=== PATIENT | female | born 1960 | race Caucasian/White ===

== ENCOUNTER 2016-05-28 09:32 | Emergency (ER) | payer MEDICAID, OTHER ==
[2016-05-28] MEDS ORDERED: KETOROLAC TROMETHAMINE 60 MG/2 ML SDV IM ONE (11:03)
--- NOTE | 2016-05-28 11:04 | ER Document Report ---
ED Hip Pain/Injury - General Chief Complaint: Hip Pain Stated Complaint: HIP PAIN Information source: Patient Notes: Patient is a 55-year-old female who presents today with some right and midline lumbar pain and right lateral hip pain. Patient states she has had this pain for many years. She denies any weakness or numbness, incontinence, fevers or vomiting. Patient denies any abdominal pain, falls, recent trauma. TRAVEL OUTSIDE OF THE [place] IN LAST 30 DAYS: No - HPI Patient complains to provider of: Pain Occurred: Other - See above Where: Home Onset/Duration: Constant Quality of pain: Achy Severity: Moderate Pain Level: 2 Skin Color: Normal Skin Temperature: Warm Rotation of extremity: None Associated Symptoms: None - Related Data Allergies/Adverse Reactions: No Known Allergies Allergy (Verified 05/28/16 09:36) Past Medical History - General Information source: Patient - Social History Smoking Status: Current Every Day Smoker Cigarette use (# per day): No Chew tobacco use (# tins/day): No Smoking Education Provided: No Frequency of alcohol use: None Family History: Reviewed & Not Pertinent Patient has suicidal ideation: No Patient has homicidal ideation: No Pulmonary Medical History: Reports: Hx Asthma - last ED visit > 3 years ago, Hx Bronchitis, Hx COPD, Hx Pneumonia - required hospitalization Neurological Medical History: Reports: Hx Migraine. Denies: Hx Seizures Renal/ Medical History: Denies: Hx Peritoneal Dialysis Malignancy Medical History: GI Medical History: Reports: Hx Gastroesophageal Reflux Disease - Rx x 10 years , Hx Ulcer Musculoskeltal Medical History: Reports Hx Arthritis, Reports Hx Musculoskeletal Deformity, Reports Hx Musculoskeletal Trauma Psychiatric Medical History: Reports: Hx Bipolar Disorder, Hx Borderline Personality Disorder, Hx Depression - per [facility]'s note 11/16/14, Hx Schizophrenia - per ED note 10/07/14 Traumatic Medical History: Reports: Hx Fractures - tib RT, denies sugery Past Surgical History: Reports: Hx Dilation and Curettage, Hx Orthopedic Surgery - Bilateral knee replacements. Denies: Hx Appendectomy, Hx Bowel Surgery, Hx Section, Hx Cholecystectomy, Hx Hysterectomy, Hx Mastectomy , Hx Tonsillectomy, Hx Tubal Ligation - Immunizations Immunizations up to date: Yes Hx Diphtheria, Pertussis, Tetanus Vaccination: Yes Review of Systems - Review of Systems Constitutional: denies: Fever Physical Exam - Vital signs Notes: Reviewed vital signs and nursing note as charted by RN. CONSTITUTIONAL: Alert and oriented and responds appropriately to questions. Well -appearing; well-nourished ABD/GI: Normal bowel sounds; non-distended; soft, non-tender, no rebound, no guarding; no palpable organomegaly or masses BACK: The back appears normal and is non-tender to palpation, without erythema or swelling noted, there is no CVA tenderness EXT: Normal ROM in all joints; non-tender to palpation of bilateral hips. Patient appears to have full range of motion. No obvious swelling or erythema to the hips; no cyanosis, no effusions, no edema SKIN: Normal color for age and race; warm; dry; good turgor; capillary refill < 2 seconds; no acute lesions noted NEURO: Moves all extremities equally; Motor and sensory function intact; 2+ patellar reflexes bilaterally. PSYCH: The patient's mood and manner are appropriate. Grooming and personal hygiene are appropriate. Course - Re-evaluation Re-evalutation: 05/28/16 11:02 Given the history and physical examination, previous recent imaging of the lumbar spine and hip, no focal neurological deficits or signs of infection, I will discharge the patient home with strict return precautions and follow-up with orthopedics. Discharge - Discharge Clinical Impression: Right hip pain Condition: Good Disposition: HOME, SELF-CARE Additional Instructions: Come back immediately with any increased pain, weakness or numbness, being or defecating on herself, fevers, or any other acute problems. Please follow-up with orthopedics as we have discussed. Referrals: AFSHAN WRIGHT MD [ACTIVE STAFF] - Follow up as needed
[2016-05-28 11:46] VITALS: BP 93/59
== END 2016-05-28 11:46 | disposition home or self-care (01) ==
LOC: ER 09:32
DX: M25.551 Pain in right hip (principal); M54.5 Low back pain; F17.200 Nicotine dependence, unspecified, uncomplicated; J45.909 Unspecified asthma, uncomplicated; J44.9 Chronic obstructive pulmonary disease, unspecified
CPT/HCPCS: 99283; 96372; J1885

== ENCOUNTER → 2016-06-19 | Outpatient (CLI) | payer MEDICAID ==
[2016-06-19 15:51] LABS: ABSOLUTE BASOPHILS # (AUTO) 0.1 10^3/uL (0.0-0.2); ABSOLUTE EOSINOPHILS # (AUTO) 0.1 10^3/uL (0.0-0.6); ABSOLUTE LYMPHOCYTES (AUTO) 2.6 10^3/uL (0.5-4.7); ABSOLUTE MONOCYTES (AUTO) 0.6 10^3/uL (0.1-1.4); ABSOLUTE NEUT (AUTO) 3.6 10^3/uL (1.7-8.2); BASOPHILS % (AUTO) 1.4 % (0-2); HEMOGLOBIN 12.6 g/dL (12.0-15.5); HGB HCT DIFFERENCE -0.2; LYMPHOCYTES % (AUTO) 37.2 % (13-45); MEAN CORPUSCULAR HEMOGLOBIN 31.1 pg (27.0-33.4); MEAN CORPUSCULAR HGB CONC 33.2 g/dL (32.0-36.0); MEAN CORPUSCULAR VOLUME 94 fl (80-97); MONOCYTES % (AUTO) 8.2 % (3-13); RED BLOOD COUNT 4.05 10^6/uL (3.72-5.28); RED CELL DISTRIBUTION WIDTH 14.9 % (11.5-14.0); SEGMENTED NEUTROPHILS % (AUTO) 51.2 % (42-78); WHITE BLOOD COUNT 6.9 10^3/uL (4.0-10.5)
[2016-06-19 16:10] LABS: ALANINE AMINOTRANSFERASE 20 U/L (9-52); ALBUMIN 4.1 g/dL (3.5-5.0); ALKALINE PHOSPHATASE 71 U/L (38-126); ANION GAP 5 (5-19); ASPARTATE AMINO TRANSFERASE 18 U/L (14-36); BILIRUBIN,TOTAL 0.4 mg/dL (0.2-1.3); BLOOD UREA NITROGEN 17 mg/dL (7-20); CALCIUM 9.4 mg/dL (8.4-10.2); CARBON DIOXIDE 34 mmol/L (22-30); CHLORIDE 103 mmol/L (98-107); CREATININE RESULT 0.51 mg/dL (0.52-1.25); GLUCOSE 78 mg/dL (75-110); POTASSIUM 3.9 mmol/L (3.6-5.0); SODIUM 142.2 mmol/L (137-145); TOTAL PROTEIN 6.9 g/dL (6.3-8.2)
[2016-06-19 17:25] LABS: APPEARANCE,URINE CLEAR; BILIRUBIN,URINE NEGATIVE (NEGATIVE); GLUCOSE, URINE NEGATIVE (NEGATIVE); KETONES,URINE NEGATIVE (NEGATIVE); LEUKOCYTE ESTERASE,URINE SMALL (NEGATIVE); NITRITE,URINE NEGATIVE (NEGATIVE); PROTEIN,URINE NEGATIVE (NEGATIVE); URINE SPECIFIC GRAVITY 1.013; UROBILINOGEN,URINE NEGATIVE mg/dL (<2.0)
== END ==
LOC: OD 14:33
DX: H60.311 Diffuse otitis externa, right ear (principal); R60.0 Localized edema; M17.0 Bilateral primary osteoarthritis of knee; Z79.899 Other long term (current) drug therapy
CPT/HCPCS: 36415; 80053; 81001; 83036; 84443; 85025

== ENCOUNTER 2016-07-14 07:24 | Emergency (ER) | payer MEDICAID ==
[2016-07-14] MEDS ORDERED: NAPROXEN 250 MG TABLET PO ONE ×2 (08:27→09:00)
--- NOTE | 2016-07-14 08:28 | ER Document Report ---
HPI - HPI Patient complains to provider of: morataya pain Pain Level: 2 Context: Patient is a 55-year-old female presents emergency Department complaining of right morataya pain. Patient has a known history of chronic right knee pain after a total knee replacement. Patient states that over the past 7 days she's had worsening of her pain it is now involving her right morataya radiates down into her ankle. She denies any change in activity level. Denies any new injury. Sees Dr. Chris Frey primary care as primary physician - REPRODUCTIVE Reproductive: DENIES: : - DERM Skin Color: Normal Past Medical History - Social History Smoking Status: Current Every Day Smoker Chew tobacco use (# tins/day): No Frequency of alcohol use: None Drug Abuse: None Family History: Reviewed & Not Pertinent Patient has suicidal ideation: No Patient has homicidal ideation: No Pulmonary Medical History: Reports: Hx Asthma - last ED visit > 3 years ago, Hx Bronchitis, Hx COPD, Hx Pneumonia - required hospitalization Neurological Medical History: Reports: Hx Migraine. Denies: Hx Seizures Renal/ Medical History: Denies: Hx Peritoneal Dialysis Malignancy Medical History: GI Medical History: Reports: Hx Gastroesophageal Reflux Disease - Rx x 10 years , Hx Ulcer Musculoskeltal Medical History: Reports Hx Arthritis, Reports Hx Musculoskeletal Deformity, Reports Hx Musculoskeletal Trauma Psychiatric Medical History: Reports: Hx Bipolar Disorder, Hx Borderline Personality Disorder, Hx Depression - per [facility]'s note 11/16/14, Hx Schizophrenia - per ED note 10/07/14 Traumatic Medical History: Reports: Hx Fractures - tib RT, denies sugery Past Surgical History: Reports: Hx Dilation and Curettage, Hx Orthopedic Surgery - Bilateral knee replacements. Denies: Hx Appendectomy, Hx Bowel Surgery, Hx Section, Hx Cholecystectomy, Hx Hysterectomy, Hx Mastectomy , Hx Tonsillectomy, Hx Tubal Ligation - Immunizations Immunizations up to date: Yes Hx Diphtheria, Pertussis, Tetanus Vaccination: Yes Vertical Provider Document - CONSTITUTIONAL Agree With Documented VS: Yes Exam Limitations: No Limitations General Appearance: WD/WN, No Apparent Distress - INFECTION CONTROL TRAVEL OUTSIDE OF THE [place] IN LAST 30 DAYS: No - RESPIRATORY Respiratory: Breath Sounds Normal, No Respiratory Distress, Chest Non-Tender. negative: Rales, Rhonchi, Wheezing O2 Sat by Pulse Oximetry: 97 - CARDIOVASCULAR Cardiovascular: Regular Rate, Regular Rhythm, No Murmur Pulses: Normal: Dorsalis pedis - BACK Back: Normal Inspection Notes: no spine Motion tenderness. - MUSCULOSKELETAL/EXTREMETIES Musculoskeletal/Extremeties: MAEW, FROM, Non-Tender - Knee anterior leg ankle and foot are nontender, Tender - along posterior tibia consistent with morataya splints, No Edema Notes: negative homans - NEURO Level of Consciousness: Awake, Alert, Appropriate - DERM Integumentary: Warm, Dry, No Rash Course - Re-evaluation Re-evalutation: 07/14/16 08:25 Patient is a 55-year-old female presents with chronic pain. Her complaint today is consistent with morataya splints the right leg. Discharge home and can follow-up with PCP. - Vital Signs Vital signs: Temp Pulse Resp BP Pulse Ox 97.9 F 79 16 118/78 97 07/14/16 07:41 07/14/16 07:41 07/14/16 08:03 07/14/16 07:41 07/14/16 07:41 Discharge - Discharge Clinical Impression: Posterior morataya splints Qualifiers: Encounter type: initial encounter Laterality: right Qualified Code(s): S86.891A - Other injury of other muscle(s) and tendon(s) at lower leg level, right leg, initial encounter Condition: Good Disposition: HOME, SELF-CARE Instructions: Ice Packs ([facility]) Additional Instructions: Your injury is consistent with morataya splints. Please see attached instructions Please follow-up with your primary care physician Please take your Mobic 7.5mg twice daily instead of once daily for the next 5 days
[2016-07-14 08:37] VITALS: BP 114/62
== END 2016-07-14 08:53 | disposition home or self-care (01) ==
LOC: ER 07:24
DX: S86.891A Other injury of other muscle(s) and tendon(s) at lower leg level, right leg, initial encounter (principal); X58.XXXA Exposure to other specified factors, initial encounter; G89.29 Other chronic pain; M25.561 Pain in right knee; Z96.653 Presence of artificial knee joint, bilateral
CPT/HCPCS: 99283

== ENCOUNTER 2016-09-01 08:44 | Day surgery (SDC) | payer MEDICAID ==
[2016-08-28 10:05] LABS: HEMATOCRIT 39.7 % (36.0-47.0); HEMOGLOBIN 13.5 g/dL (12.0-15.5); HGB HCT DIFFERENCE 0.8; MEAN CORPUSCULAR HEMOGLOBIN 31.1 pg (27.0-33.4); MEAN CORPUSCULAR HGB CONC 34.1 g/dL (32.0-36.0); MEAN CORPUSCULAR VOLUME 91 fl (80-97); RED BLOOD COUNT 4.36 10^6/uL (3.72-5.28); RED CELL DISTRIBUTION WIDTH 14.1 % (11.5-14.0); WHITE BLOOD COUNT 5.4 10^3/uL (4.0-10.5)
[2016-08-28 10:26] LABS: ANION GAP 9 (5-19); BLOOD UREA NITROGEN 16 mg/dL (7-20); CALCIUM 9.2 mg/dL (8.4-10.2); CARBON DIOXIDE 31 mmol/L (22-30); CHLORIDE 102 mmol/L (98-107); CREATININE RESULT 0.55 mg/dL (0.52-1.25); GLUCOSE 98 mg/dL (75-110); POTASSIUM 5.1 mmol/L (3.6-5.0)
[~2016-09-01 08:44] MED LIST: BACITRACIN INJ 50,000 UNIT VIAL ONE; BUPIVACAINE HCL 0.25 % INJ/PF (2.5 MG/1 ML) 30 ML VIAL ONE; CEFAZOLIN 1 GM/D5W RTU 1 GM/50 ML RTUPB IV PRN; LACTATED RINGERS 1000 ML IV PRN; LIDOCAINE 0.5% INJ-PF (5 MG/ML) 50 ML SDV ONE; LIDOCAINE 0.5% INJ-PF (5 MG/ML) 50 ML SDV SUBCUT PRN; METRONIDAZOLE 500 MG/NS RTU 100 ML IV PRN
[2016-09-01] MEDS ORDERED: FENTANYL CITRATE INJ/PF 100 MCG/2 ML AMPUL ONE ×2 (12:24→14:05)
[2016-09-01] MEDS ORDERED: LIDOCAINE 2% INJ-PF (20 MG/ML) 10 ML AMPUL ONE (12:24)
[2016-09-01] MEDS ORDERED: PROPOFOL INJ 200 MG/20 ML VIAL IV ONE (12:25)
[2016-09-01] MEDS ORDERED: MIDAZOLAM 2 MG/2 ML INJ ONE (12:25)
[2016-09-01] MEDS ORDERED: DEXMEDETOMIDINE INJ 80 MCG/20 ML VIAL IV ONE (12:25)
[2016-09-01] MEDS ORDERED: FENTANYL CITRATE INJ/PF 100 MCG/2 ML AMPUL IV PRN ×3 (13:10)
[2016-09-01] MEDS ORDERED: PROMETHAZINE HCL INJ 25 MG/1 ML VIAL IV PRN ×2 (13:10)
[2016-09-01] MEDS ORDERED: OXYCODONE-ACETAMINOPHEN 5-325 MG TABLET PO PRN ×2 (13:10)
[2016-09-01] MEDS ORDERED: DIPHENHYDRAMINE HCL 50 MG/ML VIAL IV PRN (13:10)
[2016-09-01] MEDS ORDERED: MEPERIDINE HCL/PF INJ 25 MG/1 ML DISP.SYRIN IV PRN (13:10)
[2016-09-01] MEDS ORDERED: ONDANSETRON HCL INJ/PF 4 MG/2 ML SDV IV PRN (13:10)
[2016-09-01] MEDS ORDERED: MORPHINE SULFATE 10 MG/ML INJ IV PRN (13:10)
--- NOTE | 2016-09-01 13:53 | PDOC DISCHARGE SUMMARY ---
Discharge Summary (SDC) - Discharge Final Diagnosis: 1 large subcutaneous mass of left buttock. #2 asthma. #3 obesity. #4 bipolar disorder. #5 hypothyroidism Date of Surgery: 09/01/16 Discharge Date: 09/01/16 Condition: Good Treatment or Instructions: #1 activities within moderation encouraged. #2 follow up in my office by appointment in about 1 week. Call for appointment. #3 the wounds covered clean and dry until office visit. #4 hold off on school/work until evaluation in office. #5 may shower in 48 hours, keep operated area as dry as possible. #6 discharge from ambulatory when ASU criteria met. #7 medications per medication reconciliation sheet. #8 Percocet by prescription.. Also may have one Percocet up to every 2 hours when necessary for pain greater than 4 out of 10 while in the ASU Prescriptions: Oxycodone HCl/Acetaminophen [Percocet 5-325 mg Tablet] 1 tab PO ASDIR PRN #15 tab PRN Reason: Discharge Diet: As Tolerated Respiratory Treatments at Home: Deep Breathing/Coughing Discharge Activity: Activity As Tolerated Report the Following to Your Physician Immediately: Shortness of Breath, Unusual Bleeding
--- NOTE | 2016-09-01 13:57 | Operative Report ---
Operative Report DATE OF SURGERY: 09/01/16 PREOPERATIVE DIAGNOSIS: 1 large subcutaneous mass of left buttock. #2 asthma. #3 obesity. #4 bipolar disorder. #5 hypothyroidism POSTOPERATIVE DIAGNOSIS: 1 large subcutaneous mass of left buttock. Post excision. #2 asthma. #3 obesity. #4 bipolar disorder. #5 hypothyroidism OPERATION: Excision of large subcutaneous mass of left buttock. SURGEON: MAHESH HENDRICKS CHOKE SETTER: none ANESTHESIA: LMAC TISSUE REMOVED OR ALTERED: Subcutaneous mass of left buttock, clinically lipoma COMPLICATIONS: None ESTIMATED BLOOD LOSS: 10 mL. INTRAOPERATIVE FINDINGS: Of a large subcutaneous mass easily 8 x 9 cm in the apex of the left buttock. The subcutaneous tissues. Lobulated with numerous septi. Clinically excised totally. PROCEDURE: PROCEDURE: The left buttock area]was prepared with [chlorhexidine] and draped out with sterile linen. After the"universal time-out", in which it was confirmed that the patient [did receive antibiotic], the procedure commenced. The patient was appropriately anesthetized. The lesion was sketched in marking ink, as well as the proposed incision. A dilute solution of local anesthesia was generously infiltrated in the skin and subcutaneous tissues above and around the mass. An incision was made transversely, in Hanna's lines. This went through to the subcutaneous tissues. Dissection now proceeded in the subcutaneous tissue circumferentially around the mass and then finally posterior to it. In this way the entire mass was [removed and discarded]. The mass was lobulated and the septi septated areas broken down in order to gain access to the lobules. The wound was irrigated with [saline] . Meticulous hemostasis was secured in the wound. This was done using [cautery ]. [The wound was irrigated once more with sterile saline solution]. The subcutaneous tissue was now closed using [a single layer of interrupted sutures. These were of 3-0 PDS]. Skin was closed using a subcuticular suture of 4-0 Monocryl reinforced with Steri-Strips over A sterile dressing was applied and the procedure concluded.
[2016-09-01 16:15] VITALS: BP 112/74
[2016-09-01] MEDS ORDERED: OXYCODONE-ACETAMINOPHEN 5-325 MG TABLET PO ONE (16:15)
== END 2016-09-01 16:10 | disposition home or self-care (01) ==
LOC: OROUT 08:44
PROVIDERS: ATTEND Surgery
PROC: 0JB90ZZ Excision of Buttock Subcutaneous Tissue and Fascia, Open Approach (ICD-10-PCS; principal; 2016-09-01 12:00)
DX: D17.1 Benign lipomatous neoplasm of skin and subcutaneous tissue of trunk (principal); J45.909 Unspecified asthma, uncomplicated; E03.9 Hypothyroidism, unspecified; E66.9 Obesity, unspecified; Z68.41 Body mass index [BMI] 40.0-44.9, adult; F31.9 Bipolar disorder, unspecified; M06.9 Rheumatoid arthritis, unspecified; R06.02 Shortness of breath; G43.909 Migraine, unspecified, not intractable, without status migrainosus; M19.90 Unspecified osteoarthritis, unspecified site; E78.5 Hyperlipidemia, unspecified; F60.3 Borderline personality disorder; F17.210 Nicotine dependence, cigarettes, uncomplicated; Z96.653 Presence of artificial knee joint, bilateral; J44.9 Chronic obstructive pulmonary disease, unspecified; Z87.11 Personal history of peptic ulcer disease; Z79.899 Other long term (current) drug therapy; Z79.51 Long term (current) use of inhaled steroids; Z79.1 Long term (current) use of non-steroidal anti-inflammatories (NSAID)
CPT/HCPCS: 36415 ×2; 84132; 85027; 80048; 71020; 11406; J2250; J3490 ×3; J0690; J3010; S0020; J2704; 300; 88304

== ENCOUNTER 2016-10-28 13:15 | Emergency (ER) | payer MEDICAID ==
[2016-10-28] MEDS ORDERED: IBUPROFEN 800 MG TABLET PO ONE (13:58)
--- NOTE | 2016-10-28 14:03 | ER Document Report ---
ED Extremity Problem, Lower - General Chief Complaint: Leg Pain Stated Complaint: RIGHT LEG PAIN, ANKLE PAIN Time Seen by Provider: 10/28/16 13:46 TRAVEL OUTSIDE OF THE [place] IN LAST 30 DAYS: No - HPI Patient complains to provider of: Pain, Swelling Location: Ankle, Knee, Leg Occurred: Other - chronic Onset/Duration: Persistent Quality of pain: Achy, Sharp Severity: Severe Pain Level: 5 Context: Other - chronic Recent injury: No Associated symptoms: Painful ambulation Exacerbated by: Hanging down, Movement, Walking Relieved by: Nothing - Related Data Allergies/Adverse Reactions: No Known Allergies Allergy (Verified 10/28/16 13:19) Past Medical History - General Information source: Patient - Social History Smoking Status: Current Every Day Smoker Cigarette use (# per day): Yes - 1/2 ppd Smoking Education Provided: Yes - less than 2 min Frequency of alcohol use: None Drug Abuse: None Occupation: taking classes to get ged Lives with: Alone Family History: Reviewed & Not Pertinent Patient has suicidal ideation: No Patient has homicidal ideation: No - Past Medical History Cardiac Medical History: Reports: None Pulmonary Medical History: Reports: Hx Asthma - last ED visit > 3 years ago, Hx Bronchitis, Hx COPD, Hx Pneumonia - required hospitalization EENT Medical History: Reports: None Neurological Medical History: Reports: Hx Migraine Endocrine Medical History: Reports: None Renal/ Medical History: Reports: None Malignancy Medical History: Reports: None GI Medical History: Reports: Hx Gastroesophageal Reflux Disease - Rx x 10 years , Hx Ulcer Musculoskeltal Medical History: Reports Hx Arthritis, Reports Hx Musculoskeletal Deformity, Reports Hx Musculoskeletal Trauma Skin Medical History: Reports None Psychiatric Medical History: Reports: Hx Anxiety, Hx Bipolar Disorder, Hx Borderline Personality Disorder, Hx Depression - per [facility]'s note 11/16/14, Hx Schizophrenia - per ED note 10/07/14 Traumatic Medical History: Reports: Hx Fractures - tib RT, denies sugery Infectious Medical History: Reports: None Past Surgical History: Reports: Hx Dilation and Curettage, Hx Orthopedic Surgery - Bilateral knee replacements - Immunizations Immunizations up to date: Yes Hx Diphtheria, Pertussis, Tetanus Vaccination: Yes Review of Systems - Review of Systems Constitutional: No symptoms reported EENT: No symptoms reported Cardiovascular: No symptoms reported Respiratory: No symptoms reported Gastrointestinal: No symptoms reported Genitourinary: No symptoms reported Female Genitourinary: No symptoms reported Musculoskeletal: Muscle pain, Ankle swelling, Other - right knee ankle and lower leg pain Skin: No symptoms reported Hematologic/Lymphatic: No symptoms reported Neurological/Psychological: No symptoms reported -: Yes All other systems reviewed and negative Physical Exam - Vital signs Vitals: Temp Pulse Resp BP Pulse Ox 99.3 F 76 20 108/66 92 10/28/16 13:19 10/28/16 13:19 10/28/16 13:19 10/28/16 13:19 10/28/16 13:19 Interpretation: Normal - General General appearance: Appears well, Alert - HEENT Head: Normocephalic, Atraumatic Eyes: Normal Pupils: PERRL - Respiratory Respiratory status: No respiratory distress Chest status: Nontender Breath sounds: Normal Chest palpation: Normal - Cardiovascular Rhythm: Regular Heart sounds: Normal auscultation Murmur: No - Abdominal Inspection: Normal Distension: No distension Bowel sounds: Normal Tenderness: Nontender Organomegaly: No organomegaly - Back Back: Normal, Nontender - Extremities General upper extremity: Normal inspection, Nontender, Normal color, Normal ROM , Normal temperature General lower extremity: Normal color, Normal ROM, Normal temperature, Normal weight bearing. No: Roe's sign Knee: Tender, Pain with ROM, Patellar tendon intact Calf: Tender Ankle: Tender, Edema - Neurological Neuro grossly intact: Yes Cognition: Normal Orientation: AAOx4 Pop Coma Scale Eye Opening: Spontaneous Pop Coma Scale Verbal: Oriented Pop Coma Scale Motor: Obeys Commands [place] Coma Scale Total: 15 Speech: Normal Motor strength normal: LUE, RUE, LLE, RLE Sensory: Normal - Psychological Associated symptoms: Normal affect, Normal mood - Skin Skin Temperature: Warm Skin Moisture: Dry Skin Color: Normal Course - Re-evaluation Re-evalutation: 10/28/16 14:44 Patient is up walking around to the nurses station to her ibuprofen. Discussed x-ray results with patient which are negative. Patient will be discharged home to follow-up with her doctor on the November 07 as scheduled. - Vital Signs Vital signs: Temp Pulse Resp BP Pulse Ox 99.3 F 76 20 108/66 92 10/28/16 13:19 10/28/16 13:19 10/28/16 13:19 10/28/16 13:19 10/28/16 13:19 - Diagnostic Test Radiology reviewed: Image reviewed, Reports reviewed Discharge - Discharge Clinical Impression: Chronic pain of right knee, Chronic pain of left lower extremity Condition: Stable Disposition: HOME, SELF-CARE Additional Instructions: Chronic Pain Control Stress, inactivity, and depression make pain more severe regardless of the cause of the pain. Stress and poor physical condition can cause pain such as headaches and backache. Relaxation: Rest in a quiet place with your eyes closed for 20 minutes twice daily. Concentrate on a pleasant image, or simply "feel" your breathing. Clear your mind. Stress management: Deal with your "stressors." Either take action, or eliminate the stressor from your life. Don't let things hang over you. Accept those things you can't change. Nutrition: Eat small, balanced meals -- don't skip, don't overeat. Meals should be high-carbohydrate, low-sugar, low-fat. Exercise: Exercise helps painful conditions and eases stress. Get 30 minutes of moderate exercise, five days a week. Do an activity that does not flare your pain. Precautions: Pain which continues to disrupt daily activities, or which changes in nature, requires a medical evaluation. Pain Clinic referral is available. We do not manage chronic pain in the Emergency Department. We will try to appropriately help you through an acute flare of your chronic painful condition , but for on-going chronic pain that does not improve, you will need to see your private doctor or boat painter. We do not provide repeated medication management of chronic painful conditions. If you wish, we can provide the name of local pain management physicians. ICE & ELEVATION: Apply ice packs frequently against the painful area. Many different schedules are recommended, such as "20 minutes on, 20 minutes off" or "one hour ice, two hours rest." If you need to work, you may need to go longer between ice treatments. You should plan to have the area ice packed AT LEAST one- fourth of the time. The ice should be applied over the wrap, tape, or splint, or over a layer of cloth -- not directly against the skin. Some ice bags have a built-in cloth and can be put directly on the skin. Your injured part should be elevated as much as possible over the next 48 hours. Try to keep the injury above the level of the heart. Avoid use of the injured area. Elevation and rest will decrease the swelling. USE OF [id number] IBUPROFEN: Ibuprofen (Advil, Nuprin, Medipren, Motrin IB) is a medication for fever and pain control. In addition, it has anti- inflammatory effects which may be beneficial, especially in the treatment of injuries. It's best to take ibuprofen with food. Persons with ulcer disease or allergy to aspirin should notify their physician of this before taking ibuprofen. Ibuprofen can be given every four to six hours, for a total of four doses daily. Age Pain or fever dose Antiinflammatory dose 6-8 yr 200 mg (1 tab) 200 mg (1 tab) 9-11 yr 200 mg (1 tab) 200-400 mg (1-2 tab) 11-14 yr 200-400 mg (1-2 tab) 400 mg (2 tab) 15-adult 400 mg (2 tab) 600 mg (3 tab) FOLLOW-UP CARE: If you have been referred to a physician for follow-up care, call the physician s office for an appointment as you were instructed or within the next two days. If you experience worsening or a significant change in your symptoms, notify the physician immediately or return to the Emergency Department at any time for re-evaluation.
--- NOTE | 2016-10-28 14:27 | RADIOLOGY REPORT (SQ) ---
EXAM DESCRIPTION: TIBIA FIBULA RIGHT COMPLETED DATE/TIME: 10/28/2016 2:20 pm REASON FOR STUDY: pain COMPARISON: None. NUMBER OF VIEWS: Two views. TECHNIQUE: Two radiographic images acquired of the right tibia and fibula to include the knee and an kle in at least one projection. LIMITATIONS: None. FINDINGS: MINERALIZATION: Normal. BONES: No acute fracture or dislocation. No worrisome bone lesions. SOFT TISSUES: No obvious swelling or foreign body. OTHER: A total knee arthroplasty is present. IMPRESSION: NEGATIVE STUDY OF THE RIGHT TIBIA AND FIBULA. NO RADIOGRAPHIC EVIDENCE OF ACUTE INJURY. TECHNICAL DOCUMENTATION: JOB ID: [id number] [employer]- All Rights Reserved
[2016-10-28 14:47] VITALS: BP 112/70
== END 2016-10-28 14:46 | disposition home or self-care (01) ==
LOC: ER 13:15
DX: G89.29 Other chronic pain (principal); M79.604 Pain in right leg; M25.561 Pain in right knee; F17.210 Nicotine dependence, cigarettes, uncomplicated; K21.9 Gastro-esophageal reflux disease without esophagitis
CPT/HCPCS: 99283; 73590; J3490

== ENCOUNTER → 2017-01-30 | Outpatient (CLI) | payer MEDICAID ==
--- NOTE | 2017-01-30 16:15 | RADIOLOGY REPORT (SQ) ---
EXAM DESCRIPTION: CHEST PA/LATERAL COMPLETED DATE/TIME: 01/30/2017 3:41 pm REASON FOR STUDY: CHRONIC OBSTRUCTIVE PULMONARY DISEASE,UNSPEC COMPARISON: 08/28/2016 EXAM PARAMETERS: NUMBER OF VIEWS: two views TECHNIQUE: Digital Frontal and Lateral radiographic views of the chest acquired. RADIATION DOSE: NA LIMITATIONS: none FINDINGS: LUNGS AND PLEURA: No opacities, masses or pneumothorax. No pleural effusion. MEDIASTINUM AND HILAR STRUCTURES: No masses or contour abnormalities. HEART AND VASCULAR STRUCTURES: The heart size is borderline. There is no failure. BONES: No acute findings. HARDWARE: None in the chest. OTHER: No other significant finding. IMPRESSION: Borderline cardiomegaly representing a change from the prior study. There is no CHF. TECHNICAL DOCUMENTATION: JOB ID: [id number] [employer]- All Rights Reserved
[2017-01-30 16:19] LABS: ABSOLUTE BASOPHILS # (AUTO) 0.1 10^3/uL (0.0-0.2); ABSOLUTE EOSINOPHILS # (AUTO) 0.3 10^3/uL (0.0-0.6); ABSOLUTE LYMPHOCYTES (AUTO) 3.1 10^3/uL (0.5-4.7); ABSOLUTE MONOCYTES (AUTO) 0.6 10^3/uL (0.1-1.4); ABSOLUTE NEUT (AUTO) 5.6 10^3/uL (1.7-8.2); BASOPHILS % (AUTO) 0.6 % (0-2); EOSINOPHILS % (AUTO) 3.4 % (0-6); HEMATOCRIT 35.7 % (36.0-47.0); HEMOGLOBIN 12.4 g/dL (12.0-15.5); HGB HCT DIFFERENCE 1.5; LYMPHOCYTES % (AUTO) 32.5 % (13-45); MEAN CORPUSCULAR HEMOGLOBIN 32.1 pg (27.0-33.4); MEAN CORPUSCULAR HGB CONC 34.7 g/dL (32.0-36.0); MEAN CORPUSCULAR VOLUME 93 fl (80-97); MONOCYTES % (AUTO) 5.8 % (3-13); RED BLOOD COUNT 3.85 10^6/uL (3.72-5.28); SEGMENTED NEUTROPHILS % (AUTO) 57.7 % (42-78); WHITE BLOOD COUNT 9.7 10^3/uL (4.0-10.5)
--- NOTE | 2017-01-30 16:20 | RADIOLOGY REPORT (SQ) ---
EXAM DESCRIPTION: LUMBAR SPINE COMPLETE COMPLETED DATE/TIME: 01/30/2017 3:41 pm REASON FOR STUDY: LOW BACK PAIN M25.551 PAIN IN RIGHT HIP M54.5 LOW BACK PAIN J44.9 CHRONIC OBSTR UCTIVE PULMONARY DISEASE, UNSPECIFIED COMPARISON: Lumbar spine films 03/22/2016 NUMBER OF VIEWS: Five views including obliques. TECHNIQUE: AP, lateral, oblique, and sacral radiographic images acquired of the lumbar spine. LIMITATIONS: None. FINDINGS: MINERALIZATION: Normal. SEGMENTATION: Normal. No transitional anatomy. ALIGNMENT: Minimal grade 1 anterolisthesis of L4 over L5, and L5 over S1 VERTEBRAE: Maintained height. No fracture or worrisome bone lesion. DISCS: Disc space loss of height at L4-5 and L5-S1 POSTERIOR ELEMENTS: Pedicles and facets are intact. No pars defect or posterior arch defects. Advan juvenal bilateral facet arthropathy at L4-5 and L5-S1 HARDWARE: None in the spine. PARASPINAL SOFT TISSUES: Normal. PELVIS: Intact as visualized. No fractures or worrisome bone lesions. SI joints intact. OTHER: No other significant finding. IMPRESSION: Degenerative changes most pronounced at L4-5 and L5-S1 TECHNICAL DOCUMENTATION: JOB ID: [id number] [employer]- All Rights Reserved
--- NOTE | 2017-01-30 16:22 | RADIOLOGY REPORT (SQ) ---
EXAM DESCRIPTION: SACRUM AND COCCYX COMPLETED DATE/TIME: 01/30/2017 3:41 pm REASON FOR STUDY: LOW BACK PAIN M25.551 PAIN IN RIGHT HIP M54.5 LOW BACK PAIN J44.9 CHRONIC OBSTR UCTIVE PULMONARY DISEASE, UNSPECIFIED COMPARISON: 03/22/2016 NUMBER OF VIEWS: Three views. TECHNIQUE: AP, lateral, and tilt views of the sacrum and coccyx. LIMITATIONS: None. FINDINGS: MINERALIZATION: Normal. BONES: No acute fracture or dislocation. Mild bilateral SI joint arthropathy. SOFT TISSUES: No soft tissue swelling. No foreign body. OTHER: No other significant finding. IMPRESSION: No acute fracture. Mild bilateral SI joint arthropathy. TECHNICAL DOCUMENTATION: JOB ID: [id number] [employer]- All Rights Reserved
--- NOTE | 2017-01-30 16:22 | RADIOLOGY REPORT (SQ) ---
EXAM DESCRIPTION: HIPS BILATERAL COMPLETED DATE/TIME: 01/30/2017 3:41 pm REASON FOR STUDY: PAIN IN RIGHT HIP,PAIN IN LEFT HIP M25.551 PAIN IN RIGHT HIP M54.5 LOW BACK PAIN J44.9 CHRONIC OBSTRUCTIVE PULMONARY DISEASE, UNSPECIFIED COMPARISON: None. NUMBER OF VIEWS: Two views TECHNIQUE: AP pelvis and additional frog-leg view of both hips. LIMITATIONS: None. FINDINGS: MINERALIZATION: Normal. HIPS: No acute fracture or dislocation. No significant joint space narrowing or bony spurring. PELVIS AND SACRUM: No acute fracture or dislocation. Mild bilateral SI joint arthropathy. PUBIS AND ISCHIUM: No acute fracture. LOWER LUMBAR SPINE: No significant findings as visualized. SOFT TISSUES: No findings. OTHER: No other significant finding. IMPRESSION: Mild bilateral SI joint arthropathy TECHNICAL DOCUMENTATION: JOB ID: [id number] [employer] All Rights Reserved
[2017-01-30 16:40] LABS: ALANINE AMINOTRANSFERASE 30 U/L (9-52); ALBUMIN 3.7 g/dL (3.5-5.0); ALKALINE PHOSPHATASE 61 U/L (38-126); ANION GAP 8 (5-19); ASPARTATE AMINO TRANSFERASE 22 U/L (14-36); BILIRUBIN,DIRECT 0.3 mg/dL (0.0-0.4); BILIRUBIN,TOTAL 0.3 mg/dL (0.2-1.3); BLOOD UREA NITROGEN 15 mg/dL (7-20); CALCIUM 9.3 mg/dL (8.4-10.2); CARBON DIOXIDE 32 mmol/L (22-30); CHLORIDE 106 mmol/L (98-107); CHOLESTEROL 147.74 mg/dL (0-200); CREATININE RESULT 0.69 mg/dL (0.52-1.25); Direct HDL 78 mg/dL (>40); GLUCOSE 84 mg/dL (75-110); POTASSIUM 4.1 mmol/L (3.6-5.0); SODIUM 146.4 mmol/L (137-145); TOTAL PROTEIN 6.2 g/dL (6.3-8.2); TRIGLYCERIDES 72 mg/dL (<150)
[2017-01-30 16:51] LABS: DIRECT LDL 50 mg/dL (<100)
== END ==
LOC: OD 14:46
PROVIDERS: ATTEND Family Medicine Geriatric Medicine
DX: M25.551 Pain in right hip (principal); M54.5 Low back pain; J44.9 Chronic obstructive pulmonary disease, unspecified; M25.552 Pain in left hip; E78.5 Hyperlipidemia, unspecified; E03.9 Hypothyroidism, unspecified; E66.9 Obesity, unspecified; Z79.899 Other long term (current) drug therapy
CPT/HCPCS: 36415; 71020; 72110; 72220; 73522; 80053; 80061; 84443; 85025

== ENCOUNTER 2017-02-10 09:59 | Emergency (ER) | payer MEDICAID ==
[2017-02-10 10:08] VITALS: BP 114/64
--- NOTE | 2017-02-10 10:27 | ER Document Report ---
ED Medical Screen (RME) - General Chief Complaint: Hip Pain Stated Complaint: RIGHT HIP PAIN Time Seen by Provider: 02/10/17 10:25 Notes: Patient complains of right hip pain and states that she could not sleep last night due to the pain. She denies any trauma. During my rapid assessment I noticed that patient is confused and somnolent. She also starts mumbling inappropriately. Patient states she does take Klonopin and Abilify and Depakote. she did not sleep last night she says. She denies drug or alcohol use. She denies any type of narcotic pain medication usage. TRAVEL OUTSIDE OF THE [place] IN LAST 30 DAYS: No - Related Data Allergies/Adverse Reactions: No Known Allergies Allergy (Verified 10/28/16 13:19) Past Medical History Pulmonary Medical History: Reports: Hx Asthma - last ED visit > 3 years ago, Hx Bronchitis, Hx COPD, Hx Pneumonia - required hospitalization Neurological Medical History: Reports: Hx Migraine Renal/ Medical History: Denies: Hx Peritoneal Dialysis Malignancy Medical History: GI Medical History: Reports: Hx Gastroesophageal Reflux Disease - Rx x 10 years , Hx Ulcer Musculoskeltal Medical History: Reports Hx Arthritis, Reports Hx Musculoskeletal Deformity, Reports Hx Musculoskeletal Trauma Psychiatric Medical History: Reports: Hx Anxiety, Hx Bipolar Disorder, Hx Borderline Personality Disorder, Hx Depression - per [facility]'s note 11/16/14, Hx Schizophrenia - per ED note 10/07/14 Traumatic Medical History: Reports: Hx Fractures - tib RT, denies sugery Past Surgical History: Reports: Hx Dilation and Curettage, Hx Orthopedic Surgery - Bilateral knee replacements. Denies: Hx Appendectomy, Hx Bowel Surgery, Hx Section, Hx Cholecystectomy, Hx Hysterectomy, Hx Mastectomy , Hx Tonsillectomy, Hx Tubal Ligation - Immunizations Immunizations up to date: Yes Hx Diphtheria, Pertussis, Tetanus Vaccination: Yes Physical Exam - Vital signs Vitals: Temp Pulse Resp BP Pulse Ox 98.8 F 75 16 114/64 92 02/10/17 10:07 02/10/17 10:07 02/10/17 10:07 02/10/17 10:07 02/10/17 10:07 Course - Vital Signs Vital signs: Temp Pulse Resp BP Pulse Ox 98.8 F 75 16 114/64 92 02/10/17 10:07 02/10/17 10:07 02/10/17 10:07 02/10/17 10:07 02/10/17 10:07
[2017-02-10 11:06] LABS: ABSOLUTE BASOPHILS # (AUTO) 0.1 10^3/uL (0.0-0.2); ABSOLUTE EOSINOPHILS # (AUTO) 0.3 10^3/uL (0.0-0.6); ABSOLUTE LYMPHOCYTES (AUTO) 2.8 10^3/uL (0.5-4.7); ABSOLUTE MONOCYTES (AUTO) 0.5 10^3/uL (0.1-1.4); BASOPHILS % (AUTO) 0.8 % (0-2); EOSINOPHILS % (AUTO) 3.7 % (0-6); HEMATOCRIT 37.7 % (36.0-47.0); HEMOGLOBIN 12.7 g/dL (12.0-15.5); HGB HCT DIFFERENCE 0.4; LYMPHOCYTES % (AUTO) 37.3 % (13-45); MEAN CORPUSCULAR HEMOGLOBIN 31.4 pg (27.0-33.4); MEAN CORPUSCULAR HGB CONC 33.7 g/dL (32.0-36.0); MEAN CORPUSCULAR VOLUME 93 fl (80-97); MONOCYTES % (AUTO) 6.3 % (3-13); RED BLOOD COUNT 4.04 10^6/uL (3.72-5.28); RED CELL DISTRIBUTION WIDTH 13.8 % (11.5-14.0); SEGMENTED NEUTROPHILS % (AUTO) 51.9 % (42-78); WHITE BLOOD COUNT 7.6 10^3/uL (4.0-10.5)
[2017-02-10 11:28] LABS: ALANINE AMINOTRANSFERASE 26 U/L (9-52); ALBUMIN 3.9 g/dL (3.5-5.0); ALKALINE PHOSPHATASE 69 U/L (38-126); ANION GAP 11 (5-19); ASPARTATE AMINO TRANSFERASE 17 U/L (14-36); BILIRUBIN,DIRECT 0.3 mg/dL (0.0-0.4); BILIRUBIN,TOTAL 0.3 mg/dL (0.2-1.3); BLOOD UREA NITROGEN 16 mg/dL (7-20); CALCIUM 9.5 mg/dL (8.4-10.2); CARBON DIOXIDE 31 mmol/L (22-30); CHLORIDE 103 mmol/L (98-107); GLUCOSE 111 mg/dL (75-110); POTASSIUM 4.7 mmol/L (3.6-5.0); SODIUM 144.6 mmol/L (137-145); TOTAL PROTEIN 6.4 g/dL (6.3-8.2)
[2017-02-10 11:33] LABS: VALPROIC ACID 57.6 ug/mL (50.0-120.0)
[2017-02-10 11:35] LABS: ALCOHOL < 10 mg/dL (NONE DETECTED)
== END 2017-02-10 13:12 | disposition left against medical advice (07) ==
LOC: ER 09:59
DX: Z53.9 Procedure and treatment not carried out, unspecified reason (principal); M25.551 Pain in right hip
CPT/HCPCS: 36415; 80053; 80164; 80307; 85025; 99281

== ENCOUNTER 2017-02-12 14:43 | Emergency (ER) | payer MEDICAID ==
[2017-02-12] MEDS ORDERED: KETOROLAC TROMETHAMINE 60 MG/2 ML SDV IM ONE (15:29)
[2017-02-12] MEDS ORDERED: DEXAMETHASONE SOD PHOS INJ 10 MG/1 ML VIAL IM ONE (15:29)
--- NOTE | 2017-02-12 15:33 | ER Document Report ---
ED Neck/Back Problem - General Chief Complaint: Back Pain Stated Complaint: BACK, HIPS AND RIGHT LEG PAIN Time Seen by Provider: 02/12/17 15:18 Mode of Arrival: Ambulatory Information source: Patient Notes: 56-year-old female presents to ED for complaint of pain in her low back down her right hip down her right leg to her foot. She has a long history of chronic pain in her back with the same symptoms. She was seen here couple days ago. She states she has an ENT appointment next week that she is supposed to be getting referred to pain management. TRAVEL OUTSIDE OF THE [place] IN LAST 30 DAYS: No - HPI Patient complains to provider of: Pain, Lower back - Down right hip down right leg to the foot Onset: Other - Chronic Onset: Chronic Timing: Waxing and waning, Still present Quality of pain: Sharp Severity: Severe Pain Level: 5 Recent injury: No Associated symptoms: Like prior neck/back pain, Radiation to leg, Lower back pain. denies: Constipation, Motor loss, Numbness/tingling, Sensory loss, Sweaty , Unable to urinate Exacerbated by: Movement of trunk, Sitting position Relieved by: Nothing Similar symptoms previously: Yes Recently seen / treated by doctor: Yes - Related Data Allergies/Adverse Reactions: No Known Allergies Allergy (Verified 02/12/17 14:53) Past Medical History - General Information source: Patient - Social History Smoking Status: Current Every Day Smoker Cigarette use (# per day): Yes - States she smokes about 10 rolled her own cigarettes a day Chew tobacco use (# tins/day): No Smoking Education Provided: Yes - Less than 2 minutes Frequency of alcohol use: None Drug Abuse: None Occupation: none Lives with: Alone Family History: Reviewed & Not Pertinent Patient has suicidal ideation: No - Past Medical History Cardiac Medical History: Reports: None Pulmonary Medical History: Reports: Hx Asthma - last ED visit > 3 years ago, Hx Bronchitis, Hx COPD, Hx Pneumonia - required hospitalization EENT Medical History: Reports: None Neurological Medical History: Reports: Hx Migraine Endocrine Medical History: Reports: None Renal/ Medical History: Reports: Other - incontinence uses vesicare Malignancy Medical History: GI Medical History: Reports: Hx Gastroesophageal Reflux Disease - Rx x 10 years , Hx Ulcer Musculoskeltal Medical History: Reports Hx Arthritis, Reports Hx Musculoskeletal Deformity, Reports Hx Musculoskeletal Trauma Skin Medical History: Reports None Psychiatric Medical History: Reports: Hx Anxiety, Hx Bipolar Disorder, Hx Borderline Personality Disorder, Hx Depression - per [facility]'s note 11/16/14, Hx Schizophrenia - per ED note 10/07/14 Traumatic Medical History: Reports: Hx Fractures - tib RT, denies sugery Infectious Medical History: Reports: None Past Surgical History: Reports: Hx Dilation and Curettage, Hx Orthopedic Surgery - Bilateral knee replacements - Immunizations Immunizations up to date: Yes Hx Diphtheria, Pertussis, Tetanus Vaccination: Yes Review of Systems - Review of Systems Constitutional: No symptoms reported EENT: No symptoms reported Cardiovascular: No symptoms reported Respiratory: No symptoms reported Gastrointestinal: No symptoms reported Genitourinary: No symptoms reported Female Genitourinary: No symptoms reported Musculoskeletal: Back pain, Muscle pain, Muscle stiffness Skin: No symptoms reported Hematologic/Lymphatic: No symptoms reported Neurological/Psychological: No symptoms reported -: Yes All other systems reviewed and negative Physical Exam - Vital signs Vitals: Temp Pulse Resp BP Pulse Ox 98.5 F 76 18 119/73 93 02/12/17 14:54 02/12/17 14:54 02/12/17 14:54 02/12/17 14:54 02/12/17 14:54 Interpretation: Normal - General General appearance: Appears well, Alert - HEENT Head: Normocephalic, Atraumatic Eyes: Normal Pupils: PERRL - Respiratory Respiratory status: No respiratory distress Chest status: Nontender Breath sounds: Normal Chest palpation: Normal - Cardiovascular Rhythm: Regular Heart sounds: Normal auscultation Murmur: No - Abdominal Inspection: Normal Distension: No distension Bowel sounds: Normal Tenderness: Nontender Organomegaly: No organomegaly - Back Back: Normal, Tender. No: Deformity/step-off, CVA tenderness, Vertebra tenderness, Scars, Scoliosis, Wounds - Extremities General upper extremity: Normal inspection, Nontender, Normal color, Normal ROM , Normal temperature General lower extremity: Normal inspection, Nontender, Normal color, Normal ROM , Normal temperature, Normal weight bearing. No: Roe's sign - Neurological Neuro grossly intact: Yes Cognition: Normal Orientation: AAOx4 Waldo Coma Scale Eye Opening: Spontaneous Waldo Coma Scale Verbal: Oriented Waldo Coma Scale Motor: Obeys Commands Pop Coma Scale Total: 15 Speech: Normal Motor strength normal: LUE, RUE, LLE, RLE Sensory: Normal - Psychological Associated symptoms: Normal affect, Normal mood - Skin Skin Temperature: Warm Skin Moisture: Dry Skin Color: Normal Course - Re-evaluation Re-evalutation: 02/12/17 15:35 No signs or symptoms of cauda equina, no signs and symptoms of saddle anesthesia , no loss of sensation, no loss of ambulation, patient has a long history of chronic back pain. She states she supposed to be started pain management soon. Will treat with Toradol and Decadron as she states sometimes these help her pain. - Vital Signs Vital signs: Temp Pulse Resp BP Pulse Ox 98.2 F 87 18 125/70 96 02/12/17 16:05 02/12/17 16:05 02/12/17 16:05 02/12/17 16:05 02/12/17 16:05 Discharge - Discharge Clinical Impression: Chronic back pain greater than 3 months duration Condition: Stable Disposition: HOME, SELF-CARE Additional Instructions: Chronic Pain Control Stress, inactivity, and depression make pain more severe regardless of the cause of the pain. Stress and poor physical condition can cause pain such as headaches and backache. Relaxation: Rest in a quiet place with your eyes closed for 20 minutes twice daily. Concentrate on a pleasant image, or simply "feel" your breathing. Clear your mind. Stress management: Deal with your "stressors." Either take action, or eliminate the stressor from your life. Don't let things hang over you. Accept those things you can't change. Nutrition: Eat small, balanced meals -- don't skip, don't overeat. Meals should be high-carbohydrate, low-sugar, low-fat. Exercise: Exercise helps painful conditions and eases stress. Get 30 minutes of moderate exercise, five days a week. Do an activity that does not flare your pain. Precautions: Pain which continues to disrupt daily activities, or which changes in nature, requires a medical evaluation. Pain Clinic referral is available. We do not manage chronic pain in the Emergency Department. We will try to appropriately help you through an acute flare of your chronic painful condition , but for on-going chronic pain that does not improve, you will need to see your private doctor or roof cement and paint maker helper. We do not provide repeated medication management of chronic painful conditions. If you wish, we can provide the name of local pain management physicians. LOW BACK PAIN: Three out of every four people will have an episode of disabling back pain during their lifetime. Most commonly the pain is due to straining of the muscles and ligaments in the low back. Usual treatment includes: (1) Rest on a firm surface. Avoid lying on your stomach. (2) Ice pack the painful area. After a few days, gentle heat may be used intermittently to relax the area, or ice packs can be continued. (3) Medication may be needed -- muscle relaxers and antiinflammatory medicines are commonly used. (4) As the back improves, exercises are prescribed to strengthen the back and abdominal muscles. Your doctor will advise you on the proper care for your back at each stage in your recovery. You may be better in a few days -- or healing may take several weeks. If new symptoms of a "herniated disc" (radiation of pain, numbness, or tingling down the back of the leg or weakness in the leg) occur, you should be re-examined. Further testing may be necessary. Toradol Injection You have been given an injection of ketorolac tromethamine (Toradol). This is an excellent, safe drug for pain control. It also has potent antiinflammatory action. You should have significant pain relief within about one hour. Toradol is not addicting and is non-sedating. It does not interfere with driving or work. Call or return if you develop itching, hives, shortness of breath, or rash. STEROID MEDICATION: You have been given an injection of medicine of the cortisone/steroid class. This medication is used to control inflammation or allergy. It is often continued as a pill for a short period of time, until the acute process subsides. There are usually no side effects from short-term use of cortisone-like medications. Some persons feel an increased sense of well-being and are not sleepy at bedtime. Long-term use of cortisone medications is best avoided, unless required for a severe condition. If your condition does not remit, or relapses after the course of corticosteroid medication, you should consult your physician. ICE PACKS: Apply ice packs frequently against the painful area. Many different schedules are recommended, such as "20 minutes on, 20 minutes off" or "one hour ice, two hours rest." If you need to work, you may need to go longer between ice treatments. You should plan to have the area ice packed AT LEAST one fourth of the time. The ice should be applied over the wrap, tape, or splint, or over a layer of cloth -- not directly against the skin. Some ice bags have a built-in cloth and can be put directly on the skin. WARM PACKS: After approximately two days, apply gentle heat (such as a heating pad or hot water bottle) for about 20 to 30 minutes about every two hours -- at least four times daily. Warmth and elevation will help you make a more rapid recovery , and will ease the pain considerably. Do not use HOT heat, and never apply heat for longer than 30 minutes. The continuous heat can invisibly damage skin and muscles -- even when no burn is seen on the surface. Damaged muscles can make you MORE sore. FOLLOW-UP CARE: If you have been referred to a physician for follow-up care, call the physician s office for an appointment as you were instructed or within the next two days. If you experience worsening or a significant change in your symptoms, notify the physician immediately or return to the Emergency Department at any time for re-evaluation. Forms: Smoking Cessation Education Referrals: MAAME GOMEZ MD [COMMUNITY BASED STAFF] - Follow up as needed
[2017-02-12 16:15] VITALS: BP 125/70
== END 2017-02-12 16:06 | disposition home or self-care (01) ==
LOC: ER 14:43
DX: G89.29 Other chronic pain (principal); M54.5 Low back pain; J44.9 Chronic obstructive pulmonary disease, unspecified; F17.210 Nicotine dependence, cigarettes, uncomplicated; Z71.6 Tobacco abuse counseling
CPT/HCPCS: 99283; 96372; J1885; J1100

== ENCOUNTER 2017-02-16 19:40 | Inpatient (IN) | payer MEDICAID ==
[2017-02-16] MEDS: HEPARIN SOD (PORCINE) 5,000 UNIT/ML 1 ML SYRINGE SUBCUT SCH (00:15)
[2017-02-16] MEDS ORDERED: BUDESONIDE NEB 0.5 MG/2 ML AMPUL NEB ONE (19:47)
[2017-02-16] MEDS ORDERED: ALBUTEROL SULFATE 0.083% NEB 2.5 MG/3 ML AMPUL NEB ONE (19:48)
[2017-02-16] MEDS ORDERED: IPRATROPIUM/ALBUTEROL 0.5-2.5 MG/3 ML AMPUL NEB ONE ×2 (19:58→20:21)
--- NOTE | 2017-02-16 20:19 | RADIOLOGY REPORT (SQ) ---
EXAM DESCRIPTION: CHEST SINGLE VIEW COMPLETED DATE/TIME: 02/16/2017 8:10 pm REASON FOR STUDY: dyspnea COMPARISON: None. EXAM PARAMETERS: NUMBER OF VIEWS: One view. TECHNIQUE: Single frontal radiographic view of the chest acquired. RADIATION DOSE: NA LIMITATIONS: None. FINDINGS: LUNGS AND PLEURA: No opacities, masses or pneumothorax. No pleural effusion. MEDIASTINUM AND HILAR STRUCTURES: No masses. Contour normal. HEART AND VASCULAR STRUCTURES: Heart normal in size. Normal vasculature. BONES: No acute findings. HARDWARE: None in the chest. OTHER: No other significant finding. IMPRESSION: NO ACUTE RADIOGRAPHIC FINDING IN THE CHEST. TECHNICAL DOCUMENTATION: JOB ID: [id number]
[2017-02-16] MEDS ORDERED: NALOXONE HCL INJ 2 MG/2 ML DISP.SYRIN IV ONE ×2 (20:20→21:35)
--- NOTE | 2017-02-16 20:25 | EKG REPORT ---
SEVERITY:- OTHERWISE NORMAL ECG - SINUS RHYTHM BORDERLINE LEFT AXIS DEVIATION : Confirmed by: Tanisha Pabon 16-Feb-2017 20:24:57
[2017-02-16 20:26] LABS: ABSOLUTE BASOPHILS # (AUTO) 0.1 10^3/uL (0.0-0.2); ABSOLUTE EOSINOPHILS # (AUTO) 0.2 10^3/uL (0.0-0.6); ABSOLUTE LYMPHOCYTES (AUTO) 1.7 10^3/uL (0.5-4.7); ABSOLUTE MONOCYTES (AUTO) 0.7 10^3/uL (0.1-1.4); ABSOLUTE NEUT (AUTO) 10.3 10^3/uL (1.7-8.2); BASOPHILS % (AUTO) 0.4 % (0-2); EOSINOPHILS % (AUTO) 1.6 % (0-6); HEMOGLOBIN 12.5 g/dL (12.0-15.5); HGB HCT DIFFERENCE 0.5; LYMPHOCYTES % (AUTO) 13.4 % (13-45); MEAN CORPUSCULAR HEMOGLOBIN 31.7 pg (27.0-33.4); MEAN CORPUSCULAR HGB CONC 33.9 g/dL (32.0-36.0); MEAN CORPUSCULAR VOLUME 94 fl (80-97); MONOCYTES % (AUTO) 5.1 % (3-13); RED BLOOD COUNT 3.96 10^6/uL (3.72-5.28); RED CELL DISTRIBUTION WIDTH 13.7 % (11.5-14.0); SEGMENTED NEUTROPHILS % (AUTO) 79.5 % (42-78)
[2017-02-16] MEDS ORDERED: MAGNESIUM SULFATE/D5W 1 GM/100 ML RTUPB IV SCH (20:30)
[2017-02-16 20:41] LABS: ALANINE AMINOTRANSFERASE 33 U/L (9-52); ALBUMIN 4.2 g/dL (3.5-5.0); ALKALINE PHOSPHATASE 76 U/L (38-126); ANION GAP 9 (5-19); ASPARTATE AMINO TRANSFERASE 20 U/L (14-36); BILIRUBIN,DIRECT 0.3 mg/dL (0.0-0.4); BILIRUBIN,TOTAL 0.4 mg/dL (0.2-1.3); BLOOD UREA NITROGEN 11 mg/dL (7-20); CALCIUM 9.3 mg/dL (8.4-10.2); CARBON DIOXIDE 33 mmol/L (22-30); CHLORIDE 99 mmol/L (98-107); CREATININE RESULT 0.52 mg/dL (0.52-1.25); GLUCOSE 140 mg/dL (75-110); POTASSIUM 4.7 mmol/L (3.6-5.0); TOTAL PROTEIN 6.8 g/dL (6.3-8.2)
[2017-02-16 20:53] LABS: TROPONIN I < 0.012 ng/mL
[2017-02-16 21:18] LABS: VALPROIC ACID 40.2 ug/mL (50.0-120.0)
[2017-02-16 21:19] LABS: ALCOHOL < 10 mg/dL (NONE DETECTED)
[2017-02-16 21:24] LABS: ARTERIAL BLOOD BASE EXCESS 2.6 mmol/L; ARTERIAL BLOOD O2 SATURATION 73.2 % (94-98)
[2017-02-16] MEDS ORDERED: NALOXONE HCL INJ 2 MG/2 ML DISP.SYRIN IV PRN (21:44)
[2017-02-16] MEDS ORDERED: GLUCAGON,HUMAN RECOMB 1 MG INJ IM PRN (21:45)
[2017-02-16] MEDS ORDERED: DEXTROSE 50%-WATER 25 GM/50 ML DISP.SYRIN IV PRN ×2 (21:45)
[2017-02-16] MEDS ORDERED: ONDANSETRON HCL INJ/PF 4 MG/2 ML SDV IV PRN (21:45)
[2017-02-16] MEDS ORDERED: MAG HYDROX/AL HYDROX/SIMETH SUSP 30 ML UDCUP PO PRN (21:45)
[2017-02-16] MEDS ORDERED: IPRATROPIUM/ALBUTEROL 0.5-2.5 MG/3 ML AMPUL NEB PRN (21:45)
[2017-02-16] MEDS ORDERED: ACETAMINOPHEN 325 MG TABLET PO PRN (21:45)
[2017-02-16] MEDS ORDERED: INSULIN LISPRO 100 UNIT/ML 3 ML VIAL SUBCUT PRN (21:45)
[2017-02-16] MEDS ORDERED: MAGNESIUM HYDROXIDE SUSP 30 ML UDCUP PO PRN (21:45)
[2017-02-16] MEDS ORDERED: DEXTROSE 40% GEL 15 GM TUBE PO PRN ×2 (21:45)
[2017-02-16] MEDS: DIVALPROEX SODIUM 250 MG TABLET.DR PO SCH (22:00)
[2017-02-16] MEDS: CLONAZEPAM 1 MG TABLET PO SCH (22:00)
[2017-02-16] MEDS ORDERED: NORMAL SALINE 500 ML with NALOXONE HCL 2 MG IV PRN ×4 (22:34→22:38)
--- NOTE | 2017-02-16 23:12 | ER Document Report ---
ED General - General Stated Complaint: DIFFICULTY BREATHING Mode of Arrival: Medic Information source: Patient TRAVEL OUTSIDE OF THE [place] IN LAST 30 DAYS: No - HPI Notes: Patient is a 56-year-old female smoker with long-standing history of COPD and tobacco abuse and chronic pain and hypercarbia presents to the emergency department with report of difficulty breathing. Patient was alert and interactive when she was picked up by EMS and found to have a O2 sat of 83% on room air. The patient was given a DuoNeb and IV Solu-Medrol and was placed upon CPAP and 100% oxygen. The patient's O2 sat went up to 100%, but she became somnolent in route by EMS. After arrival, the patient was taken off of oxygen and her O2 sat went to the mid to low 90s and she became more alert and interactive. The patient at that time denied taking any sedatives or narcotics. However the patient was still somnolent and was given Narcan. After the Narcan she became somewhat agitated and was complaining of her chronic back and leg pain and was hyper alert.\ Patient denied intentional overdose, chest pain, fever, productive cough, vomiting. The patient also admitted to taking Klonopin on regular interval. - Related Data Allergies/Adverse Reactions: No Known Allergies Allergy (Verified 02/12/17 14:53) Past Medical History - General Information source: Patient, Emergency Med Personnel - Social History Smoking Status: Current Every Day Smoker Frequency of alcohol use: None Drug Abuse: Prescription drugs Lives with: Alone Family History: Reviewed & Not Pertinent Pulmonary Medical History: Reports: Hx Asthma - last ED visit > 3 years ago, Hx Bronchitis, Hx COPD, Hx Pneumonia - required hospitalization Neurological Medical History: Reports: Hx Migraine Renal/ Medical History: Denies: Hx Peritoneal Dialysis Malignancy Medical History: GI Medical History: Reports: Hx Gastroesophageal Reflux Disease - Rx x 10 years , Hx Ulcer. Denies: Hx Pancreatitis Musculoskeltal Medical History: Reports Hx Arthritis, Reports Hx Musculoskeletal Deformity, Reports Hx Musculoskeletal Trauma Psychiatric Medical History: Reports: Hx Anxiety, Hx Bipolar Disorder, Hx Borderline Personality Disorder, Hx Depression - per [facility]'s note 11/16/14, Hx Schizophrenia - per ED note 10/07/14 Traumatic Medical History: Reports: Hx Fractures - tib RT, denies sugery Past Surgical History: Reports: Hx Dilation and Curettage, Hx Orthopedic Surgery - Bilateral knee replacements. Denies: Hx Appendectomy, Hx Bowel Surgery, Hx Section, Hx Cholecystectomy, Hx Hysterectomy, Hx Mastectomy , Hx Tonsillectomy, Hx Tubal Ligation - Immunizations Immunizations up to date: Yes Hx Diphtheria, Pertussis, Tetanus Vaccination: Yes Review of Systems - Review of Systems Notes: REVIEW OF SYSTEMS: CONSTITUTIONAL : Denies fever, chills, or sweats. EENT: Denies eye, ear, throat, or mouth pain or symptoms. Denies nasal or sinus congestion or discharge. Denies throat, tongue, or mouth swelling or difficulty swallowing. CARDIOVASCULAR: Denies chest pain. Denies palpitations or racing or irregular heart beat. Denies ankle edema. RESPIRATORY: Reports nonproductive cough. GASTROINTESTINAL: Denies abdominal pain or distention. Denies nausea, vomiting , or diarrhea. Denies blood in vomitus, stools, or per rectum. Denies black, tarry stools. Denies constipation. GENITOURINARY: Denies difficulty urinating, painful urination, burning, frequency, blood in urine, or discharge. FEMALE GENITOURINARY: Denies vaginal bleeding, heavy or abnormal periods, irregular periods. Denies vaginal discharge or odor. MUSCULOSKELETAL: Reports chronic back and leg pain. No leg swelling. SKIN: Denies rash, lesions or sores. HEMATOLOGIC : Denies easy bruising or bleeding. LYMPHATIC: Denies swollen, enlarged glands. NEUROLOGICAL: Denies passing out or loss of consciousness. Denies dizziness or lightheadedness. Denies headache. Denies weakness or paralysis or loss of use of either side. Denies problems with gait or speech. Denies sensory loss, numbness, or tingling. Denies seizures. PSYCHIATRIC: Denies anxiety or stress. Denies depression, suicidal ideation, or homicidal ideation. ALL OTHER SYSTEMS REVIEWED AND NEGATIVE. Dictation was performed using [employer] voice recognition software Physical Exam - Vital signs Vitals: Temp Pulse Resp BP Pulse Ox 98 F 92 35 H 126/62 H 96 02/16/17 21:17 02/16/17 21:17 02/16/17 21:17 02/16/17 21:17 02/16/17 21:17 - Notes Notes: PHYSICAL EXAMINATION: GENERAL: Initially seen somnolent. After Narcan, the patient was hyper alert, almost agitated. HEAD: Atraumatic, normocephalic. EYES: Pupils equal round and reactive to light, extraocular movements intact, conjunctiva are normal. Pupils were not pinpoint. ENT: Nares patent, oropharynx clear without exudates. Moist mucous membranes. NECK: Normal range of motion, supple without lymphadenopathy LUNGS: Breath sounds Coarse with wheezing bilaterally and equal. No rales or rhonchi. HEART: Regular rate and rhythm without murmurs ABDOMEN: Soft, nontender, nondistended abdomen. No guarding, no rebound. No masses appreciated. Female : deferred Musculoskeletal: Normal range of motion. No cyanosis. Trace edema bilaterally. Negative Homans. NEUROLOGICAL: Cranial nerves grossly intact. Normal sensory, motor exams after Narcan. Patient was alert and oriented 3. PSYCH: Somnolent before Narcan. Agitated and hyper alert after Narcan. Patient denies suicidal or homicidal ideation and reports no hallucinations. SKIN: Warm, Dry, normal turgor, no rashes or lesions noted. Course - Re-evaluation Re-evalutation: 02/16/17 23:40 Patient was given additional DuoNeb with improvement in her wheezing. The patient was given Narcan with significant improvement in her somnolence, but afterwards required an additional dose of Narcan. She repetitively denied intentional overdose. Blood gas showed more of a venous specimen, but still there was no severe hypercarbia, And findings were similar to previous blood gas in the medical record. Patient had already received IV Solu-Medrol. She was given IV magnesium and additional nebulizer treatments. She repetitively was asking for medications for pain. Repeat exam showed no pain patches and the patient had no access to any of her home medications. Discussion was undertaken with the hospitalist, Dr. Jon, and he agreed to admit the patient for further evaluation and monitoring. No evidence for acute MO, electrolyte imbalance, anemia, CHF, pneumonia or obvious aspiration. Patient's overdose appears more accidental. I suspect underlying sleep apnea with mild obesity and chronic tobacco abuse. 02/16/17 23:42 - Vital Signs Vital signs: Temp Pulse Resp BP Pulse Ox 98 F 92 25 H 126/62 H 95 02/16/17 21:17 02/16/17 21:17 02/16/17 22:48 02/16/17 21:17 02/16/17 22:48 - Laboratory Result Diagrams: 02/16/17 20:10 02/16/17 20:10 Laboratory results interpreted by me: 02/16/17 02/16/17 02/16/17 20:10 20:10 20:10 WBC 13.0 H Seg Neutrophils % 79.5 H Absolute Neutrophils 10.3 H Carbonic Acid ABG pH ABG pCO2 ABG pO2 ABG HCO3 ABG Total CO2 ABG O2 Saturation Carbon Dioxide 33 H Glucose 140 H Acetaminophen Valproic Acid 40.2 L 02/16/17 02/16/17 20:10 21:10 WBC Seg Neutrophils % Absolute Neutrophils Carbonic Acid 1.76 H ABG pH 7.33 L ABG pCO2 58.5 H ABG pO2 42.2 L ABG HCO3 30.0 H ABG Total CO2 31.8 H ABG O2 Saturation 73.2 L Carbon Dioxide Glucose Acetaminophen < 10 L Valproic Acid Critical Care Note - Critical Care Note Total time excluding time spent on procedures (mins): 52 Discharge - Discharge Clinical Impression: COPD with acute exacerbation, Tobacco abuse, Hypercapnemia Narcotic overdose Qualifiers: Encounter type: initial encounter Injury intent: accidental or unintentional Qualified Code(s): T40.601A - Poisoning by unspecified narcotics, accidental ( unintentional), initial encounter
[2017-02-17 01:30] LABS: URINE BARBITURATES SCREEN NEGATIVE; URINE METHADONE SCREEN NEGATIVE; URINE OPIATES LOW NEGATIVE; URINE PHENCYCLIDINE SCREEN NEGATIVE
[2017-02-17 02:44] LABS: CREATINE KINASE MB 2.85 ng/mL (<4.55)
[2017-02-17 02:48] LABS: TROPONIN I < 0.012 ng/mL
--- NOTE | 2017-02-17 04:27 | PDOC H&P ---
History of Present Illness Admission Date/PCP: 02/16/17 21:45 Patient complains of: Altered mental status History of Present Illness: MANDEEP VIVAR is a 56 year old female with a history of anxiety, COPD, chronic bronchitis, tobacco and polysubstance abuse, opiate, benzodiazepine and cocaine dependence. Patient is unable to provide history is obtained by the record patient notified EMS of shortness of breath where she is found to have oxygen saturations of 83% and improved to 100% with supplemental oxygen and brought to the emergency room for evaluation where she is found to be somnolent and unarousable. She receives IV Narcan 3 with brief improvement, ABG reveals hypoxic and hypercapnic respiratory failure and is referred to the hospitalist for admission. Patient remains obtunded she is placed on IV Narcan and BiPAP. Past Medical History Cardiac Medical History: Reports: Hypertension Pulmonary Medical History: Reports: Asthma - last ED visit > 3 years ago, Bronchitis, Chronic Obstructive Pulmonary Disease (COPD), Pneumonia - required hospitalization Neurological Medical History: Reports: Migraine Malignancy Medical History: GI Medical History: Reports: Gastroesophageal Reflux Disease - Rx x 10 years Musculoskeltal Medical History: Reports: Arthritis Psychiatric Medical History: Reports: Bipolar Disorder, Depression - per Suzanne's note 11/16/14, General Anxiety Disorder, Substance Abuse, Tobacco Dependency Hematology: Denies: Anemia Past Surgical History Past Surgical History: Reports: Orthopedic Surgery - Bilateral knee replacements Denies: Amputation, Appendectomy, Section, Cholecystectomy, Hysterectomy, Mastectomy, Tonsillectomy, Tubal Ligation Social History Information Source: [facility] Records Lives with: Alone Smoking Status: Current Every Day Smoker Hx Recreational Drug Use: Yes Drugs: Cocaine Hx Prescription Drug Abuse: Yes - Advance Directive Resuscitation Status: Full Code Family History Family History: Other - Unknown Parental Family History Reviewed: Yes - Unobtainable Children Family History Reviewed: Yes - Unobtainable Sibling(s) Family History Reviewed.: Yes - Unobtainable Medication/Allergy Home Medications: Aripiprazole [Abilify 10 mg Tablet] 10 mg PO DAILY 09/01/16 Clonazepam [Klonopin 1 mg Tablet] 1 mg PO QHS 09/01/16 Cyclobenzaprine HCl [Flexeril 10 mg Tablet] 10 mg PO TIDP PRN 09/01/16 Divalproex Sodium [Depakote] 500 mg PO BID 09/01/16 Esomeprazole Magnesium 20 mg PO DAILY 09/01/16 Hydroxyzine Pamoate [Vistaril] 75 mg PO QHS 09/01/16 Ipratropium/Albuterol Sulfate [Combivent Inhaler] 14.7 gm IH Q4 09/01/16 Oxycodone HCl/Acetaminophen [Percocet 5-325 mg Tablet] 1 tab PO ASDIR PRN #15 tab 09/01/16 Paroxetine HCl [Paxil 20 mg Tablet] 20 mg PO DAILY 09/01/16 Simvastatin 40 mg PO 09/01/16 Solifenacin Succinate [Vesicare] 5 mg PO 09/01/16 Albuterol Sulfate [Ventolin Hfa] 2 puff IH Q4HP PRN #17 gm 01/04/17 Prednisone [Deltasone 20 mg Tablet] 2 tab PO DAILY 5 Days tablet 01/04/17 Allergies/Adverse Reactions: No Known Allergies Allergy (Verified 02/12/17 14:53) Review of Systems ROS unobtainable: Due to mental status Physical Exam Vital Signs: Temp Pulse Resp BP Pulse Ox 98 F 92 19 125/71 100 02/16/17 21:17 02/16/17 21:17 02/17/17 02:31 02/17/17 02:31 02/17/17 03:42 General appearance: PRESENT: disheveled, obese, severe distress Head exam: PRESENT: atraumatic, normocephalic Eye exam: PRESENT: conjunctiva pink, EOMI, PERRLA. ABSENT: scleral icterus Ear exam: PRESENT: normal external ear exam Mouth exam: PRESENT: dry mucosa Neck exam: ABSENT: carotid bruit, JVD, lymphadenopathy, thyromegaly Respiratory exam: PRESENT: crackles, prolonged expiratory phas, symmetrical. ABSENT: retraction, rhonchi Cardiovascular exam: PRESENT: RRR. ABSENT: diastolic murmur, rubs, systolic murmur Pulses: PRESENT: normal dorsalis pedis pul Vascular exam: PRESENT: normal capillary refill GI/Abdominal exam: PRESENT: normal bowel sounds, soft. ABSENT: distended, guarding, mass, organolmegaly, rebound, tenderness Extremities exam: PRESENT: full ROM. ABSENT: calf tenderness, clubbing, pedal edema Neurological exam: PRESENT: altered. ABSENT: motor sensory deficit Psychiatric exam: PRESENT: unusual affect, other - Obtunded. ABSENT: homicidal ideation, suicidal ideation Focused psych exam: PRESENT: other - Obtunded Skin exam: PRESENT: dry, intact, warm. ABSENT: cyanosis, rash Results Laboratory Results: 02/17/17 02/17/17 02:00 02:00 Creatine Kinase 66 CK-MB (CK-2) 2.85 Troponin I < 0.012 Impressions: Chest X-Ray 02/16/17 19:57 IMPRESSION: NO ACUTE RADIOGRAPHIC FINDING IN THE CHEST. Assessment & Plan - Diagnosis (1) Narcotic overdose Qualifiers: Encounter type: initial encounter Injury intent: accidental or unintentional Qualified Code(s): T40.601A - Poisoning by unspecified narcotics , accidental (unintentional), initial encounter Is this a current diagnosis for this admission?: Yes Plan: ICU admission IV Narcan and supportive care (2) Acute on chronic respiratory failure with hypoxia and hypercapnia Is this a current diagnosis for this admission?: Yes Plan: Albuterol and Atrovent empiric antibiotics Flonase and BiPAP follow-up ABG (3) Substance abuse Is this a current diagnosis for this admission?: Yes Plan: Supportive care and mental health consult - Time Time Spent: 30 to 50 Minutes - Inpatient Certification Medical Necessity: Need Close Monitoring Due to Risk of Patient Decompensation
[2017-02-17] MEDS ORDERED: INFLUENZA ADLT QUAD (36MOS+) 2017-18 VAC 0.5 ML SYR IM PRN (04:48)
[2017-02-17 05:08] LABS: ARTERIAL BLOOD BASE EXCESS 6.3 mmol/L; ARTERIAL BLOOD O2 SATURATION 88.6 % (94-98)
[2017-02-17] MEDS: HEPARIN SOD (PORCINE) 5,000 UNIT/ML 1 ML SYRINGE SUBCUT SCH ×3 (06:00→22:08)
[2017-02-17] MEDS ORDERED: IPRATROPIUM/ALBUTEROL 0.5-2.5 MG/3 ML AMPUL NEB SCH (08:00)
[2017-02-17 08:31] LABS: ABSOLUTE BASOPHILS # (AUTO) 0.1 10^3/uL (0.0-0.2); ABSOLUTE LYMPHOCYTES (AUTO) 1.3 10^3/uL (0.5-4.7); ABSOLUTE MONOCYTES (AUTO) 0.4 10^3/uL (0.1-1.4); ABSOLUTE NEUT (AUTO) 12.4 10^3/uL (1.7-8.2); BASOPHILS % (AUTO) 0.5 % (0-2); HEMATOCRIT 37.4 % (36.0-47.0); HEMOGLOBIN 12.7 g/dL (12.0-15.5); HGB HCT DIFFERENCE 0.7; LYMPHOCYTES % (AUTO) 9.2 % (13-45); MEAN CORPUSCULAR HEMOGLOBIN 31.5 pg (27.0-33.4); MEAN CORPUSCULAR HGB CONC 33.9 g/dL (32.0-36.0); MEAN CORPUSCULAR VOLUME 93 fl (80-97); MONOCYTES % (AUTO) 2.7 % (3-13); RED BLOOD COUNT 4.02 10^6/uL (3.72-5.28); RED CELL DISTRIBUTION WIDTH 13.8 % (11.5-14.0); SEGMENTED NEUTROPHILS % (AUTO) 87.6 % (42-78); WHITE BLOOD COUNT 14.1 10^3/uL (4.0-10.5)
[2017-02-17 08:49] LABS: TROPONIN I < 0.012 ng/mL
--- NOTE | 2017-02-17 09:21 | RADIOLOGY REPORT (SQ) ---
EXAM DESCRIPTION: CHEST SINGLE VIEW COMPLETED DATE/TIME: 02/17/2017 9:11 am REASON FOR STUDY: sob COMPARISON: Chest films 08/28/2016, 01/30/2017, 02/16/2017 EXAM PARAMETERS: NUMBER OF VIEWS: One view. TECHNIQUE: Single frontal radiographic view of the chest acquired. RADIATION DOSE: NA LIMITATIONS: None. FINDINGS: LUNGS AND PLEURA: No opacities, masses or pneumothorax. No pleural effusion. MEDIASTINUM AND HILAR STRUCTURES: No masses. Contour normal. HEART AND VASCULAR STRUCTURES: Heart normal in size. Normal vasculature. BONES: No acute findings. HARDWARE: None in the chest. OTHER: No other significant finding. IMPRESSION: NO ACUTE RADIOGRAPHIC FINDING IN THE CHEST. TECHNICAL DOCUMENTATION: JOB ID: [id number]
--- NOTE | 2017-02-17 09:32 | PDOC PROGRESS REPORT ---
Subjective Progress Note for:: 02/17/17 Subjective:: Patient states that she is feeling better this morning. Nursing states that patient's CO2 was 80. Patient was placed on BiPAP we will continue to monitor. Physical Exam Vital Signs: Temp Pulse Resp BP Pulse Ox 97.2 F 72 24 H 103/52 L 100 02/17/17 08:00 02/17/17 08:00 02/17/17 08:00 02/17/17 08:00 02/17/17 08:00 Intake & Output 02/16/17 02/17/17 02/18/17 06:59 06:59 06:59 Intake Total 200 Output Total 1175 125 Balance -975 -125 Weight 103.4 kg General appearance: PRESENT: no acute distress, well-developed, well-nourished Head exam: PRESENT: atraumatic, normocephalic Eye exam: PRESENT: conjunctiva pink, EOMI. ABSENT: scleral icterus Ear exam: PRESENT: normal external ear exam Mouth exam: PRESENT: moist, tongue midline Neck exam: ABSENT: carotid bruit, JVD, lymphadenopathy, thyromegaly Respiratory exam: PRESENT: prolonged expiratory phas - Scant wheezing heard, diminished at bases, no accessory muscle use. Cardiovascular exam: PRESENT: RRR. ABSENT: diastolic murmur, rubs, systolic murmur Pulses: PRESENT: normal dorsalis pedis pul Vascular exam: PRESENT: normal capillary refill GI/Abdominal exam: PRESENT: normal bowel sounds, soft. ABSENT: distended, guarding, mass, organolmegaly, rebound, tenderness Rectal exam: PRESENT: deferred Extremities exam: PRESENT: full ROM. ABSENT: calf tenderness, clubbing, pedal edema Neurological exam: PRESENT: alert, awake, oriented to person, oriented to place , oriented to time, oriented to situation, CN II-XII grossly intact. ABSENT: motor sensory deficit Psychiatric exam: PRESENT: appropriate affect, normal mood. ABSENT: homicidal ideation, suicidal ideation Skin exam: PRESENT: dry, intact, warm. ABSENT: cyanosis, rash Results Laboratory Results: 02/17/17 08:09 02/17/17 08:09 02/17/17 02/17/17 02/17/17 04:43 08:09 08:09 WBC 14.1 H RBC 4.02 Hgb 12.7 Hct 37.4 MCV 93 MCH 31.5 MCHC 33.9 RDW 13.8 Plt Count 194 Seg Neutrophils % 87.6 H Lymphocytes % 9.2 L Monocytes % 2.7 L Eosinophils % 0.0 Basophils % 0.5 Absolute Neutrophils 12.4 H Absolute Lymphocytes 1.3 Absolute Monocytes 0.4 Absolute Eosinophils 0.0 Absolute Basophils 0.1 Carbonic Acid 2.41 H HCO3/H2CO3 Ratio 14:1 ABG pH 7.27 L ABG pCO2 80.1 H* ABG pO2 64.5 L ABG HCO3 36.0 H ABG O2 Saturation 88.6 L ABG Base Excess 6.3 FiO2 5 LITERS Sodium Cancelled Potassium Cancelled Chloride Cancelled Carbon Dioxide Cancelled Anion Gap Cancelled BUN Cancelled Creatinine Cancelled Est GFR ( Amer) Cancelled Est GFR (Non-Af Amer) Cancelled Glucose Cancelled Calcium Cancelled 02/17/17 02/17/17 02/17/17 02:00 02:00 08:09 Creatine Kinase 66 Cancelled CK-MB (CK-2) 2.85 Troponin I < 0.012 02/17/17 08:09 Creatine Kinase CK-MB (CK-2) 2.90 Troponin I < 0.012 Impressions: Chest X-Ray 02/16/17 19:57 IMPRESSION: NO ACUTE RADIOGRAPHIC FINDING IN THE CHEST. Assessment & Plan - Diagnosis (1) Acute on chronic respiratory failure with hypoxia and hypercapnia Is this a current diagnosis for this admission?: Yes Plan: We will repeat ABG. We will continue BiPAP. Will place patient on scheduled breathing treatments. Will check 2D echo. Will place patient on steroids. Will check 2-D Echo to evaluate heart. (2) COPD with acute exacerbation Is this a current diagnosis for this admission?: Yes Plan: Pt will continue on BIPAP, Steroids, and breathing treatment. (3) Acute metabolic encephalopathy Is this a current diagnosis for this admission?: Yes Plan: Secondary to Substance abuse and CO2 Narcosis: Improved with BIPAP. (4) Metabolic alkalosis Is this a current diagnosis for this admission?: Yes Plan: Secondary to Respiratory Failure: Will check ABG. Pt using BIPAP. Will check CXR. (5) Leukocytosis Qualifiers: Leukocytosis type: unspecified Qualified Code(s): D72.829 - Elevated white blood cell count, unspecified Is this a current diagnosis for this admission?: Yes Plan: Will continue to monitor. Could be due to stress. (6) Narcotic overdose Qualifiers: Encounter type: initial encounter Injury intent: accidental or unintentional Qualified Code(s): T40.601A - Poisoning by unspecified narcotics , accidental (unintentional), initial encounter Is this a current diagnosis for this admission?: Yes (7) Tobacco abuse Is this a current diagnosis for this admission?: Yes Plan: Encourage not smoking. (8) Obesity Qualifiers: Body mass index: BMI 45.0-49.9 Is this a current diagnosis for this admission?: Yes Plan: Discussed dietary changes. - Time Time Spent with patient: 25-34 minutes
[2017-02-17 11:14] LABS: ALANINE AMINOTRANSFERASE 24 U/L (9-52); ALBUMIN 3.6 g/dL (3.5-5.0); ALKALINE PHOSPHATASE 60 U/L (38-126); ASPARTATE AMINO TRANSFERASE 26 U/L (14-36); BILIRUBIN,DIRECT 0.3 mg/dL (0.0-0.4); BILIRUBIN,TOTAL 0.3 mg/dL (0.2-1.3); BLOOD UREA NITROGEN 11 mg/dL (7-20); CALCIUM 8.9 mg/dL (8.4-10.2); CREATINE KINASE 62 U/L (30-135); CREATININE RESULT 0.44 mg/dL (0.52-1.25); GLUCOSE 107 mg/dL (75-110); TOTAL PROTEIN 6.3 g/dL (6.3-8.2)
[2017-02-17 11:28] LABS: ANION GAP 6 (5-19); CARBON DIOXIDE 33 mmol/L (22-30); CHLORIDE 104 mmol/L (98-107); POTASSIUM 4.7 mmol/L (3.6-5.0); SODIUM 142.5 mmol/L (137-145)
[2017-02-17] MEDS: PREDNISONE 20 MG TABLET PO SCH (11:32)
[2017-02-17] MEDS: ARIPIPRAZOLE 5 MG TABLET PO SCH (11:32)
[2017-02-17] MEDS: DOCUSATE SODIUM 100 MG CAPSULE PO SCH ×2 (11:33→17:45)
[2017-02-17] MEDS: DIVALPROEX SODIUM 250 MG TABLET.DR PO SCH ×2 (11:40→22:07)
[2017-02-17 11:43] LABS: ARTERIAL BLOOD O2 SATURATION 87.9 % (94-98)
--- NOTE | 2017-02-17 13:25 | XCELERA REPORT ---
[address] [address] Transthoracic Echocardiogram Report Name: MANDEEP VIVAR Age: 56 yrs Gender: Female : 1960 Patient Status: Inpatient Patient Location: ICU^610^A Study Date: 02/17/2017 09:42 AM Height: 58 in Weight: 227 lb BSA: 1.9 m2 Procedure: A complete two-dimensional transthoracic echocardiogram was performed (2D, M-mode, spectral and color flow Doppler). The study was technically difficult with many images being suboptimal in quality. Reason For Study: concern for CHF Ordering Physician: DARIELA SEYMOUR Performed By: Agueda Al Interpretation Summary The study was technically difficult with many images being suboptimal in quality. The left ventricular ejection fraction is normal. Doppler measurements suggest impaired left ventricular relaxation, which is associated with grade I/IV or mild diastolic dysfunction There is borderline concentric left ventricular hypertrophy. The left ventricle is grossly normal size. Wall motion cannot be accurately commented on, but no definite regional wall motion abnormalities noted. The right ventricular systolic function is normal. The right atrium is mildly dilated. There is no mitral valve stenosis. There is a trace amount of mitral regurgitation No aortic regurgitation is present. There is no aortic valve stenosis There is a trace to mild amount of tricuspid regurgitation There is mild to moderate pulmonary hypertension by echo Best estimated right ventricular systolic pressure is elevated at 40- 50mmHg. The aortic root is not well visualized. The inferior vena cava appeared normal and decreased < 50% with respiration (RAP 10-15 mmHg) There is no pericardial effusion. MMode/2D Measurements & Calculations RVDd: 3.7 cm LVIDd: 4.3 cm FS: 27.3 % Ao root diam: 2.7 cm IVSd: 0.91 cm LVIDs: 3.1 cm EDV(Teich): 81.3 ml LVPWd: 0.86 cm ESV(Teich): 37.9 ml Ao root area: 5.9 cm2 EF(Teich): 53.4 % Doppler Measurements & Calculations MV E max lucia: MV dec slope: Ao V2 max: LV V1 max P.7 cm/sec 164.5 cm/sec 7.3 mmHg MV A max lucia: 313.9 cm/sec2 Ao max PG: LV V1 max: 78.7 cm/sec MV dec time: 10.8 mmHg 135.4 cm/sec MV E/A: 1.2 0.30 sec PA V2 max: TR max lucia: 62.8 cm/sec 252.5 cm/sec PA max PG: TR max P.9 mmHg 1.6 mmHg Left Ventricle The left ventricle is grossly normal size. There is borderline concentric left ventricular hypertrophy. The left ventricular ejection fraction is normal. Doppler measurements suggest impaired left ventricular relaxation, which is associated with grade I/IV or mild diastolic dysfunction. Wall motion cannot be accurately commented on, but no definite regional wall motion abnormalities noted. Right Ventricle The right ventricle is mildly dilated. There is normal right ventricular wall thickness. The right ventricular systolic function is normal. Atria The right atrium is mildly dilated. The left atrial size is normal. Interarterial septum not well visualized and not well dopplered. Cannot comment on ASD/PFO presence. Mitral Valve The mitral valve is grossly normal. There is no mitral valve stenosis. There is a trace amount of mitral regurgitation. Aortic Valve The aortic valve is not well visualized secondary to technical limitations. There is no aortic valve stenosis. No aortic regurgitation is present. Tricuspid Valve The tricuspid valve is not well visualized, but is grossly normal. There is no tricuspid stenosis. There is a trace to mild amount of tricuspid regurgitation. There is mild to moderate pulmonary hypertension by echo. Best estimated right ventricular systolic pressure is elevated at 40- 50mmHg. Pulmonic Valve The pulmonic valve is not well visualized. Great Vessels The aortic root is not well visualized. The inferior vena cava appeared normal and decreased < 50% with respiration (RAP 10-15 mmHg). Effusions There is no pericardial effusion. : DARIELA SEYMOUR Shyamal
[2017-02-17] MEDS: IPRATROPIUM/ALBUTEROL 0.5-2.5 MG/3 ML AMPUL NEB SCH ×2 (13:53→20:31)
[2017-02-17 14:35] LABS: CREATINE KINASE MB 2.46 ng/mL (<4.55)
[2017-02-17 14:38] LABS: TROPONIN I < 0.012 ng/mL
--- NOTE | 2017-02-17 16:19 | PSYCHOLOGICAL NOTE ---
Psych Note - Psych Note Psych Note: Patient is a 56-year-old female who has been admitted to [facility] hospitalist services in ICU. Patient initially presented as potential Polypharm overdose last night and altered mental status. Since RN states the patient has been alert and requesting assistance numerous times throughout the day. However at this time patient is on BiPAP and sleeping does not arouse and remain awake long enough to efficaciously communicate. It is known to this clinician and this department for numerous prior episodes of similar etiology. Patient has a long history of bipolar disorder as well as polysubstance abuse. Historically, patient abuses cocaine, marijuana, as well as various prescription pills. Will attempt to reevaluate the patient tomorrow morning. Did attempt to call her /ex- Erick but there was no answer. Unable to leave a voicemail. 296.9 (F21) Unspecified Bipolar Disorder Polysubstance abuse, per history
[2017-02-17] MEDS: CLONAZEPAM 1 MG TABLET PO SCH (22:07)
[2017-02-18] MEDS: IPRATROPIUM/ALBUTEROL 0.5-2.5 MG/3 ML AMPUL NEB SCH ×4 (01:33→19:45)
[2017-02-18] MEDS ORDERED: PROPOFOL INJ 200 MG/20 ML VIAL IV ONE (01:36)
[2017-02-18 04:10] LABS: ABSOLUTE LYMPHOCYTES (AUTO) 2.6 10^3/uL (0.5-4.7); ABSOLUTE MONOCYTES (AUTO) 0.9 10^3/uL (0.1-1.4); ABSOLUTE NEUT (AUTO) 10.5 10^3/uL (1.7-8.2); BASOPHILS % (AUTO) 0.1 % (0-2); EOSINOPHILS % (AUTO) 0.1 % (0-6); HEMOGLOBIN 12.3 g/dL (12.0-15.5); HGB HCT DIFFERENCE 0.9; LYMPHOCYTES % (AUTO) 18.4 % (13-45); MEAN CORPUSCULAR HGB CONC 34.3 g/dL (32.0-36.0); MEAN CORPUSCULAR VOLUME 93 fl (80-97); MONOCYTES % (AUTO) 6.4 % (3-13); RED BLOOD COUNT 3.86 10^6/uL (3.72-5.28)
[2017-02-18 04:22] LABS: ANION GAP 5 (5-19); BLOOD UREA NITROGEN 17 mg/dL (7-20); CALCIUM 9.1 mg/dL (8.4-10.2); CARBON DIOXIDE 38 mmol/L (22-30); CHLORIDE 102 mmol/L (98-107); CREATININE RESULT 0.56 mg/dL (0.52-1.25); GLUCOSE 118 mg/dL (75-110); MAGNESIUM 2.3 mg/dL (1.6-2.3); POTASSIUM 4.1 mmol/L (3.6-5.0); SODIUM 145.4 mmol/L (137-145)
[2017-02-18 05:17] LABS: ARTERIAL BLOOD BASE EXCESS 9.1 mmol/L; ARTERIAL BLOOD O2 SATURATION 90.7 % (94-98)
[2017-02-18] MEDS: HEPARIN SOD (PORCINE) 5,000 UNIT/ML 1 ML SYRINGE SUBCUT SCH ×3 (06:21→22:18)
[2017-02-18] MEDS ORDERED: SUCCINYLCHOLINE CHLORIDE INJ 200 MG/10 ML VIAL ONE (07:37)
[2017-02-18] MEDS: ARIPIPRAZOLE 5 MG TABLET PO SCH (09:17)
[2017-02-18] MEDS: DIVALPROEX SODIUM 250 MG TABLET.DR PO SCH ×2 (09:18→22:19)
[2017-02-18] MEDS: PREDNISONE 20 MG TABLET PO SCH (09:18)
[2017-02-18] MEDS: DOCUSATE SODIUM 100 MG CAPSULE PO SCH ×2 (09:19→17:32)
--- NOTE | 2017-02-18 14:21 | PSYCHOLOGICAL NOTE ---
Psych Note - Psych Note Psych Note: Patient is a 56-year-old female who has been admitted to [facility] hospitalist services. Patient initially presented as potential Polypharm overdose and altered mental status. Patient has a long history of bipolar disorder as well as polysubstance abuse. Historically, patient abuses cocaine, marijuana, as well as various prescription pills. Patient states she did not overdose. Patient reports she has pneumonia. Patient states she was hesitant to go to the doctor because she was worried about her dog. Patient denies suicidal/homicidal ideations. Patient reports she has a psychiatric provider and denies any needs at this time. Patient reports she is ready to go home. Erick Valencia : stats the patient does not live with him and he has not talked to her. Patient is alert and oriented. Mood is anxious with congruent affect. Patient denies suicidal/homicidal ideations, intent, plan, means. Patient denies A/VH; delusions not noted. Thought processes were guarded. Conversational speech was within normal limits for rate, tone, and prosody. Intellectual abilities were estimated within lower average range. Attention and focus were fair. Insight, judgment, impulse control are poor. 296.9 (F21) Unspecified Bipolar Disorder Polysubstance abuse, per history Patient is psychiatrically cleared for discharge. Patient denies suicidal ideations and denies she overdose on her prescription pills. A careful review of patient's EMR suggests a long history of prescription pill misuse, and other prior presentations of similar etiology. Patient reports she is concerned for her dogs and wants to return home. Patient states she manages her own medications and prefers to continue to do so. 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 Will make a referral to Mr. Troy and request follow-up. Patient does not meet criteria for IVC per the [place] [facility] statute 122c as she denies SI, HI, and does not appear to be responding to internal stimuli commanding her to harm herself or others. I consulted with Dr. Smith in regards to the care management of this patient. Did speak directly with the patient's RN who states the patient is wishing to sign out AMA.
--- NOTE | 2017-02-18 18:53 | PDOC PROGRESS REPORT ---
Subjective Progress Note for:: 02/18/17 Subjective:: Patient states that she is doing much better and she wants to go home now. Patient states that she has 2 dogs to care for at home. Mental health had seen patient but had not completed the full evaluation. Physical Exam Vital Signs: Temp Pulse Resp BP Pulse Ox 98.8 F 82 24 H 118/59 L 95 02/18/17 15:33 02/18/17 15:33 02/18/17 15:33 02/18/17 15:33 02/18/17 15:33 Intake & Output 02/17/17 02/18/17 02/19/17 06:59 06:59 06:59 Intake Total 818 869 5083 Output Total 1175 2510 500 Balance -975 -1741 554 Weight 103.4 kg 104.5 kg 87.09 kg General appearance: PRESENT: mild distress, well-developed, well-nourished Head exam: PRESENT: atraumatic, normocephalic Eye exam: PRESENT: conjunctiva pink, EOMI. ABSENT: scleral icterus Ear exam: PRESENT: normal external ear exam Mouth exam: PRESENT: moist, tongue midline Neck exam: ABSENT: carotid bruit, JVD, lymphadenopathy, thyromegaly Respiratory exam: PRESENT: prolonged expiratory phas, wheezes. ABSENT: rales, rhonchi Cardiovascular exam: PRESENT: RRR. ABSENT: diastolic murmur, rubs, systolic murmur Pulses: PRESENT: normal dorsalis pedis pul Vascular exam: PRESENT: normal capillary refill GI/Abdominal exam: PRESENT: normal bowel sounds, soft. ABSENT: distended, guarding, mass, organolmegaly, rebound, tenderness Rectal exam: PRESENT: deferred Extremities exam: PRESENT: full ROM. ABSENT: calf tenderness, clubbing, pedal edema Neurological exam: PRESENT: alert, awake, oriented to person, oriented to place , oriented to time, oriented to situation, CN II-XII grossly intact. ABSENT: motor sensory deficit Psychiatric exam: PRESENT: appropriate affect, normal mood. ABSENT: homicidal ideation, suicidal ideation Skin exam: PRESENT: dry, intact, warm. ABSENT: cyanosis, rash Results Laboratory Results: 02/18/17 03:38 02/18/17 03:38 02/18/17 02/18/17 02/18/17 03:38 03:38 05:10 WBC 14.0 H RBC 3.86 Hgb 12.3 Hct 36.0 MCV 93 MCH 32.0 MCHC 34.3 RDW 14.0 Plt Count 202 Seg Neutrophils % 75.0 Lymphocytes % 18.4 Monocytes % 6.4 Eosinophils % 0.1 Basophils % 0.1 Absolute Neutrophils 10.5 H Absolute Lymphocytes 2.6 Absolute Monocytes 0.9 Absolute Eosinophils 0.0 Absolute Basophils 0.0 Carbonic Acid 1.89 H HCO3/H2CO3 Ratio 19:1 ABG pH 7.38 ABG pCO2 62.8 H ABG pO2 62.2 L ABG HCO3 36.3 H ABG O2 Saturation 90.7 L ABG Base Excess 9.1 FiO2 30% Sodium 145.4 H Potassium 4.1 Chloride 102 Carbon Dioxide 38 H Anion Gap 5 BUN 17 Creatinine 0.56 Est GFR ( Amer) > 60 Est GFR (Non-Af Amer) > 60 Glucose 118 H Calcium 9.1 Magnesium 2.3 02/17/17 02/17/17 02/17/17 02:00 02:00 08:09 Creatine Kinase 66 Cancelled CK-MB (CK-2) 2.85 Troponin I < 0.012 02/17/17 02/17/17 02/17/17 08:09 10:40 13:48 Creatine Kinase 62 53 CK-MB (CK-2) 2.90 Troponin I < 0.012 02/17/17 13:48 Creatine Kinase CK-MB (CK-2) 2.46 Troponin I < 0.012 Impressions: Chest X-Ray 02/17/17 00:00 IMPRESSION: NO ACUTE RADIOGRAPHIC FINDING IN THE CHEST. Assessment & Plan - Diagnosis (1) Acute on chronic respiratory failure with hypoxia and hypercapnia Is this a current diagnosis for this admission?: Yes Plan: VBG demonstrates CO2 this most likely caused the patient's baseline. We will continue to monitor. 2D echo demonstrated no acute findings. If patient does well overnight will let patient go home. Will write for home oxygen as long as patient is not going to smoke (2) COPD with acute exacerbation Is this a current diagnosis for this admission?: Yes Plan: Pt will continue on BIPAP, Steroids, and breathing treatment. (3) Acute metabolic encephalopathy Is this a current diagnosis for this admission?: Yes Plan: Secondary to Substance abuse and CO2 Narcosis: Resolved. (4) Metabolic alkalosis Is this a current diagnosis for this admission?: Yes Plan: Secondary to Respiratory Failure: Secondary to respiratory. Will monitor. (5) Leukocytosis Qualifiers: Leukocytosis type: unspecified Qualified Code(s): D72.829 - Elevated white blood cell count, unspecified Is this a current diagnosis for this admission?: Yes Plan: Will continue to monitor. Currently on steroids. (6) Narcotic overdose Qualifiers: Encounter type: initial encounter Injury intent: accidental or unintentional Qualified Code(s): T40.601A - Poisoning by unspecified narcotics , accidental (unintentional), initial encounter Is this a current diagnosis for this admission?: Yes Plan: Psych later this evening has cleared patient for discharge home. Patient's overdose was unintentional (7) Tobacco abuse Is this a current diagnosis for this admission?: Yes Plan: Encourage not smoking. (8) Obesity Qualifiers: Body mass index: BMI 45.0-49.9 Is this a current diagnosis for this admission?: Yes Plan: Discussed dietary changes. - Time Time Spent with patient: 15-24 minutes Anticipated discharge: Home with Homehealth - Most likely home tomorrow if patient remains stable from a respiratory standpoint.
[2017-02-18] MEDS: CLONAZEPAM 1 MG TABLET PO SCH (22:18)
[2017-02-19] MEDS: IPRATROPIUM/ALBUTEROL 0.5-2.5 MG/3 ML AMPUL NEB SCH ×3 (02:01→13:44)
[2017-02-19 05:54] LABS: ABSOLUTE BASOPHILS # (AUTO) 0.1 10^3/uL (0.0-0.2); ABSOLUTE LYMPHOCYTES (AUTO) 3.7 10^3/uL (0.5-4.7); ABSOLUTE MONOCYTES (AUTO) 1.1 10^3/uL (0.1-1.4); BASOPHILS % (AUTO) 0.5 % (0-2); EOSINOPHILS % (AUTO) 0.3 % (0-6); HEMATOCRIT 35.9 % (36.0-47.0); HEMOGLOBIN 12.2 g/dL (12.0-15.5); HGB HCT DIFFERENCE 0.7; LYMPHOCYTES % (AUTO) 26.9 % (13-45); MEAN CORPUSCULAR HEMOGLOBIN 31.9 pg (27.0-33.4); MEAN CORPUSCULAR HGB CONC 34.1 g/dL (32.0-36.0); MEAN CORPUSCULAR VOLUME 94 fl (80-97); MONOCYTES % (AUTO) 7.6 % (3-13); RED BLOOD COUNT 3.84 10^6/uL (3.72-5.28); RED CELL DISTRIBUTION WIDTH 14.1 % (11.5-14.0); SEGMENTED NEUTROPHILS % (AUTO) 64.7 % (42-78); WHITE BLOOD COUNT 13.9 10^3/uL (4.0-10.5)
[2017-02-19 06:13] LABS: ANION GAP 10 (5-19); BLOOD UREA NITROGEN 19 mg/dL (7-20); CALCIUM 9.1 mg/dL (8.4-10.2); CARBON DIOXIDE 31 mmol/L (22-30); CHLORIDE 104 mmol/L (98-107); CREATININE RESULT 0.56 mg/dL (0.52-1.25); GLUCOSE 96 mg/dL (75-110); POTASSIUM 4.5 mmol/L (3.6-5.0); SODIUM 145.3 mmol/L (137-145)
[2017-02-19] MEDS: HEPARIN SOD (PORCINE) 5,000 UNIT/ML 1 ML SYRINGE SUBCUT SCH ×2 (06:43→14:58)
[2017-02-19] MEDS: PREDNISONE 20 MG TABLET PO SCH (09:33)
[2017-02-19] MEDS: ARIPIPRAZOLE 5 MG TABLET PO SCH (09:34)
[2017-02-19] MEDS: DIVALPROEX SODIUM 250 MG TABLET.DR PO SCH (09:34)
[2017-02-19] MEDS: DOCUSATE SODIUM 100 MG CAPSULE PO SCH ×2 (09:34→17:07)
--- NOTE | 2017-02-19 14:27 | PDOC DISCHARGE SUMMARY ---
General - Admit/Disc Date/PCP Admission Date/Primary Care Provider: 02/16/17 21:45 Discharge Date: 02/19/17 - Discharge Diagnosis (1) Acute on chronic respiratory failure with hypoxia and hypercapnia Is this a current diagnosis for this admission?: Yes Summary: Secondary to COPD exacerbation complicated by opioid overdose unintentional: Patient is improved drastically. Patient will continue with breathing treatments. Will arrange for home O2. Patient is agreed with not smoking. (2) COPD with acute exacerbation Is this a current diagnosis for this admission?: Yes Summary: Will continue steroids, breathing treatments and arrange home oxygen. (3) Acute metabolic encephalopathy Is this a current diagnosis for this admission?: Yes Summary: Secondary to Substance Abuse and CO2 Narcosis: Resolved. (4) Metabolic alkalosis Is this a current diagnosis for this admission?: Yes Summary: Secondary to COPD: Will continue to monitor. (5) Leukocytosis Is this a current diagnosis for this admission?: Yes Summary: Will continue to monitor. (6) Narcotic overdose Is this a current diagnosis for this admission?: Yes Summary: Psychiatry evaluated patient and found the patient was not suicidal. Patient had misused her pain medication. This will need to be addressed by her primary doctor. (7) Tobacco abuse Is this a current diagnosis for this admission?: Yes Summary: She reports now that she is not planning to smoke anymore. (8) Obesity Is this a current diagnosis for this admission?: Yes Summary: Encourage dietary changes. (9) CO2 narcosis Is this a current diagnosis for this admission?: Yes Summary: Resolved. Patient was placed on BiPAP and is done well. Patient no longer requiring BiPAP. Patient doing well on nasal cannula at 2 L - Additional Information Resuscitation Status: Full Code Discharge Diet: Cardiac, Diabetic Discharge Activity: Activity As Tolerated Home Medications: Aripiprazole [Abilify 10 mg Tablet] 10 mg PO DAILY 02/17/17 Clonazepam [Klonopin] 0.5 mg PO Q12 02/17/17 Divalproex Sodium [Divalproex Sodium ER] 500 mg PO Q12 02/17/17 Doxepin HCl 100 mg PO QHS 02/17/17 Esomeprazole Magnesium [Nexium] 40 mg PO DAILY 02/17/17 Fluticasone/Salmeterol [Advair 250-50 Diskus 28 dose] 1 inh IH Q12 02/17/17 Gabapentin [Neurontin 400 mg Capsule] 400 mg PO BID 02/17/17 Gabapentin [Neurontin 400 mg Capsule] 800 mg PO QHS 02/17/17 Pantoprazole Sodium [Protonix] 40 mg PO DAILY 02/17/17 Paroxetine HCl [Paxil] 30 mg PO BID 02/17/17 Solifenacin Succinate [Vesicare] 5 mg PO DAILY 02/17/17 Albuterol Sulfate [Proair HFA] 2 puff IH Q4 PRN #1 02/19/17 Ipratropium/Albuterol Sulfate [Duoneb 3 ml Ampul] 3 ml NEB [id number] PRN #120 vial.neb 02/19/17 Methylprednisolone [Medrol Dosepack (4 mg/Tab) 21 Tab/Dosepak] 4 mg PO ASDIR PRN #21 tab.ds.pk 02/19/17 Tiotropium Deshler [Spiriva Handihaler 18 mcg/dose (30 Dose)] 1 cap IH DAILY # 30 capsule 02/19/17 History of Present Illness Patient complains of: Altered Mental Status History of Present Illness: MANDEEP IVVAR is a 56 year old female complaint of altered mental status. Hospital Course Hospital Course: Patient is a 56-year-old female is admitted to our facility due to altered mental status. It appears the patient had acute metabolic encephalopathy secondary to CO2 narcosis and unintentional overdose of pain medication. Patient was placed on BiPAP and given breathing treatments. Patient did improve during hospitalization. Patient was seen by mental health who stated that patient's overdose was unintentional patient denied suicidal ideation and homicidal patient. Patient reported that she had not been using inhalers as instructed. Patient also stated that she had been smoking and is planning to stop smoking. Patient did well off of BiPAP and did well on nasal cannula 2 L. Patient was arranged for inhalers for home. Patient will need to follow-up with primary doctor in regards to her pain medication prescribing. Physical Exam Vital Signs: Temp Pulse Resp BP Pulse Ox 98.0 F 81 16 119/69 96 02/19/17 11:31 02/19/17 11:31 02/19/17 11:31 02/19/17 11:31 02/19/17 11:31 Intake & Output 02/18/17 02/19/17 02/20/17 06:59 06:59 06:59 Intake Total 769 2386 Output Total 2510 500 Balance -1741 1886 Weight 104.5 kg 106.2 kg General appearance: PRESENT: no acute distress, well-developed, well-nourished Head exam: PRESENT: atraumatic, normocephalic Eye exam: PRESENT: conjunctiva pink, EOMI. ABSENT: scleral icterus Ear exam: PRESENT: normal external ear exam Mouth exam: PRESENT: moist, tongue midline Neck exam: ABSENT: carotid bruit, JVD, lymphadenopathy, thyromegaly Respiratory exam: PRESENT: prolonged expiratory phas, wheezes - Scant wheezing heard with slight prolonged expiratory phase.. ABSENT: rales, rhonchi Cardiovascular exam: PRESENT: RRR. ABSENT: diastolic murmur, rubs, systolic murmur Pulses: PRESENT: normal dorsalis pedis pul Vascular exam: PRESENT: normal capillary refill GI/Abdominal exam: PRESENT: normal bowel sounds, soft. ABSENT: distended, guarding, mass, organolmegaly, rebound, tenderness Rectal exam: PRESENT: deferred Extremities exam: PRESENT: full ROM. ABSENT: calf tenderness, clubbing, pedal edema Neurological exam: PRESENT: alert, awake, oriented to person, oriented to place , oriented to time, oriented to situation, CN II-XII grossly intact. ABSENT: motor sensory deficit Psychiatric exam: PRESENT: appropriate affect, normal mood. ABSENT: homicidal ideation, suicidal ideation Skin exam: PRESENT: dry, intact, warm. ABSENT: cyanosis, rash Results Laboratory Results: 02/19/17 04:40 02/19/17 04:40 02/19/17 02/19/17 04:40 04:40 WBC 13.9 H RBC 3.84 Hgb 12.2 Hct 35.9 L MCV 94 MCH 31.9 MCHC 34.1 RDW 14.1 H Plt Count 173 Seg Neutrophils % 64.7 Lymphocytes % 26.9 Monocytes % 7.6 Eosinophils % 0.3 Basophils % 0.5 Absolute Neutrophils 9.0 H Absolute Lymphocytes 3.7 Absolute Monocytes 1.1 Absolute Eosinophils 0.0 Absolute Basophils 0.1 Sodium 145.3 H Potassium 4.5 Chloride 104 Carbon Dioxide 31 H Anion Gap 10 BUN 19 Creatinine 0.56 Est GFR ( Amer) > 60 Est GFR (Non-Af Amer) > 60 Glucose 96 Calcium 9.1 02/17/17 02/17/17 02/17/17 02:00 02:00 08:09 Creatine Kinase 66 Cancelled CK-MB (CK-2) 2.85 Troponin I < 0.012 02/17/17 02/17/17 02/17/17 08:09 10:40 13:48 Creatine Kinase 62 53 CK-MB (CK-2) 2.90 Troponin I < 0.012 02/17/17 13:48 Creatine Kinase CK-MB (CK-2) 2.46 Troponin I < 0.012 Impressions: Chest X-Ray 02/17/17 00:00 IMPRESSION: NO ACUTE RADIOGRAPHIC FINDING IN THE CHEST. Plan Time Spent: Greater than 30 Minutes - Patient discharged home with home health and portable oxygen
[2017-02-19] MEDS ORDERED: ONDANSETRON HCL INJ/PF 4 MG/2 ML SDV IV PRN (15:00)
[2017-02-19] MEDS ORDERED: MAGNESIUM HYDROXIDE SUSP 30 ML UDCUP PO PRN (15:00)
[2017-02-19] MEDS ORDERED: INFLUENZA ADLT QUAD (36MOS+) 2017-18 VAC 0.5 ML SYR IM PRN (15:00)
[2017-02-19] MEDS ORDERED: MAG HYDROX/AL HYDROX/SIMETH SUSP 30 ML UDCUP PO PRN (15:00)
[2017-02-19] MEDS ORDERED: ACETAMINOPHEN 325 MG TABLET PO PRN (15:00)
[2017-02-19] MEDS ORDERED: IPRATROPIUM/ALBUTEROL 0.5-2.5 MG/3 ML AMPUL NEB PRN (15:00)
[2017-02-19 18:44] VITALS: BP 118/83
== END 2017-02-19 17:30 | disposition home or self-care (01) | DRG 917 ==
LOC: ER 19:40 → EH 21:45 → ICU 02-17 03:11 → 3N 02-18 05:42
PROVIDERS: ADMIT Internal Medicine; ATTEND Internal Medicine
PROC: 5A09457 Assistance with Respiratory Ventilation, 24-96 Consecutive Hours, Continuous Positive Airway Pressure (ICD-10-PCS; principal; 2017-02-16)
PROC: 3E0F73Z Introduction of Anti-inflammatory into Respiratory Tract, Via Natural or Artificial Opening (ICD-10-PCS; 2017-02-16)
PROC: 3E0234Z Introduction of Serum, Toxoid and Vaccine into Muscle, Percutaneous Approach (ICD-10-PCS; 2017-02-19)
DX: T40.601A Poisoning by unspecified narcotics, accidental (unintentional), initial encounter (principal); J96.21 Acute and chronic respiratory failure with hypoxia; J96.22 Acute and chronic respiratory failure with hypercapnia; G92 Toxic encephalopathy; J44.1 Chronic obstructive pulmonary disease with (acute) exacerbation; E87.3 Alkalosis; Z68.42 Body mass index [BMI] 45.0-49.9, adult; F11.20 Opioid dependence, uncomplicated; F13.20 Sedative, hypnotic or anxiolytic dependence, uncomplicated; F14.20 Cocaine dependence, uncomplicated; F17.210 Nicotine dependence, cigarettes, uncomplicated; E66.9 Obesity, unspecified; I10 Essential (primary) hypertension; F41.1 Generalized anxiety disorder; F31.9 Bipolar disorder, unspecified; M19.90 Unspecified osteoarthritis, unspecified site; G43.909 Migraine, unspecified, not intractable, without status migrainosus; Y92.9 Unspecified place or not applicable; Z99.81 Dependence on supplemental oxygen; Z23 Encounter for immunization; Z79.899 Other long term (current) drug therapy; Z96.653 Presence of artificial knee joint, bilateral; Z60.2 Problems related to living alone
CPT/HCPCS: 31500; 36415; 71010; 80048; 80053; 80164; 80307; 82550; 82553; 82803; 82962; 83735; 83880; 84484; 85025; 90686; 93005; 93010; 93306; 94640; 94660; 96374; 96376; 99291; J0330; J1644; J2310; J2704; J3475; J7040; J7512; J7620

== ENCOUNTER 2017-04-19 17:05 | Emergency (ER) | payer MEDICAID ==
[2017-04-19] MEDS ORDERED: IPRATROPIUM/ALBUTEROL 0.5-2.5 MG/3 ML AMPUL NEB ONE ×3 (17:16→18:45)
[2017-04-19] MEDS ORDERED: METHYLPREDNISOLONE INJ 125 MG/2 ML SDV IV ONE (17:16)
[2017-04-19] MEDS: ALBUTEROL SULFATE 0.083% NEB 2.5 MG/3 ML AMPUL NEB SCH ×2 (17:35→18:18)
--- NOTE | 2017-04-19 18:18 | RADIOLOGY REPORT (SQ) ---
EXAM DESCRIPTION: CHEST SINGLE VIEW COMPLETED DATE/TIME: 04/19/2017 5:40 pm REASON FOR STUDY: bed 13 db COMPARISON: February. NUMBER OF VIEWS: One view. TECHNIQUE: Single frontal radiographic view of the chest acquired. LIMITATIONS: None. FINDINGS: LUNGS AND PLEURA: No opacities, masses or pneumothorax. No pleural effusion. MEDIASTINUM AND HILAR STRUCTURES: No masses. Contour normal. HEART AND VASCULAR STRUCTURES: Heart normal in size. Normal vasculature. BONES: No acute findings. HARDWARE: None in the chest. OTHER: No other significant finding. IMPRESSION: NO SIGNIFICANT RADIOGRAPHIC FINDING IN THE CHEST. TECHNICAL DOCUMENTATION: JOB ID: [id number] [employer]- All Rights Reserved
[2017-04-19 18:37] VITALS: BP 131/97
[2017-04-19] MEDS ORDERED: DIPHENHYDRAMINE HCL 50 MG CAPSULE PO ONE (18:45)
[2017-04-19 18:46] LABS: ABSOLUTE EOSINOPHILS # (AUTO) 0.4 10^3/uL (0.0-0.6); ABSOLUTE LYMPHOCYTES (AUTO) 2.5 10^3/uL (0.5-4.7); ABSOLUTE MONOCYTES (AUTO) 0.6 10^3/uL (0.1-1.4); ABSOLUTE NEUT (AUTO) 3.4 10^3/uL (1.7-8.2); BASOPHILS % (AUTO) 0.7 % (0-2); EOSINOPHILS % (AUTO) 5.5 % (0-6); HEMATOCRIT 40.2 % (36.0-47.0); HEMOGLOBIN 13.5 g/dL (12.0-15.5); HGB HCT DIFFERENCE 0.3; LYMPHOCYTES % (AUTO) 35.9 % (13-45); MEAN CORPUSCULAR HEMOGLOBIN 30.5 pg (27.0-33.4); MEAN CORPUSCULAR HGB CONC 33.5 g/dL (32.0-36.0); MEAN CORPUSCULAR VOLUME 91 fl (80-97); MONOCYTES % (AUTO) 8.9 % (3-13); RED BLOOD COUNT 4.42 10^6/uL (3.72-5.28); RED CELL DISTRIBUTION WIDTH 13.5 % (11.5-14.0); WHITE BLOOD COUNT 6.9 10^3/uL (4.0-10.5)
[2017-04-19 19:01] LABS: ALANINE AMINOTRANSFERASE 34 U/L (9-52); ALBUMIN 4.2 g/dL (3.5-5.0); ALKALINE PHOSPHATASE 77 U/L (38-126); ANION GAP 7 (5-19); ASPARTATE AMINO TRANSFERASE 20 U/L (14-36); BILIRUBIN,DIRECT 0.2 mg/dL (0.0-0.4); BILIRUBIN,TOTAL 0.2 mg/dL (0.2-1.3); BLOOD UREA NITROGEN 17 mg/dL (7-20); CALCIUM 9.3 mg/dL (8.4-10.2); CARBON DIOXIDE 33 mmol/L (22-30); CHLORIDE 103 mmol/L (98-107); CREATINE KINASE 80 U/L (30-135); GLUCOSE 103 mg/dL (75-110); POTASSIUM 4.6 mmol/L (3.6-5.0); SODIUM 143.3 mmol/L (137-145); TOTAL PROTEIN 6.9 g/dL (6.3-8.2)
[2017-04-19 19:15] LABS: CREATINE KINASE MB 1.96 ng/mL (<4.55)
[2017-04-19 19:16] LABS: TROPONIN I < 0.012 ng/mL
--- NOTE | 2017-04-19 19:19 | ER Document Report ---
ED General - General Chief Complaint: Shortness Of Breath Stated Complaint: DIFFICULTY BREATHING Time Seen by Provider: 04/19/17 17:26 Mode of Arrival: Ambulatory Information source: Patient Notes: 56-year-old female smoker history of COPD asthma presents with complaints of shortness of breath. Patient denies any fevers or chills denies any productivity to cough. She notes symptoms have worsened over the past few days. Patient denies any chest pain. Patient has been doing breathing treatments at home with minimal improvement of symptoms. TRAVEL OUTSIDE OF THE [place] IN LAST 30 DAYS: No - HPI Onset: Other - 2 week duration Onset/Duration: Intermittent Quality of pain: No pain Severity: Mild Pain Level: Denies Associated symptoms: Nonproductive cough, Shortness of breath Exacerbated by: Denies Relieved by: Denies Similar symptoms previously: Yes Recently seen / treated by doctor: Yes - Related Data Allergies/Adverse Reactions: No Known Allergies Allergy (Verified 04/19/17 17:06) Past Medical History - Social History Smoking Status: Current Every Day Smoker Cigarette use (# per day): Yes Chew tobacco use (# tins/day): No Smoking Education Provided: Yes - Patient counselled regarding cessation for 4 minutes Frequency of alcohol use: None Drug Abuse: None Family History: Other - Unknown Patient has suicidal ideation: No Patient has homicidal ideation: No - Past Medical History Cardiac Medical History: Reports: Hx Hypertension Pulmonary Medical History: Reports: Hx Asthma - last ED visit > 3 years ago, Hx Bronchitis, Hx COPD, Hx Pneumonia - required hospitalization Neurological Medical History: Reports: Hx Migraine Renal/ Medical History: Denies: Hx Peritoneal Dialysis Malignancy Medical History: GI Medical History: Reports: Hx Gastroesophageal Reflux Disease - Rx x 10 years , Hx Ulcer. Denies: Hx Pancreatitis Musculoskeltal Medical History: Reports Hx Arthritis, Reports Hx Musculoskeletal Deformity, Reports Hx Musculoskeletal Trauma Psychiatric Medical History: Reports: Hx Anxiety, Hx Bipolar Disorder, Hx Borderline Personality Disorder, Hx Depression - per [facility]'s note 11/16/14, Hx Schizophrenia - per ED note 10/07/14 Traumatic Medical History: Reports: Hx Fractures - tib RT, denies sugery Past Surgical History: Reports: Hx Dilation and Curettage, Hx Orthopedic Surgery - Bilateral knee replacements. Denies: Hx Appendectomy, Hx Bowel Surgery, Hx Section, Hx Cholecystectomy, Hx Hysterectomy, Hx Mastectomy , Hx Tonsillectomy, Hx Tubal Ligation - Immunizations Immunizations up to date: Yes Hx Diphtheria, Pertussis, Tetanus Vaccination: Yes Review of Systems - Review of Systems Notes: REVIEW OF SYSTEMS: CONSTITUTIONAL : Denies fever, chills, or sweats. Denies recent illness. EENT: Denies eye, ear, throat, or mouth pain or symptoms. Denies nasal or sinus congestion or discharge. Denies throat, tongue, or mouth swelling or difficulty swallowing. CARDIOVASCULAR: Denies chest pain. Denies palpitations or racing or irregular heart beat. Denies ankle edema. RESPIRATORY: This is shortness of breath wheezing cough GASTROINTESTINAL: Denies abdominal pain or distention. Denies nausea, vomiting , or diarrhea. Denies blood in vomitus, stools, or per rectum. Denies black, tarry stools. Denies constipation. GENITOURINARY: Denies difficulty urinating, painful urination, burning, frequency, blood in urine, or discharge. FEMALE GENITOURINARY: Denies vaginal bleeding, heavy or abnormal periods, irregular periods. Denies vaginal discharge or odor. MUSCULOSKELETAL: Denies back or neck pain or stiffness. Denies joint pain or swelling. SKIN: Denies rash, lesions or sores. HEMATOLOGIC : Denies easy bruising or bleeding. LYMPHATIC: Denies swollen, enlarged glands. NEUROLOGICAL: Denies confusion or altered mental status. Denies passing out or loss of consciousness. Denies dizziness or lightheadedness. Denies headache. Denies weakness or paralysis or loss of use of either side. Denies problems with gait or speech. Denies sensory loss, numbness, or tingling. Denies seizures. PSYCHIATRIC: Denies anxiety or stress. Denies depression, suicidal ideation, or homicidal ideation. ALL OTHER SYSTEMS REVIEWED AND NEGATIVE. PHYSICAL EXAMINATION: GENERAL: Well-appearing, well-nourished and in no acute distress. HEAD: Atraumatic, normocephalic. EYES: Pupils equal round and reactive to light, extraocular movements intact, conjunctiva are normal. ENT: Nares patent, oropharynx clear without exudates. Moist mucous membranes. NECK: Normal range of motion, supple without lymphadenopathy LUNGS: Tory expiratory wheezing initially noted to be tachypneic with retractions abdominal however this resolved after breathing treatments HEART: Regular rate and rhythm without murmurs ABDOMEN: Soft, nontender, nondistended abdomen. No guarding, no rebound. No masses appreciated. Female : deferred Musculoskeletal: Normal range of motion, no pitting or edema. No cyanosis. NEUROLOGICAL: Cranial nerves grossly intact. Normal speech, normal gait. Normal sensory, motor exams PSYCH: Normal mood, normal affect. SKIN: Warm, Dry, normal turgor, no rashes or lesions noted. Dictation was performed using [employer] voice recognition software Physical Exam - Vital signs Vitals: Temp Pulse Resp BP Pulse Ox 98.8 F 77 24 H 120/57 L 90 L 04/19/17 17:12 04/19/17 17:12 04/19/17 17:12 04/19/17 17:12 04/19/17 17:12 Course - Re-evaluation Re-evalutation: 04/19/17 22:44 Patient was given multiple breathing treatments steroids, lab work noted no significant abnormality chest x-ray noted no pneumonia. Patient's breathing was reevaluated multiple times in she appeared much better. Patient was therefore discharged with very strict return precautions. Patient was also instructed that she must stop smoking Patient was discharged satting 95% on room air After performing a Medical Screening Examination, I estimate there is LOW risk for ACUTE CORONARY SYNDROME, PULMONARY EMBOLI, RESPIRATORY FAILURE, SEPSIS OR MENINGITIS, thus I consider the discharge disposition reasonable. I have reevaluated this patient multiple times and no significant life threatening changes are noted. The patient and I have discussed the diagnosis and risks, and we agree with discharging home with close follow-up. We also discussed returning to the Emergency Department immediately if new or worsening symptoms occur. We have discussed the symptoms which are most concerning (e.g., changing or worsening pain, trouble swallowing or breathing, neck stiffness, fever) that necessitate immediate return. 04/19/17 22:45 - Vital Signs Vital signs: Temp Pulse Resp BP Pulse Ox 98.9 F 73 23 H 131/97 H 95 04/19/17 17:21 04/19/17 17:21 04/19/17 18:01 04/19/17 18:01 04/19/17 18:01 - Laboratory Result Diagrams: 04/19/17 18:27 04/19/17 18:27 Laboratory results interpreted by me: 04/19/17 18:27 Carbon Dioxide 33 H - Diagnostic Test Radiology reviewed: Image reviewed, Reports reviewed - No acute abnormality Discharge - Discharge Clinical Impression: COPD with acute exacerbation, Tobacco abuse, Encounter for smoking cessation counseling Condition: Stable Disposition: HOME, SELF-CARE Instructions: Chronic Obstructive Lung Disease ([facility]) Additional Instructions: Follow up with your physician tomorrow for further care or return to the ED IMMEDIATELY if symptoms worsen or new concerns occur. If you cannot afford to follow up with your primary care physician a list of low cost clinics have been provided at the end of your discharge papers as well. Prescriptions: Prednisone [Deltasone 20 mg Tablet] 3 tab PO DAILY 5 Days tablet
--- NOTE | 2017-04-19 22:50 | EKG REPORT ---
SEVERITY:- OTHERWISE NORMAL ECG - SINUS RHYTHM BORDERLINE LEFT AXIS DEVIATION : Confirmed by: Tanisha Pabon 19-Apr-2017 22:48:50
== END 2017-04-19 20:25 | disposition home or self-care (01) ==
LOC: ER 17:05
DX: J44.1 Chronic obstructive pulmonary disease with (acute) exacerbation (principal); R06.02 Shortness of breath; R05 Cough; I10 Essential (primary) hypertension; F17.210 Nicotine dependence, cigarettes, uncomplicated; Z71.6 Tobacco abuse counseling; Z87.01 Personal history of pneumonia (recurrent)
CPT/HCPCS: 93005; 94640 ×2; 99285; 96374; 36415; 82553; 82550; 85025; 80053; 84484; 83880; 71010; 93010; L3908; J3490; J2930; J7620

== ENCOUNTER → 2017-04-20 | Outpatient (CLI) | payer MEDICAID ==
--- NOTE | 2017-04-20 17:29 | WOMENS IMAGING REPORT ---
EXAM DESCRIPTION: 3D SCREENING MAMMO BILAT COMPLETED DATE/TIME: 04/20/2017 1:40 pm REASON FOR STUDY: ROUTINE SCREENING; Z12.31 Z12.31 ENCNTR SCREEN MAMMOGRAM FOR MALIGNANT NEOPLASM O F MATILDA COMPARISON: 2014 TECHNIQUE: Standard craniocaudal and mediolateral oblique views of each breast recorded using digita l acquisition and breast tomosynthesis. LIMITATIONS: None. FINDINGS: No masses, calcifications or architectural distortion. No areas of suspicion. Read with the assistance of CAD. .[facility] - R2 Cenova Version 1.3 .[facility] - R2 Cenova Version 1.3 .[facility] - R2 Cenova Version 2.4 .[facility] - R2 Cenova Version 2.4 .[facility] - R2 Collar Shaper Operator Version 9.2 IMPRESSION: NORMAL MAMMOGRAM. BIRADS 1. BREAST DENSITY: b. There are scattered areas of fibroglandular density. BIRAD: 1 NEGATIVE RECOMMENDATION: ROUTINE SCREENING COMMENT: The patient has been notified of the results by letter per MQSA requirements. Additional no tification policies are in place for contacting patient with suspicious or incomplete findings. Quality ID #[id number]: The [employer] recommends an annual screening mammogram for women aged 40 years or over. This facility utilizes a reminder system to ensure that all patients receive reminder letters, and/or direct phone calls for appointments. This includes reminders for routine scr eening mammograms, diagnostic mammograms, or other Breast Imaging Interventions when appropriate. Th is patient will be placed in the appropriate reminder system. The [employer] (ACR) has developed recommendations for screening MRI of the breast s in certain patient populations, to be used in conjunction with mammography. Breast MRI surveillanc e may be appropriate for women with more than 20% lifetime risk of developing breast cancer as deter mined by genetic testing, significant family history of the disease, or history of mantle radiation f or Hodgkins Disease. ACR Practice Guidelines 2008. DBT Technology DBT is a type of tomographic mammography. With conventional mammography, overlapping breast tissue ma y make lesions difficult to detect, even with good compression. DBT uses an x-ray tube that rotates a round the breast, taking images at different angles. These images are then combined to create thin sl ices of the breast that the radiologist can view as a 3D reconstruction. The [employer] unit can perform full-field digital mammograms (2D imaging); or DBT (3D imaging); or both, in a combination mode that quickly performs both the mammogram and the tomosynthesis scan while the breast is still compressed. PQRS 6045F: Fluoroscopic imaging is not utilized for breast tomosynthesis. TECHNICAL DOCUMENTATION: FINDING NUMBER: (1) ASSESSMENT: (1) JOB ID: [id number] [employer]- All Rights Reserved
== END ==
LOC: WI 13:33
PROVIDERS: ATTEND Family Medicine Geriatric Medicine
DX: Z12.31 Encounter for screening mammogram for malignant neoplasm of breast (principal)
CPT/HCPCS: 77063; G0202; 77067

== ENCOUNTER 2017-04-24 23:41 | Inpatient (IN) | payer MEDICAID ==
[2017-04-24] MEDS ORDERED: NALOXONE HCL INJ/PF 0.4 MG/1 ML SDV IV ONE (23:49)
[2017-04-24] MEDS ORDERED: NALOXONE HCL INJ/PF 0.4 MG/1 ML SDV ONE (23:51)
[2017-04-25 00:17] LABS: VENOUS BLOOD HCO3 39.2 mmol/L (20-32); VENOUS BLOOD PH 7.29 (7.30-7.42)
[2017-04-25 00:19] LABS: ABSOLUTE BASOPHILS # (AUTO) 0.1 10^3/uL (0.0-0.2); ABSOLUTE LYMPHOCYTES (AUTO) 2.4 10^3/uL (0.5-4.7); ABSOLUTE MONOCYTES (AUTO) 0.9 10^3/uL (0.1-1.4); ABSOLUTE NEUT (AUTO) 6.7 10^3/uL (1.7-8.2); BASOPHILS % (AUTO) 0.6 % (0-2); EOSINOPHILS % (AUTO) 0.2 % (0-6); HEMATOCRIT 39.8 % (36.0-47.0); HEMOGLOBIN 13.2 g/dL (12.0-15.5); LYMPHOCYTES % (AUTO) 24.1 % (13-45); MEAN CORPUSCULAR HEMOGLOBIN 30.4 pg (27.0-33.4); MEAN CORPUSCULAR HGB CONC 33.1 g/dL (32.0-36.0); MEAN CORPUSCULAR VOLUME 92 fl (80-97); PLATELET COUNT 283 10^3/uL (150-450); RED BLOOD COUNT 4.33 10^6/uL (3.72-5.28); SEGMENTED NEUTROPHILS % (AUTO) 66.1 % (42-78); TOTAL CELLS COUNTED % (AUTO) 100 %; VENOUS BLOOD PCO2 83.5 mmHg (35-63); WHITE BLOOD COUNT 10.1 10^3/uL (4.0-10.5)
--- NOTE | 2017-04-25 00:28 | ER Document Report ---
ED General - General Chief Complaint: Shortness Of Breath Stated Complaint: LEG BLEEDING WITH WHEEZING Time Seen by Provider: 04/24/17 23:44 Notes: Patient is a 56-year-old female presents with complaint of difficulty breathing. She was actually initially called the paramedics because she had a small cut on her leg. Paramedics arrived and noticed that she was having difficulty breathing and wheezing. She said that started tonight. She does have history of smoking. She denies any recent fevers or infections. She denies any chest pain. She has a little bit somnolent on exam and the paramedics said that she took her sleeping medicines right before they got there. They are unsure what her sleeping medicines are. TRAVEL OUTSIDE OF THE [place] IN LAST 30 DAYS: No - Related Data Allergies/Adverse Reactions: No Known Allergies Allergy (Verified 04/19/17 17:06) Past Medical History - Social History Smoking Status: Current Every Day Smoker Frequency of alcohol use: None Drug Abuse: None Family History: Other - Unknown - Past Medical History Cardiac Medical History: Reports: Hx Hypertension Pulmonary Medical History: Reports: Hx Asthma - last ED visit > 3 years ago, Hx Bronchitis, Hx COPD, Hx Pneumonia - required hospitalization Neurological Medical History: Reports: Hx Migraine Renal/ Medical History: Denies: Hx Peritoneal Dialysis Malignancy Medical History: GI Medical History: Reports: Hx Gastroesophageal Reflux Disease - Rx x 10 years , Hx Ulcer. Denies: Hx Pancreatitis Musculoskeltal Medical History: Reports Hx Arthritis, Reports Hx Musculoskeletal Deformity, Reports Hx Musculoskeletal Trauma Psychiatric Medical History: Reports: Hx Anxiety, Hx Bipolar Disorder, Hx Borderline Personality Disorder, Hx Depression - per [facility]'s note 11/16/14, Hx Schizophrenia - per ED note 10/07/14 Traumatic Medical History: Reports: Hx Fractures - tib RT, denies sugery Past Surgical History: Reports: Hx Dilation and Curettage, Hx Orthopedic Surgery - Bilateral knee replacements. Denies: Hx Appendectomy, Hx Bowel Surgery, Hx Section, Hx Cholecystectomy, Hx Hysterectomy, Hx Mastectomy , Hx Tonsillectomy, Hx Tubal Ligation - Immunizations Immunizations up to date: Yes Hx Diphtheria, Pertussis, Tetanus Vaccination: Yes Review of Systems - Review of Systems Notes: My Normal Review Basic REVIEW OF SYSTEMS: CONSTITUTIONAL : Denies fever, chills, or sweats. Denies recent illness. EENT: Denies eye, ear, throat, or mouth pain or symptoms. Denies nasal or sinus congestion. CARDIOVASCULAR: Denies chest pain. RESPIRATORY: Wheezing and difficulty breathing. GASTROINTESTINAL: Denies abdominal pain. Denies nausea, vomiting, or diarrhea. Denies constipation. Last BM: MUSCULOSKELETAL: Denies neck or back pain or joint pain or swelling. SKIN: Small cut to left lower leg. HEMATOLOGIC : Denies easy bruising or bleeding. Denies being on blood thinning medications. NEUROLOGICAL: Denies altered mental status or loss of consciousness. Denies headache. Denies weakness or paralysis or loss of use of either side. Denies problems with gait or speech. Denies sensory or motor loss. ALL OTHER SYSTEMS REVIEWED AND NEGATIVE. Physical Exam - Vital signs Vitals: Resp Pulse Ox 19 100 04/24/17 23:47 04/24/17 23:47 - Notes Notes: General Appearance: Well nourished, mildly somnolent, cooperative, moderate acute distress, no obvious discomfort. Vitals: reviewed, See vital signs table. Head: no swelling or tenderness to the head Eyes: Pupils are small but reactive., EOMI, Conjuctiva clear Mouth: No decreasd moisture Throat: No tonsillar inflammation, No airway obstruction, No lymphadenopathy Neck: Supple, no neck tenderness, No thyromegaly Lungs: Diffuse wheezing, No rales, No rhonci, mild to moderate accessory muscle use, fair air exchange bilaterally. Heart: Normal rate, Regular rythm, No murmur, no rub Abdomen: Normal BS, soft, No rigidity, No abdominal tenderness, No guarding Extremities: strength 5/5 in all extremities, good pulses in all extremities, no swelling or tenderness in the extremities, no edema. Skin: warm, dry, appropriate color, no rash Neuro: speech clear, oriented x 3, normal affect, responds appropriately to questions. Course - Re-evaluation Re-evalutation: 04/25/17 03:42 Remains to have some somnolence but does arouse to voice and does talk some answer some questions. As looking through previous admissions. She had a recent admission with same presentation with somnolence and COPD exacerbation. At that time was found out that she most likely abuse narcotics and benzos. I suspect this may be the same presentation today. I did repeat her venous blood gas. This stayed about the same. Did not worsen. Spoke with the hospitalist, Dr. Jon, agrees to accept the patient for continued monitoring and treatment. Dictation of this chart was performed using voice recognition software; therefore, there may be some unintended grammatical errors. - Vital Signs Vital signs: Temp Pulse Resp BP Pulse Ox 17 135/75 H 97 04/25/17 03:02 04/25/17 03:02 04/25/17 03:02 - Laboratory Result Diagrams: 04/25/17 00:00 04/25/17 00:40 Laboratory results interpreted by me: 04/25/17 04/25/17 04/25/17 00:00 00:40 02:33 VBG pH 7.29 L 7.29 L VBG pCO2 83.5 H* 81.4 H* VBG HCO3 39.2 H 38.3 H Sodium 147.0 H Carbon Dioxide 37 H BUN 23 H Glucose 131 H - EKG Interpretation by Me Additional EKG results interpreted by me: 04/25/17 00:25 EKG is reviewed and interpreted by me. EKG shows normal sinus rhythm with a rate of [address] segment elevation or depression. No ischemic T-wave inversions. Pure interval, QRS duration, QTc intervals are within normal range. No old EKG available for comparison. Discharge - Discharge Clinical Impression: Hypercapnemia, COPD with acute exacerbation, Tobacco abuse Condition: Stable Disposition: ADMITTED OBSERVATION Admitting Provider: Hospitalist Unit Admitted: [facility]
[2017-04-25 01:08] LABS: ALANINE AMINOTRANSFERASE 43 U/L (9-52); ALBUMIN 3.8 g/dL (3.5-5.0); ALKALINE PHOSPHATASE 84 U/L (38-126); ANION GAP 9 (5-19); ASPARTATE AMINO TRANSFERASE 21 U/L (14-36); BILIRUBIN,DIRECT 0.3 mg/dL (0.0-0.4); BILIRUBIN,TOTAL 0.3 mg/dL (0.2-1.3); BLOOD UREA NITROGEN 23 mg/dL (7-20); CALCIUM 9.5 mg/dL (8.4-10.2); CARBON DIOXIDE 37 mmol/L (22-30); CHLORIDE 101 mmol/L (98-107); GLUCOSE 131 mg/dL (75-110); POTASSIUM 4.4 mmol/L (3.6-5.0); TOTAL PROTEIN 6.4 g/dL (6.3-8.2)
--- NOTE | 2017-04-25 01:54 | RADIOLOGY REPORT (SQ) ---
EXAM DESCRIPTION: CHEST SINGLE VIEW CLINICAL HISTORY: 56 years, Female, wheezing COMPARISON: 04.19.17 LIMITATIONS: None. FINDINGS: Moderate lung volume, normal cardiac silhouette, atherosclerosis, and intact bony thorax. IMPRESSION: No acute cardiopulmonary findings. 2011 [employer]- All Rights Reserved
[2017-04-25] MEDS ORDERED: LIDOCAINE 1%/EPINEPHRINE INJ 20 ML VIAL INJ ONE (01:58)
[2017-04-25 02:41] LABS: VENOUS BLOOD BASE EXCESS 8.4 mmol/L; VENOUS BLOOD HCO3 38.3 mmol/L (20-32); VENOUS BLOOD PH 7.29 (7.30-7.42)
[2017-04-25 02:44] LABS: VENOUS BLOOD PCO2 81.4 mmHg (35-63)
[2017-04-25] MEDS ORDERED: IPRATROPIUM/ALBUTEROL 0.5-2.5 MG/3 ML AMPUL NEB PRN (03:42)
[2017-04-25] MEDS ORDERED: ACETAMINOPHEN 325 MG TABLET PO PRN (03:42)
[2017-04-25] MEDS ORDERED: MAG HYDROX/AL HYDROX/SIMETH SUSP 30 ML UDCUP PO PRN (03:42)
[2017-04-25 04:18] LABS: MAGNESIUM 2.4 mg/dL (1.6-2.3)
[2017-04-25 04:27] LABS: ABSOLUTE LYMPHOCYTES (AUTO) 0.9 10^3/uL (0.5-4.7); ABSOLUTE MONOCYTES (AUTO) 0.2 10^3/uL (0.1-1.4); ABSOLUTE NEUT (AUTO) 7.1 10^3/uL (1.7-8.2); BASOPHILS % (AUTO) 0.3 % (0-2); HEMATOCRIT 37.6 % (36.0-47.0); HEMOGLOBIN 12.5 g/dL (12.0-15.5); LYMPHOCYTES % (AUTO) 10.8 % (13-45); MEAN CORPUSCULAR HEMOGLOBIN 30.3 pg (27.0-33.4); MEAN CORPUSCULAR HGB CONC 33.3 g/dL (32.0-36.0); MEAN CORPUSCULAR VOLUME 91 fl (80-97); MONOCYTES % (AUTO) 2.7 % (3-13); PLATELET COUNT 246 10^3/uL (150-450); RED BLOOD COUNT 4.13 10^6/uL (3.72-5.28); RED CELL DISTRIBUTION WIDTH 13.8 % (11.5-14.0); SEGMENTED NEUTROPHILS % (AUTO) 86.2 % (42-78); TOTAL CELLS COUNTED % (AUTO) 100 %; WHITE BLOOD COUNT 8.3 10^3/uL (4.0-10.5)
[2017-04-25 04:40] LABS: ANION GAP 9 (5-19); BLOOD UREA NITROGEN 25 mg/dL (7-20); CALCIUM 9.5 mg/dL (8.4-10.2); CARBON DIOXIDE 34 mmol/L (22-30); CHLORIDE 101 mmol/L (98-107); GLUCOSE 214 mg/dL (75-110); POTASSIUM 4.4 mmol/L (3.6-5.0); SODIUM 143.7 mmol/L (137-145)
[2017-04-25 04:44] LABS: CREATINE KINASE < 20 U/L (30-135)
[2017-04-25] MEDS ORDERED: NALOXONE HCL INJ/PF 0.4 MG/1 ML SDV IV ONE (04:45)
[2017-04-25 04:52] LABS: CREATINE KINASE MB 0.86 ng/mL (<4.55)
[2017-04-25 04:53] LABS: TROPONIN I < 0.012 ng/mL
--- NOTE | 2017-04-25 06:33 | PDOC H&P ---
History of Present Illness Admission Date/PCP: 04/25/17 03:57 Patient complains of: Altered mental status History of Present Illness: MANDEEP VIVAR is a 56 year old female with a past medical history of morbid obesity, obstructive sleep apnea, COPD, chronic bronchitis, tobacco, anxiety, polysubstance abuse of cocaine, benzodiazepine and opiates. Patient is unable to provide history but is well-known to the emergency medical service, emergency room and hospitalist service. She presents after calling EMS for a 1 cm leg laceration occurring while shaving. However EMS finds her lethargic and brings her to the emergency room for evaluation. She is found obtunded with pulse oximetry of 83 and a 1 cm leg laceration requiring 2 sutures. Blood gas reveals a PCO2 of 83 she started on BiPAP and receives IV Narcan 1 and referred the hospitalist for admission. Workup is otherwise unremarkable Past Medical History Cardiac Medical History: Reports: Hypertension Pulmonary Medical History: Reports: Asthma - last ED visit > 3 years ago, Bronchitis, Chronic Obstructive Pulmonary Disease (COPD), Pneumonia - required hospitalization Neurological Medical History: Reports: Migraine Endocrine Medical History: Reports: Obesity Malignancy Medical History: GI Medical History: Reports: Gastroesophageal Reflux Disease - Rx x 10 years Musculoskeltal Medical History: Reports: Arthritis Psychiatric Medical History: Reports: Bipolar Disorder, Depression - per Suzanne's note 11/16/14, Schizoaffective Disorder, Substance Abuse, Tobacco Dependency Hematology: Denies: Anemia Past Surgical History Past Surgical History: Reports: Orthopedic Surgery - Bilateral knee replacements Denies: Amputation, Appendectomy, Section, Cholecystectomy, Hysterectomy, Mastectomy, Tonsillectomy, Tubal Ligation Social History Information Source: Emergency Med Personnel, [facility] Records Smoking Status: Current Every Day Smoker Frequency of Alcohol Use: None Hx Recreational Drug Use: Yes Drugs: Cocaine Hx Prescription Drug Abuse: Yes - Advance Directive Resuscitation Status: Full Code Family History Family History: Other - Unknown Parental Family History Reviewed: Yes - Unobtainable Children Family History Reviewed: Yes - Unobtainable Sibling(s) Family History Reviewed.: Yes - Unobtainable Medication/Allergy Home Medications: Aripiprazole [Abilify 10 mg Tablet] 10 mg PO DAILY 02/17/17 Clonazepam [Klonopin] 0.5 mg PO Q12 02/17/17 Divalproex Sodium [Divalproex Sodium ER] 500 mg PO Q12 02/17/17 Doxepin HCl 100 mg PO QHS 02/17/17 Esomeprazole Magnesium [Nexium] 40 mg PO DAILY 02/17/17 Fluticasone/Salmeterol [Advair 250-50 Diskus 28 dose] 1 inh IH Q12 02/17/17 Gabapentin [Neurontin 400 mg Capsule] 400 mg PO BID 02/17/17 Gabapentin [Neurontin 400 mg Capsule] 800 mg PO QHS 02/17/17 Pantoprazole Sodium [Protonix] 40 mg PO DAILY 02/17/17 Paroxetine HCl [Paxil] 30 mg PO BID 02/17/17 Solifenacin Succinate [Vesicare] 5 mg PO DAILY 02/17/17 Albuterol Sulfate [Proair HFA] 2 puff IH Q4 PRN #1 02/19/17 Ipratropium/Albuterol Sulfate [Duoneb 3 ml Ampul] 3 ml NEB [id number] PRN #120 vial.neb 02/19/17 Methylprednisolone [Medrol Dosepack (4 mg/Tab) 21 Tab/Dosepak] 4 mg PO ASDIR PRN #21 tab.ds.pk 02/19/17 Tiotropium [place] [Spiriva Handihaler 18 mcg/dose (30 Dose)] 1 cap IH DAILY # 30 capsule 02/19/17 Prednisone [Deltasone 20 mg Tablet] 3 tab PO DAILY 5 Days tablet 04/19/17 Allergies/Adverse Reactions: No Known Allergies Allergy (Verified 04/19/17 17:06) Review of Systems ROS unobtainable: Due to mental status Physical Exam Vital Signs: Temp Pulse Resp BP Pulse Ox 11 L 124/75 97 04/25/17 04:42 04/25/17 04:02 04/25/17 04:42 Intake & Output 04/23/17 04/24/17 04/25/17 11:59 11:59 11:59 Weight 103 kg General appearance: PRESENT: disheveled, obese, severe distress, other - 8 respirations per minute, C-spine in flexion and poorly responsive on BiPAP Head exam: PRESENT: atraumatic, normocephalic Eye exam: PRESENT: conjunctiva pink, EOMI, PERRLA. ABSENT: scleral icterus Ear exam: PRESENT: normal external ear exam Mouth exam: PRESENT: moist, tongue midline Neck exam: ABSENT: carotid bruit, JVD, lymphadenopathy, thyromegaly Respiratory exam: PRESENT: accessory muscle use, crackles, prolonged expiratory phas, retraction, symmetrical. ABSENT: rhonchi, stridor Cardiovascular exam: PRESENT: RRR. ABSENT: diastolic murmur, rubs, systolic murmur Pulses: PRESENT: normal dorsalis pedis pul Vascular exam: PRESENT: normal capillary refill GI/Abdominal exam: PRESENT: normal bowel sounds, soft. ABSENT: distended, guarding, mass, organolmegaly, rebound, tenderness Rectal exam: PRESENT: deferred Extremities exam: PRESENT: full ROM. ABSENT: calf tenderness, clubbing, pedal edema Neurological exam: PRESENT: altered. ABSENT: alert, awake, oriented to person, oriented to place, oriented to time, oriented to situation, motor sensory deficit Focused psych exam: PRESENT: other - Obtunded Skin exam: PRESENT: dry, intact, warm. ABSENT: cyanosis, rash Results Laboratory Results: 04/25/17 04:17 04/25/17 04:17 04/25/17 04/25/17 04:17 04:17 WBC 8.3 RBC 4.13 Hgb 12.5 Hct 37.6 MCV 91 MCH 30.3 MCHC 33.3 RDW 13.8 Plt Count 246 Seg Neutrophils % 86.2 H Lymphocytes % 10.8 L Monocytes % 2.7 L Eosinophils % 0.0 Basophils % 0.3 Absolute Neutrophils 7.1 Absolute Lymphocytes 0.9 Absolute Monocytes 0.2 Absolute Eosinophils 0.0 Absolute Basophils 0.0 Sodium 143.7 Potassium 4.4 Chloride 101 Carbon Dioxide 34 H Anion Gap 9 BUN 25 H Creatinine 0.52 Est GFR ( Amer) > 60 Est GFR (Non-Af Amer) > 60 Glucose 214 H Calcium 9.5 04/25/17 04/25/17 04:17 04:17 Creatine Kinase < 20 L CK-MB (CK-2) 0.86 Troponin I < 0.012 Impressions: Chest X-Ray 04/24/17 23:50 IMPRESSION: No acute cardiopulmonary findings. 2010 [employer]- All Rights Reserved Assessment & Plan - Diagnosis (1) Acute on chronic respiratory failure with hypoxia and hypercapnia Is this a current diagnosis for this admission?: Yes Plan: Complicated by chronic pain, polysubstance abuse, obstructive sleep apnea, morbid obesity and upper airway stridor that resolves with removal of her pillow and cervical spine extension. Continue BiPAP support reevaluate ABG (2) Obstructive sleep apnea Is this a current diagnosis for this admission?: Yes Plan: Please see #1 BiPAP in C-spine extension, avoidance of sedation. (3) Substance abuse Is this a current diagnosis for this admission?: Yes Plan: Narcan as needed, consider rehab referral - Time Time Spent: 50 to 70 Minutes - Inpatient Certification Medical Necessity: Need Close Monitoring Due to Risk of Patient Decompensation
[2017-04-25] MEDS ORDERED: INFLUENZA ADLT QUAD (36MOS+) 2017-18 VAC 0.5 ML SYR IM PRN (06:36)
[2017-04-25 06:44] LABS: ARTERIAL BLOOD BASE EXCESS 4.9 mmol/L; ARTERIAL BLOOD H2CO3 1.84 mmol/L (1.05-1.35); ARTERIAL BLOOD HCO3 32.3 mmol/L (20-26); ARTERIAL BLOOD O2 SATURATION 93.7 % (94-98); ARTERIAL BLOOD PH 7.34 (7.35-7.45); ARTERIAL BLOOD TOTAL CO2 34.2 mmol/L (21-25)
[2017-04-25 06:45] LABS: ARTERIAL BLOOD FIO2 30%
--- NOTE | 2017-04-25 07:52 | EKG REPORT ---
SEVERITY:- OTHERWISE NORMAL ECG - SINUS RHYTHM BORDERLINE LEFT AXIS DEVIATION : Confirmed by: Juan Pablo Sevilla MD 25-Apr-2017 07:51:44
[2017-04-25] MEDS: IPRATROPIUM/ALBUTEROL 0.5-2.5 MG/3 ML AMPUL NEB SCH ×3 (08:16→20:12)
[2017-04-25] MEDS: HEPARIN SOD (PORCINE) 5,000 UNIT/ML 1 ML SYRINGE SUBCUT SCH ×3 (10:10→22:10)
[2017-04-25] MEDS: ARIPIPRAZOLE 5 MG TABLET PO SCH (10:14)
[2017-04-25] MEDS: DOCUSATE SODIUM 100 MG CAPSULE PO SCH ×2 (10:15→17:50)
[2017-04-25] MEDS: GABAPENTIN 400 MG CAPSULE PO SCH ×2 (10:15→17:51)
[2017-04-25] MEDS: LANSOPRAZOLE 30 MG TAB.RAP.DR PO SCH (10:15)
[2017-04-25 11:36] LABS: CREATINE KINASE MB 0.66 ng/mL (<4.55)
[2017-04-25 11:44] LABS: TROPONIN I < 0.012 ng/mL
[2017-04-25] MEDS: METHYLPREDNISOLONE INJ 125 MG/2 ML SDV IV SCH ×2 (14:58→22:13)
--- NOTE | 2017-04-25 16:23 | PDOC PROGRESS REPORT ---
Subjective Progress Note for:: 04/25/17 Subjective:: Pt is seen on morning rounds. She is found resting in bed comfortably on BiPAP. She requests assistance taking BiPAP off so that she may eat breakfast. Her primary concern today is the laceration that was sutured in the Emergency Department last night. She does complain of shortness of breath, no worse than her usual, and a slightly productive cough for approximately a week. She denies fever. She has no new questions or concerns today. Reason For Visit: HYPERCAPNIA RESP FAILURE,POLYPHARMACY Physical Exam Vital Signs: Temp Pulse Resp BP Pulse Ox 97.6 F 72 18 129/66 H 96 04/25/17 11:55 04/25/17 11:55 04/25/17 11:55 04/25/17 11:55 04/25/17 11:55 Intake & Output 04/24/17 04/25/17 04/26/17 06:59 06:59 06:59 Intake Total 1 1200 Output Total 0 Balance 1 1200 Weight 103 kg General appearance: PRESENT: mild distress, morbidly obese, well-developed, well -nourished Head exam: PRESENT: atraumatic, normocephalic Eye exam: PRESENT: conjunctiva pink, EOMI, PERRLA. ABSENT: scleral icterus Ear exam: PRESENT: normal external ear exam Mouth exam: PRESENT: moist, tongue midline Neck exam: ABSENT: carotid bruit, JVD, lymphadenopathy, thyromegaly Respiratory exam: PRESENT: accessory muscle use, prolonged expiratory phas, rhonchi, tachypnea, wheezes. ABSENT: rales Cardiovascular exam: PRESENT: RRR, +S1, +S2. ABSENT: diastolic murmur, rubs, systolic murmur Pulses: PRESENT: normal dorsalis pedis pul Vascular exam: PRESENT: normal capillary refill GI/Abdominal exam: PRESENT: normal bowel sounds, soft. ABSENT: distended, guarding, mass, organolmegaly, rebound, tenderness Rectal exam: PRESENT: deferred Extremities exam: PRESENT: full ROM. ABSENT: calf tenderness, clubbing, pedal edema Neurological exam: PRESENT: alert, awake, oriented to person, oriented to place , oriented to time, oriented to situation, CN II-XII grossly intact. ABSENT: motor sensory deficit Psychiatric exam: PRESENT: appropriate affect, normal mood. ABSENT: homicidal ideation, suicidal ideation Skin exam: PRESENT: dry, warm. ABSENT: cyanosis, intact - 1 cm laceration to LLL; approximated w/ sutures, rash Results Laboratory Results: 04/25/17 04:17 04/25/17 04:17 04/25/17 04/25/17 04/25/17 04:17 04:17 06:35 WBC 8.3 RBC 4.13 Hgb 12.5 Hct 37.6 MCV 91 MCH 30.3 MCHC 33.3 RDW 13.8 Plt Count 246 Seg Neutrophils % 86.2 H Lymphocytes % 10.8 L Monocytes % 2.7 L Eosinophils % 0.0 Basophils % 0.3 Absolute Neutrophils 7.1 Absolute Lymphocytes 0.9 Absolute Monocytes 0.2 Absolute Eosinophils 0.0 Absolute Basophils 0.0 Carbonic Acid 1.84 H HCO3/H2CO3 Ratio 17:1 ABG pH 7.34 L ABG pCO2 61.0 H ABG pO2 74.0 L ABG HCO3 32.3 H ABG O2 Saturation 93.7 L ABG Base Excess 4.9 FiO2 30% Sodium 143.7 Potassium 4.4 Chloride 101 Carbon Dioxide 34 H Anion Gap 9 BUN 25 H Creatinine 0.52 Est GFR ( Amer) > 60 Est GFR (Non-Af Amer) > 60 Glucose 214 H Calcium 9.5 04/25/17 04/25/17 04/25/17 04:17 04:17 10:47 Creatine Kinase < 20 L < 20 L CK-MB (CK-2) 0.86 Troponin I < 0.012 04/25/17 10:47 Creatine Kinase CK-MB (CK-2) 0.66 Troponin I < 0.012 Impressions: Chest X-Ray 04/24/17 23:50 IMPRESSION: No acute cardiopulmonary findings. 2010 [employer]- All Rights Reserved Assessment & Plan - Diagnosis (1) COPD with acute exacerbation Is this a current diagnosis for this admission?: Yes Plan: Pt is admitted to [facility] on continuous cardiac monitoring. She will receive Solu-medrol, scheduled and as needed nebulizer treatments, and mucinex. Supplemental oxygen to keep saturations greater [place] 88%. BiPAP qS and prn. As the patient is afebrile and has a normal WBC count, will hold antibiotics at this time. (2) Acute on chronic respiratory failure with hypoxia and hypercapnia Is this a current diagnosis for this admission?: Yes Plan: Secondary to #1; plan as above. (3) Obstructive sleep apnea Is this a current diagnosis for this admission?: Yes Plan: BiPAP qHS. (4) Tobacco abuse Is this a current diagnosis for this admission?: Yes Plan: Smoking cessation encouraged. Nicotine replacement therapies offered and declined at this time. - Time Time Spent with patient: 15-24 minutes Anticipated discharge: Home
[2017-04-25 17:36] LABS: CREATINE KINASE MB 0.45 ng/mL (<4.55)
[2017-04-25 17:41] LABS: TROPONIN I < 0.012 ng/mL
[2017-04-25] MEDS: GUAIFENESIN 600 MG TABLET.SA PO SCH (22:13)
[2017-04-25] MEDS: DOXEPIN HCL 25 MG CAPSULE PO SCH (22:14)
[2017-04-26 01:18] LABS: URINE AMPHETAMINES SCREEN NEGATIVE; URINE BARBITURATES SCREEN NEGATIVE; URINE BENZODIAZEPINES SCREEN NEGATIVE; URINE MARIJUANA (THC) SCREEN NEGATIVE; URINE METHADONE SCREEN NEGATIVE; URINE PHENCYCLIDINE SCREEN NEGATIVE
[2017-04-26 01:25] LABS: URINE COCAINE SCREEN UNCONFIRMED POSITIVE
[2017-04-26] MEDS ORDERED: LACTULOSE SYRUP 20 GM/30 ML UDCUP PO ONE (02:04)
[2017-04-26] MEDS: IPRATROPIUM/ALBUTEROL 0.5-2.5 MG/3 ML AMPUL NEB SCH ×4 (02:04→19:54)
[2017-04-26 03:12] LABS: CREATINE KINASE MB < 0.22 ng/mL (<4.55); TROPONIN I < 0.012 ng/mL
[2017-04-26] MEDS: METHYLPREDNISOLONE INJ 125 MG/2 ML SDV IV SCH ×3 (06:30→21:37)
[2017-04-26] MEDS: HEPARIN SOD (PORCINE) 5,000 UNIT/ML 1 ML SYRINGE SUBCUT SCH ×3 (06:31→21:37)
--- NOTE | 2017-04-26 08:40 | EKG REPORT ---
SEVERITY:- NORMAL ECG - SINUS RHYTHM : Confirmed by: Juan Pablo Sevilla MD 26-Apr-2017 08:39:30
[2017-04-26] MEDS: DIVALPROEX SODIUM 500 MG TAB.SR.24H PO SCH ×2 (09:27→21:36)
[2017-04-26] MEDS: GABAPENTIN 400 MG CAPSULE PO SCH ×2 (09:27→17:39)
[2017-04-26] MEDS: ARIPIPRAZOLE 5 MG TABLET PO SCH (09:27)
[2017-04-26] MEDS: GUAIFENESIN 600 MG TABLET.SA PO SCH ×2 (09:27→21:36)
[2017-04-26] MEDS: LANSOPRAZOLE 30 MG TAB.RAP.DR PO SCH (09:27)
[2017-04-26] MEDS: DOCUSATE SODIUM 100 MG CAPSULE PO SCH ×2 (09:28→17:40)
[2017-04-26 09:52] LABS: ABSOLUTE BASOPHILS # (AUTO) 0.1 10^3/uL (0.0-0.2); ABSOLUTE LYMPHOCYTES (AUTO) 1.4 10^3/uL (0.5-4.7); ABSOLUTE MONOCYTES (AUTO) 1.4 10^3/uL (0.1-1.4); ABSOLUTE NEUT (AUTO) 14.7 10^3/uL (1.7-8.2); BASOPHILS % (AUTO) 0.4 % (0-2); EOSINOPHILS % (AUTO) 0.1 % (0-6); HEMATOCRIT 36.6 % (36.0-47.0); MEAN CORPUSCULAR HEMOGLOBIN 29.7 pg (27.0-33.4); MEAN CORPUSCULAR HGB CONC 32.7 g/dL (32.0-36.0); MEAN CORPUSCULAR VOLUME 91 fl (80-97); MONOCYTES % (AUTO) 7.7 % (3-13); PLATELET COUNT 252 10^3/uL (150-450); RED BLOOD COUNT 4.02 10^6/uL (3.72-5.28); RED CELL DISTRIBUTION WIDTH 13.7 % (11.5-14.0); SEGMENTED NEUTROPHILS % (AUTO) 83.8 % (42-78); TOTAL CELLS COUNTED % (AUTO) 100 %
[2017-04-26 10:01] LABS: ANION GAP 7 (5-19); BLOOD UREA NITROGEN 18 mg/dL (7-20); CALCIUM 10.3 mg/dL (8.4-10.2); CARBON DIOXIDE 33 mmol/L (22-30); CHLORIDE 102 mmol/L (98-107); GLUCOSE 120 mg/dL (75-110); POTASSIUM 5.1 mmol/L (3.6-5.0); SODIUM 141.9 mmol/L (137-145)
[2017-04-26 10:09] LABS: WHITE BLOOD COUNT 17.6 10^3/uL (4.0-10.5)
[2017-04-26 10:13] LABS: CREATINE KINASE MB < 0.22 ng/mL (<4.55); TROPONIN I < 0.012 ng/mL
--- NOTE | 2017-04-26 10:13 | PDOC PROGRESS REPORT ---
Subjective Progress Note for:: 04/26/17 Subjective:: States she wants to go home. Reason For Visit: HYPERCAPNIA RESP FAILURE,POLYPHARMACY Physical Exam Vital Signs: Temp Pulse Resp BP Pulse Ox 98.5 F 87 20 131/66 H 94 04/26/17 07:57 04/26/17 09:12 04/26/17 09:12 04/26/17 07:57 04/26/17 09:12 Intake & Output 04/25/17 04/26/17 04/27/17 06:59 06:59 06:59 Intake Total 1 1710 Output Total 0 300 Balance 1 1410 Weight 103 kg 103.5 kg General appearance: PRESENT: no acute distress Eye exam: PRESENT: conjunctiva pink. ABSENT: scleral icterus Mouth exam: PRESENT: moist, tongue midline Neck exam: ABSENT: JVD Respiratory exam: PRESENT: wheezes - Bilateral expiratory wheezes. ABSENT: rales, rhonchi Cardiovascular exam: PRESENT: RRR. ABSENT: diastolic murmur, rubs, systolic murmur GI/Abdominal exam: PRESENT: normal bowel sounds, soft. ABSENT: distended, guarding, mass, organolmegaly, rebound, tenderness Extremities exam: ABSENT: calf tenderness, clubbing, pedal edema Neurological exam: PRESENT: alert, awake, oriented to person, oriented to place , oriented to time, oriented to situation, CN II-XII grossly intact. ABSENT: motor sensory deficit Psychiatric exam: PRESENT: appropriate affect Skin exam: PRESENT: dry, intact, warm. ABSENT: cyanosis, rash Results Laboratory Results: 04/26/17 09:25 04/26/17 09:25 04/26/17 04/26/17 09:25 09:25 WBC 17.6 H D RBC 4.02 Hgb 12.0 Hct 36.6 MCV 91 MCH 29.7 MCHC 32.7 RDW 13.7 Plt Count 252 Seg Neutrophils % 83.8 H Lymphocytes % 8.0 L Monocytes % 7.7 Eosinophils % 0.1 Basophils % 0.4 Absolute Neutrophils 14.7 H Absolute Lymphocytes 1.4 Absolute Monocytes 1.4 Absolute Eosinophils 0.0 Absolute Basophils 0.1 Sodium 141.9 Potassium 5.1 H Chloride 102 Carbon Dioxide 33 H Anion Gap 7 BUN 18 Creatinine 0.48 L Est GFR ( Amer) > 60 Est GFR (Non-Af Amer) > 60 Glucose 120 H Calcium 10.3 H 04/25/17 04/25/17 04/25/17 04:17 04:17 10:47 Creatine Kinase < 20 L < 20 L CK-MB (CK-2) 0.86 Troponin I < 0.012 04/25/17 04/25/17 04/25/17 10:47 16:40 16:40 Creatine Kinase < 20 L CK-MB (CK-2) 0.66 0.45 Troponin I < 0.012 < 0.012 04/26/17 04/26/17 04/26/17 02:33 02:33 09:25 Creatine Kinase < 20 L < 20 L CK-MB (CK-2) < 0.22 Troponin I < 0.012 Impressions: Chest X-Ray 04/24/17 23:50 IMPRESSION: No acute cardiopulmonary findings. 2010 [employer]- All Rights Reserved Assessment & Plan - Diagnosis (1) COPD with acute exacerbation Is this a current diagnosis for this admission?: Yes Plan: Patient still has wheezing on exam. We will continue with the steroids, nebulizers. Patient also is encouraged to quit smoking. (2) Obstructive sleep apnea Is this a current diagnosis for this admission?: Yes Plan: Patient is to use BiPAP nightly (3) Tobacco abuse Is this a current diagnosis for this admission?: Yes Plan: She is encouraged to abstain from tobacco (4) Acute on chronic respiratory failure with hypoxia and hypercapnia Is this a current diagnosis for this admission?: Yes Plan: Secondary to COPD. Continue with steroids and nebulizers. - Time Time Spent with patient: 25-34 minutes - Inpatient Certification Medical Necessity: Need Close Monitoring Due to Risk of Patient Decompensation
[2017-04-26 15:28] LABS: CREATINE KINASE MB 0.45 ng/mL (<4.55)
[2017-04-26 15:31] LABS: TROPONIN I < 0.012 ng/mL
[2017-04-26] MEDS: DOXEPIN HCL 25 MG CAPSULE PO SCH (21:36)
[2017-04-27] MEDS: IPRATROPIUM/ALBUTEROL 0.5-2.5 MG/3 ML AMPUL NEB SCH ×2 (01:40→08:45)
[2017-04-27] MEDS: METHYLPREDNISOLONE INJ 125 MG/2 ML SDV IV SCH (05:06)
[2017-04-27] MEDS: HEPARIN SOD (PORCINE) 5,000 UNIT/ML 1 ML SYRINGE SUBCUT SCH (05:06)
[2017-04-27 05:38] LABS: ANION GAP 5 (5-19); BLOOD UREA NITROGEN 17 mg/dL (7-20); CALCIUM 9.7 mg/dL (8.4-10.2); CARBON DIOXIDE 39 mmol/L (22-30); CHLORIDE 97 mmol/L (98-107); GLUCOSE 261 mg/dL (75-110); POTASSIUM 4.7 mmol/L (3.6-5.0); SODIUM 141.4 mmol/L (137-145)
[2017-04-27 05:49] LABS: HEMATOCRIT 34.5 % (36.0-47.0); HEMOGLOBIN 11.5 g/dL (12.0-15.5); MEAN CORPUSCULAR HEMOGLOBIN 30.4 pg (27.0-33.4); MEAN CORPUSCULAR HGB CONC 33.3 g/dL (32.0-36.0); MEAN CORPUSCULAR VOLUME 91 fl (80-97); PLATELET COUNT 247 10^3/uL (150-450); RED BLOOD COUNT 3.77 10^6/uL (3.72-5.28); RED CELL DISTRIBUTION WIDTH 13.5 % (11.5-14.0); WHITE BLOOD COUNT 15.2 10^3/uL (4.0-10.5)
[2017-04-27 06:29] LABS: ABSOLUTE LYMPHOCYTES# (MANUAL) 1.5 10^3/uL (0.5-4.7); ABSOLUTE MONOCYTES # (MANUAL) 1.2 10^3/uL (0.1-1.4); ABSOLUTE NEUTROPHILS# (MANUAL) 12.5 10^3/uL (1.7-8.2); BAND NEUTROPHILS % (MANUAL) 3 % (3-5); BASOPHILS % (MANUAL) 0 % (0-2); EOSINOPHILS % (MANUAL) 0 % (0-6); LYMPHOCYTES % (MANUAL) 10 % (13-45); MONOCYTES % (MANUAL) 8 % (3-13); SEGMENTED NEUTROPHILS % (MAN) 79 % (42-78); TOTAL CELLS COUNTED 100
[2017-04-27 06:31] LABS: PLATELET COMMENT ADEQUATE; RBC MORPHOLOGY COMMENT NORMO-CYTIC/CHROMIC
[2017-04-27 10:04] VITALS: BP 126/72
[2017-04-27] MEDS: GUAIFENESIN 600 MG TABLET.SA PO SCH (10:23)
[2017-04-27] MEDS: ARIPIPRAZOLE 5 MG TABLET PO SCH (10:23)
[2017-04-27] MEDS: GABAPENTIN 400 MG CAPSULE PO SCH (10:23)
[2017-04-27] MEDS: DIVALPROEX SODIUM 500 MG TAB.SR.24H PO SCH (10:23)
[2017-04-27] MEDS: LANSOPRAZOLE 30 MG TAB.RAP.DR PO SCH (10:24)
[2017-04-27] MEDS: DOCUSATE SODIUM 100 MG CAPSULE PO SCH (10:24)
--- NOTE | 2017-04-27 14:37 | PDOC DISCHARGE SUMMARY ---
General - Admit/Disc Date/PCP Admission Date/Primary Care Provider: 04/25/17 03:57 Discharge Date: 04/27/17 - Discharge Diagnosis (1) Acute on chronic respiratory failure with hypoxia and hypercapnia Is this a current diagnosis for this admission?: Yes Summary: Secondary to COPD and substance abuse (2) COPD with acute exacerbation Is this a current diagnosis for this admission?: Yes Summary: Improved with IV steroids (3) Obstructive sleep apnea Is this a current diagnosis for this admission?: Yes (4) Tobacco abuse Is this a current diagnosis for this admission?: Yes - Additional Information Resuscitation Status: Full Code Discharge Diet: Cardiac Discharge Activity: Activity As Tolerated Prescriptions: Prednisone 10 mg PO DAILY #39 tablet Home Medications: Albuterol Sulfate [Proair HFA Inhalation Aerosol 8.5 gm MDI] 2 puff IH Q4HP PRN 04/25/17 Aripiprazole [Abilify 10 mg Tablet] 10 mg PO DAILY 04/25/17 Clonazepam [Klonopin] 0.5 mg PO Q12 04/25/17 Divalproex Sodium [Depakote ER 500 mg Tab.sr] 500 mg PO Q12 04/25/17 Doxepin HCl 100 mg PO QHS 04/25/17 Esomeprazole Magnesium [Nexium] 40 mg PO DAILY 04/25/17 Fluticasone/Salmeterol [Advair 250-50 Diskus 28 dose] 1 inh IH Q12 04/25/17 Furosemide [Lasix 20 mg Tablet] 20 mg PO DAILY 04/25/17 Gabapentin [Neurontin 400 mg Capsule] 400 mg PO BID 04/25/17 Gabapentin [Neurontin 400 mg Capsule] 800 mg PO QHS 04/25/17 Guaifenesin [Mucinex Sr 600 mg Tablet.sa] 600 mg PO Q12 04/25/17 Ipratropium/Albuterol Sulfate [Duoneb 3 ml Ampul] 3 ml NEB Q6HP PRN 04/25/17 Paroxetine HCl [Paxil] 30 mg PO BID 04/25/17 Tiotropium [place] [Spiriva Handihaler 18 mcg/dose (30 Dose)] 1 cap IH DAILY Flu Vacc [id number] 36Mos Up/Pf [Fluzone Adlt Quad [id number] Vac 0.5 ml Syr] 0.5 ml IM .DISCHARGE PRN disp.syrin 04/27/17 Prednisone 10 mg PO DAILY #39 tablet 04/27/17 History of Present Illness History of Present Illness: MANDEEP VIVAR is a 56 year old female who has a history of obstructive sleep apnea as well as COPD and polysubstance abuse who presented via EMS and was found to be lethargic. Patient called EMS after getting a laceration on her leg after shaving required 2 sutures in the emergency room. She was obtunded in the emergency room and found to have a pulse ox of 83 and was started on BiPAP and given Narcan with some improvement. She is admitted for further workup. Hospital Course Hospital Course: 56-year-old female with history of COPD and obstructive sleep apnea who presented with obtundation secondary to COPD and substance abuse. Patient was started on BiPAP and steroids. She had improvement in her respiratory status and on the day of discharge was having minimal expiratory wheezes. The patient also had cut her leg while shaving her legs and had a 1 cm laceration was treated with suturing 2 in the emergency room. The patient's respiratory status improved to its baseline and she is felt to be stable for discharge. She already has home oxygen that she uses at night. She will be sent home with a prednisone taper. Physical Exam Vital Signs: Temp Pulse Resp BP Pulse Ox 98.7 F 95 20 126/72 H 96 04/27/17 09:58 04/27/17 09:58 04/27/17 09:58 04/27/17 09:58 04/27/17 09:58 Intake & Output 04/26/17 04/27/17 04/28/17 06:59 06:59 06:59 Intake Total 1710 2189 Output Total 300 Balance 1410 2189 Weight 103.5 kg 106.3 kg General appearance: PRESENT: no acute distress Eye exam: PRESENT: conjunctiva pink. ABSENT: scleral icterus Mouth exam: PRESENT: moist, tongue midline Neck exam: ABSENT: JVD Respiratory exam: PRESENT: wheezes - Few scattered expiratory wheezes. ABSENT: rales, rhonchi Cardiovascular exam: PRESENT: RRR. ABSENT: diastolic murmur, rubs, systolic murmur GI/Abdominal exam: PRESENT: normal bowel sounds, soft. ABSENT: distended, guarding, mass, organolmegaly, rebound, tenderness Extremities exam: ABSENT: calf tenderness, clubbing, pedal edema Neurological exam: PRESENT: alert, awake, oriented to person, oriented to place , oriented to time, oriented to situation, CN II-XII grossly intact. ABSENT: motor sensory deficit Psychiatric exam: PRESENT: appropriate affect Skin exam: PRESENT: dry, intact, warm. ABSENT: cyanosis, rash Results Laboratory Results: 04/27/17 05:04 04/27/17 05:04 04/27/17 04/27/17 05:04 05:04 WBC 15.2 H RBC 3.77 Hgb 11.5 L Hct 34.5 L MCV 91 MCH 30.4 MCHC 33.3 RDW 13.5 Plt Count 247 Seg Neutrophils % Not Reportable Lymphocytes % Not Reportable Monocytes % Not Reportable Eosinophils % Not Reportable Basophils % Not Reportable Absolute Neutrophils Not Reportable Absolute Lymphocytes Not Reportable Absolute Monocytes Not Reportable Absolute Eosinophils Not Reportable Absolute Basophils Not Reportable Sodium 141.4 Potassium 4.7 Chloride 97 L Carbon Dioxide 39 H Anion Gap 5 BUN 17 Creatinine 0.59 Est GFR ( Amer) > 60 Est GFR (Non-Af Amer) > 60 Glucose 261 H Calcium 9.7 04/25/17 04/25/17 04/25/17 04:17 04:17 10:47 Creatine Kinase < 20 L < 20 L CK-MB (CK-2) 0.86 Troponin I < 0.012 04/25/17 04/25/17 04/25/17 10:47 16:40 16:40 Creatine Kinase < 20 L CK-MB (CK-2) 0.66 0.45 Troponin I < 0.012 < 0.012 04/26/17 04/26/17 04/26/17 02:33 02:33 09:25 Creatine Kinase < 20 L < 20 L CK-MB (CK-2) < 0.22 Troponin I < 0.012 04/26/17 04/26/17 04/26/17 09:25 14:23 14:23 Creatine Kinase 20 L CK-MB (CK-2) < 0.22 0.45 Troponin I < 0.012 < 0.012 Impressions: Chest X-Ray 04/24/17 23:50 IMPRESSION: No acute cardiopulmonary findings. 2010 [employer]- All Rights Reserved Qualifiers [place]INT BEING DISCHARGED WITH ANY OF THE FOLLOWING DIAGNOSIS?: No Plan Discharge Plan: Patient is discharged home in stable condition. Follow with primary care in 2 weeks. Time Spent: Greater than 30 Minutes
== END 2017-04-27 11:15 | disposition home or self-care (01) | DRG 190 ==
LOC: ER 23:41 → EH 04-25 03:57 → OBSVTOIN 04-25 03:57 → 3W 04-25 05:36
PROVIDERS: ADMIT Internal Medicine; ATTEND Internal Medicine
PROC: 0HQLXZZ Repair Left Lower Leg Skin, External Approach (ICD-10-PCS; principal; 2017-04-25)
DX: J44.1 Chronic obstructive pulmonary disease with (acute) exacerbation (principal); J96.21 Acute and chronic respiratory failure with hypoxia; J96.22 Acute and chronic respiratory failure with hypercapnia; Z68.42 Body mass index [BMI] 45.0-49.9, adult; S81.812A Laceration without foreign body, left lower leg, initial encounter; G47.33 Obstructive sleep apnea (adult) (pediatric); J45.998 Other asthma; I10 Essential (primary) hypertension; K21.9 Gastro-esophageal reflux disease without esophagitis; F19.10 Other psychoactive substance abuse, uncomplicated; F14.10 Cocaine abuse, uncomplicated; F11.10 Opioid abuse, uncomplicated; F31.9 Bipolar disorder, unspecified; E66.01 Morbid (severe) obesity due to excess calories; F17.210 Nicotine dependence, cigarettes, uncomplicated; W26.8XXA Contact with other sharp object(s), not elsewhere classified, initial encounter; Y93.E8 Activity, other personal hygiene; Y92.002 Bathroom of unspecified non-institutional (private) residence as the place of occurrence of the external cause; Z79.51 Long term (current) use of inhaled steroids; Z79.52 Long term (current) use of systemic steroids; Z79.899 Other long term (current) drug therapy
CPT/HCPCS: 36415; 36600; 71010; 80048; 80053; 80307; 82550; 82553; 82803; 83735; 84100; 84484; 85025; 93005; 93010; 94640; 94660; 94668; 96374; 99285; J1644; J2310; J2930; J3490; J7620

== ENCOUNTER 2017-05-07 17:03 | Inpatient (IN) | payer MEDICAID ==
[~2017-05-07 17:03] MED LIST changes: -BACITRACIN INJ 50,000 UNIT VIAL ONE; -BUPIVACAINE HCL 0.25 % INJ/PF (2.5 MG/1 ML) 30 ML VIAL ONE; -CEFAZOLIN 1 GM/D5W RTU 1 GM/50 ML RTUPB IV PRN; -LACTATED RINGERS 1000 ML IV PRN; -LIDOCAINE 0.5% INJ-PF (5 MG/ML) 50 ML SDV ONE; -LIDOCAINE 0.5% INJ-PF (5 MG/ML) 50 ML SDV SUBCUT PRN; -METRONIDAZOLE 500 MG/NS RTU 100 ML IV PRN; +ROCURONIUM BROMIDE INJ 50 MG/5 ML VIAL IV ONE
[2017-05-07] MEDS ORDERED: NALOXONE HCL INJ/PF 0.4 MG/1 ML SDV IV ONE (17:16)
--- NOTE | 2017-05-07 17:18 | ER Document Report ---
ED General - General Chief Complaint: Altered Mental Status Stated Complaint: ALTERED MENTAL STATUS Time Seen by Provider: 05/07/17 17:07 Notes: The patient is a 56 yo female who has a history of obstructive sleep apnea as well as COPD and polysubstance abuse who presents via EMS and was found to be altered. She was found to be 50% on room air and she was placed on a nonrebreather and given a DuoNeb with some improvement of her oxygenation. Patient also with nausea and vomiting. Looking through prior records, patient frequently has this presentation and was found to have polysubstance overdose and COPD exacerbation, last admission about 10 days ago. She is vomiting in the ER. Pt only responds to painful stimulation. Patient is unable to provide any additional history. TRAVEL OUTSIDE OF THE [place] IN LAST 30 DAYS: No - Related Data Allergies/Adverse Reactions: No Known Allergies Allergy (Verified 04/19/17 17:06) Home Medications: Current Home Medications Albuterol Sulfate [Proair Hfa Inhalation Aerosol 8.5 gm Mdi] 2 puff IH Q4HP PRN 05/07/17 [History] Aripiprazole [Abilify 5 mg Tablet] 10 mg PO DAILY 05/07/17 [History] Clonazepam [Klonopin] 0.5 mg PO Q12 05/07/17 [History] Divalproex Sodium [Divalproex Sodium ER] 500 mg PO Q12 05/07/17 [History] Doxepin HCl 100 mg PO QHS 05/07/17 [History] Esomeprazole Magnesium [Nexium] 40 mg PO DAILY 05/07/17 [History] Fluticasone/Salmeterol [Advair 250-50 Diskus 28 dose] 1 inh IH Q12 05/07/17 [ History] Furosemide [Lasix 20 mg Tablet] 20 mg PO QAM 05/07/17 [History] Gabapentin [Neurontin 400 mg Capsule] 400 mg PO BID@06,14 05/07/17 [History] Gabapentin [Neurontin 400 mg Capsule] 800 mg PO QHS 05/07/17 [History] Ibuprofen [Motrin 800 mg Tablet] 800 mg PO Q8HP PRN 05/07/17 [History] Ipratropium/Albuterol Sulfate [Duoneb 3 ml Ampul] 3 ml NEB RTQ6HP PRN 05/07/17 [ History] Paroxetine HCl [Paxil] 30 mg PO Q12 05/07/17 [History] Solifenacin Succinate [Vesicare] 5 mg PO DAILY 05/07/17 [History] Tiotropium [place] [Spiriva Handihaler 18 mcg/dose (30 Dose)] 1 cap IH DAILY 08/19 [History] Past Medical History - General Information source: Emergency Med Personnel Cannot obtain history due to: Altered mental status - Social History Smoking Status: Unknown if Ever Smoked Drug Abuse: Cocaine, Prescription drugs Family History: Other - Unknown - Past Medical History Cardiac Medical History: Reports: Hx Hypertension Pulmonary Medical History: Reports: Hx Asthma - last ED visit > 3 years ago, Hx Bronchitis, Hx COPD, Hx Pneumonia - required hospitalization Neurological Medical History: Reports: Hx Migraine Renal/ Medical History: Denies: Hx Peritoneal Dialysis Malignancy Medical History: GI Medical History: Reports: Hx Gastroesophageal Reflux Disease - Rx x 10 years , Hx Ulcer. Denies: Hx Pancreatitis Musculoskeltal Medical History: Reports Hx Arthritis, Reports Hx Musculoskeletal Deformity, Reports Hx Musculoskeletal Trauma Psychiatric Medical History: Reports: Hx Anxiety, Hx Bipolar Disorder, Hx Borderline Personality Disorder, Hx Depression - per Hallegado's note 11/16/14, Hx Schizoaffective Disorder, Hx Schizophrenia - per ED note 10/07/14 Traumatic Medical History: Reports: Hx Fractures - tib RT, denies sugery Past Surgical History: Reports: Hx Dilation and Curettage, Hx Orthopedic Surgery - Bilateral knee replacements. Denies: Hx Appendectomy, Hx Bowel Surgery, Hx Section, Hx Cholecystectomy, Hx Hysterectomy, Hx Mastectomy , Hx Tonsillectomy, Hx Tubal Ligation - Immunizations Immunizations up to date: Yes Hx Diphtheria, Pertussis, Tetanus Vaccination: Yes Review of Systems - Review of Systems -: Yes ROS unobtainable due to patient's medical condition Physical Exam - Vital signs Vitals: Pulse Ox 69 L 05/07/17 17:13 - Notes Notes: PHYSICAL EXAMINATION: GENERAL: Somnolent, withdraws to painful stimulation, but will not open eyes HEAD: Atraumatic, normocephalic. EYES: Pupils dilated. ENT: nares patent, oropharynx clear without exudates. Moist mucous membranes. NECK: Normal range of motion, supple without lymphadenopathy LUNGS: Tachypnea. Wheezing and RLL crackles. HEART: Regular rate and rhythm without murmurs ABDOMEN: Soft, nontender, normoactive bowel sounds. No guarding, no rebound. No masses appreciated. EXTREMITIES: Normal range of motion, no pitting or edema. No cyanosis. NEUROLOGICAL: Moves all 4 extremities. Will not follow commands. SKIN: Warm, Dry, macular rash over B/L legs Course - Re-evaluation Re-evalutation: Patient hypoxic on arrival to the ER of the 50% on room air and 92% on a nonrebreather mask. Patient began to vomit and she had no mental status. Narcan did not change her mental status. Decision was made to intubate patient for airway protection and hypoxia and she would not be able to tolerate BiPAP due to the vomiting. VBG shows an acute hypercapnic respiratory acidosis. First chest x-ray shows a left mainstem intubation with partial collapse of her right lung. The ETT was adjusted and a repeat x-ray shows good ETT placement with possibility of pneumonia. Patient does have crackles in the right lower lungs with hypoxia and a leukocytosis, so will cover for HAP and aspiration pneumonia due to recent hospitalization and history of vomiting today. Looking through prior records, patient frequently has similar presentation due to COPD and polysubstance abuse. Dr. Reyna is her PMD. 05/07/17 20:[address] Jon (Hospitalist) and he is requesting troponin. 05/07/17 21:35 Troponin is negative. Spoke to Dr. Jon and will admit patient to ICU. - Vital Signs Vital signs: Temp Pulse Resp BP Pulse Ox 15 134/81 H 92 05/07/17 22:01 05/07/17 22:01 05/07/17 22:01 - Laboratory Result Diagrams: 05/07/17 17:25 05/07/17 17:25 Laboratory results interpreted by me: 05/07/17 05/07/17 05/07/17 17:25 17:25 17:25 WBC 25.2 H Hgb 11.3 L Hct 35.3 L RDW 14.9 H Seg Neuts % (Manual) 88 H Lymphocytes % (Manual) 9 L Monocytes % (Manual) 2 L Abs Neuts (Manual) 22.2 H VBG pH 7.26 L VBG pCO2 73.6 H* Carbon Dioxide 34 H BUN 21 H ALT 71 H NT-Pro-B Natriuret Pep Total Protein 6.1 L 05/07/17 17:25 WBC Hgb Hct RDW Seg Neuts % (Manual) Lymphocytes % (Manual) Monocytes % (Manual) Abs Neuts (Manual) VBG pH VBG pCO2 Carbon Dioxide BUN ALT NT-Pro-B Natriuret Pep 1610 H Total Protein - Diagnostic Test Radiology reviewed: Image reviewed, Reports reviewed Radiology results interpreted by me: CXR #1: 1. Tip of the endotracheal tube is in the left mainstem bronchus. 2. Increased density in the right lung with volume loss likely representing partial collapse from the left mainstem bronchus intubation. CXR #2: 1. Repositioning of the endotracheal tube which is now in good position. 2. Interval improvement in the right lung with residual increased density and volume loss which may be related to residual partial collapse. Possibility of pneumonia must also be considered. - EKG Interpretation by Me EKG shows normal: Sinus rhythm, [place], Intervals, QRS Complexes, ST-T Waves Rate: Normal When compared to previous EKG there are: No significant change Procedures - Intubation Orotracheal Time of Intubation: 18:00 Airway evaluation: Large tongue, Obese Mallampati Classification: Class 2 Medications: Etomidate, Other - Rocuronium Intubation method: Orotracheal Blade type: Brett Blade size: 4 Equipment used: Glidescope ETT size: 7.5 ETT secured at: Teeth ETT secured at (cm): 23 Breath Sounds after Intubation: Equal End tidal CO2 confirmed: Yes Ventilator settings: AC Tidal volume: 450 FiO2: 100 Respirations: 16 PEEP: 5 Post Intubation Xray: Yes Intubation Complications: No complications Critical Care Note - Critical Care Note Total time excluding time spent on procedures (mins): 35 Discharge - Discharge Clinical Impression: Substance abuse Altered mental status Qualifiers: Altered mental status type: unspecified Qualified Code(s): R41.82 - Altered mental status, unspecified Respiratory failure with hypoxia and hypercapnia Qualifiers: Chronicity: acute Qualified Code(s): J96.01 - Acute respiratory failure with hypoxia Pneumonia Qualifiers: Pneumonia type: due to unspecified organism Laterality: right Lung location: unspecified part of lung Qualified Code(s): J18.9 - Pneumonia, unspecified organism Condition: Serious Disposition: ADMITTED INPATIENT Admitting Provider: Hospitalist [facility] Unit Admitted: ICU
[2017-05-07] MEDS ORDERED: METHYLPREDNISOLONE INJ 125 MG/2 ML SDV IV ONE (17:21)
[2017-05-07] MEDS ORDERED: IPRATROPIUM/ALBUTEROL 0.5-2.5 MG/3 ML AMPUL NEB ONE (17:21)
[2017-05-07] MEDS ORDERED: ETOMIDATE INJ/PF 20 MG/10 ML SDV IV ONE ×2 (17:25→17:51)
[2017-05-07] MEDS ORDERED: PROPOFOL 100 ML IV ONE (17:45)
[2017-05-07] MEDS ORDERED: FENTANYL CITRATE INJ/PF 100 MCG/2 ML AMPUL IV ONE (17:49)
[2017-05-07] MEDS ORDERED: NORMAL SALINE 1000 ML 1,000 ML IV PRN (17:49)
[2017-05-07] MEDS ORDERED: ROCURONIUM BROMIDE INJ 50 MG/5 ML VIAL IV ONE (17:52)
--- NOTE | 2017-05-07 18:11 | RADIOLOGY REPORT (SQ) ---
EXAM DESCRIPTION: CHEST SINGLE VIEW COMPLETED DATE/TIME: 05/07/2017 5:59 pm REASON FOR STUDY: SOB COMPARISON: None. EXAM PARAMETERS: NUMBER OF VIEWS: One view. TECHNIQUE: Single frontal radiographic view of the chest acquired. RADIATION DOSE: NA LIMITATIONS: None. FINDINGS: LUNGS AND PLEURA: Increased density in the right lung with volume loss likely partial slick apse from left mainstem bronchus intubation. Left lung is clear. No left effusion. MEDIASTINUM AND HILAR STRUCTURES: No masses. Contour normal. HEART AND VASCULAR STRUCTURES: Heart normal in size. Normal vasculature. BONES: No acute findings. HARDWARE: Endotracheal tube with its tip in the left mainstem bronchus. NG tube with its tip not glenn ntified and film. OTHER: No other significant finding. IMPRESSION: 1. Tip of the endotracheal tube is in the left mainstem bronchus. 2. Increased density in the right lung with volume loss likely representing partial collapse from th e left mainstem bronchus intubation. TECHNICAL DOCUMENTATION: JOB ID: [id number] [employer]- All Rights Reserved
[2017-05-07 18:25] LABS: VENOUS BLOOD BASE EXCESS 2.9 mmol/L; VENOUS BLOOD HCO3 31.9 mmol/L (20-32); VENOUS BLOOD PH 7.26 (7.30-7.42)
[2017-05-07 18:30] LABS: VENOUS BLOOD PCO2 73.6 mmHg (35-63)
[2017-05-07] MEDS: PROPOFOL 100 ML IV PRN (18:32)
--- NOTE | 2017-05-07 18:37 | RADIOLOGY REPORT (SQ) ---
EXAM DESCRIPTION: CHEST SINGLE VIEW COMPLETED DATE/TIME: 05/07/2017 6:16 pm REASON FOR STUDY: tube adjustment COMPARISON: 05/07/2017 in April [id number] EXAM PARAMETERS: NUMBER OF VIEWS: One view. TECHNIQUE: Single frontal radiographic view of the chest acquired. RADIATION DOSE: NA LIMITATIONS: None. FINDINGS: LUNGS AND PLEURA: Interval improvement in the right lung with decrease in the amount of ab normal density and volume loss. Residual density and volume loss is present which may be related to residual partial collapse. Pneumonia cannot be excluded. Left lung is clear. No left effusions. MEDIASTINUM AND HILAR STRUCTURES: No masses. Contour normal. HEART AND VASCULAR STRUCTURES: Heart normal in size. Normal vasculature. BONES: No acute findings. HARDWARE: Tip the endotracheal tube is now 2.6 cm above the lyubov. NG tube with its tip not identif ied and film. OTHER: No other significant finding. IMPRESSION: 1. Repositioning of the endotracheal tube which is now in good position. 2. Interval improvement in the right lung with residual increased density and volume loss which may be related to residual partial collapse. Possibility of pneumonia must also be considered. TECHNICAL DOCUMENTATION: JOB ID: [id number] [employer]- All Rights Reserved
[2017-05-07] MEDS ORDERED: PIPERACILLIN/TAZOBACTAM 3.375 GM VIAL IV ONE (18:41)
[2017-05-07] MEDS ORDERED: VANCOMYCIN HCL INJ 1000 MG VIAL IV ONE (18:41)
[2017-05-07 18:42] LABS: HEMATOCRIT 35.3 % (36.0-47.0); HEMOGLOBIN 11.3 g/dL (12.0-15.5); MEAN CORPUSCULAR HEMOGLOBIN 29.9 pg (27.0-33.4); MEAN CORPUSCULAR VOLUME 93 fl (80-97); PLATELET COUNT 250 10^3/uL (150-450); RED BLOOD COUNT 3.78 10^6/uL (3.72-5.28); RED CELL DISTRIBUTION WIDTH 14.9 % (11.5-14.0); WHITE BLOOD COUNT 25.2 10^3/uL (4.0-10.5)
[2017-05-07 18:44] LABS: ALANINE AMINOTRANSFERASE 71 U/L (9-52); ALBUMIN 3.6 g/dL (3.5-5.0); ALKALINE PHOSPHATASE 92 U/L (38-126); ANION GAP 8 (5-19); ASPARTATE AMINO TRANSFERASE 23 U/L (14-36); BILIRUBIN,DIRECT 0.3 mg/dL (0.0-0.4); BILIRUBIN,TOTAL 0.3 mg/dL (0.2-1.3); BLOOD UREA NITROGEN 21 mg/dL (7-20); CARBON DIOXIDE 34 mmol/L (22-30); CHLORIDE 100 mmol/L (98-107); CREATINE KINASE 50 U/L (30-135); GLUCOSE 104 mg/dL (75-110); POTASSIUM 4.1 mmol/L (3.6-5.0); SODIUM 142.4 mmol/L (137-145); TOTAL PROTEIN 6.1 g/dL (6.3-8.2)
[2017-05-07] MEDS ORDERED: CLINDAMYCIN 600 MG/D5W RTU 600 MG/50 ML RTUPB IV ONE (18:45)
[2017-05-07 19:02] LABS: ABSOLUTE LYMPHOCYTES# (MANUAL) 2.5 10^3/uL (0.5-4.7); ABSOLUTE MONOCYTES # (MANUAL) 0.5 10^3/uL (0.1-1.4); ABSOLUTE NEUTROPHILS# (MANUAL) 22.2 10^3/uL (1.7-8.2); BASOPHILS % (MANUAL) 0 % (0-2); EOSINOPHILS % (MANUAL) 0 % (0-6); LYMPHOCYTES % (MANUAL) 9 % (13-45); MONOCYTES % (MANUAL) 2 % (3-13); SEGMENTED NEUTROPHILS % (MAN) 88 % (42-78); TOTAL CELLS COUNTED 100
[2017-05-07 19:05] LABS: ANISOCYTOSIS SLIGHT; POLYCHROMASIA SLIGHT; STOMATOCYTES SLIGHT
[2017-05-07 19:06] LABS: PLATELET COMMENT ADEQUATE; PLATELET LARGE PRESENT; POIKILOCYTOSIS SLIGHT
[2017-05-07 19:26] LABS: APPEARANCE,URINE CLEAR; BILIRUBIN,URINE NEGATIVE (NEGATIVE); COLOR,URINE YELLOW; GLUCOSE, URINE NEGATIVE (NEGATIVE); KETONES,URINE NEGATIVE (NEGATIVE); LEUKOCYTE ESTERASE,URINE NEGATIVE (NEGATIVE); NITRITE,URINE NEGATIVE (NEGATIVE); PROTEIN,URINE NEGATIVE (NEGATIVE); URINE SPECIFIC GRAVITY 1.011; UROBILINOGEN,URINE NEGATIVE mg/dL (<2.0)
[2017-05-07 19:53] LABS: URINE AMPHETAMINES SCREEN NEGATIVE; URINE BARBITURATES SCREEN NEGATIVE; URINE BENZODIAZEPINES SCREEN NEGATIVE; URINE COCAINE SCREEN UNCONFIRMED POSITIVE; URINE MARIJUANA (THC) SCREEN NEGATIVE; URINE METHADONE SCREEN NEGATIVE; URINE PHENCYCLIDINE SCREEN NEGATIVE
[2017-05-07] MEDS ORDERED: NORMAL SALINE 1000 ML 1,000 ML IV SCH (21:45)
[2017-05-07] MEDS ORDERED: (PENDING PHARMACY ID) (Clonazepam [Klonopin] 0.5 MG) NG SCH (22:00)
[2017-05-07] MEDS: HEPARIN SOD (PORCINE) 5,000 UNIT/ML 1 ML SYRINGE SUBCUT SCH (22:39)
[2017-05-07] MEDS: CLONAZEPAM 1 MG TABLET NG SCH (22:40)
[2017-05-07] MEDS: CLINDAMYCIN 900 MG/D5W RTU 50 ML IV SCH (22:41)
[2017-05-08] MEDS: PROPOFOL 100 ML IV PRN ×7 (00:01→22:24)
[2017-05-08] MEDS: IPRATROPIUM/ALBUTEROL 0.5-2.5 MG/3 ML AMPUL NEB PRN (00:02)
[2017-05-08 00:15] LABS: ARTERIAL BLOOD BASE EXCESS 5.9 mmol/L; ARTERIAL BLOOD FIO2 40%; ARTERIAL BLOOD H2CO3 1.86 mmol/L (1.05-1.35); ARTERIAL BLOOD HCO3 33.2 mmol/L (20-26); ARTERIAL BLOOD O2 SATURATION 92.3 % (94-98); ARTERIAL BLOOD PCO2 61.8 mmHg (35-45); ARTERIAL BLOOD PH 7.35 (7.35-7.45); ARTERIAL BLOOD PO2 68.4 mmHg (80-100); ARTERIAL BLOOD TOTAL CO2 35.1 mmol/L (21-25)
[2017-05-08] MEDS: IPRATROPIUM/ALBUTEROL 0.5-2.5 MG/3 ML AMPUL NEB SCH ×4 (01:25→19:22)
[2017-05-08 02:22] LABS: ARTERIAL BLOOD BASE EXCESS 7.3 mmol/L; ARTERIAL BLOOD H2CO3 1.73 mmol/L (1.05-1.35); ARTERIAL BLOOD HCO3 33.9 mmol/L (20-26); ARTERIAL BLOOD O2 SATURATION 91.2 % (94-98); ARTERIAL BLOOD PCO2 57.6 mmHg (35-45); ARTERIAL BLOOD PH 7.39 (7.35-7.45); ARTERIAL BLOOD PO2 62.5 mmHg (80-100); ARTERIAL BLOOD TOTAL CO2 35.7 mmol/L (21-25)
[2017-05-08 02:23] LABS: ARTERIAL BLOOD FIO2 40%
[2017-05-08] MEDS: NORMAL SALINE 1000 ML 1,000 ML IV SCH ×3 (02:58→12:27)
--- NOTE | 2017-05-08 04:35 | PDOC H&P ---
History of Present Illness Admission Date/PCP: 05/07/17 21:42 Patient complains of: Altered mental status History of Present Illness: MANDEEP VIVAR is a 56 year old female with a past medical history of morbid obesity, obstructive sleep apnea, COPD, chronic bronchitis, tobacco, anxiety, polysubstance abuse with cocaine, benzodiazepine and opiates. Patient presents via EMS with altered mental status with oxygen saturation of 50% on room air she is placed on a nonrebreather receiving albuterol and Atrovent with minimal improvement in the emergency room she is vomiting with aspiration and suspected of polysubstance overdose and intubated. Patient is started on IV clindamycin and referred to the hospitalist for admission. Patient is unable to provide history. Past Medical History Cardiac Medical History: Reports: Hypertension Pulmonary Medical History: Reports: Asthma - last ED visit > 3 years ago, Bronchitis, Chronic Obstructive Pulmonary Disease (COPD), Pneumonia - required hospitalization Neurological Medical History: Reports: Migraine Malignancy Medical History: GI Medical History: Reports: Gastroesophageal Reflux Disease - Rx x 10 years Musculoskeltal Medical History: Reports: Arthritis Psychiatric Medical History: Reports: Bipolar Disorder, Depression - per Suzanne's note 11/16/14, Schizoaffective Disorder, Substance Abuse, Tobacco Dependency Hematology: Denies: Anemia Past Surgical History Past Surgical History: Reports: Orthopedic Surgery - Bilateral knee replacements Denies: Amputation, Appendectomy, Section, Cholecystectomy, Hysterectomy, Mastectomy, Tonsillectomy, Tubal Ligation Social History Information Source: Emergency Med Personnel, [facility] Records Smoking Status: Current Some Day Smoker Frequency of Alcohol Use: None Hx Recreational Drug Use: Yes Drugs: Cocaine Hx Prescription Drug Abuse: Yes - Advance Directive Resuscitation Status: Full Code Family History Family History: Other - Unknown Parental Family History Reviewed: No - Unobtainable Children Family History Reviewed: No - Intubated Sibling(s) Family History Reviewed.: No - Intubated Medication/Allergy Home Medications: Albuterol Sulfate [Proair Hfa Inhalation Aerosol 8.5 gm Mdi] 2 puff IH Q4HP PRN 05/07/17 Aripiprazole [Abilify 5 mg Tablet] 10 mg PO DAILY 05/07/17 Clonazepam [Klonopin] 0.5 mg PO Q12 05/07/17 Divalproex Sodium [Divalproex Sodium ER] 500 mg PO Q12 05/07/17 Doxepin HCl 100 mg PO QHS 05/07/17 Esomeprazole Magnesium [Nexium] 40 mg PO DAILY 05/07/17 Fluticasone/Salmeterol [Advair 250-50 Diskus 28 dose] 1 inh IH Q12 05/07/17 Furosemide [Lasix 20 mg Tablet] 20 mg PO QAM 05/07/17 Gabapentin [Neurontin 400 mg Capsule] 400 mg PO BID@06,14 05/07/17 Gabapentin [Neurontin 400 mg Capsule] 800 mg PO QHS 05/07/17 Ibuprofen [Motrin 800 mg Tablet] 800 mg PO Q8HP PRN 05/07/17 Ipratropium/Albuterol Sulfate [Duoneb 3 ml Ampul] 3 ml NEB RTQ6HP PRN 05/07/17 Paroxetine HCl [Paxil] 30 mg PO Q12 05/07/17 Solifenacin Succinate [Vesicare] 5 mg PO DAILY 05/07/17 Tiotropium [place] [Spiriva Handihaler 18 mcg/dose (30 Dose)] 1 cap IH DAILY 08/19 Allergies/Adverse Reactions: No Known Allergies Allergy (Verified 04/19/17 17:06) Review of Systems ROS unobtainable: Due to endotracheal tube Physical Exam Vital Signs: Temp Pulse Resp BP Pulse Ox 19 129/75 H 94 05/08/17 03:01 05/08/17 03:01 05/08/17 03:01 Intake & Output 05/06/17 05/07/17 05/08/17 11:59 11:59 11:59 Output Total 100 Balance -100 General appearance: PRESENT: no acute distress, disheveled, obese Head exam: PRESENT: atraumatic, normocephalic Eye exam: PRESENT: conjunctiva pink, EOMI, PERRLA. ABSENT: scleral icterus Ear exam: PRESENT: normal external ear exam Mouth exam: PRESENT: moist, tongue midline Neck exam: ABSENT: carotid bruit, JVD, lymphadenopathy, thyromegaly Respiratory exam: PRESENT: crackles, prolonged expiratory phas, rhonchi, tachypnea Cardiovascular exam: PRESENT: +S1, +S2, tachycardia Pulses: PRESENT: normal dorsalis pedis pul Vascular exam: PRESENT: normal capillary refill GI/Abdominal exam: PRESENT: normal bowel sounds, soft. ABSENT: distended, guarding, mass, organolmegaly, rebound, tenderness Rectal exam: PRESENT: deferred Extremities exam: PRESENT: full ROM. ABSENT: calf tenderness, clubbing, pedal edema Neurological exam: PRESENT: altered. ABSENT: motor sensory deficit Skin exam: PRESENT: dry, intact, warm. ABSENT: cyanosis, rash Results Laboratory Results: 05/07/17 05/08/17 23:52 02:10 Carbonic Acid 1.86 H 1.73 H HCO3/H2CO3 Ratio 17:1 19:1 ABG pH 7.35 7.39 ABG pCO2 61.8 H 57.6 H ABG pO2 68.4 L 62.5 L ABG HCO3 33.2 H 33.9 H ABG O2 Saturation 92.3 L 91.2 L ABG Base Excess 5.9 7.3 FiO2 40% 40% Impressions: Chest X-Ray 05/07/17 18:03 IMPRESSION: 1. Repositioning of the endotracheal tube which is now in good position. 2. Interval improvement in the right lung with residual increased density and volume loss which may be related to residual partial collapse. Possibility of pneumonia must also be considered. Assessment & Plan - Diagnosis (1) Altered mental status Qualifiers: Altered mental status type: unspecified Qualified Code(s): R41.82 - Altered mental status, unspecified Is this a current diagnosis for this admission?: Yes Plan: Multifactorial secondary to acute respiratory failure and polysubstance abuse. ICU admission and supportive measures (2) Pneumonia Qualifiers: Pneumonia type: due to unspecified organism Laterality: right Lung location: unspecified part of lung Qualified Code(s): J18.9 - Pneumonia, unspecified organism Is this a current diagnosis for this admission?: Yes Plan: Vomiting prior to intubation with right lower lobe infiltrate suggestive of aspiration. Clindamycin coverage, albuterol and Atrovent. Follow-up blood culture and CBC (3) Respiratory failure with hypoxia and hypercapnia Qualifiers: Chronicity: acute Qualified Code(s): J96.01 - Acute respiratory failure with hypoxia; J96.02 - Acute respiratory failure with hypercapnia; J96.02 - Acute respiratory failure with hypercapnia; J96.02 - Acute respiratory failure with hypercapnia Is this a current diagnosis for this admission?: Yes Plan: Complicated by crack cocaine, tobacco and noncompliance. Intubated with albuterol and Atrovent and empiric antibiotics for aspiration pneumonia. (4) Substance abuse Is this a current diagnosis for this admission?: Yes Plan: Supportive measures and mental health consult - Time Time Spent: 50 to 70 Minutes - Inpatient Certification Medical Necessity: Need Close Monitoring Due to Risk of Patient Decompensation
[2017-05-08 04:57] LABS: HEMATOCRIT 35.1 % (36.0-47.0); HEMOGLOBIN 11.5 g/dL (12.0-15.5); MEAN CORPUSCULAR HEMOGLOBIN 29.7 pg (27.0-33.4); MEAN CORPUSCULAR HGB CONC 32.7 g/dL (32.0-36.0); MEAN CORPUSCULAR VOLUME 91 fl (80-97); PLATELET COUNT 222 10^3/uL (150-450); RED BLOOD COUNT 3.87 10^6/uL (3.72-5.28); RED CELL DISTRIBUTION WIDTH 14.6 % (11.5-14.0); WHITE BLOOD COUNT 19.6 10^3/uL (4.0-10.5)
[2017-05-08 05:13] LABS: ABSOLUTE LYMPHOCYTES# (MANUAL) 1.4 10^3/uL (0.5-4.7); ABSOLUTE NEUTROPHILS# (MANUAL) 18.2 10^3/uL (1.7-8.2); BASOPHILS % (MANUAL) 0 % (0-2); EOSINOPHILS % (MANUAL) 0 % (0-6); LYMPHOCYTES % (MANUAL) 7 % (13-45); MONOCYTES % (MANUAL) 0 % (3-13); SEGMENTED NEUTROPHILS % (MAN) 93 % (42-78); TOTAL CELLS COUNTED 100
[2017-05-08 05:16] LABS: ANISOCYTOSIS SLIGHT; PLATELET COMMENT ADEQUATE; POIKILOCYTOSIS 1+; STOMATOCYTES 1+; TOXIC VACUOLATION PRESENT
[2017-05-08] MEDS: CLINDAMYCIN 900 MG/D5W RTU 50 ML IV SCH (05:35)
[2017-05-08] MEDS: HEPARIN SOD (PORCINE) 5,000 UNIT/ML 1 ML SYRINGE SUBCUT SCH ×3 (05:37→22:07)
[2017-05-08] MEDS: LANSOPRAZOLE 30 MG TAB.RAP.DR NG SCH ×2 (05:41→17:00)
[2017-05-08] MEDS: GABAPENTIN 400 MG CAPSULE NG SCH ×2 (05:43→17:00)
[2017-05-08 06:27] LABS: ANION GAP 11 (5-19); BLOOD UREA NITROGEN 18 mg/dL (7-20); CALCIUM 9.5 mg/dL (8.4-10.2); CARBON DIOXIDE 31 mmol/L (22-30); CHLORIDE 100 mmol/L (98-107); GLUCOSE 136 mg/dL (75-110); POTASSIUM 4.5 mmol/L (3.6-5.0); SODIUM 142.4 mmol/L (137-145)
--- NOTE | 2017-05-08 09:17 | EKG REPORT ---
SEVERITY:- NORMAL ECG - SINUS RHYTHM : Confirmed by: Tanisha Pabon 08-May-2017 09:16:58
[2017-05-08] MEDS: CLONAZEPAM 1 MG TABLET NG SCH ×2 (10:24→22:07)
[2017-05-08] MEDS: ARIPIPRAZOLE 5 MG TABLET NG SCH (10:24)
[2017-05-08] MEDS: VALPROATE SODIUM SYRUP 250 MG/5 ML UDCUP NG SCH ×2 (10:24→17:06)
--- NOTE | 2017-05-08 16:10 | PDOC PROGRESS REPORT ---
Subjective Progress Note for:: 05/08/17 Subjective:: Patient is intubated and mechanically ventilated in the intensive care unit She appears quite comfortable She was admitted with acute respiratory failure likely polysubstance overdose and aspiration pneumonia; Reason For Visit: ASPIRATION PNEUMONIA, COPD EXACERBATION Physical Exam Vital Signs: Temp Pulse Resp BP Pulse Ox 99.5 F 66 18 130/71 H 98 05/08/17 13:19 05/08/17 13:27 05/08/17 15:30 05/08/17 15:27 05/08/17 15:30 Intake & Output 05/07/17 05/08/17 05/09/17 00:59 00:59 00:59 Output Total 100 650 Balance -100 -650 Weight 104.2 kg General appearance: PRESENT: no acute distress, obese Head exam: PRESENT: atraumatic Eye exam: PRESENT: conjunctiva pink, EOMI, PERRLA. ABSENT: scleral icterus Neck exam: ABSENT: carotid bruit, JVD, lymphadenopathy, thyromegaly Respiratory exam: PRESENT: symmetrical, unlabored, wheezes. ABSENT: retraction , stridor Cardiovascular exam: PRESENT: RRR. ABSENT: diastolic murmur, rubs, systolic murmur Vascular exam: PRESENT: normal capillary refill GI/Abdominal exam: PRESENT: normal bowel sounds, soft. ABSENT: distended, guarding, mass, organolmegaly, rebound, tenderness Extremities exam: PRESENT: full ROM. ABSENT: calf tenderness, clubbing, pedal edema Results Laboratory Results: 05/08/17 04:35 05/08/17 04:35 05/07/17 05/08/17 05/08/17 23:52 02:10 04:35 WBC 19.6 H RBC 3.87 Hgb 11.5 L Hct 35.1 L MCV 91 MCH 29.7 MCHC 32.7 RDW 14.6 H Plt Count 222 Seg Neutrophils % Not Reportable Lymphocytes % Not Reportable Monocytes % Not Reportable Eosinophils % Not Reportable Basophils % Not Reportable Absolute Neutrophils Not Reportable Absolute Lymphocytes Not Reportable Absolute Monocytes Not Reportable Absolute Eosinophils Not Reportable Absolute Basophils Not Reportable Carbonic Acid 1.86 H 1.73 H HCO3/H2CO3 Ratio 17:1 19:1 ABG pH 7.35 7.39 ABG pCO2 61.8 H 57.6 H ABG pO2 68.4 L 62.5 L ABG HCO3 33.2 H 33.9 H ABG O2 Saturation 92.3 L 91.2 L ABG Base Excess 5.9 7.3 FiO2 40% 40% Sodium Potassium Chloride Carbon Dioxide Anion Gap BUN Creatinine Est GFR ( Amer) Est GFR (Non-Af Amer) Glucose Calcium 05/08/17 04:35 WBC RBC Hgb Hct MCV MCH MCHC RDW Plt Count Seg Neutrophils % Lymphocytes % Monocytes % Eosinophils % Basophils % Absolute Neutrophils Absolute Lymphocytes Absolute Monocytes Absolute Eosinophils Absolute Basophils Carbonic Acid HCO3/H2CO3 Ratio ABG pH ABG pCO2 ABG pO2 ABG HCO3 ABG O2 Saturation ABG Base Excess FiO2 Sodium 142.4 Potassium 4.5 Chloride 100 Carbon Dioxide 31 H Anion Gap 11 BUN 18 Creatinine 0.69 Est GFR ( Amer) > 60 Est GFR (Non-Af Amer) > 60 Glucose 136 H Calcium 9.5 EKG Comments: NSR Impressions: Chest X-Ray 05/07/17 18:03 IMPRESSION: 1. Repositioning of the endotracheal tube which is now in good position. 2. Interval improvement in the right lung with residual increased density and volume loss which may be related to residual partial collapse. Possibility of pneumonia must also be considered. Assessment & Plan - Diagnosis (1) Pneumonia Qualifiers: Pneumonia type: due to unspecified organism Laterality: right Lung location: unspecified part of lung Qualified Code(s): J18.9 - Pneumonia, unspecified organism Is this a current diagnosis for this admission?: Yes (2) Respiratory failure with hypoxia and hypercapnia Qualifiers: Chronicity: acute Qualified Code(s): J96.01 - Acute respiratory failure with hypoxia; J96.02 - Acute respiratory failure with hypercapnia; J96.02 - Acute respiratory failure with hypercapnia; J96.02 - Acute respiratory failure with hypercapnia Is this a current diagnosis for this admission?: Yes (3) Substance abuse Is this a current diagnosis for this admission?: Yes - Time Time Spent with patient: 35 or more minutes - Plan Summary Plan Summary: Continue mechanical ventilation Continue antibiotic management We will switch the patient to Zosyn and vancomycin IV as she has evidence of sepsis We will add steroids nebs
[2017-05-08] MEDS ORDERED: VANCOMYCIN HCL 0 MG in DEXTROSE 5%-WATER 250 ML IV NR (16:30)
[2017-05-08] MEDS: METHYLPREDNISOLONE INJ 125 MG/2 ML SDV IV SCH (17:06)
[2017-05-08] MEDS: PIPERACILLIN SODIUM/TAZOBACTAM 3.375 GM in NORMAL SALINE 100 ML IV SCH (17:06)
[2017-05-08] MEDS: VANCOMYCIN HCL 1,250 MG in DEXTROSE 5%-WATER 250 ML IV SCH (19:13)
[2017-05-09] MEDS: PIPERACILLIN SODIUM/TAZOBACTAM 3.375 GM in NORMAL SALINE 100 ML IV SCH ×5 (00:08→23:10)
[2017-05-09] MEDS: PROPOFOL 100 ML IV PRN ×8 (01:01→22:00)
[2017-05-09] MEDS: METHYLPREDNISOLONE INJ 125 MG/2 ML SDV IV SCH ×3 (01:01→18:15)
[2017-05-09] MEDS: IPRATROPIUM/ALBUTEROL 0.5-2.5 MG/3 ML AMPUL NEB SCH ×4 (02:27→20:02)
[2017-05-09] MEDS: FENTANYL CITRATE INJ/PF 100 MCG/2 ML AMPUL IV PRN ×4 (03:46→20:44)
[2017-05-09 04:18] LABS: ABSOLUTE LYMPHOCYTES (AUTO) 0.8 10^3/uL (0.5-4.7); ABSOLUTE MONOCYTES (AUTO) 0.7 10^3/uL (0.1-1.4); ABSOLUTE NEUT (AUTO) 12.8 10^3/uL (1.7-8.2); BASOPHILS % (AUTO) 0.3 % (0-2); HEMATOCRIT 32.7 % (36.0-47.0); HEMOGLOBIN 10.8 g/dL (12.0-15.5); LYMPHOCYTES % (AUTO) 5.4 % (13-45); MEAN CORPUSCULAR HEMOGLOBIN 30.1 pg (27.0-33.4); MEAN CORPUSCULAR HGB CONC 33.2 g/dL (32.0-36.0); MEAN CORPUSCULAR VOLUME 91 fl (80-97); MONOCYTES % (AUTO) 4.7 % (3-13); PLATELET COUNT 240 10^3/uL (150-450); SEGMENTED NEUTROPHILS % (AUTO) 89.6 % (42-78); TOTAL CELLS COUNTED % (AUTO) 100 %; WHITE BLOOD COUNT 14.2 10^3/uL (4.0-10.5)
[2017-05-09 04:25] LABS: ANION GAP 5 (5-19); BLOOD UREA NITROGEN 11 mg/dL (7-20); CALCIUM 8.8 mg/dL (8.4-10.2); CARBON DIOXIDE 34 mmol/L (22-30); CHLORIDE 104 mmol/L (98-107); GLUCOSE 138 mg/dL (75-110); SODIUM 143.1 mmol/L (137-145)
[2017-05-09] MEDS: GABAPENTIN 400 MG CAPSULE NG SCH ×2 (06:02→13:16)
[2017-05-09] MEDS: HEPARIN SOD (PORCINE) 5,000 UNIT/ML 1 ML SYRINGE SUBCUT SCH ×3 (06:02→22:01)
[2017-05-09] MEDS: LANSOPRAZOLE 30 MG TAB.RAP.DR NG SCH ×2 (06:02→18:17)
[2017-05-09] MEDS: VANCOMYCIN HCL 1,250 MG in DEXTROSE 5%-WATER 250 ML IV SCH (07:32)
--- NOTE | 2017-05-09 07:51 | PDOC PROGRESS REPORT ---
Subjective Progress Note for:: 05/09/17 Subjective:: Patient with respiratory failure due to polysubstance abuse. Patient intubated and sedated. No complaints or issues per nurse. Reason For Visit: ASPIRATION PNEUMONIA, COPD EXACERBATION Physical Exam Vital Signs: Temp Pulse Resp BP Pulse Ox 99.0 F 74 23 H 101/55 L 90 L 05/08/17 23:45 05/09/17 02:00 05/09/17 02:42 05/09/17 02:42 05/09/17 04:00 Intake & Output 05/08/17 05/09/17 05/10/17 06:59 06:59 06:59 Intake Total 1359 Output Total 100 2675 Balance -100 -1316 Weight 104.6 kg General appearance: PRESENT: no acute distress, well-developed, well-nourished Head exam: PRESENT: atraumatic, normocephalic Eye exam: PRESENT: other - pin point pupils scleral edema. ABSENT: scleral icterus Ear exam: PRESENT: normal external ear exam Mouth exam: PRESENT: moist, tongue midline Neck exam: PRESENT: other - intubated. ABSENT: carotid bruit, JVD, lymphadenopathy, thyromegaly Respiratory exam: PRESENT: clear to auscultation caleb. ABSENT: rales, rhonchi, wheezes Cardiovascular exam: PRESENT: RRR. ABSENT: diastolic murmur, rubs, systolic murmur Pulses: PRESENT: normal dorsalis pedis pul Vascular exam: PRESENT: normal capillary refill GI/Abdominal exam: PRESENT: normal bowel sounds, soft. ABSENT: distended, guarding, mass, organolmegaly, rebound, tenderness Rectal exam: PRESENT: deferred Extremities exam: PRESENT: full ROM. ABSENT: calf tenderness, clubbing, pedal edema Neurological exam: PRESENT: other - sedated. ABSENT: motor sensory deficit Psychiatric exam: ABSENT: homicidal ideation, suicidal ideation Skin exam: PRESENT: dry, intact, warm. ABSENT: cyanosis, rash Results Laboratory Results: 05/09/17 03:56 05/09/17 03:56 05/09/17 05/09/17 03:56 03:56 WBC 14.2 H RBC 3.60 L Hgb 10.8 L Hct 32.7 L MCV 91 MCH 30.1 MCHC 33.2 RDW 15.0 H Plt Count 240 Seg Neutrophils % 89.6 H Lymphocytes % 5.4 L Monocytes % 4.7 Eosinophils % 0.0 Basophils % 0.3 Absolute Neutrophils 12.8 H Absolute Lymphocytes 0.8 Absolute Monocytes 0.7 Absolute Eosinophils 0.0 Absolute Basophils 0.0 Sodium 143.1 Potassium 4.0 Chloride 104 Carbon Dioxide 34 H Anion Gap 5 BUN 11 Creatinine 0.48 L Est GFR ( Amer) > 60 Est GFR (Non-Af Amer) > 60 Glucose 138 H Calcium 8.8 Impressions: Chest X-Ray 05/07/17 18:03 IMPRESSION: 1. Repositioning of the endotracheal tube which is now in good position. 2. Interval improvement in the right lung with residual increased density and volume loss which may be related to residual partial collapse. Possibility of pneumonia must also be considered. Assessment & Plan - Diagnosis (1) Pneumonia Qualifiers: Pneumonia type: due to unspecified organism Laterality: right Lung location: unspecified part of lung Qualified Code(s): J18.9 - Pneumonia, unspecified organism Is this a current diagnosis for this admission?: Yes Plan: Possible right lower lung pneumonia. Continue vancomycin and zosyn. (2) Respiratory failure with hypoxia and hypercapnia Qualifiers: Chronicity: acute Qualified Code(s): J96.01 - Acute respiratory failure with hypoxia; J96.02 - Acute respiratory failure with hypercapnia; J96.02 - Acute respiratory failure with hypercapnia; J96.02 - Acute respiratory failure with hypercapnia Is this a current diagnosis for this admission?: Yes Plan: Patient is obese and may have obesity ventilation syndrome or OBI further compromised by substance abuse leading to respiratory depression. Patient currently intubated. Pulmonary consulted for vent management. (3) Substance abuse Is this a current diagnosis for this admission?: Yes Plan: Will relationship counselor patient on cessation when appropriate. Patient currently sedate therefore less likely to withdrawn. Will monitor. (4) Lung collapse Is this a current diagnosis for this admission?: Yes Plan: right partial collapse seen on chest X ray. Will follow up with repeat chest XR. - Time Time Spent with patient: Less than 15 minutes Anticipated discharge: Home - Inpatient Certification Medical Necessity: Significant Comorbidiites Make Outpatient Treatment Too Risky - Patient currently intubated., Need Close Monitoring Due to Risk of Patient Decompensation, Need for IV Antibiotics
--- NOTE | 2017-05-09 10:18 | PDOC CONSULTATION ---
Consultation Consult Date: 05/09/17 Attending physician:: AXEL NOVAK Consult reason:: resiratory failure/aspiration History of Present Illness Admission Date/PCP: 05/07/17 21:42 History of Present Illness: all information from chart patient currently intubated and sedated:MANDEEP VIVAR is a 56 year old female with a past medical history of morbid obesity, obstructive sleep apnea, COPD, chronic bronchitis, tobacco, anxiety, polysubstance abuse with cocaine, benzodiazepine and opiates. Patient presents via EMS with altered mental status with oxygen saturation of 50% on room air she is placed on a nonrebreather receiving albuterol and Atrovent with minimal improvement in the emergency room she is vomiting with aspiration and suspected of polysubstance overdose and intubated. Patient is started on IV clindamycin and referred to the hospitalist for admission. Patient is unable to provide history. Past Medical History Cardiac Medical History: Reports: Hypertension Pulmonary Medical History: Reports: Asthma - last ED visit > 3 years ago, Bronchitis, Chronic Obstructive Pulmonary Disease (COPD), Pneumonia - required hospitalization Neurological Medical History: Reports: Migraine Malignancy Medical History: GI Medical History: Reports: Gastroesophageal Reflux Disease - Rx x 10 years Musculoskeltal Medical History: Reports: Arthritis Psychiatric Medical History: Reports: Bipolar Disorder, Depression - per Hallegado's note 11/16/14, Schizoaffective Disorder, Substance Abuse, Tobacco Dependency Hematology: Denies: Anemia Past Surgical History Past Surgical History: Reports: Orthopedic Surgery - Bilateral knee replacements Denies: Amputation, Appendectomy, Section, Cholecystectomy, Hysterectomy, Mastectomy, Tonsillectomy, Tubal Ligation Social History Information Source: [facility] Records Smoking Status: Current Every Day Smoker Frequency of Alcohol Use: None Hx Recreational Drug Use: Yes Drugs: Cocaine Hx Prescription Drug Abuse: Yes - Advance Directive Resuscitation Status: Full Code Family History Family History: Other - Unknown Parental Family History Reviewed: No Children Family History Reviewed: No Sibling(s) Family History Reviewed.: No Medication/Allergy Home Medications: Albuterol Sulfate [Proair Hfa Inhalation Aerosol 8.5 gm Mdi] 2 puff IH Q4HP PRN 05/07/17 Aripiprazole [Abilify 5 mg Tablet] 10 mg PO DAILY 05/07/17 Clonazepam [Klonopin] 0.5 mg PO Q12 05/07/17 Divalproex Sodium [Divalproex Sodium ER] 500 mg PO Q12 05/07/17 Doxepin HCl 100 mg PO QHS 05/07/17 Esomeprazole Magnesium [Nexium] 40 mg PO DAILY 05/07/17 Fluticasone/Salmeterol [Advair 250-50 Diskus 28 dose] 1 inh IH Q12 05/07/17 Furosemide [Lasix 20 mg Tablet] 20 mg PO QAM 05/07/17 Gabapentin [Neurontin 400 mg Capsule] 400 mg PO BID@06,14 05/07/17 Gabapentin [Neurontin 400 mg Capsule] 800 mg PO QHS 05/07/17 Ibuprofen [Motrin 800 mg Tablet] 800 mg PO Q8HP PRN 05/07/17 Ipratropium/Albuterol Sulfate [Duoneb 3 ml Ampul] 3 ml NEB RTQ6HP PRN 05/07/17 Paroxetine HCl [Paxil] 30 mg PO Q12 05/07/17 Solifenacin Succinate [Vesicare] 5 mg PO DAILY 05/07/17 Tiotropium [place] [Spiriva Handihaler 18 mcg/dose (30 Dose)] 1 cap IH DAILY 08/19 Allergies/Adverse Reactions: No Known Allergies Allergy (Verified 04/19/17 17:06) Review of Systems ROS unobtainable: Due to endotracheal tube Physical Exam Vital Signs: Temp Pulse Resp BP Pulse Ox 98.2 F 66 14 95/55 L 92 05/09/17 08:00 05/09/17 08:14 05/09/17 08:15 05/09/17 08:13 05/09/17 08:15 Intake & Output 05/08/17 05/09/17 05/10/17 06:59 06:59 06:59 Intake Total 1359 Output Total 100 2675 100 Balance -100 -1316 -100 Weight 104.6 kg General appearance: PRESENT: no acute distress, disheveled, morbidly obese. ABSENT: cooperative, mild distress, obese, severe distress, thin Head exam: PRESENT: atraumatic, normocephalic Eye exam: PRESENT: conjunctiva pale, EOMI. ABSENT: conjunctival injection, conjunctiva pink, nystagmus, periorbital swelling, scleral icterus Mouth exam: PRESENT: dry mucosa, neck supple, tongue midline, other - ET tube. ABSENT: laceration, moist Neck exam: ABSENT: carotid bruit, JVD, lymphadenopathy, thyromegaly, tracheal deviation, tracheostomy Respiratory exam: PRESENT: crackles, decreased breath sounds, prolonged expiratory phas, rhonchi, symmetrical, unlabored, wheezes. ABSENT: accessory muscle use, chest wall tenderness, clear to auscultation caleb, rales, retraction , stridor, tachypnea Cardiovascular exam: PRESENT: RRR, +S1, +S2 Pulses: PRESENT: normal radial pulses GI/Abdominal exam: PRESENT: normal bowel sounds, soft. ABSENT: distended, guarding, mass, organolmegaly, rebound, tenderness Gentrourinary exam: PRESENT: indwelling catheter Extremities exam: ABSENT: clubbing, joint swelling Musculoskeletal exam: ABSENT: deformity, dislocation Neurological exam: ABSENT: oriented to person, oriented to place, oriented to time, oriented to situation Skin exam: PRESENT: dry, warm Results Laboratory Results: 05/09/17 03:56 05/09/17 03:56 05/09/17 05/09/17 03:56 03:56 WBC 14.2 H RBC 3.60 L Hgb 10.8 L Hct 32.7 L MCV 91 MCH 30.1 MCHC 33.2 RDW 15.0 H Plt Count 240 Seg Neutrophils % 89.6 H Lymphocytes % 5.4 L Monocytes % 4.7 Eosinophils % 0.0 Basophils % 0.3 Absolute Neutrophils 12.8 H Absolute Lymphocytes 0.8 Absolute Monocytes 0.7 Absolute Eosinophils 0.0 Absolute Basophils 0.0 Sodium 143.1 Potassium 4.0 Chloride 104 Carbon Dioxide 34 H Anion Gap 5 BUN 11 Creatinine 0.48 L Est GFR ( Amer) > 60 Est GFR (Non-Af Amer) > 60 Glucose 138 H Calcium 8.8 Impressions: Chest X-Ray 05/07/17 18:03 IMPRESSION: 1. Repositioning of the endotracheal tube which is now in good position. 2. Interval improvement in the right lung with residual increased density and volume loss which may be related to residual partial collapse. Possibility of pneumonia must also be considered. Assessment & Plan - Diagnosis (1) Altered mental status Qualifiers: Altered mental status type: unspecified Qualified Code(s): R41.82 - Altered mental status, unspecified Is this a current diagnosis for this admission?: Yes (2) Pneumonia Qualifiers: Pneumonia type: due to unspecified organism Laterality: right Lung location: unspecified part of lung Qualified Code(s): J18.9 - Pneumonia, unspecified organism Is this a current diagnosis for this admission?: Yes (3) Acute on chronic respiratory failure with hypoxia and hypercapnia Is this a current diagnosis for this admission?: Yes (4) Obstructive sleep apnea Is this a current diagnosis for this admission?: Yes (5) Obesity Qualifiers: Body mass index: BMI 45.0-49.9 Is this a current diagnosis for this admission?: Yes Plan: unchanged (6) Tobacco abuse Is this a current diagnosis for this admission?: Yes Plan: transdermal nicotine - Time Total Critical Time (Minutes): 55
[2017-05-09] MEDS: LEVOFLOXACIN 750 MG/D5W RTU 750 MG/150 ML RTUPB IV SCH (12:46)
[2017-05-09] MEDS: CLONAZEPAM 1 MG TABLET NG SCH ×2 (12:47→22:00)
[2017-05-09] MEDS: ARIPIPRAZOLE 5 MG TABLET NG SCH (12:56)
[2017-05-09] MEDS: VALPROATE SODIUM SYRUP 250 MG/5 ML UDCUP NG SCH ×2 (13:00→18:15)
[2017-05-09] MEDS: VANCOMYCIN HCL 1,000 MG in DEXTROSE 5%-WATER 250 ML IV SCH ×2 (13:19→22:00)
[2017-05-10] MEDS: FENTANYL CITRATE INJ/PF 100 MCG/2 ML AMPUL IV PRN ×2 (01:02→08:22)
[2017-05-10] MEDS: IPRATROPIUM/ALBUTEROL 0.5-2.5 MG/3 ML AMPUL NEB SCH ×4 (01:46→20:10)
[2017-05-10] MEDS: METHYLPREDNISOLONE INJ 125 MG/2 ML SDV IV SCH ×3 (01:59→18:36)
[2017-05-10] MEDS: PROPOFOL 100 ML IV PRN ×6 (02:00→22:37)
[2017-05-10] MEDS: IPRATROPIUM/ALBUTEROL 0.5-2.5 MG/3 ML AMPUL NEB PRN (04:29)
[2017-05-10] MEDS: HEPARIN SOD (PORCINE) 5,000 UNIT/ML 1 ML SYRINGE SUBCUT SCH ×3 (05:48→22:38)
[2017-05-10] MEDS: LANSOPRAZOLE 30 MG TAB.RAP.DR NG SCH ×2 (05:48→18:36)
[2017-05-10] MEDS: GABAPENTIN 400 MG CAPSULE NG SCH ×2 (05:48→13:45)
[2017-05-10] MEDS: PIPERACILLIN SODIUM/TAZOBACTAM 3.375 GM in NORMAL SALINE 100 ML IV SCH ×3 (05:50→18:39)
[2017-05-10] MEDS: VANCOMYCIN HCL 1,000 MG in DEXTROSE 5%-WATER 250 ML IV SCH (06:10)
[2017-05-10 06:12] LABS: ABSOLUTE LYMPHOCYTES (AUTO) 0.6 10^3/uL (0.5-4.7); ABSOLUTE MONOCYTES (AUTO) 0.3 10^3/uL (0.1-1.4); ABSOLUTE NEUT (AUTO) 7.6 10^3/uL (1.7-8.2); BASOPHILS % (AUTO) 0.4 % (0-2); HEMATOCRIT 31.6 % (36.0-47.0); HEMOGLOBIN 10.5 g/dL (12.0-15.5); LYMPHOCYTES % (AUTO) 7.1 % (13-45); MEAN CORPUSCULAR HEMOGLOBIN 30.2 pg (27.0-33.4); MEAN CORPUSCULAR HGB CONC 33.2 g/dL (32.0-36.0); MEAN CORPUSCULAR VOLUME 91 fl (80-97); MONOCYTES % (AUTO) 3.9 % (3-13); PLATELET COUNT 231 10^3/uL (150-450); RED BLOOD COUNT 3.47 10^6/uL (3.72-5.28); RED CELL DISTRIBUTION WIDTH 14.8 % (11.5-14.0); SEGMENTED NEUTROPHILS % (AUTO) 88.6 % (42-78); TOTAL CELLS COUNTED % (AUTO) 100 %; WHITE BLOOD COUNT 8.5 10^3/uL (4.0-10.5)
[2017-05-10 06:44] LABS: ANION GAP 8 (5-19); BLOOD UREA NITROGEN 13 mg/dL (7-20); CALCIUM 9.3 mg/dL (8.4-10.2); CARBON DIOXIDE 33 mmol/L (22-30); CHLORIDE 100 mmol/L (98-107); GLUCOSE 150 mg/dL (75-110); MAGNESIUM 2.4 mg/dL (1.6-2.3)
[2017-05-10 06:45] LABS: VANCOMYCIN,TROUGH 12.8 ug/mL (5.0-20.0)
[2017-05-10 06:52] LABS: ARTERIAL BLOOD BASE EXCESS 6.7 mmol/L; ARTERIAL BLOOD H2CO3 1.71 mmol/L (1.05-1.35); ARTERIAL BLOOD HCO3 33.2 mmol/L (20-26); ARTERIAL BLOOD O2 SATURATION 92.6 % (94-98); ARTERIAL BLOOD PCO2 56.9 mmHg (35-45); ARTERIAL BLOOD PH 7.38 (7.35-7.45); ARTERIAL BLOOD PO2 66.8 mmHg (80-100)
[2017-05-10 06:53] LABS: ARTERIAL BLOOD FIO2 40%
--- NOTE | 2017-05-10 08:07 | RADIOLOGY REPORT (SQ) ---
EXAM DESCRIPTION: CHEST SINGLE VIEW COMPLETED DATE/TIME: 05/10/2017 6:57 am REASON FOR STUDY: resp failure COMPARISON: 05/07/2017 EXAM PARAMETERS: NUMBER OF VIEWS: One view. TECHNIQUE: Single frontal radiographic view of the chest acquired. RADIATION DOSE: NA LIMITATIONS: None. FINDINGS: LUNGS AND PLEURA: Stable mild interstitial edema with bibasilar opacities. No definite pl eural effusion or pneumothorax. MEDIASTINUM AND HILAR STRUCTURES: Stable in size and contour. HEART AND VASCULAR STRUCTURES: Stable. BONES: No acute findings. HARDWARE: Stable position endotracheal tube and nasogastric tube. OTHER: No other significant finding. IMPRESSION: STABLE APPEARANCE OF THE CHEST WITH MILD INTERSTITIAL EDEMA, BIBASILAR OPACITIES. AND LINES/TUBES. TECHNICAL DOCUMENTATION: JOB ID: [id number] [employer]- All Rights Reserved
[2017-05-10] MEDS ORDERED: DEXTROSE 40% GEL 15 GM TUBE PO PRN ×2 (08:08)
[2017-05-10] MEDS ORDERED: DEXTROSE 50%-WATER 25 GM/50 ML DISP.SYRIN IV PRN ×2 (08:08)
[2017-05-10] MEDS ORDERED: GLUCAGON,HUMAN RECOMB 1 MG INJ IM PRN (08:08)
[2017-05-10] MEDS: CLONAZEPAM 1 MG TABLET NG SCH ×2 (09:45→22:38)
[2017-05-10] MEDS: ARIPIPRAZOLE 5 MG TABLET NG SCH (09:45)
[2017-05-10] MEDS: LEVOFLOXACIN 750 MG/D5W RTU 750 MG/150 ML RTUPB IV SCH (09:45)
[2017-05-10] MEDS: VALPROATE SODIUM SYRUP 250 MG/5 ML UDCUP NG SCH ×2 (10:50→18:36)
[2017-05-11] MEDS: PROPOFOL 100 ML IV PRN ×5 (00:35→21:50)
[2017-05-11] MEDS: PIPERACILLIN SODIUM/TAZOBACTAM 3.375 GM in NORMAL SALINE 100 ML IV SCH ×5 (00:36→23:50)
[2017-05-11] MEDS: IPRATROPIUM/ALBUTEROL 0.5-2.5 MG/3 ML AMPUL NEB SCH ×4 (02:26→20:23)
[2017-05-11 06:00] LABS: ABSOLUTE LYMPHOCYTES (AUTO) 0.8 10^3/uL (0.5-4.7); ABSOLUTE MONOCYTES (AUTO) 0.5 10^3/uL (0.1-1.4); ABSOLUTE NEUT (AUTO) 6.7 10^3/uL (1.7-8.2); BASOPHILS % (AUTO) 0.3 % (0-2); HEMATOCRIT 30.8 % (36.0-47.0); HEMOGLOBIN 10.3 g/dL (12.0-15.5); LYMPHOCYTES % (AUTO) 10.3 % (13-45); MEAN CORPUSCULAR HEMOGLOBIN 30.4 pg (27.0-33.4); MEAN CORPUSCULAR HGB CONC 33.3 g/dL (32.0-36.0); MEAN CORPUSCULAR VOLUME 91 fl (80-97); MONOCYTES % (AUTO) 6.4 % (3-13); PLATELET COUNT 222 10^3/uL (150-450); RED BLOOD COUNT 3.37 10^6/uL (3.72-5.28); RED CELL DISTRIBUTION WIDTH 14.7 % (11.5-14.0); TOTAL CELLS COUNTED % (AUTO) 100 %; WHITE BLOOD COUNT 8.1 10^3/uL (4.0-10.5)
[2017-05-11 06:11] LABS: ARTERIAL BLOOD BASE EXCESS 5.7 mmol/L; ARTERIAL BLOOD H2CO3 1.63 mmol/L (1.05-1.35); ARTERIAL BLOOD O2 SATURATION 95.8 % (94-98); ARTERIAL BLOOD PCO2 54.2 mmHg (35-45); ARTERIAL BLOOD PH 7.39 (7.35-7.45); ARTERIAL BLOOD PO2 82.1 mmHg (80-100); ARTERIAL BLOOD TOTAL CO2 33.7 mmol/L (21-25)
[2017-05-11 06:14] LABS: ARTERIAL BLOOD FIO2 45%
[2017-05-11] MEDS: HEPARIN SOD (PORCINE) 5,000 UNIT/ML 1 ML SYRINGE SUBCUT SCH ×3 (06:16→21:43)
[2017-05-11 06:22] LABS: ALANINE AMINOTRANSFERASE 34 U/L (9-52); ALKALINE PHOSPHATASE 59 U/L (38-126); ANION GAP 6 (5-19); ASPARTATE AMINO TRANSFERASE 10 U/L (14-36); BILIRUBIN,DIRECT 0.1 mg/dL (0.0-0.4); BILIRUBIN,TOTAL 0.1 mg/dL (0.2-1.3); BLOOD UREA NITROGEN 14 mg/dL (7-20); CALCIUM 8.9 mg/dL (8.4-10.2); CARBON DIOXIDE 32 mmol/L (22-30); CHLORIDE 103 mmol/L (98-107); GLUCOSE 144 mg/dL (75-110); MAGNESIUM 2.4 mg/dL (1.6-2.3); POTASSIUM 4.3 mmol/L (3.6-5.0); TOTAL PROTEIN 5.3 g/dL (6.3-8.2)
[2017-05-11] MEDS: LANSOPRAZOLE 30 MG TAB.RAP.DR NG SCH ×2 (06:25→17:33)
[2017-05-11] MEDS: GABAPENTIN 400 MG CAPSULE NG SCH ×2 (06:25→13:27)
--- NOTE | 2017-05-11 09:03 | RADIOLOGY REPORT (SQ) ---
EXAM DESCRIPTION: CHEST SINGLE VIEW COMPLETED DATE/TIME: 05/11/2017 7:02 am REASON FOR STUDY: resp failure/pna COMPARISON: 05/10/2017 EXAM PARAMETERS: NUMBER OF VIEWS: One view. TECHNIQUE: Single frontal radiographic view of the chest acquired. RADIATION DOSE: NA LIMITATIONS: Patient has made a shallow inspiration. FINDINGS: LUNGS AND PLEURA: The previously described bibasilar densities right greater than left eula ear essentially unchanged. There is some blunting of the costophrenic angles which I cannot exclude as small pleural effusions. MEDIASTINUM AND HILAR STRUCTURES: No masses. Contour normal. HEART AND VASCULAR STRUCTURES: The configuration of the heart and mediastinal structures is unchanged . BONES: No acute findings. HARDWARE: Endotracheal tube is unchanged in position. NG tube is seen in course to the abdomen. Ove rlying monitoring devices are identified. OTHER: No other significant finding. IMPRESSION: Bibasilar densities appear essentially unchanged. Other findings as noted above TECHNICAL DOCUMENTATION: JOB ID: [id number] [employer]- All Rights Reserved
[2017-05-11] MEDS: VALPROATE SODIUM SYRUP 250 MG/5 ML UDCUP NG SCH ×2 (10:30→17:37)
[2017-05-11] MEDS: ARIPIPRAZOLE 5 MG TABLET NG SCH (10:31)
[2017-05-11] MEDS: LEVOFLOXACIN 750 MG/D5W RTU 750 MG/150 ML RTUPB IV SCH (10:31)
[2017-05-11] MEDS: CLONAZEPAM 1 MG TABLET NG SCH ×2 (10:31→21:39)
[2017-05-11] MEDS: METHYLPREDNISOLONE INJ 125 MG/2 ML SDV IV SCH ×2 (10:32→17:33)
--- NOTE | 2017-05-11 17:33 | PDOC PROGRESS REPORT ---
Subjective Progress Note for:: 05/11/17 Subjective:: intubated;sedated Reason For Visit: ASPIRATION PNEUMONIA, COPD EXACERBATION Physical Exam Vital Signs: Temp Pulse Resp BP Pulse Ox 95.9 F L 59 L 14 98/61 L 93 05/11/17 08:41 05/11/17 08:12 05/11/17 08:12 05/11/17 07:14 05/11/17 08:55 Intake & Output 05/10/17 05/11/17 05/12/17 06:59 06:59 06:59 Intake Total 3792 Output Total 1090 1420 60 Balance 2702 -1420 -60 Weight 106.4 kg General appearance: PRESENT: no acute distress, disheveled, morbidly obese. ABSENT: cooperative, mild distress, obese, severe distress Head exam: PRESENT: atraumatic, normocephalic Eye exam: PRESENT: conjunctiva pale. ABSENT: conjunctival injection, conjunctiva pink, nystagmus, periorbital swelling, scleral icterus Mouth exam: PRESENT: dry mucosa, neck supple, tongue midline, other - ET tube. ABSENT: laceration, moist Neck exam: ABSENT: carotid bruit, JVD, lymphadenopathy, thyromegaly, tracheal deviation, tracheostomy Respiratory exam: PRESENT: crackles, decreased breath sounds, prolonged expiratory phas, rhonchi, symmetrical, unlabored, wheezes. ABSENT: accessory muscle use, chest wall tenderness, clear to auscultation caleb, retraction, stridor, tachypnea Cardiovascular exam: PRESENT: RRR, +S1, +S2 Pulses: PRESENT: normal radial pulses GI/Abdominal exam: PRESENT: diminished bowel sounds, soft Gentrourinary exam: PRESENT: indwelling catheter Extremities exam: ABSENT: clubbing, joint swelling Musculoskeletal exam: ABSENT: deformity, dislocation Neurological exam: ABSENT: alert, awake Skin exam: PRESENT: dry, warm Results Laboratory Results: 05/11/17 05:34 05/11/17 05:34 05/11/17 05/11/17 05/11/17 05:34 05:34 05:35 WBC 8.1 RBC 3.37 L Hgb 10.3 L Hct 30.8 L MCV 91 MCH 30.4 MCHC 33.3 RDW 14.7 H Plt Count 222 Seg Neutrophils % 83.0 H Lymphocytes % 10.3 L Monocytes % 6.4 Eosinophils % 0.0 Basophils % 0.3 Absolute Neutrophils 6.7 Absolute Lymphocytes 0.8 Absolute Monocytes 0.5 Absolute Eosinophils 0.0 Absolute Basophils 0.0 Carbonic Acid 1.63 H HCO3/H2CO3 Ratio 19:1 ABG pH 7.39 ABG pCO2 54.2 H ABG pO2 82.1 ABG HCO3 32.0 H ABG O2 Saturation 95.8 ABG Base Excess 5.7 FiO2 45% Sodium 141.0 Potassium 4.3 Chloride 103 Carbon Dioxide 32 H Anion Gap 6 BUN 14 Creatinine 0.50 L Est GFR ( Amer) > 60 Est GFR (Non-Af Amer) > 60 Glucose 144 H Calcium 8.9 Magnesium 2.4 H Total Bilirubin 0.1 L AST 10 L ALT 34 Alkaline Phosphatase 59 Total Protein 5.3 L Albumin 3.0 L 05/11/17 05:34 NT-Pro-B Natriuret Pep 377 Impressions: Chest X-Ray 05/11/17 06:00 IMPRESSION: Bibasilar densities appear essentially unchanged. Other findings as noted above Assessment & Plan - Diagnosis (1) Altered mental status Qualifiers: Altered mental status type: unspecified Qualified Code(s): R41.82 - Altered mental status, unspecified Is this a current diagnosis for this admission?: Yes (2) Pneumonia Qualifiers: Pneumonia type: due to unspecified organism Laterality: right Lung location: unspecified part of lung Qualified Code(s): J18.9 - Pneumonia, unspecified organism Is this a current diagnosis for this admission?: Yes Plan: 05/08/17 12:15 Gram Stain - Final Tracheal Aspirate Sputum Culture - Final Haemophilus Influenzae C.albicans/C.dubliniensis Greatly Reduced Normal Darcy 05/07/17 20:30 Gram Stain - Final Sputum Sputum Culture - Preliminary Streptococcus Pneumoniae Gram Negative Rods Haemophilus Influenzae Normal Darcy Absent (3) Acute on chronic respiratory failure with hypoxia and hypercapnia Is this a current diagnosis for this admission?: Yes Plan: ventilating acceptable (4) Obstructive sleep apnea Is this a current diagnosis for this admission?: Yes (5) Obesity Qualifiers: Body mass index: BMI 45.0-49.9 Is this a current diagnosis for this admission?: Yes Plan: unchanged (6) Tobacco abuse Is this a current diagnosis for this admission?: Yes Plan: transdermal nicotine - Time Total Critical Time (Minutes): 40
--- NOTE | 2017-05-11 17:36 | PDOC PROGRESS REPORT ---
Subjective Progress Note for:: 05/10/17 Subjective:: intubated;sedated Reason For Visit: ASPIRATION PNEUMONIA, COPD EXACERBATION Physical Exam Vital Signs: Temp Pulse Resp BP Pulse Ox 96.4 F L 71 14 112/62 90 L 05/10/17 07:35 05/10/17 07:55 05/10/17 07:55 05/10/17 07:35 05/10/17 07:55 Intake & Output 05/09/17 05/10/17 05/11/17 06:59 06:59 06:59 Intake Total 1359 3792 Output Total 2675 1090 75 Balance -1316 2702 -75 Weight 104.6 kg 106.4 kg General appearance: PRESENT: no acute distress, disheveled, morbidly obese. ABSENT: cooperative, mild distress, obese, severe distress Head exam: PRESENT: atraumatic, normocephalic Eye exam: PRESENT: conjunctiva pale. ABSENT: conjunctival injection, conjunctiva pink, EOMI, nystagmus, periorbital swelling, scleral icterus Mouth exam: PRESENT: dry mucosa, neck supple, tongue midline, other - ET tube. ABSENT: laceration, moist Neck exam: ABSENT: carotid bruit, JVD, lymphadenopathy, thyromegaly, tracheal deviation, tracheostomy Respiratory exam: PRESENT: crackles, decreased breath sounds, prolonged expiratory phas, rhonchi, symmetrical, unlabored, wheezes. ABSENT: accessory muscle use, chest wall tenderness, clear to auscultation caleb, rales, retraction , stridor, tachypnea Cardiovascular exam: PRESENT: RRR, +S1, +S2 Pulses: PRESENT: normal radial pulses GI/Abdominal exam: PRESENT: diminished bowel sounds, soft Gentrourinary exam: PRESENT: indwelling catheter Extremities exam: ABSENT: clubbing, joint swelling Musculoskeletal exam: ABSENT: deformity, dislocation Neurological exam: ABSENT: alert, awake Skin exam: PRESENT: dry, warm Results Laboratory Results: 05/10/17 06:00 05/10/17 06:00 05/10/17 05/10/17 05/10/17 06:00 06:00 06:15 WBC 8.5 RBC 3.47 L Hgb 10.5 L Hct 31.6 L MCV 91 MCH 30.2 MCHC 33.2 RDW 14.8 H Plt Count 231 Seg Neutrophils % 88.6 H Lymphocytes % 7.1 L Monocytes % 3.9 Eosinophils % 0.0 Basophils % 0.4 Absolute Neutrophils 7.6 Absolute Lymphocytes 0.6 Absolute Monocytes 0.3 Absolute Eosinophils 0.0 Absolute Basophils 0.0 Carbonic Acid 1.71 H HCO3/H2CO3 Ratio 19:1 ABG pH 7.38 ABG pCO2 56.9 H ABG pO2 66.8 L ABG HCO3 33.2 H ABG O2 Saturation 92.6 L ABG Base Excess 6.7 FiO2 40% Sodium 141.0 Potassium 4.0 Chloride 100 Carbon Dioxide 33 H Anion Gap 8 BUN 13 Creatinine 0.45 L Est GFR ( Amer) > 60 Est GFR (Non-Af Amer) > 60 Glucose 150 H Calcium 9.3 Magnesium 2.4 H Impressions: Chest X-Ray 05/10/17 06:00 IMPRESSION: STABLE APPEARANCE OF THE CHEST WITH MILD INTERSTITIAL EDEMA, BIBASILAR OPACITIES. AND LINES/TUBES. Assessment & Plan - Diagnosis (1) Altered mental status Qualifiers: Altered mental status type: unspecified Qualified Code(s): R41.82 - Altered mental status, unspecified Is this a current diagnosis for this admission?: Yes Plan: unable to evaluate (2) Pneumonia Qualifiers: Pneumonia type: due to unspecified organism Laterality: right Lung location: unspecified part of lung Qualified Code(s): J18.9 - Pneumonia, unspecified organism Is this a current diagnosis for this admission?: Yes Plan: 05/08/17 12:15 Gram Stain - Final Tracheal Aspirate Sputum Culture - Final Haemophilus Influenzae C.albicans/C.dubliniensis Greatly Reduced Normal Darcy 05/07/17 20:30 Gram Stain - Final Sputum Sputum Culture - Preliminary Streptococcus Pneumoniae Gram Negative Rods Haemophilus Influenzae Normal [place]cy Absent (3) Acute on chronic respiratory failure with hypoxia and hypercapnia Is this a current diagnosis for this admission?: Yes Plan: ventilating acceptable (4) Obstructive sleep apnea Is this a current diagnosis for this admission?: Yes (5) Obesity Qualifiers: Body mass index: BMI 45.0-49.9 Is this a current diagnosis for this admission?: Yes Plan: unchanged (6) Tobacco abuse Is this a current diagnosis for this admission?: Yes Plan: transdermal nicotine - Time Total Critical Time (Minutes): 45
[2017-05-11] MEDS: NORMAL SALINE 1000 ML 1,000 ML IV PRN (21:50)
[2017-05-11] MEDS: FENTANYL CITRATE INJ/PF 100 MCG/2 ML AMPUL IV PRN (22:02)
[2017-05-12] MEDS: IPRATROPIUM/ALBUTEROL 0.5-2.5 MG/3 ML AMPUL NEB SCH ×4 (02:59→20:21)
[2017-05-12] MEDS: METHYLPREDNISOLONE INJ 125 MG/2 ML SDV IV SCH ×3 (03:16→17:43)
[2017-05-12] MEDS: PROPOFOL 100 ML IV PRN ×4 (03:38→20:58)
[2017-05-12 04:09] LABS: ANION GAP 7 (5-19); BLOOD UREA NITROGEN 18 mg/dL (7-20); CALCIUM 9.1 mg/dL (8.4-10.2); CARBON DIOXIDE 32 mmol/L (22-30); CHLORIDE 106 mmol/L (98-107); GLUCOSE 134 mg/dL (75-110); MAGNESIUM 2.5 mg/dL (1.6-2.3); POTASSIUM 4.5 mmol/L (3.6-5.0); SODIUM 144.6 mmol/L (137-145)
[2017-05-12 04:16] LABS: HEMATOCRIT 33.9 % (36.0-47.0); MEAN CORPUSCULAR HEMOGLOBIN 29.7 pg (27.0-33.4); MEAN CORPUSCULAR HGB CONC 32.4 g/dL (32.0-36.0); MEAN CORPUSCULAR VOLUME 92 fl (80-97); PLATELET COUNT 243 10^3/uL (150-450); RED BLOOD COUNT 3.71 10^6/uL (3.72-5.28); RED CELL DISTRIBUTION WIDTH 15.1 % (11.5-14.0); WHITE BLOOD COUNT 6.6 10^3/uL (4.0-10.5)
[2017-05-12 04:43] LABS: ABSOLUTE LYMPHOCYTES# (MANUAL) 0.5 10^3/uL (0.5-4.7); ABSOLUTE MONOCYTES # (MANUAL) 0.5 10^3/uL (0.1-1.4); ABSOLUTE NEUTROPHILS# (MANUAL) 5.5 10^3/uL (1.7-8.2); BASOPHILS % (MANUAL) 0 % (0-2); EOSINOPHILS % (MANUAL) 0 % (0-6); LYMPHOCYTES % (MANUAL) 8 % (13-45); MONOCYTES % (MANUAL) 8 % (3-13); SEGMENTED NEUTROPHILS % (MAN) 84 % (42-78); TOTAL CELLS COUNTED 100
[2017-05-12 04:44] LABS: ANISOCYTOSIS SLIGHT; PLATELET CLUMPS PRESENT; PLATELET COMMENT ADEQUATE; POIKILOCYTOSIS SLIGHT; TEAR DROP CELLS SLIGHT; TOXIC VACUOLATION PRESENT
[2017-05-12 05:13] LABS: ARTERIAL BLOOD BASE EXCESS 2.9 mmol/L; ARTERIAL BLOOD HCO3 28.7 mmol/L (20-26); ARTERIAL BLOOD O2 SATURATION 92.3 % (94-98); ARTERIAL BLOOD PCO2 49.9 mmHg (35-45); ARTERIAL BLOOD PH 7.38 (7.35-7.45); ARTERIAL BLOOD PO2 65.6 mmHg (80-100); ARTERIAL BLOOD TOTAL CO2 30.3 mmol/L (21-25)
[2017-05-12 05:14] LABS: ARTERIAL BLOOD FIO2 45%
[2017-05-12] MEDS: GABAPENTIN 400 MG CAPSULE NG SCH ×2 (05:15→14:51)
[2017-05-12] MEDS: LANSOPRAZOLE 30 MG TAB.RAP.DR NG SCH ×2 (05:16→17:43)
[2017-05-12] MEDS: PIPERACILLIN SODIUM/TAZOBACTAM 3.375 GM in NORMAL SALINE 100 ML IV SCH ×3 (05:17→17:43)
[2017-05-12] MEDS: HEPARIN SOD (PORCINE) 5,000 UNIT/ML 1 ML SYRINGE SUBCUT SCH ×3 (05:56→21:00)
--- NOTE | 2017-05-12 06:55 | RADIOLOGY REPORT (SQ) ---
EXAM DESCRIPTION: CHEST SINGLE VIEW CLINICAL HISTORY: resp failure COMPARISON: 05/11/2017 FINDINGS: Single frontal view of the chest. Endotracheal tube with tip 4 cm above the lyubov. NG tube with tip below the diaphragm. Heart is not enlarged. Atherosclerotic calcification aortic arch. No pneumothorax. Right basilar airspace opacity is unchanged. No displaced rib fractures identified. Upper abdominal soft tissues are unremarkable. IMPRESSION: 1. Stable appearance of the chest with persistent right basilar airspace opacity.
[2017-05-12] MEDS: ARIPIPRAZOLE 5 MG TABLET NG SCH (10:14)
[2017-05-12] MEDS: LEVOFLOXACIN 750 MG/D5W RTU 750 MG/150 ML RTUPB IV SCH (10:14)
[2017-05-12] MEDS: CLONAZEPAM 1 MG TABLET NG SCH ×2 (10:14→21:00)
[2017-05-12] MEDS: VALPROATE SODIUM SYRUP 250 MG/5 ML UDCUP NG SCH ×2 (10:15→17:43)
[2017-05-12] MEDS ORDERED: FENTANYL CITRATE INJ/PF 100 MCG/2 ML AMPUL IV PRN (12:00)
[2017-05-12] MEDS: NORMAL SALINE 1000 ML 1,000 ML IV PRN (16:01)
[2017-05-13] MEDS: PROPOFOL 100 ML IV PRN ×3 (00:30→20:46)
[2017-05-13] MEDS: PIPERACILLIN SODIUM/TAZOBACTAM 3.375 GM in NORMAL SALINE 100 ML IV SCH ×2 (00:34→05:56)
[2017-05-13] MEDS: IPRATROPIUM/ALBUTEROL 0.5-2.5 MG/3 ML AMPUL NEB SCH ×4 (02:37→20:31)
[2017-05-13] MEDS: METHYLPREDNISOLONE INJ 125 MG/2 ML SDV IV SCH ×3 (03:07→23:00)
[2017-05-13] MEDS: NORMAL SALINE 1000 ML 1,000 ML IV PRN ×2 (03:09→14:38)
[2017-05-13 04:13] LABS: HEMATOCRIT 31.9 % (36.0-47.0); HEMOGLOBIN 10.5 g/dL (12.0-15.5); MEAN CORPUSCULAR HEMOGLOBIN 30.2 pg (27.0-33.4); MEAN CORPUSCULAR VOLUME 92 fl (80-97); PLATELET COUNT 218 10^3/uL (150-450); RED BLOOD COUNT 3.48 10^6/uL (3.72-5.28); WHITE BLOOD COUNT 6.4 10^3/uL (4.0-10.5)
[2017-05-13 04:33] LABS: ANION GAP 6 (5-19); BLOOD UREA NITROGEN 22 mg/dL (7-20); CALCIUM 9.2 mg/dL (8.4-10.2); CARBON DIOXIDE 30 mmol/L (22-30); CHLORIDE 108 mmol/L (98-107); GLUCOSE 125 mg/dL (75-110); MAGNESIUM 2.4 mg/dL (1.6-2.3); PHOSPHORUS 3.3 mg/dL (2.5-4.5); POTASSIUM 4.2 mmol/L (3.6-5.0); SODIUM 144.4 mmol/L (137-145); TRIGLYCERIDES 153 mg/dL (<150)
[2017-05-13 04:39] LABS: ABSOLUTE MONOCYTES # (MANUAL) 0.6 10^3/uL (0.1-1.4); ABSOLUTE NEUTROPHILS# (MANUAL) 4.9 10^3/uL (1.7-8.2); BAND NEUTROPHILS % (MANUAL) 1 % (3-5); BASOPHILS % (MANUAL) 0 % (0-2); EOSINOPHILS % (MANUAL) 0 % (0-6); LYMPHOCYTES % (MANUAL) 15 % (13-45); MONOCYTES % (MANUAL) 9 % (3-13); SEGMENTED NEUTROPHILS % (MAN) 75 % (42-78); TOTAL CELLS COUNTED 100
[2017-05-13 04:41] LABS: ANISOCYTOSIS SLIGHT; POLYCHROMASIA SLIGHT; SCHISTOCYTES SLIGHT; TEAR DROP CELLS SLIGHT; TOXIC GRANULATION SLIGHT; TOXIC VACUOLATION PRESENT
[2017-05-13 04:42] LABS: PLATELET COMMENT ADEQUATE
[2017-05-13 05:52] LABS: ARTERIAL BLOOD BASE EXCESS 4.9 mmol/L; ARTERIAL BLOOD H2CO3 1.65 mmol/L (1.05-1.35); ARTERIAL BLOOD HCO3 31.3 mmol/L (20-26); ARTERIAL BLOOD O2 SATURATION 94.2 % (94-98); ARTERIAL BLOOD PCO2 54.9 mmHg (35-45); ARTERIAL BLOOD PH 7.37 (7.35-7.45); ARTERIAL BLOOD PO2 73.6 mmHg (80-100)
[2017-05-13] MEDS: GABAPENTIN 400 MG CAPSULE NG SCH ×2 (05:54→14:28)
[2017-05-13] MEDS: LANSOPRAZOLE 30 MG TAB.RAP.DR NG SCH ×2 (05:55→16:17)
[2017-05-13] MEDS: HEPARIN SOD (PORCINE) 5,000 UNIT/ML 1 ML SYRINGE SUBCUT SCH ×3 (05:59→23:01)
[2017-05-13 06:09] LABS: ARTERIAL BLOOD FIO2 50%
--- NOTE | 2017-05-13 07:03 | RADIOLOGY REPORT (SQ) ---
EXAM DESCRIPTION: CHEST SINGLE VIEW CLINICAL HISTORY: resp failure COMPARISON: 05/12/2017 FINDINGS: Single frontal view of the chest. Endotracheal tube with tip 5 cm above the lyubov. NG tube with tip below the diaphragm. Heart is not enlarged. Atherosclerotic calcification aortic arch. No pneumothorax. Right basilar airspace opacity is unchanged. No displaced rib fractures identified. Upper abdominal soft tissues are unremarkable. IMPRESSION: 1. Stable appearance of the chest with persistent right basilar airspace opacity. Electronically signed by: Ancelmo Anne 05/13/2017 6:01 AM
[2017-05-13] MEDS ORDERED: FENTANYL CITRATE INJ/PF 250 MCG/5 ML AMPULE IV ONE (08:43)
[2017-05-13] MEDS ORDERED: FENTANYL CITRATE INJ/PF 100 MCG/2 ML AMPUL IV PRN ×2 (08:45→10:00)
[2017-05-13] MEDS ORDERED: FENTANYL CITRATE INJ/PF 100 MCG/2 ML AMPUL IV ONE (09:00)
--- NOTE | 2017-05-13 09:00 | PDOC PROGRESS REPORT ---
Subjective Progress Note for:: 05/10/17 Subjective:: Patient with respiratory failure due to polysubstance abuse. Patient intubated and sedated. Patient hypothermic following bath. Patient on warming blanket. Reason For Visit: ASPIRATION PNEUMONIA, COPD EXACERBATION Physical Exam Vital Signs: Selected Entries 05/10/17 22:15 Core 98.2 F Temperature Heart Rate ( 73 Monitors) Respiratory 14 Rate O2 Sat by Pulse 93 Oximetry Premature 0 Ventricular Counted Beats Arrhythmia Sinu Rhythm Status ST Lead II -0.2 General appearance: PRESENT: no acute distress, obese Eye exam: PRESENT: PERRLA. ABSENT: scleral icterus Mouth exam: PRESENT: moist, other - E tube in place Neck exam: ABSENT: carotid bruit, JVD, lymphadenopathy, thyromegaly Respiratory exam: PRESENT: clear to auscultation caleb. ABSENT: accessory muscle use, rales, rhonchi, wheezes Cardiovascular exam: PRESENT: RRR. ABSENT: diastolic murmur, rubs, systolic murmur GI/Abdominal exam: PRESENT: normal bowel sounds, soft. ABSENT: distended, guarding, mass, organolmegaly, rebound, tenderness Rectal exam: PRESENT: deferred Extremities exam: ABSENT: calf tenderness, clubbing, pedal edema Neurological exam: PRESENT: other - intabated and sedated. ABSENT: motor sensory deficit Psychiatric exam: ABSENT: homicidal ideation, suicidal ideation Skin exam: PRESENT: dry, intact, warm. ABSENT: cyanosis, rash Results Laboratory Results: 05/13/17 03:56 05/13/17 03:56 05/13/17 05/13/17 05/13/17 03:56 03:56 05:20 WBC 6.4 RBC 3.48 L Hgb 10.5 L Hct 31.9 L MCV 92 MCH 30.2 MCHC 33.0 RDW 15.0 H Plt Count 218 Seg Neutrophils % Not Reportable Lymphocytes % Not Reportable Monocytes % Not Reportable Eosinophils % Not Reportable Basophils % Not Reportable Absolute Neutrophils Not Reportable Absolute Lymphocytes Not Reportable Absolute Monocytes Not Reportable Absolute Eosinophils Not Reportable Absolute Basophils Not Reportable Carbonic Acid 1.65 H HCO3/H2CO3 Ratio 18:1 ABG pH 7.37 ABG pCO2 54.9 H ABG pO2 73.6 L ABG HCO3 31.3 H ABG O2 Saturation 94.2 ABG Base Excess 4.9 FiO2 50% Sodium 144.4 Potassium 4.2 Chloride 108 H Carbon Dioxide 30 Anion Gap 6 BUN 22 H Creatinine 0.50 L Est GFR ( Amer) > 60 Est GFR (Non-Af Amer) > 60 Glucose 125 H Calcium 9.2 Phosphorus 3.3 Magnesium 2.4 H Triglycerides 153 H 05/11/17 05/12/17 05:34 03:48 NT-Pro-B Natriuret Pep 377 342 Impressions: Chest X-Ray 05/13/17 06:00 IMPRESSION: 1. Stable appearance of the chest with persistent right basilar airspace opacity. Assessment & Plan - Diagnosis (1) Pneumonia Qualifiers: Pneumonia type: due to unspecified organism Laterality: right Lung location: unspecified part of lung Qualified Code(s): J18.9 - Pneumonia, unspecified organism Is this a current diagnosis for this admission?: Yes Plan: Possible right lower lung pneumonia. Now with bibasilar findings on repeat chest XR. Sputum growing klebsiella, Haemophilus and strep pneumoniae. May benefit for CPT. She started on Levaquin by pulmonary. Will continue Zosyn and discontinue vancomycin. (2) Respiratory failure with hypoxia and hypercapnia Qualifiers: Chronicity: acute Qualified Code(s): J96.01 - Acute respiratory failure with hypoxia; J96.02 - Acute respiratory failure with hypercapnia; J96.02 - Acute respiratory failure with hypercapnia; J96.02 - Acute respiratory failure with hypercapnia Is this a current diagnosis for this admission?: Yes Plan: Patient is obese and may have obesity ventilation syndrome or OBI further compromised by substance abuse leading to respiratory depression. Patient currently intubated. Pulmonary consulted for vent management. (3) Substance abuse Is this a current diagnosis for this admission?: Yes Plan: Will genetic counselor patient on cessation when appropriate. Patient currently sedate therefore less likely to withdrawn. Will monitor. (4) Lung collapse Is this a current diagnosis for this admission?: Yes Plan: Partial right lung collapse not seen on follow-up chest x-ray. This may have been positional. (5) Hypothermia Is this a current diagnosis for this admission?: Yes Plan: Most likely due to her environment. Patient just had a bath in the temperature is cool. Patient on a warming blanket will monitor. - Time Time Spent with patient: Less than 15 minutes Anticipated discharge: Home with Homehealth - Inpatient Certification Medical Necessity: Need For Continuous Telemetry Monitoring - She still intubated., Need for Nebulizer Therapy and Monitoring of Response, Need for IV Antibiotics
--- NOTE | 2017-05-13 09:10 | PDOC PROGRESS REPORT ---
Subjective Progress Note for:: 05/11/17 Subjective:: Patient with respiratory failure due to polysubstance abuse. Patient intubated and sedated. Patient again hypothermic in the morning. Patient also with decreased urine output. Reason For Visit: ASPIRATION PNEUMONIA, COPD EXACERBATION Physical Exam Vital Signs: Selected Entries 05/11/17 01:13 Core 97.3 F Temperature Heart Rate ( 62 Monitors) Respiratory 14 Rate Blood Pressure 101/57 L O2 Sat by Pulse 94 Oximetry Premature 0 Ventricular Counted Beats Arrhythmia Sinu Rhythm Status ST Lead II -0.1 General appearance: PRESENT: no acute distress, obese Head exam: PRESENT: normocephalic Eye exam: PRESENT: PERRLA. ABSENT: scleral icterus Mouth exam: PRESENT: moist, other - ET tube in place Neck exam: ABSENT: carotid bruit, JVD, lymphadenopathy, thyromegaly Respiratory exam: PRESENT: clear to auscultation caleb - course breath sounds, decreased breath sounds, other - intubated. ABSENT: accessory muscle use, rales , rhonchi, unlabored, wheezes Cardiovascular exam: PRESENT: RRR. ABSENT: diastolic murmur, rubs, systolic murmur GI/Abdominal exam: PRESENT: normal bowel sounds, soft. ABSENT: distended, guarding, mass, organolmegaly, rebound, tenderness Rectal exam: PRESENT: deferred Extremities exam: PRESENT: full ROM. ABSENT: calf tenderness, clubbing, pedal edema Neurological exam: PRESENT: other - intubated and sedated. ABSENT: motor sensory deficit Psychiatric exam: ABSENT: homicidal ideation, suicidal ideation Skin exam: PRESENT: dry, intact, warm. ABSENT: cyanosis, rash Assessment & Plan - Diagnosis (1) Pneumonia Qualifiers: Pneumonia type: due to unspecified organism Laterality: right Lung location: unspecified part of lung Qualified Code(s): J18.9 - Pneumonia, unspecified organism Is this a current diagnosis for this admission?: Yes Plan: Possible right lower lung pneumonia. CX with bibasilar findings on repeat chest XR. Chest X ray is now stable. Sputum growing klebsiella, Haemophilus and strep pneumoniae. May benefit for CPT. Continue levaquin and zosyn. Leukocytosis resolved. (2) Respiratory failure with hypoxia and hypercapnia Qualifiers: Chronicity: acute Qualified Code(s): J96.01 - Acute respiratory failure with hypoxia; J96.02 - Acute respiratory failure with hypercapnia; J96.02 - Acute respiratory failure with hypercapnia; J96.02 - Acute respiratory failure with hypercapnia Is this a current diagnosis for this admission?: Yes Plan: Patient is obese and may have obesity ventilation syndrome or OBI further compromised by substance abuse leading to respiratory depression and pneumonia. Patient currently intubated. Pulmonary consulted for vent management. Will attempt to extubate. (3) Substance abuse Is this a current diagnosis for this admission?: Yes Plan: Will vocational rehabilitation counselor patient on cessation when appropriate. Patient currently sedate therefore less likely to withdrawn. Will monitor. (4) Lung collapse Is this a current diagnosis for this admission?: Yes Plan: Partial right lung collapse not seen on follow-up chest x-ray. This may have been positional. Will continue to follow. (5) Hypothermia Is this a current diagnosis for this admission?: Yes Plan: Most likely due to her environment. Patient just had a bath in the temperature is cool. Patient still requiring warming blanket. (6) Decreased urine output Is this a current diagnosis for this admission?: Yes Plan: Increased NS to 100cc/hr. Will monitor. - Time Time Spent with patient: Less than 15 minutes - Inpatient Certification Medical Necessity: Need For IV Fluids - Patient still intubated in the ICU., Need for IV Antibiotics
--- NOTE | 2017-05-13 09:31 | PDOC PROGRESS REPORT ---
Subjective Progress Note for:: 05/12/17 Subjective:: Patient with respiratory failure due to polysubstance abuse. Patient intubated and off sedation but still not very responsive. Will only open eyes but not following commands. Reason For Visit: ASPIRATION PNEUMONIA, COPD EXACERBATION Physical Exam Vital Signs: Selected Entries 05/12/17 01:15 Core 98.1 F Temperature Heart Rate ( 64 Monitors) Respiratory 15 Rate Blood Pressure 104/58 L O2 Sat by Pulse 94 Oximetry Premature 0 Ventricular Counted Beats Arrhythmia Sinu Rhythm Status ST Lead II 0 General appearance: PRESENT: no acute distress, obese Head exam: PRESENT: normocephalic Eye exam: PRESENT: PERRLA. ABSENT: scleral icterus Mouth exam: PRESENT: moist, other - ET tube in place Neck exam: ABSENT: carotid bruit, JVD, lymphadenopathy, thyromegaly Respiratory exam: PRESENT: clear to auscultation caleb - course breath sounds, decreased breath sounds. ABSENT: accessory muscle use, rales, rhonchi, wheezes Cardiovascular exam: PRESENT: RRR. ABSENT: diastolic murmur, rubs, systolic murmur GI/Abdominal exam: PRESENT: normal bowel sounds, soft. ABSENT: distended, guarding, mass, organolmegaly, rebound, tenderness Rectal exam: PRESENT: deferred Gentrourinary exam: PRESENT: indwelling catheter Extremities exam: PRESENT: full ROM. ABSENT: calf tenderness, clubbing, pedal edema Neurological exam: PRESENT: awake, other - with open eyes but not follow any other commands. ABSENT: motor sensory deficit Psychiatric exam: ABSENT: homicidal ideation, suicidal ideation Skin exam: PRESENT: dry, intact, warm. ABSENT: cyanosis, rash Results Laboratory Results: 05/13/17 03:56 05/13/17 03:56 05/13/17 05/13/17 05/13/17 03:56 03:56 05:20 WBC 6.4 RBC 3.48 L Hgb 10.5 L Hct 31.9 L MCV 92 MCH 30.2 MCHC 33.0 RDW 15.0 H Plt Count 218 Seg Neutrophils % Not Reportable Lymphocytes % Not Reportable Monocytes % Not Reportable Eosinophils % Not Reportable Basophils % Not Reportable Absolute Neutrophils Not Reportable Absolute Lymphocytes Not Reportable Absolute Monocytes Not Reportable Absolute Eosinophils Not Reportable Absolute Basophils Not Reportable Carbonic Acid 1.65 H HCO3/H2CO3 Ratio 18:1 ABG pH 7.37 ABG pCO2 54.9 H ABG pO2 73.6 L ABG HCO3 31.3 H ABG O2 Saturation 94.2 ABG Base Excess 4.9 FiO2 50% Sodium 144.4 Potassium 4.2 Chloride 108 H Carbon Dioxide 30 Anion Gap 6 BUN 22 H Creatinine 0.50 L Est GFR ( Amer) > 60 Est GFR (Non-Af Amer) > 60 Glucose 125 H Calcium 9.2 Phosphorus 3.3 Magnesium 2.4 H Triglycerides 153 H 05/11/17 05/12/17 05:34 03:48 NT-Pro-B Natriuret Pep 377 342 Impressions: Chest X-Ray 05/13/17 06:00 IMPRESSION: 1. Stable appearance of the chest with persistent right basilar airspace opacity. Assessment & Plan - Diagnosis (1) Acute metabolic encephalopathy Is this a current diagnosis for this admission?: Yes Plan: Possibly due to medication, infection or hypercapnia or hypoxia. Nacrotic decrease along with sedation. Patient may need CT head if she continue not to follow commands. Will check labs ammonia, TSH, T4 and T3. Will start weaning steroids. (2) Pneumonia Qualifiers: Pneumonia type: due to unspecified organism Laterality: right Lung location: unspecified part of lung Qualified Code(s): J18.9 - Pneumonia, unspecified organism Is this a current diagnosis for this admission?: Yes Plan: Possible right lower lung pneumonia. CX with bibasilar findings on repeat chest XR. Chest X ray is now stable. Sputum growing klebsiella, Haemophilus and strep pneumoniae. May benefit for CPT. Continue levaquin and zosyn. Leukocytosis resolved. May be able to discontinue zosyn. (3) Respiratory failure with hypoxia and hypercapnia Qualifiers: Chronicity: acute Qualified Code(s): J96.01 - Acute respiratory failure with hypoxia; J96.02 - Acute respiratory failure with hypercapnia; J96.02 - Acute respiratory failure with hypercapnia; J96.02 - Acute respiratory failure with hypercapnia Is this a current diagnosis for this admission?: Yes Plan: Patient is obese and may have obesity ventilation syndrome or OBI further compromised by substance abuse leading to respiratory depression and pneumonia. Patient currently intubated. Pulmonary consulted for vent management. Patient not following commands concerned that patient may not be able to protect airway if extubated. Patient to be extubated if mentation improves. (4) Substance abuse Is this a current diagnosis for this admission?: Yes Plan: Will parliamentary counsel patient on cessation when appropriate. Patient currently sedate therefore less likely to withdrawn. Will monitor. (5) Lung collapse Is this a current diagnosis for this admission?: Yes Plan: Partial right lung collapse not seen on follow-up chest x-ray. This may have been positional. Will continue to follow. (6) Hypothermia Is this a current diagnosis for this admission?: Yes Plan: Resolved. Most likely due to her environment. Patient just had a bath in the temperature is cool. Patient still requiring warming blanket. (7) Decreased urine output Is this a current diagnosis for this admission?: Yes Plan: Improved. Continue NS to 100cc/hr. Will monitor. - Time Time Spent with patient: 15-24 minutes - Inpatient Certification Medical Necessity: Need For IV Fluids - Patient still intubated in the ICU., Need for IV Antibiotics
[2017-05-13] MEDS: LEVOFLOXACIN 750 MG/D5W RTU 750 MG/150 ML RTUPB IV SCH (11:23)
[2017-05-13] MEDS: VALPROATE SODIUM SYRUP 250 MG/5 ML UDCUP NG SCH ×2 (11:24→17:59)
[2017-05-13] MEDS: CLONAZEPAM 1 MG TABLET NG SCH ×2 (11:24→23:00)
[2017-05-13] MEDS: ARIPIPRAZOLE 5 MG TABLET NG SCH (11:24)
[2017-05-13 11:40] LABS: FREE T3 1.55 pg/mL (2.77-5.27)
[2017-05-13 11:41] LABS: FREE T4 (FREE THYROXINE) 0.78 ng/dL (0.78-2.19)
[2017-05-13 11:54] LABS: THYROID STIMULATING HORMONE 0.14 uIU/mL (0.47-4.68)
--- NOTE | 2017-05-13 13:56 | PDOC PROGRESS REPORT ---
Subjective Progress Note for:: 05/13/17 Subjective:: intubated;Arousable Reason For Visit: ASPIRATION PNEUMONIA, COPD EXACERBATION Physical Exam Vital Signs: Temp Pulse Resp BP Pulse Ox 97.2 F 93 14 116/60 93 05/13/17 08:00 05/13/17 08:00 05/13/17 08:00 05/13/17 08:00 05/13/17 08:00 Intake & Output 05/12/17 05/13/17 05/14/17 06:59 06:59 06:59 Intake Total 2740 2948 Output Total 2095 1270 50 Balance 645 1678 -50 Weight 108.2 kg 109 kg General appearance: PRESENT: no acute distress, disheveled, obese, well- developed. ABSENT: mild distress, morbidly obese, severe distress, thin Head exam: PRESENT: atraumatic, normocephalic Eye exam: PRESENT: conjunctiva pale, EOMI. ABSENT: conjunctival injection, conjunctiva pink, nystagmus, periorbital swelling, scleral icterus Mouth exam: PRESENT: dry mucosa, neck supple, tongue midline, other - ET tube in place. ABSENT: laceration, moist Teeth exam: PRESENT: poor dentation Neck exam: ABSENT: carotid bruit, JVD, lymphadenopathy, thyromegaly, tracheal deviation, tracheostomy Respiratory exam: PRESENT: decreased breath sounds, prolonged expiratory phas, rales, rhonchi, symmetrical, unlabored, wheezes. ABSENT: accessory muscle use, chest wall tenderness, clear to auscultation caleb, crackles, retraction, stridor , tachypnea Cardiovascular exam: PRESENT: RRR, +S1, +S2 Pulses: PRESENT: normal radial pulses GI/Abdominal exam: PRESENT: diminished bowel sounds, soft Gentrourinary exam: PRESENT: indwelling catheter Extremities exam: PRESENT: +1 edema. ABSENT: clubbing Musculoskeletal exam: ABSENT: deformity, dislocation Neurological exam: PRESENT: awake Skin exam: PRESENT: dry, warm Results Laboratory Results: 05/13/17 03:56 05/13/17 03:56 05/13/17 05/13/17 05/13/17 03:56 03:56 05:20 WBC 6.4 RBC 3.48 L Hgb 10.5 L Hct 31.9 L MCV 92 MCH 30.2 MCHC 33.0 RDW 15.0 H Plt Count 218 Seg Neutrophils % Not Reportable Lymphocytes % Not Reportable Monocytes % Not Reportable Eosinophils % Not Reportable Basophils % Not Reportable Absolute Neutrophils Not Reportable Absolute Lymphocytes Not Reportable Absolute Monocytes Not Reportable Absolute Eosinophils Not Reportable Absolute Basophils Not Reportable Carbonic Acid 1.65 H HCO3/H2CO3 Ratio 18:1 ABG pH 7.37 ABG pCO2 54.9 H ABG pO2 73.6 L ABG HCO3 31.3 H ABG O2 Saturation 94.2 ABG Base Excess 4.9 FiO2 50% Sodium 144.4 Potassium 4.2 Chloride 108 H Carbon Dioxide 30 Anion Gap 6 BUN 22 H Creatinine 0.50 L Est GFR ( Amer) > 60 Est GFR (Non-Af Amer) > 60 Glucose 125 H Calcium 9.2 Phosphorus 3.3 Magnesium 2.4 H Triglycerides 153 H 05/11/17 05/12/17 05:34 03:48 NT-Pro-B Natriuret Pep 377 342 Impressions: Chest X-Ray 05/13/17 06:00 IMPRESSION: 1. Stable appearance of the chest with persistent right basilar airspace opacity. Assessment & Plan - Diagnosis (1) Altered mental status Qualifiers: Altered mental status type: unspecified Qualified Code(s): R41.82 - Altered mental status, unspecified Is this a current diagnosis for this admission?: Yes Plan: unable to evaluate at this time (2) Pneumonia Qualifiers: Pneumonia type: due to unspecified organism Laterality: right Lung location: unspecified part of lung Qualified Code(s): J18.9 - Pneumonia, unspecified organism Is this a current diagnosis for this admission?: Yes Plan: Labs- All tests 24 hr 05/07/17 05/07/17 05/08/17 17:25 23:52 02:10 WBC 25.2 H ABG pH 7.35 7.39 ABG pO2 68.4 L 62.5 L ABG O2 Saturation 92.3 L 91.2 L 05/08/17 05/09/17 05/10/17 04:35 03:56 06:00 WBC 19.6 H 14.2 H 8.5 ABG pH ABG pO2 ABG O2 Saturation 05/10/17 05/11/17 05/11/17 06:15 05:34 05:35 WBC 8.1 ABG pH 7.38 7.39 ABG pO2 66.8 L 82.1 ABG O2 Saturation 92.6 L 95.8 05/12/17 05/12/17 05/13/17 03:48 04:45 03:56 WBC 6.6 6.4 ABG pH 7.38 ABG pO2 65.6 L ABG O2 Saturation 92.3 L 05/13/17 05:20 WBC ABG pH 7.37 ABG pO2 73.6 L ABG O2 Saturation 94.2 (3) Acute on chronic respiratory failure with hypoxia and hypercapnia Is this a current diagnosis for this admission?: Yes Plan: Still requiring high FiO2 baseline elevated PCO2 (4) Obstructive sleep apnea Is this a current diagnosis for this admission?: Yes Plan: Nocturnal polysomnogram (5) Obesity Qualifiers: Body mass index: BMI 45.0-49.9 Is this a current diagnosis for this admission?: Yes Plan: unchanged (6) Tobacco abuse Is this a current diagnosis for this admission?: Yes Plan: transdermal nicotine - Time Time Spent with patient: 45
--- NOTE | 2017-05-13 14:00 | PDOC PROGRESS REPORT ---
Subjective Progress Note for:: 05/12/17 Subjective:: intubated;sedated Reason For Visit: ASPIRATION PNEUMONIA, COPD EXACERBATION Physical Exam Vital Signs: Temp Pulse Resp BP Pulse Ox 97.9 F 60 14 108/58 L 94 05/12/17 07:52 05/12/17 07:52 05/12/17 07:52 05/12/17 07:52 05/12/17 07:52 Intake & Output 05/11/17 05/12/17 05/13/17 06:59 06:59 06:59 Intake Total 2740 Output Total 1420 2095 50 Balance -1420 645 -50 Weight 108.2 kg General appearance: PRESENT: no acute distress, disheveled, obese. ABSENT: cooperative, mild distress, morbidly obese, severe distress Head exam: PRESENT: atraumatic, normocephalic Eye exam: PRESENT: conjunctiva pale. ABSENT: conjunctival injection, conjunctiva pink, nystagmus, periorbital swelling, scleral icterus Mouth exam: PRESENT: dry mucosa, neck supple, tongue midline, other - ET tube in place. ABSENT: laceration, moist Neck exam: ABSENT: carotid bruit, JVD, lymphadenopathy, thyromegaly, tracheal deviation, tracheostomy Respiratory exam: PRESENT: decreased breath sounds, prolonged expiratory phas, rales, rhonchi, symmetrical, unlabored, wheezes. ABSENT: accessory muscle use, chest wall tenderness, clear to auscultation caleb, crackles, retraction, stridor , tachypnea Cardiovascular exam: PRESENT: RRR, +S1, +S2 Pulses: PRESENT: normal radial pulses GI/Abdominal exam: PRESENT: normal bowel sounds, soft. ABSENT: distended, guarding, mass, organolmegaly, rebound, tenderness Extremities exam: ABSENT: clubbing, joint swelling Musculoskeletal exam: ABSENT: deformity, dislocation Neurological exam: ABSENT: alert Skin exam: PRESENT: dry, warm Results Laboratory Results: 05/12/17 03:48 05/12/17 03:48 05/12/17 05/12/17 05/12/17 03:48 03:48 04:45 WBC 6.6 RBC 3.71 L Hgb 11.0 L Hct 33.9 L MCV 92 MCH 29.7 MCHC 32.4 RDW 15.1 H Plt Count 243 Seg Neutrophils % Not Reportable Lymphocytes % Not Reportable Monocytes % Not Reportable Eosinophils % Not Reportable Basophils % Not Reportable Absolute Neutrophils Not Reportable Absolute Lymphocytes Not Reportable Absolute Monocytes Not Reportable Absolute Eosinophils Not Reportable Absolute Basophils Not Reportable Carbonic Acid 1.50 H HCO3/H2CO3 Ratio 19:1 ABG pH 7.38 ABG pCO2 49.9 H ABG pO2 65.6 L ABG HCO3 28.7 H ABG O2 Saturation 92.3 L ABG Base Excess 2.9 FiO2 45% Sodium 144.6 Potassium 4.5 Chloride 106 Carbon Dioxide 32 H Anion Gap 7 BUN 18 Creatinine 0.50 L Est GFR ( Amer) > 60 Est GFR (Non-Af Amer) > 60 Glucose 134 H Calcium 9.1 Magnesium 2.5 H 05/08/17 12:15 Tracheal Aspirate Gram Stain - Final 05/08/17 12:15 Tracheal Aspirate Sputum Culture - Final Haemophilus Influenzae C.albicans/C.dubliniensis Greatly Reduced Normal Darcy 05/11/17 05/12/17 05:34 03:48 NT-Pro-B Natriuret Pep 377 342 Impressions: Chest X-Ray 05/12/17 06:00 IMPRESSION: 1. Stable appearance of the chest with persistent right basilar airspace opacity. Assessment & Plan - Diagnosis (1) Altered mental status Qualifiers: Altered mental status type: unspecified Qualified Code(s): R41.82 - Altered mental status, unspecified Is this a current diagnosis for this admission?: Yes Plan: unable to evaluate at this time (2) Pneumonia Qualifiers: Pneumonia type: due to unspecified organism Laterality: right Lung location: unspecified part of lung Qualified Code(s): J18.9 - Pneumonia, unspecified organism Is this a current diagnosis for this admission?: Yes Plan: Improving (3) Acute on chronic respiratory failure with hypoxia and hypercapnia Is this a current diagnosis for this admission?: Yes Plan: Stable remains hypercapnic and hypoxic (4) Obstructive sleep apnea Is this a current diagnosis for this admission?: Yes Plan: Nocturnal polysomnogram (5) Obesity Qualifiers: Body mass index: BMI 45.0-49.9 Is this a current diagnosis for this admission?: Yes Plan: unchanged (6) Tobacco abuse Is this a current diagnosis for this admission?: Yes Plan: transdermal nicotine - Time Time Spent with patient: 40
[2017-05-13] MEDS ORDERED: BISACODYL 10 MG SUPP.RECT PR ONE (15:08)
[2017-05-13] MEDS: BUDESONIDE NEB 0.5 MG/2 ML AMPUL NEB SCH (20:31)
[2017-05-13] MEDS: BENZONATATE 100 MG CAPSULE PO SCH (23:01)
[2017-05-14] MEDS: IPRATROPIUM/ALBUTEROL 0.5-2.5 MG/3 ML AMPUL NEB SCH ×4 (01:34→20:00)
[2017-05-14 05:00] LABS: HEMATOCRIT 32.3 % (36.0-47.0); HEMOGLOBIN 10.7 g/dL (12.0-15.5); MEAN CORPUSCULAR HEMOGLOBIN 30.1 pg (27.0-33.4); MEAN CORPUSCULAR VOLUME 91 fl (80-97); PLATELET COUNT 215 10^3/uL (150-450); RED BLOOD COUNT 3.55 10^6/uL (3.72-5.28); RED CELL DISTRIBUTION WIDTH 14.8 % (11.5-14.0); WHITE BLOOD COUNT 8.2 10^3/uL (4.0-10.5)
[2017-05-14] MEDS: GABAPENTIN 400 MG CAPSULE NG SCH ×2 (05:05→14:16)
[2017-05-14] MEDS: METHYLPREDNISOLONE INJ 125 MG/2 ML SDV IV SCH ×3 (05:05→21:59)
[2017-05-14] MEDS: LANSOPRAZOLE 30 MG TAB.RAP.DR NG SCH ×2 (05:06→17:11)
[2017-05-14] MEDS: NORMAL SALINE 1000 ML 1,000 ML IV PRN ×2 (05:06→19:42)
[2017-05-14 05:07] LABS: ANION GAP 5 (5-19); BLOOD UREA NITROGEN 19 mg/dL (7-20); CARBON DIOXIDE 31 mmol/L (22-30); CHLORIDE 107 mmol/L (98-107); GLUCOSE 117 mg/dL (75-110); MAGNESIUM 2.2 mg/dL (1.6-2.3); SODIUM 143.1 mmol/L (137-145)
[2017-05-14] MEDS: HEPARIN SOD (PORCINE) 5,000 UNIT/ML 1 ML SYRINGE SUBCUT SCH (05:07)
[2017-05-14] MEDS: BENZONATATE 100 MG CAPSULE PO SCH ×4 (05:08→21:59)
[2017-05-14 05:33] LABS: ABSOLUTE LYMPHOCYTES# (MANUAL) 0.7 10^3/uL (0.5-4.7); ABSOLUTE MONOCYTES # (MANUAL) 0.5 10^3/uL (0.1-1.4); BASOPHILS % (MANUAL) 0 % (0-2); EOSINOPHILS % (MANUAL) 0 % (0-6); LYMPHOCYTES % (MANUAL) 9 % (13-45); METAMYELOCYTES % (MANUAL) 1 % (0); MONOCYTES % (MANUAL) 6 % (3-13); NUCLEATED RED BLOOD CELLS 1 /100 WBC (0); SEGMENTED NEUTROPHILS % (MAN) 84 % (42-78); TOTAL CELLS COUNTED 100
[2017-05-14 05:35] LABS: ANISOCYTOSIS 1+; HYPOCHROMASIA SLIGHT; OVALOCYTES SLIGHT; PLATELET COMMENT ADEQUATE; POIKILOCYTOSIS SLIGHT; POLYCHROMASIA SLIGHT; TOXIC GRANULATION 1+; TOXIC VACUOLATION PRESENT
[2017-05-14 05:47] LABS: ARTERIAL BLOOD BASE EXCESS 4.4 mmol/L; ARTERIAL BLOOD H2CO3 1.51 mmol/L (1.05-1.35); ARTERIAL BLOOD HCO3 30.2 mmol/L (20-26); ARTERIAL BLOOD O2 SATURATION 94.1 % (94-98); ARTERIAL BLOOD PCO2 50.2 mmHg (35-45); ARTERIAL BLOOD PO2 71.4 mmHg (80-100); ARTERIAL BLOOD TOTAL CO2 31.7 mmol/L (21-25)
--- NOTE | 2017-05-14 07:17 | RADIOLOGY REPORT (SQ) ---
EXAM DESCRIPTION: CHEST SINGLE VIEW CLINICAL HISTORY: resp failure COMPARISON: 05/12/2017 FINDINGS: Single frontal view of the chest. Endotracheal tube with tip 5 cm above the lyubov. NG tube with tip below the diaphragm. Heart is not enlarged. Atherosclerotic calcification aortic arch. No pneumothorax. Improved aeration of the right lung base. No displaced rib fractures identified. Upper abdominal soft tissues are unremarkable. IMPRESSION: 1. Improved aeration of the right lung base.
[2017-05-14] MEDS: BUDESONIDE NEB 0.5 MG/2 ML AMPUL NEB SCH ×2 (07:47→20:00)
--- NOTE | 2017-05-14 08:43 | RADIOLOGY REPORT (SQ) ---
EXAM DESCRIPTION: CHEST SINGLE VIEW COMPLETED DATE/TIME: 05/14/2017 8:22 am REASON FOR STUDY: Advancement of ET tube COMPARISON: 05/07/2017, 05/12/2017, 05/13/2017, 05/14/2017 chest films EXAM PARAMETERS: NUMBER OF VIEWS: One view. TECHNIQUE: Single frontal radiographic view of the chest acquired. RADIATION DOSE: NA LIMITATIONS: None. FINDINGS: LUNGS AND PLEURA: Minimal bibasilar atelectasis. No pleural effusion. No pneumothorax. MEDIASTINUM AND HILAR STRUCTURES: No masses. Contour normal. HEART AND VASCULAR STRUCTURES: Borderline cardiomegaly. Normal vasculature. BONES: No acute findings. HARDWARE: Endotracheal tube tip midtrachea. Nasogastric tube tip and side port in the stomach. OTHER: No other significant finding. IMPRESSION: ETT, NG tube in good positioning. Mild bibasilar airspace disease, stable TECHNICAL DOCUMENTATION: JOB ID: [id number] [employer]- All Rights Reserved
[2017-05-14] MEDS: ARIPIPRAZOLE 5 MG TABLET NG SCH (09:14)
[2017-05-14] MEDS: VALPROATE SODIUM SYRUP 250 MG/5 ML UDCUP NG SCH ×2 (09:14→17:10)
[2017-05-14] MEDS: CLONAZEPAM 1 MG TABLET NG SCH ×2 (09:15→21:59)
[2017-05-14] MEDS: LEVOFLOXACIN 750 MG/D5W RTU 750 MG/150 ML RTUPB IV SCH (09:16)
[2017-05-14] MEDS ORDERED: DEXAMETHASONE SOD PHOS INJ 10 MG/1 ML VIAL IV SCH ×2 (11:00→14:00)
[2017-05-14 14:33] LABS: APPEARANCE,URINE CLOUDY; BILIRUBIN,URINE NEGATIVE (NEGATIVE); COLOR,URINE RED; GLUCOSE, URINE NEGATIVE (NEGATIVE); KETONES,URINE TRACE mg/dL (NEGATIVE); LEUKOCYTE ESTERASE,URINE NEGATIVE (NEGATIVE); NITRITE,URINE NEGATIVE (NEGATIVE); PROTEIN,URINE 100 mg/dL (NEGATIVE); URINE SPECIFIC GRAVITY 1.018
[2017-05-14] MEDS: PROPOFOL 100 ML IV PRN ×2 (17:09→23:53)
--- NOTE | 2017-05-14 18:14 | PDOC PROGRESS REPORT ---
Subjective Progress Note for:: 05/14/17 Subjective:: intubated;sedated Reason For Visit: ASPIRATION PNEUMONIA, COPD EXACERBATION Physical Exam Vital Signs: Temp Pulse Resp BP Pulse Ox 99.5 F 72 18 137/67 H 94 05/14/17 08:00 05/14/17 08:00 05/14/17 08:00 05/14/17 08:00 05/14/17 08:00 Intake & Output 05/13/17 05/14/17 05/15/17 06:59 06:59 06:59 Intake Total 2948 2247 Output Total 1270 3005 100 Balance 1678 -758 -100 Weight 109 kg 109.4 kg General appearance: PRESENT: no acute distress, disheveled, obese. ABSENT: cooperative, mild distress, morbidly obese, severe distress Head exam: PRESENT: atraumatic, normocephalic Eye exam: PRESENT: conjunctiva pale. ABSENT: conjunctival injection, conjunctiva pink, nystagmus, periorbital swelling, scleral icterus Mouth exam: PRESENT: dry mucosa, neck supple, tongue midline, other. ABSENT: laceration, moist Neck exam: ABSENT: carotid bruit, JVD, lymphadenopathy, thyromegaly, tracheal deviation, tracheostomy Respiratory exam: PRESENT: decreased breath sounds, prolonged expiratory phas, rales, rhonchi, symmetrical, unlabored, wheezes. ABSENT: accessory muscle use, chest wall tenderness, clear to auscultation caleb, crackles, retraction, stridor , tachypnea Cardiovascular exam: PRESENT: RRR, +S1, +S2 Pulses: PRESENT: normal radial pulses GI/Abdominal exam: PRESENT: diminished bowel sounds, soft Gentrourinary exam: PRESENT: indwelling catheter Extremities exam: ABSENT: clubbing, full ROM, joint swelling Musculoskeletal exam: ABSENT: ambulatory, deformity, dislocation, full ROM Neurological exam: ABSENT: alert, awake Skin exam: PRESENT: dry, warm Results Laboratory Results: 05/14/17 04:38 05/14/17 04:38 05/13/17 05/13/17 05/14/17 10:52 10:52 04:38 WBC 8.2 RBC 3.55 L Hgb 10.7 L Hct 32.3 L MCV 91 MCH 30.1 MCHC 33.0 RDW 14.8 H Plt Count 215 Seg Neutrophils % Not Reportable Lymphocytes % Not Reportable Monocytes % Not Reportable Eosinophils % Not Reportable Basophils % Not Reportable Absolute Neutrophils Not Reportable Absolute Lymphocytes Not Reportable Absolute Monocytes Not Reportable Absolute Eosinophils Not Reportable Absolute Basophils Not Reportable Carbonic Acid HCO3/H2CO3 Ratio ABG pH ABG pCO2 ABG pO2 ABG HCO3 ABG O2 Saturation ABG Base Excess FiO2 Sodium Potassium Chloride Carbon Dioxide Anion Gap BUN Creatinine Est GFR ( Amer) Est GFR (Non-Af Amer) Glucose Calcium Magnesium Ammonia 36.2 H TSH 0.14 L Free T4 0.78 Free T3 pg/mL 1.55 L 05/14/17 05/14/17 05/14/17 04:38 04:38 05:25 WBC RBC Hgb Hct MCV MCH MCHC RDW Plt Count Seg Neutrophils % Lymphocytes % Monocytes % Eosinophils % Basophils % Absolute Neutrophils Absolute Lymphocytes Absolute Monocytes Absolute Eosinophils Absolute Basophils Carbonic Acid 1.51 H HCO3/H2CO3 Ratio 20:1 ABG pH 7.40 ABG pCO2 50.2 H ABG pO2 71.4 L ABG HCO3 30.2 H ABG O2 Saturation 94.1 ABG Base Excess 4.4 FiO2 50 % Sodium 143.1 Potassium 4.0 Chloride 107 Carbon Dioxide 31 H Anion Gap 5 BUN 19 Creatinine 0.54 Est GFR ( Amer) > 60 Est GFR (Non-Af Amer) > 60 Glucose 117 H Calcium 9.0 Magnesium 2.2 Ammonia 21.8 TSH Free T4 Free T3 pg/mL 05/11/17 05/12/17 05:34 03:48 NT-Pro-B Natriuret Pep 377 342 Impressions: Chest X-Ray 05/14/17 07:56 IMPRESSION: ETT, NG tube in good positioning. Mild bibasilar airspace disease, stable Assessment & Plan - Diagnosis (1) Altered mental status Qualifiers: Altered mental status type: unspecified Qualified Code(s): R41.82 - Altered mental status, unspecified Is this a current diagnosis for this admission?: Yes Plan: unable to evaluate at this time (2) Pneumonia Qualifiers: Pneumonia type: due to unspecified organism Laterality: right Lung location: unspecified part of lung Qualified Code(s): J18.9 - Pneumonia, unspecified organism Is this a current diagnosis for this admission?: Yes Plan: 05/08/17 12:15 Gram Stain - Final Tracheal Aspirate Sputum Culture - Final Haemophilus Influenzae C.albicans/C.dubliniensis Greatly Reduced Normal Darcy 05/07/17 20:30 Gram Stain - Final Sputum Sputum Culture - Final Streptococcus Pneumoniae Klebsiella Pneumoniae Haemophilus Influenzae Normal Darcy Absent (3) Acute on chronic respiratory failure with hypoxia and hypercapnia Is this a current diagnosis for this admission?: Yes Plan: Stable remains hypercapnic and hypoxic Labs- All tests 24 hr 05/07/17 05/08/17 05/10/17 23:52 02:10 06:15 ABG pH 7.35 7.39 7.38 ABG pO2 68.4 L 62.5 L 66.8 L ABG O2 Saturation 92.3 L 91.2 L 92.6 L 05/11/17 05/12/17 05/13/17 05:35 04:45 05:20 ABG pH 7.39 7.38 7.37 ABG pO2 82.1 65.6 L 73.6 L ABG O2 Saturation 95.8 92.3 L 94.2 (4) Obstructive sleep apnea Is this a current diagnosis for this admission?: Yes Plan: Nocturnal polysomnogram (5) Obesity Qualifiers: Body mass index: BMI 45.0-49.9 Is this a current diagnosis for this admission?: Yes Plan: unchanged (6) Tobacco abuse Is this a current diagnosis for this admission?: Yes Plan: transdermal nicotine - Time Total Critical Time (Minutes): 45
[2017-05-15] MEDS: IPRATROPIUM/ALBUTEROL 0.5-2.5 MG/3 ML AMPUL NEB SCH ×4 (01:59→19:55)
[2017-05-15 05:15] LABS: ABSOLUTE LYMPHOCYTES (AUTO) 0.7 10^3/uL (0.5-4.7); ABSOLUTE MONOCYTES (AUTO) 0.3 10^3/uL (0.1-1.4); ABSOLUTE NEUT (AUTO) 5.7 10^3/uL (1.7-8.2); BASOPHILS % (AUTO) 0.1 % (0-2); EOSINOPHILS % (AUTO) 0.1 % (0-6); HEMATOCRIT 31.5 % (36.0-47.0); HEMOGLOBIN 10.3 g/dL (12.0-15.5); LYMPHOCYTES % (AUTO) 10.2 % (13-45); MEAN CORPUSCULAR HEMOGLOBIN 29.7 pg (27.0-33.4); MEAN CORPUSCULAR HGB CONC 32.8 g/dL (32.0-36.0); MEAN CORPUSCULAR VOLUME 91 fl (80-97); MONOCYTES % (AUTO) 4.3 % (3-13); PLATELET COUNT 183 10^3/uL (150-450); RED BLOOD COUNT 3.47 10^6/uL (3.72-5.28); RED CELL DISTRIBUTION WIDTH 14.4 % (11.5-14.0); SEGMENTED NEUTROPHILS % (AUTO) 85.3 % (42-78); TOTAL CELLS COUNTED % (AUTO) 100 %; WHITE BLOOD COUNT 6.7 10^3/uL (4.0-10.5)
[2017-05-15] MEDS: METHYLPREDNISOLONE INJ 125 MG/2 ML SDV IV SCH ×2 (05:16→14:20)
[2017-05-15] MEDS: BENZONATATE 100 MG CAPSULE PO SCH ×2 (05:16→14:20)
[2017-05-15] MEDS: PROPOFOL 100 ML IV PRN (05:16)
[2017-05-15] MEDS: LANSOPRAZOLE 30 MG TAB.RAP.DR NG SCH ×2 (05:16→17:06)
[2017-05-15] MEDS: GABAPENTIN 400 MG CAPSULE NG SCH ×2 (05:16→14:20)
[2017-05-15 05:30] LABS: ARTERIAL BLOOD BASE EXCESS 6.3 mmol/L; ARTERIAL BLOOD H2CO3 1.69 mmol/L (1.05-1.35); ARTERIAL BLOOD HCO3 32.8 mmol/L (20-26); ARTERIAL BLOOD PCO2 56.2 mmHg (35-45); ARTERIAL BLOOD PH 7.38 (7.35-7.45); ARTERIAL BLOOD PO2 72.3 mmHg (80-100); ARTERIAL BLOOD TOTAL CO2 34.5 mmol/L (21-25)
[2017-05-15 05:40] LABS: ANION GAP 8 (5-19); BLOOD UREA NITROGEN 19 mg/dL (7-20); CALCIUM 8.8 mg/dL (8.4-10.2); CARBON DIOXIDE 30 mmol/L (22-30); CHLORIDE 106 mmol/L (98-107); GLUCOSE 124 mg/dL (75-110); MAGNESIUM 2.3 mg/dL (1.6-2.3); PHOSPHORUS 4.2 mg/dL (2.5-4.5); POTASSIUM 3.9 mmol/L (3.6-5.0)
[2017-05-15 05:47] LABS: ARTERIAL BLOOD FIO2 50%
[2017-05-15] MEDS: BUDESONIDE NEB 0.5 MG/2 ML AMPUL NEB SCH ×2 (08:05→19:55)
[2017-05-15] MEDS: NORMAL SALINE 1000 ML 1,000 ML IV PRN (09:25)
[2017-05-15] MEDS: LEVOFLOXACIN 750 MG/D5W RTU 750 MG/150 ML RTUPB IV SCH (09:25)
[2017-05-15] MEDS: ARIPIPRAZOLE 5 MG TABLET NG SCH (09:28)
[2017-05-15] MEDS: CLONAZEPAM 1 MG TABLET NG SCH (09:29)
[2017-05-15] MEDS: VALPROATE SODIUM SYRUP 250 MG/5 ML UDCUP NG SCH ×2 (09:29→17:06)
[2017-05-15] MEDS ORDERED: DEXAMETHASONE SOD PHOS INJ 10 MG/1 ML VIAL IV ONE (11:00)
[2017-05-15 14:16] LABS: ARTERIAL BLOOD BASE EXCESS 8.5 mmol/L; ARTERIAL BLOOD H2CO3 1.61 mmol/L (1.05-1.35); ARTERIAL BLOOD HCO3 34.3 mmol/L (20-26); ARTERIAL BLOOD O2 SATURATION 97.4 % (94-98); ARTERIAL BLOOD PCO2 53.4 mmHg (35-45); ARTERIAL BLOOD PH 7.43 (7.35-7.45); ARTERIAL BLOOD PO2 96.2 mmHg (80-100)
[2017-05-15 14:17] LABS: ARTERIAL BLOOD FIO2 50%
[2017-05-15] MEDS ORDERED: BISACODYL 5 MG TABEC PO ONE (18:15)
[2017-05-15] MEDS ORDERED: NA PHOS,M-B/NA PHOS,DI-BA (ADULT) 133 ML ENEMA PR ONE (18:15)
[2017-05-15] MEDS ORDERED: SORBITOL 70% SOLUTION 30 ML UDC PO ONE (18:30)
[2017-05-16] MEDS: NORMAL SALINE 1000 ML 1,000 ML IV PRN ×2 (00:20→17:35)
[2017-05-16] MEDS: CLONAZEPAM 1 MG TABLET NG SCH ×3 (00:21→21:35)
[2017-05-16] MEDS: BENZONATATE 100 MG CAPSULE PO SCH ×4 (00:21→21:35)
[2017-05-16] MEDS: METHYLPREDNISOLONE INJ 125 MG/2 ML SDV IV SCH ×4 (00:21→21:35)
[2017-05-16] MEDS: IPRATROPIUM/ALBUTEROL 0.5-2.5 MG/3 ML AMPUL NEB SCH ×4 (01:49→19:36)
[2017-05-16 04:16] LABS: HEMATOCRIT 33.5 % (36.0-47.0); MEAN CORPUSCULAR HEMOGLOBIN 29.6 pg (27.0-33.4); MEAN CORPUSCULAR HGB CONC 32.8 g/dL (32.0-36.0); MEAN CORPUSCULAR VOLUME 90 fl (80-97); PLATELET COUNT 179 10^3/uL (150-450); RED BLOOD COUNT 3.71 10^6/uL (3.72-5.28); RED CELL DISTRIBUTION WIDTH 14.8 % (11.5-14.0); WHITE BLOOD COUNT 7.7 10^3/uL (4.0-10.5)
[2017-05-16 04:37] LABS: ANION GAP 7 (5-19); BLOOD UREA NITROGEN 16 mg/dL (7-20); CALCIUM 9.2 mg/dL (8.4-10.2); CARBON DIOXIDE 33 mmol/L (22-30); CHLORIDE 106 mmol/L (98-107); GLUCOSE 96 mg/dL (75-110); MAGNESIUM 2.3 mg/dL (1.6-2.3); PHOSPHORUS 3.3 mg/dL (2.5-4.5); POTASSIUM 3.8 mmol/L (3.6-5.0); SODIUM 145.8 mmol/L (137-145)
[2017-05-16 04:49] LABS: ABSOLUTE LYMPHOCYTES# (MANUAL) 0.5 10^3/uL (0.5-4.7); ABSOLUTE MONOCYTES # (MANUAL) 0.3 10^3/uL (0.1-1.4); ABSOLUTE NEUTROPHILS# (MANUAL) 6.9 10^3/uL (1.7-8.2); BASOPHILS % (MANUAL) 0 % (0-2); EOSINOPHILS % (MANUAL) 0 % (0-6); LYMPHOCYTES % (MANUAL) 6 % (13-45); MONOCYTES % (MANUAL) 4 % (3-13); SEGMENTED NEUTROPHILS % (MAN) 89 % (42-78); TOTAL CELLS COUNTED 100
[2017-05-16 04:51] LABS: HYPOCHROMASIA SLIGHT; POLYCHROMASIA SLIGHT
[2017-05-16 04:52] LABS: PLATELET COMMENT ADEQUATE
[2017-05-16] MEDS: GABAPENTIN 400 MG CAPSULE NG SCH ×2 (05:08→13:22)
[2017-05-16] MEDS: LANSOPRAZOLE 30 MG TAB.RAP.DR NG SCH ×2 (05:08→17:35)
[2017-05-16 05:47] LABS: ARTERIAL BLOOD BASE EXCESS 6.9 mmol/L; ARTERIAL BLOOD FIO2 50%; ARTERIAL BLOOD H2CO3 1.63 mmol/L (1.05-1.35); ARTERIAL BLOOD O2 SATURATION 97.2 % (94-98); ARTERIAL BLOOD PO2 95.5 mmHg (80-100); ARTERIAL BLOOD TOTAL CO2 34.7 mmol/L (21-25)
--- NOTE | 2017-05-16 07:23 | RADIOLOGY REPORT (SQ) ---
EXAM DESCRIPTION: CHEST SINGLE VIEW CLINICAL HISTORY: resp fail COMPARISON: 05/14/2017 FINDINGS: Single frontal view of the chest. Interval removal of endotracheal tube and NG tube. Heart is not enlarged. Atherosclerotic calcification aortic arch. No pneumothorax. Interval increased opacity in the right lung base possible small right pleural effusion. Low lung volumes. No displaced rib fractures identified. Upper abdominal soft tissues are unremarkable. IMPRESSION: 1. Interval increase in right basilar opacities and possible small right pleural effusion. 2. Interval removal of endotracheal tube and NG tube. Electronically signed by: Ancelmo Anne 05/16/2017 6:21 AM
[2017-05-16] MEDS: BUDESONIDE NEB 0.5 MG/2 ML AMPUL NEB SCH ×2 (08:01→19:36)
[2017-05-16] MEDS: ARIPIPRAZOLE 5 MG TABLET NG SCH (09:35)
[2017-05-16] MEDS: VALPROATE SODIUM SYRUP 250 MG/5 ML UDCUP NG SCH ×2 (09:35→17:35)
--- NOTE | 2017-05-17 01:43 | PDOC PROGRESS REPORT ---
Subjective Progress Note for:: 05/13/17 Subjective:: Patient with respiratory failure due to polysubstance abuse. Now with pneumonia. Patient taking time to wake up. Patient with cough. Reason For Visit: ASPIRATION PNEUMONIA, COPD EXACERBATION Physical Exam Vital Signs: Temp Pulse Resp BP Pulse Ox 99.5 F 82 15 117/59 L 93 05/13/17 18:00 05/13/17 20:31 05/13/17 23:30 05/13/17 23:16 05/13/17 23:30 Intake & Output 05/12/17 05/13/17 05/14/17 06:59 06:59 06:59 Intake Total 2740 2948 1197 Output Total 2095 1270 1485 Balance 645 1678 -288 Weight 108.2 kg 109 kg General appearance: PRESENT: no acute distress, obese, well-developed, well- nourished Head exam: PRESENT: normocephalic Eye exam: PRESENT: PERRLA. ABSENT: scleral icterus Mouth exam: PRESENT: moist, other - ET tube in place Teeth exam: PRESENT: edentulous Neck exam: ABSENT: carotid bruit, JVD, lymphadenopathy, thyromegaly Respiratory exam: PRESENT: clear to auscultation caleb, other - course breath sounds. ABSENT: rales, rhonchi, wheezes Cardiovascular exam: PRESENT: RRR. ABSENT: diastolic murmur, rubs, systolic murmur Pulses: PRESENT: normal dorsalis pedis pul GI/Abdominal exam: PRESENT: normal bowel sounds, soft. ABSENT: distended, guarding, mass, organolmegaly, rebound, tenderness Rectal exam: PRESENT: deferred Gentrourinary exam: PRESENT: indwelling catheter Extremities exam: PRESENT: full ROM. ABSENT: calf tenderness, clubbing, pedal edema Neurological exam: ABSENT: motor sensory deficit Psychiatric exam: ABSENT: homicidal ideation, suicidal ideation Skin exam: PRESENT: dry, intact, warm. ABSENT: cyanosis, rash Results Laboratory Results: 05/13/17 03:56 05/13/17 03:56 05/13/17 05/13/17 05/13/17 03:56 03:56 05:20 WBC 6.4 RBC 3.48 L Hgb 10.5 L Hct 31.9 L MCV 92 MCH 30.2 MCHC 33.0 RDW 15.0 H Plt Count 218 Seg Neutrophils % Not Reportable Lymphocytes % Not Reportable Monocytes % Not Reportable Eosinophils % Not Reportable Basophils % Not Reportable Absolute Neutrophils Not Reportable Absolute Lymphocytes Not Reportable Absolute Monocytes Not Reportable Absolute Eosinophils Not Reportable Absolute Basophils Not Reportable Carbonic Acid 1.65 H HCO3/H2CO3 Ratio 18:1 ABG pH 7.37 ABG pCO2 54.9 H ABG pO2 73.6 L ABG HCO3 31.3 H ABG O2 Saturation 94.2 ABG Base Excess 4.9 FiO2 50% Sodium 144.4 Potassium 4.2 Chloride 108 H Carbon Dioxide 30 Anion Gap 6 BUN 22 H Creatinine 0.50 L Est GFR ( Amer) > 60 Est GFR (Non-Af Amer) > 60 Glucose 125 H Calcium 9.2 Phosphorus 3.3 Magnesium 2.4 H Ammonia Triglycerides 153 H TSH Free T4 Free T3 pg/mL 05/13/17 05/13/17 10:52 10:52 WBC RBC Hgb Hct MCV MCH MCHC RDW Plt Count Seg Neutrophils % Lymphocytes % Monocytes % Eosinophils % Basophils % Absolute Neutrophils Absolute Lymphocytes Absolute Monocytes Absolute Eosinophils Absolute Basophils Carbonic Acid HCO3/H2CO3 Ratio ABG pH ABG pCO2 ABG pO2 ABG HCO3 ABG O2 Saturation ABG Base Excess FiO2 Sodium Potassium Chloride Carbon Dioxide Anion Gap BUN Creatinine Est GFR ( Amer) Est GFR (Non-Af Amer) Glucose Calcium Phosphorus Magnesium Ammonia 36.2 H Triglycerides TSH 0.14 L Free T4 0.78 Free T3 pg/mL 1.55 L 05/11/17 05/12/17 05:34 03:48 NT-Pro-B Natriuret Pep 377 342 Impressions: Chest X-Ray 05/13/17 06:00 IMPRESSION: 1. Stable appearance of the chest with persistent right basilar airspace opacity. Assessment & Plan - Diagnosis (1) Acute metabolic encephalopathy Is this a current diagnosis for this admission?: Yes Plan: Possibly due to medication, infection or hypercapnia or hypoxia. Nacrotic decrease along with sedation. Patient may need CT head if she continue not to follow commands. Ammonia mildly elevated. T4 is normal. Pain medications decreased further. Will give patient time. (2) Pneumonia Qualifiers: Pneumonia type: due to unspecified organism Laterality: right Lung location: unspecified part of lung Qualified Code(s): J18.9 - Pneumonia, unspecified organism Is this a current diagnosis for this admission?: Yes Plan: Possible right lower lung pneumonia. CX with bibasilar findings on repeat chest XR. Chest X ray is now stable. Sputum growing klebsiella, Haemophilus and strep pneumoniae. May benefit for CPT. Continue levaquin. Leukocytosis resolved. (3) Respiratory failure with hypoxia and hypercapnia Qualifiers: Chronicity: acute Qualified Code(s): J96.01 - Acute respiratory failure with hypoxia; J96.02 - Acute respiratory failure with hypercapnia; J96.02 - Acute respiratory failure with hypercapnia; J96.02 - Acute respiratory failure with hypercapnia Is this a current diagnosis for this admission?: Yes Plan: Patient is obese and may have obesity ventilation syndrome or OBI further compromised by substance abuse leading to respiratory depression and pneumonia. Patient currently intubated. Pulmonary consulted for vent management. Patient not following commands concerned that patient may not be able to protect airway if extubated. Still note able to extubate due to patient's mentation. (4) Substance abuse Is this a current diagnosis for this admission?: Yes Plan: Will securities counselor patient on cessation when appropriate. Patient currently intubated with altered mentation. (5) Lung collapse Is this a current diagnosis for this admission?: Yes Plan: Partial right lung collapse NOT seen on follow-up chest x-ray. This may have been positional. Will continue to follow. (6) Hypothermia Is this a current diagnosis for this admission?: Yes Plan: Resolved. Most likely due to her environment. Patient infection is improving. Patient T4 is normal. (7) Decreased urine output Is this a current diagnosis for this admission?: Yes Plan: Improved. With increased fluids. - Time Time Spent with patient: Less than 15 minutes Anticipated discharge: Home with Homehealth Within: Other - Inpatient Certification Medical Necessity: Need For IV Fluids - Patient still intubated in the ICU., Need for Nebulizer Therapy and Monitoring of Response
--- NOTE | 2017-05-17 01:52 | PDOC PROGRESS REPORT ---
Subjective Progress Note for:: 05/14/17 Subjective:: Patient with respiratory failure due to polysubstance abuse. Now with pneumonia. Patient pneumonia improving. Patient mentation still altered. Patient with gross hematuria. Patient now moving her feet. Reason For Visit: ASPIRATION PNEUMONIA, COPD EXACERBATION Physical Exam Vital Signs: Temp Pulse Resp BP Pulse Ox 98.8 F 64 15 100/51 L 93 05/14/17 21:39 05/14/17 20:00 05/14/17 22:16 05/14/17 22:16 05/14/17 22:16 Intake & Output 05/13/17 05/14/17 05/15/17 06:59 06:59 06:59 Intake Total 2948 2247 1060 Output Total 1270 3005 1495 Balance 4602 -187 -824 Weight 109 kg 109.4 kg General appearance: PRESENT: no acute distress, obese, well-developed, well- nourished Head exam: PRESENT: normocephalic Eye exam: ABSENT: scleral icterus Mouth exam: PRESENT: moist Teeth exam: PRESENT: edentulous, other - ET in place Neck exam: ABSENT: carotid bruit, JVD, lymphadenopathy, thyromegaly Respiratory exam: PRESENT: clear to auscultation caleb, other - course breath sounds.. ABSENT: rales, rhonchi, wheezes Cardiovascular exam: PRESENT: RRR. ABSENT: diastolic murmur, rubs, systolic murmur Pulses: PRESENT: normal dorsalis pedis pul GI/Abdominal exam: PRESENT: normal bowel sounds, soft. ABSENT: distended, guarding, mass, organolmegaly, rebound, tenderness Rectal exam: PRESENT: deferred Extremities exam: PRESENT: full ROM, pedal edema. ABSENT: calf tenderness, clubbing Neurological exam: PRESENT: altered, awake. ABSENT: motor sensory deficit Psychiatric exam: ABSENT: homicidal ideation, suicidal ideation Skin exam: PRESENT: dry, intact, warm. ABSENT: cyanosis, rash Results Laboratory Results: 05/14/17 04:38 05/14/17 04:38 05/14/17 05/14/17 05/14/17 04:38 04:38 04:38 WBC 8.2 RBC 3.55 L Hgb 10.7 L Hct 32.3 L MCV 91 MCH 30.1 MCHC 33.0 RDW 14.8 H Plt Count 215 Seg Neutrophils % Not Reportable Lymphocytes % Not Reportable Monocytes % Not Reportable Eosinophils % Not Reportable Basophils % Not Reportable Absolute Neutrophils Not Reportable Absolute Lymphocytes Not Reportable Absolute Monocytes Not Reportable Absolute Eosinophils Not Reportable Absolute Basophils Not Reportable Carbonic Acid HCO3/H2CO3 Ratio ABG pH ABG pCO2 ABG pO2 ABG HCO3 ABG O2 Saturation ABG Base Excess FiO2 Sodium 143.1 Potassium 4.0 Chloride 107 Carbon Dioxide 31 H Anion Gap 5 BUN 19 Creatinine 0.54 Est GFR ( Amer) > 60 Est GFR (Non-Af Amer) > 60 Glucose 117 H Calcium 9.0 Magnesium 2.2 Ammonia 21.8 Urine Color Urine Appearance Urine pH Ur Specific [place] Urine Protein Urine Glucose (UA) Urine Ketones Urine Blood Urine Nitrite Ur Leukocyte Esterase Urine WBC (Auto) Urine RBC (Auto) 05/14/17 05/14/17 05:25 14:00 WBC RBC Hgb Hct MCV MCH MCHC RDW Plt Count Seg Neutrophils % Lymphocytes % Monocytes % Eosinophils % Basophils % Absolute Neutrophils Absolute Lymphocytes Absolute Monocytes Absolute Eosinophils Absolute Basophils Carbonic Acid 1.51 H HCO3/H2CO3 Ratio 20:1 ABG pH 7.40 ABG pCO2 50.2 H ABG pO2 71.4 L ABG HCO3 30.2 H ABG O2 Saturation 94.1 ABG Base Excess 4.4 FiO2 50 % Sodium Potassium Chloride Carbon Dioxide Anion Gap BUN Creatinine Est GFR ( Amer) Est GFR (Non-Af Amer) Glucose Calcium Magnesium Ammonia Urine Color RED Urine Appearance CLOUDY Urine pH 7.0 Ur Specific [place] 1.018 Urine Protein 100 H Urine Glucose (UA) NEGATIVE Urine Ketones TRACE H Urine Blood LARGE H Urine Nitrite NEGATIVE Ur Leukocyte Esterase NEGATIVE Urine WBC (Auto) 41 Urine RBC (Auto) >182 05/11/17 05/12/17 05:34 03:48 NT-Pro-B Natriuret Pep 377 342 Impressions: Chest X-Ray 05/14/17 07:56 IMPRESSION: ETT, NG tube in good positioning. Mild bibasilar airspace disease, stable Assessment & Plan - Diagnosis (1) Acute metabolic encephalopathy Is this a current diagnosis for this admission?: Yes Plan: Possibly due to medication, infection or hypercapnia or hypoxia. Nacrotic decrease along with sedation. Patient may need CT head if she continue not to follow commands. Ammonia mildly elevated. T4 is normal. Pain medications decreased further. Gradually improving. (2) Pneumonia Qualifiers: Pneumonia type: due to unspecified organism Laterality: right Lung location: unspecified part of lung Qualified Code(s): J18.9 - Pneumonia, unspecified organism Is this a current diagnosis for this admission?: Yes Plan: Possible right lower lung pneumonia. CX with bibasilar findings on repeat chest XR. Chest X ray is now stable. Sputum growing klebsiella, Haemophilus and strep pneumoniae. May benefit for CPT. Continue levaquin. Leukocytosis resolved. (3) Respiratory failure with hypoxia and hypercapnia Qualifiers: Chronicity: acute Qualified Code(s): J96.01 - Acute respiratory failure with hypoxia; J96.02 - Acute respiratory failure with hypercapnia; J96.02 - Acute respiratory failure with hypercapnia; J96.02 - Acute respiratory failure with hypercapnia Is this a current diagnosis for this admission?: Yes Plan: Patient is obese and may have obesity ventilation syndrome or OBI further compromised by substance abuse leading to respiratory depression and pneumonia. Patient currently intubated. Pulmonary consulted for vent management. Patient not following commands concerned that patient may not be able to protect airway if extubated. Blood gasses improved with minimal vent settings; however, still not able to extubate due to patient's mentation. (4) Substance abuse Is this a current diagnosis for this admission?: Yes Plan: Will certified substance abuse counselor patient on cessation when appropriate. Patient currently intubated with altered mentation. (5) Lung collapse Is this a current diagnosis for this admission?: Yes Plan: Partial right lung collapse NOT seen on follow-up chest x-ray. This may have been positional. Will continue to follow. (6) Hypothermia Is this a current diagnosis for this admission?: Yes Plan: Resolved. Most likely due to her environment. Patient infection is improving. Patient T4 is normal. (7) Decreased urine output Is this a current diagnosis for this admission?: Yes Plan: Improved. With increased fluids. (8) Hematuria Qualifiers: Hematuria type: gross Qualified Code(s): R31.0 - Gross hematuria Is this a current diagnosis for this admission?: Yes Plan: Possibly due to trauma from indwelling emmanuel in patient on heparin for DVT prophylaxis. Discontinue heparin. Use SCD for DVT prophylaxis. irrigate PRN. UA and culture ordered. - Time Time Spent with patient: 15-24 minutes Anticipated discharge: Home with Homehealth - Inpatient Certification Medical Necessity: Need For IV Fluids - Patient still intuabated in the ICU., Need For Continuous Telemetry Monitoring, Need for Nebulizer Therapy and Monitoring of Response, Need for Neurological Checks, Need for IV Antibiotics
--- NOTE | 2017-05-17 01:59 | PDOC PROGRESS REPORT ---
Subjective Progress Note for:: 05/15/17 Subjective:: Patient with respiratory failure due to polysubstance abuse. Now with pneumonia. Patient pneumonia improving. Patient extubated to bipap. Hematuria resolved. Patient is asking to eat. Patient will have nurse bedside swallow. Reason For Visit: ASPIRATION PNEUMONIA, COPD EXACERBATION Physical Exam Vital Signs: Temp Pulse Resp BP Pulse Ox 97.3 F 58 L 16 160/90 H 97 05/15/17 21:49 05/15/17 20:00 05/15/17 18:17 05/15/17 18:17 05/15/17 18:17 Intake & Output 05/14/17 05/15/17 05/16/17 06:59 06:59 06:59 Intake Total 2247 2005 963 Output Total 3007 2381 1775 Balance -819 -289 -812 Weight 109.4 kg 109.1 kg General appearance: PRESENT: no acute distress, obese, well-developed, well- nourished Eye exam: ABSENT: scleral icterus Mouth exam: PRESENT: moist Teeth exam: PRESENT: edentulous Neck exam: ABSENT: carotid bruit, JVD, lymphadenopathy, thyromegaly Respiratory exam: PRESENT: clear to auscultation caleb, other - bipap mask in place. ABSENT: rales, rhonchi, wheezes Cardiovascular exam: PRESENT: RRR. ABSENT: diastolic murmur, rubs, systolic murmur GI/Abdominal exam: PRESENT: normal bowel sounds, soft. ABSENT: distended, guarding, mass, organolmegaly, rebound, tenderness Rectal exam: PRESENT: deferred Extremities exam: PRESENT: full ROM, pedal edema. ABSENT: calf tenderness, clubbing Neurological exam: PRESENT: alert, awake, oriented to person, oriented to place , oriented to time, oriented to situation, CN II-XII grossly intact. ABSENT: motor sensory deficit Psychiatric exam: PRESENT: flat affect. ABSENT: homicidal ideation, suicidal ideation Skin exam: PRESENT: dry, intact, warm. ABSENT: cyanosis, rash Results Laboratory Results: 05/15/17 04:50 05/15/17 04:50 05/15/17 05/15/17 05/15/17 04:50 04:50 05:06 WBC 6.7 RBC 3.47 L Hgb 10.3 L Hct 31.5 L MCV 91 MCH 29.7 MCHC 32.8 RDW 14.4 H Plt Count 183 Seg Neutrophils % 85.3 H Lymphocytes % 10.2 L Monocytes % 4.3 Eosinophils % 0.1 Basophils % 0.1 Absolute Neutrophils 5.7 Absolute Lymphocytes 0.7 Absolute Monocytes 0.3 Absolute Eosinophils 0.0 Absolute Basophils 0.0 Carbonic Acid 1.69 H HCO3/H2CO3 Ratio 19:1 ABG pH 7.38 ABG pCO2 56.2 H ABG pO2 72.3 L ABG HCO3 32.8 H ABG O2 Saturation 94.0 ABG Base Excess 6.3 FiO2 50% Sodium 144.0 Potassium 3.9 Chloride 106 Carbon Dioxide 30 Anion Gap 8 BUN 19 Creatinine 0.44 L Est GFR ( Amer) > 60 Est GFR (Non-Af Amer) > 60 Glucose 124 H Calcium 8.8 Phosphorus 4.2 Magnesium 2.3 05/15/17 13:55 WBC RBC Hgb Hct MCV MCH MCHC RDW Plt Count Seg Neutrophils % Lymphocytes % Monocytes % Eosinophils % Basophils % Absolute Neutrophils Absolute Lymphocytes Absolute Monocytes Absolute Eosinophils Absolute Basophils Carbonic Acid 1.61 H HCO3/H2CO3 Ratio 21:1 ABG pH 7.43 ABG pCO2 53.4 H ABG pO2 96.2 ABG HCO3 34.3 H ABG O2 Saturation 97.4 ABG Base Excess 8.5 FiO2 50% Sodium Potassium Chloride Carbon Dioxide Anion Gap BUN Creatinine Est GFR ( Amer) Est GFR (Non-Af Amer) Glucose Calcium Phosphorus Magnesium 05/11/17 05/12/17 05:34 03:48 NT-Pro-B Natriuret Pep 377 342 Impressions: Chest X-Ray 05/14/17 07:56 IMPRESSION: ETT, NG tube in good positioning. Mild bibasilar airspace disease, stable Assessment & Plan - Diagnosis (1) Acute metabolic encephalopathy Is this a current diagnosis for this admission?: Yes Plan: Possibly due to medication, infection or hypercapnia or hypoxia. Nacrotic decrease along with sedation. Patient may need CT head if she continue not to follow commands. Ammonia mildly elevated. T4 is normal. Pain medications decreased further. Resolved. (2) Pneumonia Qualifiers: Pneumonia type: due to unspecified organism Laterality: right Lung location: unspecified part of lung Qualified Code(s): J18.9 - Pneumonia, unspecified organism Is this a current diagnosis for this admission?: Yes Plan: Possible right lower lung pneumonia. CX with bibasilar findings on repeat chest XR. Chest X ray is now stable. Sputum growing klebsiella, Haemophilus and strep pneumoniae. May benefit for CPT. Treated with levaquin. (3) Respiratory failure with hypoxia and hypercapnia Qualifiers: Chronicity: acute Qualified Code(s): J96.01 - Acute respiratory failure with hypoxia; J96.02 - Acute respiratory failure with hypercapnia; J96.02 - Acute respiratory failure with hypercapnia; J96.02 - Acute respiratory failure with hypercapnia Is this a current diagnosis for this admission?: Yes Plan: Patient is obese and may have obesity ventilation syndrome or OBI further compromised by substance abuse leading to respiratory depression and pneumonia. Patient currently intubated. Pulmonary consulted for vent management. Patient extubated to bipap today. (4) Substance abuse Is this a current diagnosis for this admission?: Yes Plan: Will loan counselor patient on cessation when appropriate. (5) Lung collapse Is this a current diagnosis for this admission?: Yes Plan: Partial right lung collapse NOT seen on follow-up chest x-ray. This may have been positional. Will continue to follow. (6) Hypothermia Is this a current diagnosis for this admission?: Yes Plan: Resolved. Most likely due to her environment. Patient infection is improving. Patient T4 is normal. (7) Decreased urine output Is this a current diagnosis for this admission?: Yes Plan: Improved. With increased fluids. Will decrease fluids as patient has developed edema. (8) Hematuria Qualifiers: Hematuria type: gross Qualified Code(s): R31.0 - Gross hematuria Is this a current diagnosis for this admission?: Yes Plan: Possibly due to trauma from indwelling emmanuel in patient on heparin for DVT prophylaxis. Discontinue heparin. Use SCD for DVT prophylaxis. Resolved. - Time Time Spent with patient: 15-24 minutes Anticipated discharge: Home with Homehealth - Inpatient Certification Medical Necessity: Significant Comorbidiites Make Outpatient Treatment Too Risky , Need Close Monitoring Due to Risk of Patient Decompensation, Need For IV Fluids - Patient still in ICU will monitor and downgrade in the am.
[2017-05-17] MEDS ORDERED: METHYLPREDNISOLONE INJ 125 MG/2 ML SDV IV SCH ×2 (02:00→06:00)
--- NOTE | 2017-05-17 02:06 | PDOC PROGRESS REPORT ---
Subjective Progress Note for:: 05/16/17 Subjective:: Patient with respiratory failure due to polysubstance abuse. Treated for pneumonia with levaquin. Patient extubated to bipap on 05/15. Patient tolerated fluids but is having difficulty feeding herself nurse states that patient too weak to life her arms. Reason For Visit: ASPIRATION PNEUMONIA, COPD EXACERBATION Physical Exam Vital Signs: Temp Pulse Resp BP Pulse Ox 96.3 F L 64 13 91/57 L 90 L 05/16/17 23:44 05/16/17 20:00 05/17/17 00:00 05/16/17 22:20 05/17/17 00:00 Intake & Output 05/15/17 05/16/17 05/17/17 06:59 06:59 06:59 Intake Total 2005 185 1041 Output Total 3355 2975 4429 Balance -289 -1122 -6148 Weight 109.1 kg 108.7 kg General appearance: PRESENT: no acute distress, obese, well-developed, well- nourished Head exam: PRESENT: normocephalic Eye exam: PRESENT: EOMI. ABSENT: scleral icterus Ear exam: PRESENT: normal external ear exam Mouth exam: PRESENT: moist Teeth exam: PRESENT: edentulous Neck exam: ABSENT: carotid bruit, JVD, lymphadenopathy, thyromegaly Respiratory exam: PRESENT: clear to auscultation caleb, wheezes - course breath sound. ABSENT: rales, rhonchi Cardiovascular exam: PRESENT: RRR. ABSENT: diastolic murmur, rubs, systolic murmur Pulses: PRESENT: normal dorsalis pedis pul Vascular exam: PRESENT: normal capillary refill GI/Abdominal exam: PRESENT: normal bowel sounds, soft. ABSENT: distended, guarding, mass, organolmegaly, rebound, tenderness Rectal exam: PRESENT: deferred Gentrourinary exam: PRESENT: indwelling catheter Extremities exam: PRESENT: pedal edema. ABSENT: calf tenderness, clubbing Neurological exam: PRESENT: other - sleeping. ABSENT: motor sensory deficit Psychiatric exam: PRESENT: flat affect, normal mood. ABSENT: homicidal ideation , suicidal ideation Skin exam: PRESENT: dry, intact, warm. ABSENT: cyanosis, rash Results Laboratory Results: 05/16/17 03:56 05/16/17 03:56 05/16/17 05/16/17 05/16/17 03:56 03:56 05:20 WBC 7.7 RBC 3.71 L Hgb 11.0 L Hct 33.5 L MCV 90 MCH 29.6 MCHC 32.8 RDW 14.8 H Plt Count 179 Seg Neutrophils % Not Reportable Lymphocytes % Not Reportable Monocytes % Not Reportable Eosinophils % Not Reportable Basophils % Not Reportable Absolute Neutrophils Not Reportable Absolute Lymphocytes Not Reportable Absolute Monocytes Not Reportable Absolute Eosinophils Not Reportable Absolute Basophils Not Reportable Carbonic Acid 1.63 H HCO3/H2CO3 Ratio 20:1 ABG pH 7.40 ABG pCO2 54.0 H ABG pO2 95.5 ABG HCO3 33.0 H ABG O2 Saturation 97.2 ABG Base Excess 6.9 FiO2 50% Sodium 145.8 H Potassium 3.8 Chloride 106 Carbon Dioxide 33 H Anion Gap 7 BUN 16 Creatinine 0.44 L Est GFR ( Amer) > 60 Est GFR (Non-Af Amer) > 60 Glucose 96 Calcium 9.2 Phosphorus 3.3 Magnesium 2.3 05/14/17 14:00 Emmanuel Catheter Urine Culture - Final C.albicans/C.dubliniensis 05/11/17 05/12/17 05:34 03:48 NT-Pro-B Natriuret Pep 377 [id number] Impressions: Chest X-Ray 05/16/17 06:00 IMPRESSION: 1. Interval increase in right basilar opacities and possible small right pleural effusion. 2. Interval removal of endotracheal tube and NG tube. Assessment & Plan - Diagnosis (1) Acute metabolic encephalopathy Is this a current diagnosis for this admission?: Yes Plan: Possibly due to medication, infection or hypercapnia or hypoxia. Nacrotic decrease along with sedation. Patient may need CT head if she continue not to follow commands. Ammonia mildly elevated. T4 is normal. Pain medications decreased further. Resolved. Patient odd behavior may be due to underlying psych history. Continue psych medications. (2) Pneumonia Qualifiers: Pneumonia type: due to unspecified organism Laterality: right Lung location: unspecified part of lung Qualified Code(s): J18.9 - Pneumonia, unspecified organism Is this a current diagnosis for this admission?: Yes Plan: Possible right lower lung pneumonia. CX with bibasilar findings on repeat chest XR. Chest X ray is now stable. Sputum growing klebsiella, Haemophilus and strep pneumoniae. May benefit for CPT. Treated with levaquin. (3) Respiratory failure with hypoxia and hypercapnia Qualifiers: Chronicity: acute Qualified Code(s): J96.01 - Acute respiratory failure with hypoxia; J96.02 - Acute respiratory failure with hypercapnia; J96.02 - Acute respiratory failure with hypercapnia; J96.02 - Acute respiratory failure with hypercapnia Is this a current diagnosis for this admission?: Yes Plan: Patient is obese and may have obesity ventilation syndrome or OBI further compromised by substance abuse leading to respiratory depression and pneumonia. Patient extubated to bipap on 05/15. Patient doing well. Pulmonary following. (4) Substance abuse Is this a current diagnosis for this admission?: Yes Plan: Will staff counselor patient on cessation when appropriate. (5) Lung collapse Is this a current diagnosis for this admission?: Yes Plan: Partial right lung collapse NOT seen on follow-up chest x-ray. This may have been positional. Will continue to follow. (6) Hypothermia Is this a current diagnosis for this admission?: Yes Plan: Resolved. Most likely due to her environment. Patient infection is improving. Patient T4 is normal. (7) Decreased urine output Is this a current diagnosis for this admission?: Yes Plan: Improved. (8) Hematuria Qualifiers: Hematuria type: gross Qualified Code(s): R31.0 - Gross hematuria Is this a current diagnosis for this admission?: Yes Plan: Possibly due to trauma from indwelling emmanuel in patient on heparin for DVT prophylaxis. Discontinue heparin. Use SCD for DVT prophylaxis. Resolved. (9) Debility Is this a current diagnosis for this admission?: Yes Plan: Patient having difficulty lifting hand to feed herself. Secondary to being bed bound in ICU on steroids. Will wean steroids. Consult PT/OT. - Time Time Spent with patient: 15-24 minutes Anticipated discharge: Home with Homehealth - Inpatient Certification Medical Necessity: Significant Comorbidiites Make Outpatient Treatment Too Risky , Need Close Monitoring Due to Risk of Patient Decompensation
[2017-05-17] MEDS: IPRATROPIUM/ALBUTEROL 0.5-2.5 MG/3 ML AMPUL NEB SCH ×4 (02:07→20:38)
[2017-05-17 04:17] LABS: HEMATOCRIT 33.7 % (36.0-47.0); HEMOGLOBIN 10.9 g/dL (12.0-15.5); MEAN CORPUSCULAR HEMOGLOBIN 29.5 pg (27.0-33.4); MEAN CORPUSCULAR HGB CONC 32.4 g/dL (32.0-36.0); MEAN CORPUSCULAR VOLUME 91 fl (80-97); PLATELET COUNT 174 10^3/uL (150-450); RED BLOOD COUNT 3.69 10^6/uL (3.72-5.28); RED CELL DISTRIBUTION WIDTH 14.6 % (11.5-14.0); WHITE BLOOD COUNT 7.1 10^3/uL (4.0-10.5)
[2017-05-17 04:32] LABS: BLOOD UREA NITROGEN 18 mg/dL (7-20); CALCIUM 8.8 mg/dL (8.4-10.2); CHLORIDE 105 mmol/L (98-107); GLUCOSE 123 mg/dL (75-110); POTASSIUM 3.8 mmol/L (3.6-5.0)
[2017-05-17 04:43] LABS: ABSOLUTE MONOCYTES # (MANUAL) 0.1 10^3/uL (0.1-1.4); BAND NEUTROPHILS % (MANUAL) 1 % (3-5); BASOPHILS % (MANUAL) 0 % (0-2); EOSINOPHILS % (MANUAL) 0 % (0-6); LYMPHOCYTES % (MANUAL) 12 % (13-45); MONOCYTES % (MANUAL) 1 % (3-13); SEGMENTED NEUTROPHILS % (MAN) 84 % (42-78); TOTAL CELLS COUNTED 100
[2017-05-17 04:44] LABS: PLATELET COMMENT ADEQUATE; PLATELET GIANT PRESENT; PLATELET LARGE PRESENT; TOXIC GRANULATION SLIGHT
[2017-05-17 04:45] LABS: HYPOCHROMASIA SLIGHT; POLYCHROMASIA SLIGHT
[2017-05-17 04:53] LABS: ANION GAP 5 (5-19); CARBON DIOXIDE 35 mmol/L (22-30); SODIUM 145.3 mmol/L (137-145)
[2017-05-17 06:37] LABS: ARTERIAL BLOOD BASE EXCESS 9.6 mmol/L; ARTERIAL BLOOD H2CO3 1.98 mmol/L (1.05-1.35); ARTERIAL BLOOD PCO2 65.8 mmHg (35-45); ARTERIAL BLOOD PH 7.37 (7.35-7.45); ARTERIAL BLOOD PO2 87.1 mmHg (80-100)
[2017-05-17 06:38] LABS: ARTERIAL BLOOD FIO2 45%
[2017-05-17] MEDS ORDERED: METHYLPREDNISOLONE INJ 40 MG/1 ML SDV ONE (06:38)
[2017-05-17] MEDS: GABAPENTIN 400 MG CAPSULE PO SCH ×2 (06:45→14:13)
[2017-05-17] MEDS: BENZONATATE 100 MG CAPSULE PO SCH ×3 (06:45→21:05)
[2017-05-17] MEDS: LANSOPRAZOLE 30 MG TAB.RAP.DR PO SCH ×2 (06:46→18:07)
[2017-05-17] MEDS: BUDESONIDE NEB 0.5 MG/2 ML AMPUL NEB SCH ×2 (08:11→20:38)
[2017-05-17] MEDS: CLONAZEPAM 1 MG TABLET PO SCH ×2 (09:56→21:05)
[2017-05-17] MEDS: ARIPIPRAZOLE 5 MG TABLET PO SCH (09:56)
[2017-05-17] MEDS: VALPROATE SODIUM SYRUP 250 MG/5 ML UDCUP PO SCH ×2 (10:00→18:08)
--- NOTE | 2017-05-17 11:05 | PDOC PROGRESS REPORT ---
Subjective Progress Note for:: 05/17/17 Subjective:: The patient was admitted for acute respiratory failure. This is likely multifactorial secondary to polysubstance abuse, obesity, obstructive sleep apnea and pneumonia. She was extubated to BiPAP on 05/15/2016. According to what the notes have documented and according to what the patient's nurse is telling me her mental status and clarity have improved substantially. Reason For Visit: ASPIRATION PNEUMONIA, COPD EXACERBATION Physical Exam Vital Signs: Temp Pulse Resp BP Pulse Ox 96.8 F L 68 18 101/58 L 93 05/17/17 08:00 05/17/17 10:00 05/17/17 10:00 05/17/17 10:00 05/17/17 10:00 Intake & Output 05/16/17 05/17/17 05/18/17 06:59 06:59 06:59 Intake Total 1853 1644 Output Total 2975 4754 125 Balance -1122 -3110 -125 Weight 108.7 kg 108.2 kg Additional comments: The patient appears her stated age. She was awake and alert and answering questions appropriately this morning. She did not appear to be in any distress. She is moving all 4 extremities but does have some weakness in all 4 extremities. Her facial appearance is unremarkable. Her lungs are clear to auscultation bilaterally, however, she does have decreased breath sounds throughout. Her cardiac exam demonstrates a regular rate and rhythm without murmurs, gallops or rubs. The abdomen is obese but soft. Bowel sounds are noted. She does not have guarding or rebound noted. The lower extremities are normal without any pitting edema. The skin is clean, warm, dry and intact without lesions or rashes. Results Laboratory Results: 05/17/17 04:09 05/17/17 04:09 05/17/17 05/17/17 05/17/17 04:09 04:09 06:15 WBC 7.1 RBC 3.69 L Hgb 10.9 L Hct 33.7 L MCV 91 MCH 29.5 MCHC 32.4 RDW 14.6 H Plt Count 174 Seg Neutrophils % Not Reportable Lymphocytes % Not Reportable Monocytes % Not Reportable Eosinophils % Not Reportable Basophils % Not Reportable Absolute Neutrophils Not Reportable Absolute Lymphocytes Not Reportable Absolute Monocytes Not Reportable Absolute Eosinophils Not Reportable Absolute Basophils Not Reportable Carbonic Acid 1.98 H HCO3/H2CO3 Ratio 18:1 ABG pH 7.37 ABG pCO2 65.8 H ABG pO2 87.1 ABG HCO3 37.0 H ABG O2 Saturation 96.0 ABG Base Excess 9.6 FiO2 45% Sodium 145.3 H Potassium 3.8 Chloride 105 Carbon Dioxide 35 H Anion Gap 5 BUN 18 Creatinine 0.43 L Est GFR ( Amer) > 60 Est GFR (Non-Af Amer) > 60 Glucose 123 H Calcium 8.8 05/14/17 14:00 Tellez Catheter Urine Culture - Final C.albicans/C.dubliniensis 05/11/17 05/12/17 05:34 03:48 NT-Pro-B Natriuret Pep 377 342 Impressions: Chest X-Ray 05/16/17 06:00 IMPRESSION: 1. Interval increase in right basilar opacities and possible small right pleural effusion. 2. Interval removal of endotracheal tube and NG tube. Assessment & Plan - Diagnosis (1) Debility Is this a current diagnosis for this admission?: Yes Plan: Consult will be placed for PT/OT and speech. (2) Decreased urine output Is this a current diagnosis for this admission?: Yes Plan: Resolving. (3) Hematuria Qualifiers: Hematuria type: gross Qualified Code(s): R31.0 - Gross hematuria Is this a current diagnosis for this admission?: Yes Plan: [place] to be trauma. Will need to be followed up after discharge. (4) Hypothermia Is this a current diagnosis for this admission?: Yes Plan: Resolved. (5) Lung collapse Is this a current diagnosis for this admission?: Yes Plan: Chest x-ray dated yesterday looked a little bit worse, likely from extubation. Patient is clinically improving. (6) Pneumonia Qualifiers: Pneumonia type: due to unspecified organism Laterality: right Lung location: unspecified part of lung Qualified Code(s): J18.9 - Pneumonia, unspecified organism Is this a current diagnosis for this admission?: Yes Plan: Sputum culture from 05/07/2017 demonstrated Streptococcus pneumoniae, Klebsiella pneumoniae, Haemophilus influenza A with normal efrain being absent. Sputum culture from 05/08/2017 demonstrated Haemophilus influenza A with C albicans and C Dubliniensis. She is status post a course of therapy with Levaquin. (7) Respiratory failure with hypoxia and hypercapnia Qualifiers: Chronicity: acute Qualified Code(s): J96.01 - Acute respiratory failure with hypoxia; J96.02 - Acute respiratory failure with hypercapnia; J96.02 - Acute respiratory failure with hypercapnia; J96.02 - Acute respiratory failure with hypercapnia Is this a current diagnosis for this admission?: Yes Plan: Patient is receiving oxygen when awake and BiPAP when asleep. (8) Substance abuse Is this a current diagnosis for this admission?: Yes (9) Acute metabolic encephalopathy Is this a current diagnosis for this admission?: Yes - Time Time Spent with patient: 25-34 minutes - Inpatient Certification Medical Necessity: Significant Comorbidiites Make Outpatient Treatment Too Risky , Need Close Monitoring Due to Risk of Patient Decompensation, Need For Continuous Telemetry Monitoring, Need for Neurological Checks, Risk of Complication if Not Cared For in Hospital
[2017-05-17] MEDS ORDERED: ENOXAPARIN SODIUM INJ 40 MG/0.4 ML DISP.SYRIN SUBCUT ONE (12:00)
--- NOTE | 2017-05-17 15:54 | PDOC PROGRESS REPORT ---
Subjective Progress Note for:: 05/15/17 Subjective:: intubated;sedated Reason For Visit: ASPIRATION PNEUMONIA, COPD EXACERBATION Physical Exam Vital Signs: Temp Pulse Resp BP Pulse Ox 96.8 F L 62 15 141/67 H 93 05/15/17 08:00 05/15/17 08:00 05/15/17 08:00 05/15/17 08:00 05/15/17 08:00 Intake & Output 05/14/17 05/15/17 05/16/17 06:59 06:59 06:59 Intake Total 2247 2005 Output Total 3005 2295 125 Balance -758 -289 -125 Weight 109.4 kg 109.1 kg General appearance: PRESENT: no acute distress, disheveled, obese. ABSENT: cooperative, mild distress, morbidly obese, severe distress, thin Head exam: PRESENT: atraumatic, normocephalic Eye exam: PRESENT: conjunctiva pale, EOMI. ABSENT: conjunctival injection, conjunctiva pink, nystagmus, periorbital swelling Mouth exam: PRESENT: dry mucosa, neck supple, tongue midline, other - ET tube. ABSENT: laceration, moist Neck exam: ABSENT: carotid bruit, JVD, lymphadenopathy, thyromegaly, tracheal deviation, tracheostomy Respiratory exam: PRESENT: decreased breath sounds, prolonged expiratory phas, symmetrical, unlabored, wheezes. ABSENT: accessory muscle use, chest wall tenderness, clear to auscultation caleb, crackles, retraction, stridor, tachypnea Cardiovascular exam: PRESENT: RRR, +S1, +S2. ABSENT: bradycardia Pulses: PRESENT: normal radial pulses GI/Abdominal exam: PRESENT: diminished bowel sounds, soft Skin exam: PRESENT: dry, warm Results Laboratory Results: 05/15/17 04:50 05/15/17 04:50 05/14/17 05/15/17 05/15/17 14:00 04:50 04:50 WBC 6.7 RBC 3.47 L Hgb 10.3 L Hct 31.5 L MCV 91 MCH 29.7 MCHC 32.8 RDW 14.4 H Plt Count 183 Seg Neutrophils % 85.3 H Lymphocytes % 10.2 L Monocytes % 4.3 Eosinophils % 0.1 Basophils % 0.1 Absolute Neutrophils 5.7 Absolute Lymphocytes 0.7 Absolute Monocytes 0.3 Absolute Eosinophils 0.0 Absolute Basophils 0.0 Carbonic Acid HCO3/H2CO3 Ratio ABG pH ABG pCO2 ABG pO2 ABG HCO3 ABG O2 Saturation ABG Base Excess FiO2 Sodium 144.0 Potassium 3.9 Chloride 106 Carbon Dioxide 30 Anion Gap 8 BUN 19 Creatinine 0.44 L Est GFR ( Amer) > 60 Est GFR (Non-Af Amer) > 60 Glucose 124 H Calcium 8.8 Phosphorus 4.2 Magnesium 2.3 Urine Color RED Urine Appearance CLOUDY Urine pH 7.0 Ur Specific [place] 1.018 Urine Protein 100 H Urine Glucose (UA) NEGATIVE Urine Ketones TRACE H Urine Blood LARGE H Urine Nitrite NEGATIVE Ur Leukocyte Esterase NEGATIVE Urine WBC (Auto) 41 Urine RBC (Auto) >182 05/15/17 05:06 WBC RBC Hgb Hct MCV MCH MCHC RDW Plt Count Seg Neutrophils % Lymphocytes % Monocytes % Eosinophils % Basophils % Absolute Neutrophils Absolute Lymphocytes Absolute Monocytes Absolute Eosinophils Absolute Basophils Carbonic Acid 1.69 H HCO3/H2CO3 Ratio 19:1 ABG pH 7.38 ABG pCO2 56.2 H ABG pO2 72.3 L ABG HCO3 32.8 H ABG O2 Saturation 94.0 ABG Base Excess 6.3 FiO2 50% Sodium Potassium Chloride Carbon Dioxide Anion Gap BUN Creatinine Est GFR ( Amer) Est GFR (Non-Af Amer) Glucose Calcium Phosphorus Magnesium Urine Color Urine Appearance Urine pH Ur Specific [place] Urine Protein Urine Glucose (UA) Urine Ketones Urine Blood Urine Nitrite Ur Leukocyte Esterase Urine WBC (Auto) Urine RBC (Auto) 05/11/17 05/12/17 05:34 03:48 NT-Pro-B Natriuret Pep 377 342 Impressions: Chest X-Ray 05/14/17 07:56 IMPRESSION: ETT, NG tube in good positioning. Mild bibasilar airspace disease, stable Assessment & Plan - Diagnosis (1) Altered mental status Qualifiers: Altered mental status type: unspecified Qualified Code(s): R41.82 - Altered mental status, unspecified Is this a current diagnosis for this admission?: Yes Plan: unable to evaluate at this time (2) Pneumonia Qualifiers: Pneumonia type: due to unspecified organism Laterality: right Lung location: unspecified part of lung Qualified Code(s): J18.9 - Pneumonia, unspecified organism Is this a current diagnosis for this admission?: Yes Plan: 05/08/17 12:15 Gram Stain - Final Tracheal Aspirate Sputum Culture - Final Haemophilus Influenzae C.albicans/C.dubliniensis Greatly Reduced Normal [place] 05/07/17 20:30 Gram Stain - Final Sputum Sputum Culture - Final Streptococcus Pneumoniae Klebsiella Pneumoniae Haemophilus Influenzae Normal [place] Absent (3) Acute on chronic respiratory failure with hypoxia and hypercapnia Is this a current diagnosis for this admission?: Yes Plan: extubate (4) Obstructive sleep apnea Is this a current diagnosis for this admission?: Yes Plan: Nocturnal polysomnogram (5) Obesity Qualifiers: Body mass index: BMI 45.0-49.9 Is this a current diagnosis for this admission?: Yes Plan: unchanged (6) Tobacco abuse Is this a current diagnosis for this admission?: Yes Plan: transdermal nicotine - Time Total Critical Time (Minutes): 55
--- NOTE | 2017-05-17 16:01 | PDOC PROGRESS REPORT ---
Subjective Progress Note for:: 05/16/17 Subjective:: 24hrs sp extubation confused Reason For Visit: ASPIRATION PNEUMONIA, COPD EXACERBATION Physical Exam Vital Signs: Temp Pulse Resp BP Pulse Ox 97.7 F 556 H 19 142/72 H 96 05/16/17 08:00 05/16/17 08:00 05/16/17 08:00 05/16/17 08:00 05/16/17 08:00 Intake & Output 05/15/17 05/16/17 05/17/17 06:59 06:59 06:59 Intake Total 2005 1852 Output Total 2292 2976 400 Balance -289 -1122 -400 Weight 109.1 kg 108.7 kg Results Laboratory Results: 05/16/17 03:56 05/16/17 03:56 05/15/17 05/16/17 05/16/17 13:55 03:56 03:56 WBC 7.7 RBC 3.71 L Hgb 11.0 L Hct 33.5 L MCV 90 MCH 29.6 MCHC 32.8 RDW 14.8 H Plt Count 179 Seg Neutrophils % Not Reportable Lymphocytes % Not Reportable Monocytes % Not Reportable Eosinophils % Not Reportable Basophils % Not Reportable Absolute Neutrophils Not Reportable Absolute Lymphocytes Not Reportable Absolute Monocytes Not Reportable Absolute Eosinophils Not Reportable Absolute Basophils Not Reportable Carbonic Acid 1.61 H HCO3/H2CO3 Ratio 21:1 ABG pH 7.43 ABG pCO2 53.4 H ABG pO2 96.2 ABG HCO3 34.3 H ABG O2 Saturation 97.4 ABG Base Excess 8.5 FiO2 50% Sodium 145.8 H Potassium 3.8 Chloride 106 Carbon Dioxide 33 H Anion Gap 7 BUN 16 Creatinine 0.44 L Est GFR ( Amer) > 60 Est GFR (Non-Af Amer) > 60 Glucose 96 Calcium 9.2 Phosphorus 3.3 Magnesium 2.3 05/16/17 05:20 WBC RBC Hgb Hct MCV MCH MCHC RDW Plt Count Seg Neutrophils % Lymphocytes % Monocytes % Eosinophils % Basophils % Absolute Neutrophils Absolute Lymphocytes Absolute Monocytes Absolute Eosinophils Absolute Basophils Carbonic Acid 1.63 H HCO3/H2CO3 Ratio 20:1 ABG pH 7.40 ABG pCO2 54.0 H ABG pO2 95.5 ABG HCO3 33.0 H ABG O2 Saturation 97.2 ABG Base Excess 6.9 FiO2 50% Sodium Potassium Chloride Carbon Dioxide Anion Gap BUN Creatinine Est GFR ( Amer) Est GFR (Non-Af Amer) Glucose Calcium Phosphorus Magnesium 05/11/17 05/12/17 05:34 03:48 NT-Pro-B Natriuret Pep 377 342 Impressions: Chest X-Ray 05/16/17 06:00 IMPRESSION: 1. Interval increase in right basilar opacities and possible small right pleural effusion. 2. Interval removal of endotracheal tube and NG tube. Assessment & Plan - Diagnosis (1) Altered mental status Qualifiers: Altered mental status type: unspecified Qualified Code(s): R41.82 - Altered mental status, unspecified Is this a current diagnosis for this admission?: Yes Plan: unchanged (2) Pneumonia Qualifiers: Pneumonia type: due to unspecified organism Laterality: right Lung location: unspecified part of lung Qualified Code(s): J18.9 - Pneumonia, unspecified organism Is this a current diagnosis for this admission?: Yes Plan: 05/08/17 12:15 Gram Stain - Final Tracheal Aspirate Sputum Culture - Final Haemophilus Influenzae C.albicans/C.dubliniensis Greatly Reduced Normal [place] 05/07/17 20:30 Gram Stain - Final Sputum Sputum Culture - Final Streptococcus Pneumoniae Klebsiella Pneumoniae Haemophilus Influenzae Normal [place] Absent (3) Acute on chronic respiratory failure with hypoxia and hypercapnia Is this a current diagnosis for this admission?: Yes Plan: stable (4) Obstructive sleep apnea Is this a current diagnosis for this admission?: Yes Plan: Nocturnal polysomnogram (5) Obesity Qualifiers: Body mass index: BMI 45.0-49.9 Is this a current diagnosis for this admission?: Yes Plan: unchanged (6) Tobacco abuse Is this a current diagnosis for this admission?: Yes Plan: transdermal nicotine - Time Total Critical Time (Minutes): 45
--- NOTE | 2017-05-17 16:13 | PDOC PROGRESS REPORT ---
Subjective Progress Note for:: 05/17/17 Subjective:: pleasantly confused Reason For Visit: ASPIRATION PNEUMONIA, COPD EXACERBATION Physical Exam Vital Signs: Temp Pulse Resp BP Pulse Ox 96.8 F L 74 19 112/70 96 05/17/17 08:00 05/17/17 08:11 05/17/17 08:11 05/17/17 08:00 05/17/17 08:00 Intake & Output 05/16/17 05/17/17 05/18/17 06:59 06:59 06:59 Intake Total 1853 1644 Output Total 2974 4754 Balance -1122 -3110 Weight 108.7 kg 108.2 kg General appearance: PRESENT: no acute distress, cooperative, obese. ABSENT: disheveled, mild distress, morbidly obese Head exam: PRESENT: atraumatic, normocephalic Eye exam: PRESENT: conjunctiva pale, EOMI. ABSENT: conjunctival injection, conjunctiva pink, nystagmus, periorbital swelling, other Mouth exam: PRESENT: dry mucosa, neck supple, tongue midline Teeth exam: PRESENT: poor dentation Neck exam: ABSENT: carotid bruit, JVD, lymphadenopathy, thyromegaly, tracheal deviation, tracheostomy Respiratory exam: PRESENT: decreased breath sounds, prolonged expiratory phas, rhonchi, symmetrical, unlabored, wheezes. ABSENT: accessory muscle use, chest wall tenderness, clear to auscultation caleb, crackles, stridor, tachypnea Cardiovascular exam: PRESENT: RRR, +S1, +S2 Pulses: PRESENT: normal radial pulses GI/Abdominal exam: PRESENT: diminished bowel sounds, soft Extremities exam: ABSENT: clubbing, joint swelling Musculoskeletal exam: ABSENT: ambulatory, deformity, dislocation Neurological exam: PRESENT: awake. ABSENT: alert Psychiatric exam: PRESENT: flat affect Focused psych exam: PRESENT: delusional Skin exam: PRESENT: dry, warm Results Laboratory Results: 05/17/17 04:09 05/17/17 04:09 05/17/17 05/17/17 05/17/17 04:09 04:09 06:15 WBC 7.1 RBC 3.69 L Hgb 10.9 L Hct 33.7 L MCV 91 MCH 29.5 MCHC 32.4 RDW 14.6 H Plt Count 174 Seg Neutrophils % Not Reportable Lymphocytes % Not Reportable Monocytes % Not Reportable Eosinophils % Not Reportable Basophils % Not Reportable Absolute Neutrophils Not Reportable Absolute Lymphocytes Not Reportable Absolute Monocytes Not Reportable Absolute Eosinophils Not Reportable Absolute Basophils Not Reportable Carbonic Acid 1.98 H HCO3/H2CO3 Ratio 18:1 ABG pH 7.37 ABG pCO2 65.8 H ABG pO2 87.1 ABG HCO3 37.0 H ABG O2 Saturation 96.0 ABG Base Excess 9.6 FiO2 45% Sodium 145.3 H Potassium 3.8 Chloride 105 Carbon Dioxide 35 H Anion Gap 5 BUN 18 Creatinine 0.43 L Est GFR ( Amer) > 60 Est GFR (Non-Af Amer) > 60 Glucose 123 H Calcium 8.8 05/14/17 14:00 Tellez Catheter Urine Culture - Final C.albicans/C.dubliniensis 05/11/17 05/12/17 05:34 03:48 NT-Pro-B Natriuret Pep 377 342 Impressions: Chest X-Ray 05/16/17 06:00 IMPRESSION: 1. Interval increase in right basilar opacities and possible small right pleural effusion. 2. Interval removal of endotracheal tube and NG tube. Assessment & Plan - Diagnosis (1) Altered mental status Qualifiers: Altered mental status type: unspecified Qualified Code(s): R41.82 - Altered mental status, unspecified Is this a current diagnosis for this admission?: Yes Plan: unchanged (2) Pneumonia Qualifiers: Pneumonia type: due to unspecified organism Laterality: right Lung location: unspecified part of lung Qualified Code(s): J18.9 - Pneumonia, unspecified organism Is this a current diagnosis for this admission?: Yes Plan: 05/08/17 12:15 Gram Stain - Final Tracheal Aspirate Sputum Culture - Final Haemophilus Influenzae C.albicans/C.dubliniensis Greatly Reduced Normal [place] 05/07/17 20:30 Gram Stain - Final Sputum Sputum Culture - Final Streptococcus Pneumoniae Klebsiella Pneumoniae Haemophilus Influenzae Normal [place] Absent (3) Acute on chronic respiratory failure with hypoxia and hypercapnia Is this a current diagnosis for this admission?: Yes (4) Obstructive sleep apnea Is this a current diagnosis for this admission?: Yes Plan: npsg? (5) Obesity Qualifiers: Body mass index: BMI 45.0-49.9 Is this a current diagnosis for this admission?: Yes Plan: unchanged (6) Tobacco abuse Is this a current diagnosis for this admission?: Yes Plan: transdermal nicotine
[2017-05-17] MEDS: METHYLPREDNISOLONE INJ 40 MG/1 ML SDV IV SCH (21:04)
[2017-05-18] MEDS: IPRATROPIUM/ALBUTEROL 0.5-2.5 MG/3 ML AMPUL NEB SCH ×4 (01:52→21:48)
[2017-05-18 04:18] LABS: ABSOLUTE LYMPHOCYTES (AUTO) 1.1 10^3/uL (0.5-4.7); ABSOLUTE MONOCYTES (AUTO) 0.5 10^3/uL (0.1-1.4); BASOPHILS % (AUTO) 0.5 % (0-2); EOSINOPHILS % (AUTO) 0.2 % (0-6); HEMATOCRIT 35.1 % (36.0-47.0); HEMOGLOBIN 11.4 g/dL (12.0-15.5); LYMPHOCYTES % (AUTO) 12.9 % (13-45); MEAN CORPUSCULAR HGB CONC 32.6 g/dL (32.0-36.0); MEAN CORPUSCULAR VOLUME 92 fl (80-97); MONOCYTES % (AUTO) 5.8 % (3-13); PLATELET COUNT 156 10^3/uL (150-450); RED BLOOD COUNT 3.82 10^6/uL (3.72-5.28); RED CELL DISTRIBUTION WIDTH 14.5 % (11.5-14.0); SEGMENTED NEUTROPHILS % (AUTO) 80.6 % (42-78); TOTAL CELLS COUNTED % (AUTO) 100 %; WHITE BLOOD COUNT 8.7 10^3/uL (4.0-10.5)
[2017-05-18 04:39] LABS: ANION GAP 6 (5-19); BLOOD UREA NITROGEN 23 mg/dL (7-20); CALCIUM 8.7 mg/dL (8.4-10.2); CARBON DIOXIDE 36 mmol/L (22-30); CHLORIDE 105 mmol/L (98-107); GLUCOSE 124 mg/dL (75-110); POTASSIUM 3.3 mmol/L (3.6-5.0); SODIUM 147.1 mmol/L (137-145)
[2017-05-18] MEDS: LANSOPRAZOLE 30 MG TAB.RAP.DR PO SCH ×2 (05:01→18:49)
[2017-05-18] MEDS: BENZONATATE 100 MG CAPSULE PO SCH ×3 (05:01→21:34)
[2017-05-18] MEDS: GABAPENTIN 400 MG CAPSULE PO SCH ×2 (05:01→13:43)
[2017-05-18 05:04] LABS: ARTERIAL BLOOD BASE EXCESS 8.7 mmol/L; ARTERIAL BLOOD H2CO3 1.91 mmol/L (1.05-1.35); ARTERIAL BLOOD HCO3 36.1 mmol/L (20-26); ARTERIAL BLOOD O2 SATURATION 90.1 % (94-98); ARTERIAL BLOOD PCO2 63.3 mmHg (35-45); ARTERIAL BLOOD PH 7.37 (7.35-7.45); ARTERIAL BLOOD PO2 61.1 mmHg (80-100)
[2017-05-18 05:05] LABS: ARTERIAL BLOOD FIO2 3.5L
[2017-05-18] MEDS ORDERED: POTASSIUM CHLORIDE 10 MEQ TABLET.SA PO ONE (07:39)
[2017-05-18] MEDS: BUDESONIDE NEB 0.5 MG/2 ML AMPUL NEB SCH ×2 (07:49→21:48)
[2017-05-18] MEDS: ARIPIPRAZOLE 5 MG TABLET PO SCH (08:51)
[2017-05-18] MEDS: ENOXAPARIN SODIUM INJ 40 MG/0.4 ML DISP.SYRIN SUBCUT SCH (08:54)
[2017-05-18] MEDS: VALPROATE SODIUM SYRUP 250 MG/5 ML UDCUP PO SCH ×2 (08:55→18:49)
[2017-05-18] MEDS ORDERED: POTASSIUM CHLORIDE 20 MEQ/15 ML UDCUP PO ONE (09:00)
[2017-05-18] MEDS: CLONAZEPAM 1 MG TABLET PO SCH ×2 (09:00→21:34)
[2017-05-18] MEDS: METHYLPREDNISOLONE INJ 40 MG/1 ML SDV IV SCH ×2 (09:00→21:34)
--- NOTE | 2017-05-18 14:48 | PDOC PROGRESS REPORT ---
Subjective Progress Note for:: 05/18/17 Subjective:: The patient was admitted for acute respiratory failure. This is likely multifactorial secondary to polysubstance abuse, obesity, obstructive sleep apnea and pneumonia. She was extubated to BiPAP on 05/15/2016. According to what the notes have documented and according to what the patient's nurse is telling me her mental status and clarity have improved substantially. She had an unremarkable evening. Reason For Visit: ASPIRATION PNEUMONIA, COPD EXACERBATION Physical Exam Vital Signs: Temp Pulse Resp BP Pulse Ox 98.6 F 78 16 119/58 L 97 05/18/17 12:00 05/18/17 13:46 05/18/17 13:46 05/18/17 12:30 05/18/17 13:46 Intake & Output 05/17/17 05/18/17 05/19/17 06:59 06:59 06:59 Intake Total 1644 255 240 Output Total 4754 1125 325 Balance -3110 -870 -85 Weight 108.2 kg 108.8 kg Additional comments: The patient was sitting up. She is awake. She knows that she is in the hospital. She is answering questions appropriately and she is able to follow commands. Her facial appearance is unremarkable. Her lungs demonstrate decreased breath sounds but they are clear both anteriorly and posteriorly. Her cardiac exam is regular without murmurs, gallops rubs. The abdomen is obese but soft. Bowel sounds are present. The lower extremities are warm to touch without pitting edema. The skin is clean, warm, dry and intact without lesions or rashes. Results Laboratory Results: 05/18/17 03:49 05/18/17 03:49 05/18/17 05/18/17 05/18/17 03:49 03:49 04:55 WBC 8.7 RBC 3.82 Hgb 11.4 L Hct 35.1 L MCV 92 MCH 30.0 MCHC 32.6 RDW 14.5 H Plt Count 156 Seg Neutrophils % 80.6 H Lymphocytes % 12.9 L Monocytes % 5.8 Eosinophils % 0.2 Basophils % 0.5 Absolute Neutrophils 7.0 Absolute Lymphocytes 1.1 Absolute Monocytes 0.5 Absolute Eosinophils 0.0 Absolute Basophils 0.0 Carbonic Acid 1.91 H HCO3/H2CO3 Ratio 18:1 ABG pH 7.37 ABG pCO2 63.3 H ABG pO2 61.1 L ABG HCO3 36.1 H ABG O2 Saturation 90.1 L ABG Base Excess 8.7 FiO2 3.5L Sodium 147.1 H Potassium 3.3 L Chloride 105 Carbon Dioxide 36 H Anion Gap 6 BUN 23 H Creatinine 0.47 L Est GFR ( Amer) > 60 Est GFR (Non-Af Amer) > 60 Glucose 124 H Calcium 8.7 05/11/17 05/12/17 05:34 03:48 NT-Pro-B Natriuret Pep 377 342 Impressions: Chest X-Ray 05/16/17 06:00 IMPRESSION: 1. Interval increase in right basilar opacities and possible small right pleural effusion. 2. Interval removal of endotracheal tube and NG tube. Assessment & Plan - Diagnosis (1) Debility Is this a current diagnosis for this admission?: Yes Plan: Consult has been placed for PT/OT and speech. (2) Decreased urine output Is this a current diagnosis for this admission?: Yes Plan: Resolving. (3) Hematuria Qualifiers: Hematuria type: gross Qualified Code(s): R31.0 - Gross hematuria Is this a current diagnosis for this admission?: Yes Plan: [place] to be trauma. Will need to be followed up after discharge. (4) Hypothermia Is this a current diagnosis for this admission?: Yes Plan: Resolved. (5) Lung collapse Is this a current diagnosis for this admission?: Yes Plan: Chest x-ray 05/16/17 looked a little bit worse, likely from extubation. Patient is clinically improving. (6) Pneumonia Qualifiers: Pneumonia type: due to unspecified organism Laterality: right Lung location: unspecified part of lung Qualified Code(s): J18.9 - Pneumonia, unspecified organism Is this a current diagnosis for this admission?: Yes Plan: Sputum culture from 05/07/2017 demonstrated Streptococcus pneumoniae, Klebsiella pneumoniae, Haemophilus influenza A with normal efrain being absent. Sputum culture from 05/08/2017 demonstrated Haemophilus influenza A with C albicans and C Dubliniensis. She is status post a course of therapy with Levaquin. (7) Respiratory failure with hypoxia and hypercapnia Qualifiers: Chronicity: acute Qualified Code(s): J96.01 - Acute respiratory failure with hypoxia; J96.02 - Acute respiratory failure with hypercapnia; J96.02 - Acute respiratory failure with hypercapnia; J96.02 - Acute respiratory failure with hypercapnia Is this a current diagnosis for this admission?: Yes Plan: Patient is receiving oxygen when awake and BiPAP when asleep. (8) Substance abuse Is this a current diagnosis for this admission?: Yes Plan: Patient should receive counseling for substance abuse. (9) Acute metabolic encephalopathy Is this a current diagnosis for this admission?: Yes Plan: Likely secondary to medication effect and CO2 narcosis. Resolving. - Time Time Spent with patient: 25-34 minutes - Inpatient Certification Medical Necessity: Need For Continuous Telemetry Monitoring, Need for Neurological Checks, Risk of Complication if Not Cared For in Hospital - Plan Summary Plan Summary: Patient is improving. However, she is still requiring an excessive amount of nursing care. I plan to leave her in the ICU today but hopefully can get her to a stepdown tomorrow. At this point in time her medical issues are stabilizing but she will require physical therapy, Occupational Therapy and speech therapy services before she can be safely discharged. We will also assess at that time whether or not she would benefit from temporary placement.
[2017-05-19] MEDS: IPRATROPIUM/ALBUTEROL 0.5-2.5 MG/3 ML AMPUL NEB SCH ×4 (02:09→20:38)
[2017-05-19 06:09] LABS: ABSOLUTE LYMPHOCYTES (AUTO) 1.2 10^3/uL (0.5-4.7); ABSOLUTE MONOCYTES (AUTO) 0.4 10^3/uL (0.1-1.4); ABSOLUTE NEUT (AUTO) 6.3 10^3/uL (1.7-8.2); BASOPHILS % (AUTO) 0.2 % (0-2); EOSINOPHILS % (AUTO) 0.5 % (0-6); HEMATOCRIT 36.2 % (36.0-47.0); HEMOGLOBIN 11.8 g/dL (12.0-15.5); LYMPHOCYTES % (AUTO) 15.1 % (13-45); MEAN CORPUSCULAR HEMOGLOBIN 29.7 pg (27.0-33.4); MEAN CORPUSCULAR HGB CONC 32.7 g/dL (32.0-36.0); MEAN CORPUSCULAR VOLUME 91 fl (80-97); MONOCYTES % (AUTO) 4.9 % (3-13); PLATELET COUNT 173 10^3/uL (150-450); RED BLOOD COUNT 3.99 10^6/uL (3.72-5.28); RED CELL DISTRIBUTION WIDTH 14.8 % (11.5-14.0); SEGMENTED NEUTROPHILS % (AUTO) 79.3 % (42-78); TOTAL CELLS COUNTED % (AUTO) 100 %
[2017-05-19 06:12] LABS: BLOOD UREA NITROGEN 14 mg/dL (7-20); CALCIUM 8.6 mg/dL (8.4-10.2); CHLORIDE 99 mmol/L (98-107); GLUCOSE 99 mg/dL (75-110); MAGNESIUM 2.2 mg/dL (1.6-2.3); POTASSIUM 3.7 mmol/L (3.6-5.0); SODIUM 144.5 mmol/L (137-145)
[2017-05-19 06:24] LABS: ANION GAP 3 (5-19)
[2017-05-19 06:26] LABS: CARBON DIOXIDE 43 mmol/L (22-30)
[2017-05-19] MEDS: LANSOPRAZOLE 30 MG TAB.RAP.DR PO SCH ×2 (06:32→17:23)
[2017-05-19] MEDS: BENZONATATE 100 MG CAPSULE PO SCH ×3 (06:33→21:51)
[2017-05-19] MEDS: GABAPENTIN 400 MG CAPSULE PO SCH ×2 (06:33→14:17)
[2017-05-19 07:34] LABS: ARTERIAL BLOOD BASE EXCESS 16.6 mmol/L; ARTERIAL BLOOD FIO2 40%; ARTERIAL BLOOD H2CO3 1.78 mmol/L (1.05-1.35); ARTERIAL BLOOD HCO3 42.9 mmol/L (20-26); ARTERIAL BLOOD O2 SATURATION 96.8 % (94-98); ARTERIAL BLOOD PH 7.48 (7.35-7.45); ARTERIAL BLOOD PO2 85.7 mmHg (80-100); ARTERIAL BLOOD TOTAL CO2 44.7 mmol/L (21-25)
[2017-05-19] MEDS: BUDESONIDE NEB 0.5 MG/2 ML AMPUL NEB SCH ×2 (08:15→20:38)
--- NOTE | 2017-05-19 08:34 | RADIOLOGY REPORT (SQ) ---
EXAM DESCRIPTION: CHEST SINGLE VIEW COMPLETED DATE/TIME: 05/19/2017 7:12 am REASON FOR STUDY: resp failure COMPARISON: Chest films 08/29/2015, 05/07/2017, 05/14/2017, 05/16/2017 EXAM PARAMETERS: NUMBER OF VIEWS: One view. TECHNIQUE: Single frontal radiographic view of the chest acquired. RADIATION DOSE: NA LIMITATIONS: None. FINDINGS: LUNGS AND PLEURA: Minimal persistent bibasilar airspace disease, atelectasis versus pneumo payam. No pleural effusion. No pneumothorax. MEDIASTINUM AND HILAR STRUCTURES: No masses. Contour normal. HEART AND VASCULAR STRUCTURES: Borderline cardiomegaly accentuated by AP portable technique BONES: No acute findings. HARDWARE: None in the chest. OTHER: No other significant finding. IMPRESSION: Minimal bibasilar airspace disease, atelectasis versus pneumonia TECHNICAL DOCUMENTATION: JOB ID: [id number] [employer]- All Rights Reserved
[2017-05-19] MEDS: CLONAZEPAM 1 MG TABLET PO SCH ×2 (09:12→21:51)
[2017-05-19] MEDS: ENOXAPARIN SODIUM INJ 40 MG/0.4 ML DISP.SYRIN SUBCUT SCH (09:12)
[2017-05-19] MEDS: ARIPIPRAZOLE 5 MG TABLET PO SCH (09:13)
[2017-05-19] MEDS: METHYLPREDNISOLONE INJ 40 MG/1 ML SDV IV SCH (09:13)
[2017-05-19] MEDS: VALPROATE SODIUM SYRUP 250 MG/5 ML UDCUP PO SCH ×2 (09:13→17:23)
--- NOTE | 2017-05-19 11:35 | PDOC PROGRESS REPORT ---
Subjective Progress Note for:: 05/19/17 Subjective:: The patient was admitted for acute respiratory failure. This is likely multifactorial secondary to polysubstance abuse, obesity, obstructive sleep apnea and pneumonia. She was extubated to BiPAP on 05/15/2016. According to what the notes have documented and according to what the patient's nurse is telling me her mental status and clarity have improved substantially. Over the last 48 hours she has been able to tell me where she is and why she is here. She also relates a previous episode of a drug overdose. She agrees that substance abuse counseling is needed. Reason For Visit: ASPIRATION PNEUMONIA, COPD EXACERBATION Physical Exam Vital Signs: Temp Pulse Resp BP Pulse Ox 98.2 F 70 18 130/66 H 95 05/19/17 07:28 05/19/17 08:15 05/19/17 08:15 05/19/17 07:28 05/19/17 08:15 Intake & Output 05/18/17 05/19/17 05/20/17 06:59 06:59 06:59 Intake Total 255 305 Output Total 1125 2975 Balance -870 -2670 Weight 108.8 kg 106.8 kg Additional comments: The patient appears to be approximately her stated age. She is obese. Her facial appearance is otherwise unremarkable. Her lungs demonstrate bilateral wheezing which is present both anteriorly and posteriorly. The cardiac exam is distant but regular. I do not appreciate any murmurs, gallops or rubs. The abdomen is obese but soft. Bowel sounds are noted but are infrequent. There is no guarding or rebound noted. The lower extremities demonstrate 1+ edema. The upper extremities also demonstrate 1+ edema. The skin is otherwise warm dry and intact without lesions or rashes. Results Laboratory Results: 05/19/17 05:27 05/19/17 05:27 05/19/17 05/19/17 05/19/17 05:27 05:27 06:10 WBC 8.0 RBC 3.99 Hgb 11.8 L Hct 36.2 MCV 91 MCH 29.7 MCHC 32.7 RDW 14.8 H Plt Count 173 Seg Neutrophils % 79.3 H Lymphocytes % 15.1 Monocytes % 4.9 Eosinophils % 0.5 Basophils % 0.2 Absolute Neutrophils 6.3 Absolute Lymphocytes 1.2 Absolute Monocytes 0.4 Absolute Eosinophils 0.0 Absolute Basophils 0.0 Carbonic Acid 1.78 H HCO3/H2CO3 Ratio 24:1 ABG pH 7.48 H ABG pCO2 59.0 H ABG pO2 85.7 ABG HCO3 42.9 H ABG O2 Saturation 96.8 ABG Base Excess 16.6 FiO2 40% Sodium 144.5 Potassium 3.7 Chloride 99 Carbon Dioxide 43 H* Anion Gap 3 L BUN 14 Creatinine 0.39 L Est GFR ( Amer) > 60 Est GFR (Non-Af Amer) > 60 Glucose 99 Calcium 8.6 Magnesium 2.2 05/11/17 05/12/17 05:34 03:48 NT-Pro-B Natriuret Pep 377 342 Impressions: Chest X-Ray 05/19/17 06:00 IMPRESSION: Minimal bibasilar airspace disease, atelectasis versus pneumonia Assessment & Plan - Diagnosis (1) Debility Is this a current diagnosis for this admission?: Yes Plan: Consult has been placed for PT/OT and speech. (2) Decreased urine output Is this a current diagnosis for this admission?: Yes Plan: Resolving. (3) Hematuria Qualifiers: Hematuria type: gross Qualified Code(s): R31.0 - Gross hematuria Is this a current diagnosis for this admission?: Yes Plan: [place] to be trauma. Will repeat. (4) Hypothermia Is this a current diagnosis for this admission?: Yes Plan: Resolved. (5) Lung collapse Is this a current diagnosis for this admission?: Yes Plan: Chest x-ray improved today. (6) Pneumonia Qualifiers: Pneumonia type: due to unspecified organism Laterality: right Lung location: unspecified part of lung Qualified Code(s): J18.9 - Pneumonia, unspecified organism Is this a current diagnosis for this admission?: Yes Plan: Sputum culture from 05/07/2017 demonstrated Streptococcus pneumoniae, Klebsiella pneumoniae, Haemophilus influenza A with normal efrain being absent. Sputum culture from 05/08/2017 demonstrated Haemophilus influenza A with C albicans and C Dubliniensis. She is status post a course of therapy with Levaquin. (7) Respiratory failure with hypoxia and hypercapnia Qualifiers: Chronicity: acute Qualified Code(s): J96.01 - Acute respiratory failure with hypoxia; J96.02 - Acute respiratory failure with hypercapnia; J96.02 - Acute respiratory failure with hypercapnia; J96.02 - Acute respiratory failure with hypercapnia Is this a current diagnosis for this admission?: Yes Plan: Patient is receiving oxygen when awake and BiPAP when asleep. (8) Substance abuse Is this a current diagnosis for this admission?: Yes Plan: Patient should receive counseling for substance abuse. This can be started prior to discharge. However, at this time her cognitive state is not yet appropriate for intensive therapy. Will hold on a consult for psychiatry. (9) Acute metabolic encephalopathy Is this a current diagnosis for this admission?: Yes (10) Metabolic alkalosis Is this a current diagnosis for this admission?: Yes Plan: The patient has developed a metabolic alkalosis. I suspect that this is secondary to exogenous steroids. This could be in addition to chronic hypercarbic respiratory failure. Please note that the primary process at this time is a metabolic alkalosis. Will continue to wean steroids. - Time Time Spent with patient: 15-24 minutes - Inpatient Certification Medical Necessity: Risk of Complication if Not Cared For in Hospital - The patient does not appear to be stable for discharge at this time. This is secondary to her mental status and overall debility. She may require jail facility placement. I will consult discharge planning.
[2017-05-19 17:00] LABS: APPEARANCE,URINE CLOUDY; BILIRUBIN,URINE NEGATIVE (NEGATIVE); COLOR,URINE YELLOW; GLUCOSE, URINE NEGATIVE (NEGATIVE); KETONES,URINE NEGATIVE (NEGATIVE); LEUKOCYTE ESTERASE,URINE MODERATE (NEGATIVE); NITRITE,URINE NEGATIVE (NEGATIVE); PROTEIN,URINE NEGATIVE (NEGATIVE); URINE SPECIFIC GRAVITY 1.006
[2017-05-20] MEDS: IPRATROPIUM/ALBUTEROL 0.5-2.5 MG/3 ML AMPUL NEB SCH ×4 (01:50→20:30)
[2017-05-20 06:23] LABS: BLOOD UREA NITROGEN 11 mg/dL (7-20); CALCIUM 8.4 mg/dL (8.4-10.2); GLUCOSE 88 mg/dL (75-110); POTASSIUM 3.3 mmol/L (3.6-5.0)
[2017-05-20] MEDS: GABAPENTIN 400 MG CAPSULE PO SCH ×2 (06:24→13:16)
[2017-05-20] MEDS: BENZONATATE 100 MG CAPSULE PO SCH ×3 (06:24→21:31)
[2017-05-20] MEDS: LANSOPRAZOLE 30 MG TAB.RAP.DR PO SCH ×2 (06:25→18:09)
[2017-05-20 06:59] LABS: CHLORIDE 99 mmol/L (98-107); SODIUM 142.2 mmol/L (137-145)
[2017-05-20 07:10] LABS: ANION GAP 1 (5-19)
[2017-05-20 07:13] LABS: CARBON DIOXIDE 42 mmol/L (22-30)
[2017-05-20] MEDS ORDERED: POTASSIUM CHLORIDE 10 MEQ TABLET.SA PO ONE (08:00)
[2017-05-20] MEDS: BUDESONIDE NEB 0.5 MG/2 ML AMPUL NEB SCH ×2 (08:49→20:30)
[2017-05-20] MEDS: ENOXAPARIN SODIUM INJ 40 MG/0.4 ML DISP.SYRIN SUBCUT SCH (09:08)
[2017-05-20] MEDS: CLONAZEPAM 1 MG TABLET PO SCH ×2 (09:08→21:31)
[2017-05-20] MEDS: VALPROATE SODIUM SYRUP 250 MG/5 ML UDCUP PO SCH ×2 (09:09→18:09)
[2017-05-20] MEDS: ARIPIPRAZOLE 5 MG TABLET PO SCH (09:09)
[2017-05-20] MEDS: PREDNISONE 20 MG TABLET PO SCH (09:09)
[2017-05-20 13:27] LABS: ARTERIAL BLOOD BASE EXCESS 14.3 mmol/L; ARTERIAL BLOOD HCO3 40.9 mmol/L (20-26); ARTERIAL BLOOD O2 SATURATION 95.4 % (94-98); ARTERIAL BLOOD PCO2 59.8 mmHg (35-45); ARTERIAL BLOOD PH 7.45 (7.35-7.45); ARTERIAL BLOOD PO2 75.7 mmHg (80-100); ARTERIAL BLOOD TOTAL CO2 42.7 mmol/L (21-25)
[2017-05-20 13:28] LABS: ARTERIAL BLOOD FIO2 4L
--- NOTE | 2017-05-20 13:55 | PDOC PROGRESS REPORT ---
Subjective Progress Note for:: 05/20/17 Subjective:: The patient was admitted for acute respiratory failure. This is likely multifactorial secondary to polysubstance abuse, obesity, obstructive sleep apnea and pneumonia. She was extubated to BiPAP on 05/15/2016. According to what the notes have documented and according to what the patient's nurse is telling me her mental status and clarity have improved substantially. Over the last 48 hours she has been able to tell me where she is and why she is here. She also relates a previous episode of a drug overdose. She agrees that substance abuse counseling is needed. Today, she knew her name and she knew where she was. She was unable to give me the date. She states that she wants to go home. I told her that she does not appear ready to go home. The nurses report that she has been dropping things and occasionally seeing things that are not there. Reason For Visit: ASPIRATION PNEUMONIA, COPD EXACERBATION Physical Exam Vital Signs: Temp Pulse Resp BP Pulse Ox 99.1 F 80 20 139/74 H 98 05/20/17 11:55 05/20/17 11:55 05/20/17 11:55 05/20/17 11:55 05/20/17 11:55 Intake & Output 05/19/17 05/20/17 05/21/17 06:59 06:59 06:59 Intake Total 305 1181 Output Total 2975 3300 Balance -2670 -2119 Weight 106.8 kg 103.8 kg Additional comments: The patient is a morbidly obese white female. She was awake and alert when I spoke to her. She correctly identified that she was in the hospital at [facility]. She did also identify that the current president is Mr. Aparicio. The patient's speech is noted to be somewhat slowed, but appropriate. Her pulmonary exam demonstrates decreased breath sounds particularly in the posterior bases. End expiratory wheezing is reduced from prior. The cardiac exam demonstrates a regular rate and rhythm without murmurs, gallops or rubs. The abdomen is obese but soft. Bowel sounds are present. There is not any guarding or rebound noted. The extremities continue to show approximately 1+ anasarca both upper and lower extremities. Otherwise, there are no acute skin lesions or rashes. Results Laboratory Results: 05/19/17 05:27 05/20/17 05:18 0105/20/17 05/20/17 16:25 05:18 13:10 Carbonic Acid 1.80 H HCO3/H2CO3 Ratio 22:1 ABG pH 7.45 ABG pCO2 59.8 H ABG pO2 75.7 L ABG HCO3 40.9 H ABG O2 Saturation 95.4 ABG Base Excess 14.3 FiO2 4L Sodium 142.2 Potassium 3.3 L Chloride 99 Carbon Dioxide 42 H* Anion Gap 1 L BUN 11 Creatinine 0.40 L Est GFR ( Amer) > 60 Est GFR (Non-Af Amer) > 60 Glucose 88 Calcium 8.4 Urine Color YELLOW Urine Appearance CLOUDY Urine pH 8.0 Ur Specific [place] 1.006 Urine Protein NEGATIVE Urine Glucose (UA) NEGATIVE Urine Ketones NEGATIVE Urine Blood MODERATE H Urine Nitrite NEGATIVE Ur Leukocyte Esterase MODERATE H Urine WBC (Auto) 56 Urine RBC (Auto) 121 05/11/17 05/12/17 05:34 03:48 NT-Pro-B Natriuret Pep 377 342 Impressions: Chest X-Ray 05/19/17 06:00 IMPRESSION: Minimal bibasilar airspace disease, atelectasis versus pneumonia Assessment & Plan - Diagnosis (1) Debility Is this a current diagnosis for this admission?: Yes Plan: Consult has been placed for PT/OT and speech. (2) Decreased urine output Is this a current diagnosis for this admission?: Yes Plan: Resolving. (3) Hematuria Qualifiers: Hematuria type: gross Qualified Code(s): R31.0 - Gross hematuria Is this a current diagnosis for this admission?: Yes Plan: [place] to be trauma. Repeat UA shows moderate hematuria instead of large. Will repeat culture. (4) Hypothermia Is this a current diagnosis for this admission?: Yes Plan: Resolved. (5) Lung collapse Is this a current diagnosis for this admission?: Yes Plan: Chest x-ray improved today. (6) Pneumonia Qualifiers: Pneumonia type: due to unspecified organism Laterality: right Lung location: unspecified part of lung Qualified Code(s): J18.9 - Pneumonia, unspecified organism Is this a current diagnosis for this admission?: Yes Plan: Sputum culture from 05/07/2017 demonstrated Streptococcus pneumoniae, Klebsiella pneumoniae, Haemophilus influenza A with normal efrain being absent. Sputum culture from 05/08/2017 demonstrated Haemophilus influenza A with C albicans and C Dubliniensis. She is status post a course of therapy with Levaquin. (7) Respiratory failure with hypoxia and hypercapnia Qualifiers: Chronicity: acute Qualified Code(s): J96.01 - Acute respiratory failure with hypoxia; J96.02 - Acute respiratory failure with hypercapnia; J96.02 - Acute respiratory failure with hypercapnia; J96.02 - Acute respiratory failure with hypercapnia Is this a current diagnosis for this admission?: Yes Plan: Patient is receiving oxygen when awake and BiPAP when asleep. (8) Substance abuse Is this a current diagnosis for this admission?: Yes Plan: Patient should receive counseling for substance abuse. This can be started prior to discharge. However, at this time her cognitive state is not yet appropriate for intensive therapy. Will hold on a consult for psychiatry. (9) Acute metabolic encephalopathy Is this a current diagnosis for this admission?: Yes Plan: Likely secondary to medication effect and CO2 narcosis. Infection may have also been present. Patient continues to be somewhat altered. Will need to be very vigilant about underlying infection, electrolyte disturbances, etc. Currently, her ABG demonstrates a metabolic alkalosis is the primary process. This is likely secondary to exogenous steroid use. Per report, healthcare personnel that have cared for her previously state that her behavior is similar to prior admissions. (10) Metabolic alkalosis Is this a current diagnosis for this admission?: Yes Plan: The patient has developed a metabolic alkalosis. I suspect that this is secondary to exogenous steroids. This could be in addition to chronic hypercarbic respiratory failure. Please note that the primary process at this time is a metabolic alkalosis. Will continue to wean steroids. Follow trend. If this worsens you could consider a short period of acetazolamide. - Time Time Spent with patient: 15-24 minutes - Inpatient Certification Medical Necessity: Significant Comorbidiites Make Outpatient Treatment Too Risky , Need Close Monitoring Due to Risk of Patient Decompensation, Risk of Complication if Not Cared For in Hospital - Plan Summary Plan Summary: I do not think the patient will be able to be discharged to home. Apparently, she lives alone but gets help from a boyfriend. She is extremely weak. Her cognitive function is still tenuous. I have asked discharge planning to make arrangements for [facility] to [facility]. If she does not improve cognitively she may even require permanent placement.
[2017-05-20] MEDS: NYSTATIN 500000 UNIT/5 ML UDCUP PO SCH ×2 (18:09→21:31)
[2017-05-21] MEDS: IPRATROPIUM/ALBUTEROL 0.5-2.5 MG/3 ML AMPUL NEB SCH ×4 (01:59→20:02)
[2017-05-21] MEDS: LANSOPRAZOLE 30 MG TAB.RAP.DR PO SCH ×2 (05:51→17:28)
[2017-05-21] MEDS: GABAPENTIN 400 MG CAPSULE PO SCH ×2 (05:51→13:37)
[2017-05-21] MEDS: BENZONATATE 100 MG CAPSULE PO SCH ×3 (05:51→21:30)
[2017-05-21 06:14] LABS: ANION GAP 7 (5-19); BLOOD UREA NITROGEN 11 mg/dL (7-20); CALCIUM 8.9 mg/dL (8.4-10.2); CARBON DIOXIDE 38 mmol/L (22-30); CHLORIDE 99 mmol/L (98-107); GLUCOSE 171 mg/dL (75-110); POTASSIUM 3.4 mmol/L (3.6-5.0); SODIUM 144.3 mmol/L (137-145)
[2017-05-21] MEDS: BUDESONIDE NEB 0.5 MG/2 ML AMPUL NEB SCH ×2 (08:32→20:02)
[2017-05-21] MEDS: ENOXAPARIN SODIUM INJ 40 MG/0.4 ML DISP.SYRIN SUBCUT SCH (10:41)
[2017-05-21] MEDS: VALPROATE SODIUM SYRUP 250 MG/5 ML UDCUP PO SCH ×2 (10:42→17:28)
[2017-05-21] MEDS: ARIPIPRAZOLE 5 MG TABLET PO SCH (10:42)
[2017-05-21] MEDS: PREDNISONE 20 MG TABLET PO SCH (10:42)
[2017-05-21] MEDS: CLONAZEPAM 1 MG TABLET PO SCH ×2 (10:42→21:30)
[2017-05-21] MEDS: NYSTATIN 500000 UNIT/5 ML UDCUP PO SCH ×4 (10:42→21:31)
[2017-05-21 14:42] LABS: AMORPHOUS SEDIMENT,URINE TRACE /HPF; APPEARANCE,URINE CLOUDY; BILIRUBIN,URINE NEGATIVE (NEGATIVE); COLOR,URINE AMBER; GLUCOSE, URINE NEGATIVE (NEGATIVE); KETONES,URINE NEGATIVE (NEGATIVE); LEUKOCYTE ESTERASE,URINE TRACE (NEGATIVE); NITRITE,URINE NEGATIVE (NEGATIVE); PROTEIN,URINE NEGATIVE (NEGATIVE); URINE SPECIFIC GRAVITY 1.012
--- NOTE | 2017-05-21 17:34 | PDOC PROGRESS REPORT ---
Subjective Progress Note for:: 05/18/17 Subjective:: pleasantly confused Reason For Visit: ASPIRATION PNEUMONIA, COPD EXACERBATION Physical Exam Vital Signs: Temp Pulse Resp BP Pulse Ox 97.9 F 70 18 91/70 L 100 05/18/17 07:50 05/18/17 08:00 05/18/17 07:52 05/18/17 07:50 05/18/17 07:52 Intake & Output 05/17/17 05/18/17 05/19/17 06:59 06:59 06:59 Intake Total 1644 255 Output Total 4754 1125 Balance -3110 -870 Weight 108.2 kg 108.8 kg General appearance: PRESENT: no acute distress, cooperative, disheveled, obese, well-developed. ABSENT: mild distress, morbidly obese, severe distress Head exam: PRESENT: atraumatic, normocephalic Eye exam: PRESENT: conjunctiva pale, EOMI. ABSENT: conjunctival injection, conjunctiva pink, nystagmus, periorbital swelling, scleral icterus Mouth exam: PRESENT: dry mucosa, neck supple, tongue midline. ABSENT: laceration, moist Neck exam: ABSENT: carotid bruit, JVD, lymphadenopathy, thyromegaly, tracheal deviation, tracheostomy Respiratory exam: PRESENT: decreased breath sounds, prolonged expiratory phas, rales, rhonchi, symmetrical, unlabored, wheezes. ABSENT: accessory muscle use, chest wall tenderness, clear to auscultation caleb, crackles, retraction, stridor , tachypnea Cardiovascular exam: PRESENT: RRR, +S1, +S2 Pulses: PRESENT: normal radial pulses GI/Abdominal exam: PRESENT: diminished bowel sounds, soft Extremities exam: ABSENT: clubbing, joint swelling Musculoskeletal exam: ABSENT: ambulatory, deformity, dislocation Neurological exam: PRESENT: awake. ABSENT: oriented to place, oriented to time , oriented to situation Psychiatric exam: PRESENT: flat affect Focused psych exam: PRESENT: delusional Skin exam: PRESENT: dry, warm Results Laboratory Results: 05/18/17 03:49 05/18/17 03:49 05/18/17 05/18/17 05/18/17 03:49 03:49 04:55 WBC 8.7 RBC 3.82 Hgb 11.4 L Hct 35.1 L MCV 92 MCH 30.0 MCHC 32.6 RDW 14.5 H Plt Count 156 Seg Neutrophils % 80.6 H Lymphocytes % 12.9 L Monocytes % 5.8 Eosinophils % 0.2 Basophils % 0.5 Absolute Neutrophils 7.0 Absolute Lymphocytes 1.1 Absolute Monocytes 0.5 Absolute Eosinophils 0.0 Absolute Basophils 0.0 Carbonic Acid 1.91 H HCO3/H2CO3 Ratio 18:1 ABG pH 7.37 ABG pCO2 63.3 H ABG pO2 61.1 L ABG HCO3 36.1 H ABG O2 Saturation 90.1 L ABG Base Excess 8.7 FiO2 3.5L Sodium 147.1 H Potassium 3.3 L Chloride 105 Carbon Dioxide 36 H Anion Gap 6 BUN 23 H Creatinine 0.47 L Est GFR ( Amer) > 60 Est GFR (Non-Af Amer) > 60 Glucose 124 H Calcium 8.7 05/11/17 05/12/17 05:34 03:48 NT-Pro-B Natriuret Pep 377 342 Impressions: Chest X-Ray 05/16/17 06:00 IMPRESSION: 1. Interval increase in right basilar opacities and possible small right pleural effusion. 2. Interval removal of endotracheal tube and NG tube. Assessment & Plan - Diagnosis (1) Altered mental status Qualifiers: Altered mental status type: unspecified Qualified Code(s): R41.82 - Altered mental status, unspecified Is this a current diagnosis for this admission?: Yes Plan: unchanged (2) Pneumonia Qualifiers: Pneumonia type: due to unspecified organism Laterality: right Lung location: unspecified part of lung Qualified Code(s): J18.9 - Pneumonia, unspecified organism Is this a current diagnosis for this admission?: Yes Plan: 05/08/17 12:15 Gram Stain - Final Tracheal Aspirate Sputum Culture - Final Haemophilus Influenzae C.albicans/C.dubliniensis Greatly Reduced Normal [place] 05/08/17 12:15 Gram Stain - Cancelled Tracheal Aspirate Sputum Culture - Cancelled 05/07/17 20:30 Gram Stain - Final Sputum Sputum Culture - Final Streptococcus Pneumoniae Klebsiella Pneumoniae Haemophilus Influenzae Normal [place] Absent (3) Acute on chronic respiratory failure with hypoxia and hypercapnia Is this a current diagnosis for this admission?: Yes Plan: stable (4) Obstructive sleep apnea Is this a current diagnosis for this admission?: Yes Plan: npsg? (5) Obesity Qualifiers: Body mass index: BMI 45.0-49.9 Is this a current diagnosis for this admission?: Yes Plan: unchanged (6) Tobacco abuse Is this a current diagnosis for this admission?: Yes Plan: transdermal nicotine - Time Total Critical Time (Minutes): 40
--- NOTE | 2017-05-21 17:40 | PDOC PROGRESS REPORT ---
Subjective Progress Note for:: 05/19/17 Subjective:: remains pleasantly confused Reason For Visit: ASPIRATION PNEUMONIA, COPD EXACERBATION Physical Exam Vital Signs: Temp Pulse Resp BP Pulse Ox 98.2 F 75 16 130/64 H 95 05/21/17 16:23 05/21/17 16:23 05/21/17 16:23 05/21/17 16:23 05/21/17 16:34 Intake & Output 05/20/17 05/21/17 05/22/17 06:59 06:59 06:59 Intake Total 1181 1103 10 Output Total 3300 4675 Balance -9357 -8949 10 Weight 103.8 kg 99.5 kg General appearance: PRESENT: no acute distress, disheveled, obese Head exam: PRESENT: atraumatic, normocephalic Eye exam: PRESENT: conjunctiva pale, EOMI. ABSENT: conjunctival injection, conjunctiva pink, nystagmus, periorbital swelling, scleral icterus Mouth exam: PRESENT: dry mucosa, neck supple, tongue midline. ABSENT: laceration, moist Neck exam: ABSENT: carotid bruit, JVD, lymphadenopathy, thyromegaly, tracheal deviation, tracheostomy Respiratory exam: PRESENT: decreased breath sounds, prolonged expiratory phas, rhonchi, symmetrical, unlabored, wheezes. ABSENT: accessory muscle use, chest wall tenderness, clear to auscultation caleb, crackles, rales, retraction, stridor , tachypnea Cardiovascular exam: PRESENT: RRR, +S1, +S2 Pulses: PRESENT: normal radial pulses GI/Abdominal exam: PRESENT: diminished bowel sounds, soft Extremities exam: ABSENT: clubbing, joint swelling Musculoskeletal exam: ABSENT: ambulatory Neurological exam: PRESENT: awake, oriented to person. ABSENT: oriented to place, oriented to time, oriented to situation Skin exam: PRESENT: dry, warm Results Laboratory Results: 05/19/17 05:27 05/21/17 05:42 05/21/17 05/21/17 05:42 14:10 Sodium 144.3 Potassium 3.4 L Chloride 99 Carbon Dioxide 38 H Anion Gap 7 BUN 11 Creatinine 0.42 L Est GFR ( Amer) > 60 Est GFR (Non-Af Amer) > 60 Glucose 171 H Calcium 8.9 Urine Color ELISHA Urine Appearance CLOUDY Urine pH 7.0 Ur Specific [place] 1.012 Urine Protein NEGATIVE Urine Glucose (UA) NEGATIVE Urine Ketones NEGATIVE Urine Blood SMALL H Urine Nitrite NEGATIVE Ur Leukocyte Esterase TRACE H Urine WBC (Auto) 16 Urine RBC (Auto) 19 05/19/17 16:25 Tellez Catheter Urine Culture - Final C.albicans/C.dubliniensis 05/11/17 05/12/17 05:34 03:48 NT-Pro-B Natriuret Pep 377 342 Impressions: Chest X-Ray 05/19/17 06:00 IMPRESSION: Minimal bibasilar airspace disease, atelectasis versus pneumonia Assessment & Plan - Diagnosis (1) Altered mental status Qualifiers: Altered mental status type: unspecified Qualified Code(s): R41.82 - Altered mental status, unspecified Is this a current diagnosis for this admission?: Yes Plan: unchanged (2) Pneumonia Qualifiers: Pneumonia type: due to unspecified organism Laterality: right Lung location: unspecified part of lung Qualified Code(s): J18.9 - Pneumonia, unspecified organism Is this a current diagnosis for this admission?: Yes Plan: 05/08/17 12:15 Gram Stain - Final Tracheal Aspirate Sputum Culture - Final Haemophilus Influenzae C.albicans/C.dubliniensis Greatly Reduced Normal [place] 05/08/17 12:15 Gram Stain - Cancelled Tracheal Aspirate Sputum Culture - Cancelled 05/07/17 20:30 Gram Stain - Final Sputum Sputum Culture - Final Streptococcus Pneumoniae Klebsiella Pneumoniae Haemophilus Influenzae Normal [place] Absent (3) Acute on chronic respiratory failure with hypoxia and hypercapnia Is this a current diagnosis for this admission?: Yes Plan: stable (4) Obstructive sleep apnea Is this a current diagnosis for this admission?: Yes Plan: npsg? (5) Obesity Qualifiers: Body mass index: BMI 45.0-49.9 Is this a current diagnosis for this admission?: Yes Plan: unchanged (6) Tobacco abuse Is this a current diagnosis for this admission?: Yes Plan: transdermal nicotine - Time Total Critical Time (Minutes): 40
--- NOTE | 2017-05-21 17:43 | PDOC PROGRESS REPORT ---
Subjective Progress Note for:: 05/20/17 Subjective:: remains pleasantly confused Reason For Visit: ASPIRATION PNEUMONIA, COPD EXACERBATION Physical Exam Vital Signs: Temp Pulse Resp BP Pulse Ox 98.2 F 75 16 130/64 H 95 05/21/17 16:23 05/21/17 16:23 05/21/17 16:23 05/21/17 16:23 05/21/17 16:34 Intake & Output 05/20/17 05/21/17 05/22/17 06:59 06:59 06:59 Intake Total 1181 1103 10 Output Total 3300 4675 Balance -6966 -5421 10 Weight 103.8 kg 99.5 kg General appearance: PRESENT: no acute distress, cooperative, disheveled, obese. ABSENT: mild distress, morbidly obese, severe distress Head exam: PRESENT: atraumatic, normocephalic Eye exam: PRESENT: conjunctiva pale, EOMI, scleral icterus. ABSENT: conjunctival injection, conjunctiva pink, nystagmus, periorbital swelling Mouth exam: PRESENT: dry mucosa, neck supple, tongue midline. ABSENT: laceration, moist Neck exam: ABSENT: carotid bruit, JVD, lymphadenopathy, thyromegaly, tracheal deviation, tracheostomy Respiratory exam: PRESENT: decreased breath sounds, prolonged expiratory phas, rhonchi, symmetrical, unlabored, wheezes. ABSENT: accessory muscle use, chest wall tenderness, clear to auscultation caleb, crackles, rales, retraction, stridor , tachypnea Cardiovascular exam: PRESENT: RRR, +S1, +S2 Pulses: PRESENT: normal radial pulses GI/Abdominal exam: PRESENT: diminished bowel sounds, soft Extremities exam: ABSENT: clubbing, joint swelling Musculoskeletal exam: ABSENT: ambulatory, deformity, dislocation Neurological exam: PRESENT: awake, oriented to person, oriented to place. ABSENT: alert, oriented to time, oriented to situation Skin exam: PRESENT: dry, warm Results Laboratory Results: 05/19/17 05:27 05/21/17 05:42 05/21/17 05/21/17 05:42 14:10 Sodium 144.3 Potassium 3.4 L Chloride 99 Carbon Dioxide 38 H Anion Gap 7 BUN 11 Creatinine 0.42 L Est GFR ( Amer) > 60 Est GFR (Non-Af Amer) > 60 Glucose 171 H Calcium 8.9 Urine Color ELISHA Urine Appearance CLOUDY Urine pH 7.0 Ur Specific [place] 1.012 Urine Protein NEGATIVE Urine Glucose (UA) NEGATIVE Urine Ketones NEGATIVE Urine Blood SMALL H Urine Nitrite NEGATIVE Ur Leukocyte Esterase TRACE H Urine WBC (Auto) 16 Urine RBC (Auto) 19 05/19/17 16:25 Tellez Catheter Urine Culture - Final C.albicans/C.dubliniensis 05/11/17 05/12/17 05:34 03:48 NT-Pro-B Natriuret Pep 377 342 Impressions: Chest X-Ray 05/19/17 06:00 IMPRESSION: Minimal bibasilar airspace disease, atelectasis versus pneumonia Assessment & Plan - Diagnosis (1) Altered mental status Qualifiers: Altered mental status type: unspecified Qualified Code(s): R41.82 - Altered mental status, unspecified Is this a current diagnosis for this admission?: Yes Plan: unchanged (2) Pneumonia Qualifiers: Pneumonia type: due to unspecified organism Laterality: right Lung location: unspecified part of lung Qualified Code(s): J18.9 - Pneumonia, unspecified organism Is this a current diagnosis for this admission?: Yes Plan: 05/08/17 12:15 Gram Stain - Final Tracheal Aspirate Sputum Culture - Final Haemophilus Influenzae C.albicans/C.dubliniensis Greatly Reduced Normal [place] 05/08/17 12:15 Gram Stain - Cancelled Tracheal Aspirate Sputum Culture - Cancelled 05/07/17 20:30 Gram Stain - Final Sputum Sputum Culture - Final Streptococcus Pneumoniae Klebsiella Pneumoniae Haemophilus Influenzae Normal [place] Absent (3) Acute on chronic respiratory failure with hypoxia and hypercapnia Is this a current diagnosis for this admission?: Yes Plan: stable (4) Obstructive sleep apnea Is this a current diagnosis for this admission?: Yes Plan: npsg? (5) Obesity Qualifiers: Body mass index: BMI 45.0-49.9 Is this a current diagnosis for this admission?: Yes Plan: unchanged (6) Tobacco abuse Is this a current diagnosis for this admission?: Yes Plan: transdermal nicotine
--- NOTE | 2017-05-21 18:12 | PDOC PROGRESS REPORT ---
Subjective Progress Note for:: 05/21/17 Subjective:: Doing well. No complaints. We will remove Tellez catheter. Physical therapy requested. Reason For Visit: ASPIRATION PNEUMONIA, COPD EXACERBATION Physical Exam Vital Signs: Temp Pulse Resp BP Pulse Ox 98.2 F 75 16 130/64 H 95 05/21/17 16:23 05/21/17 16:23 05/21/17 16:23 05/21/17 16:23 05/21/17 16:34 Intake & Output 05/20/17 05/21/17 05/22/17 06:59 06:59 06:59 Intake Total 1181 1103 10 Output Total 3309 7170 Balance -8254 -5231 10 Weight 103.8 kg 99.5 kg Additional comments: Obese, middle-aged female sitting in bed not in acute distress HEENT: Pupils equal reactive to light moist pink oropharyngeal mucosa with no lesions Neck is supple no tracheal deviation Lungs: No use of accessory muscles, she has coarse breath sounds bilaterally with scattered rhonchi Cardiac: S1-S2 regular no peripheral edema no cyanosis no calf tenderness Abdomen: Soft, obese, no focal tenderness She is awake and alert she is oriented 2 Results Laboratory Results: 05/19/17 05:27 05/21/17 05:42 05/21/17 05/21/17 05:42 14:10 Sodium 144.3 Potassium 3.4 L Chloride 99 Carbon Dioxide 38 H Anion Gap 7 BUN 11 Creatinine 0.42 L Est GFR ( Amer) > 60 Est GFR (Non-Af Amer) > 60 Glucose 171 H Calcium 8.9 Urine Color ELISHA Urine Appearance CLOUDY Urine pH 7.0 Ur Specific [place] 1.012 Urine Protein NEGATIVE Urine Glucose (UA) NEGATIVE Urine Ketones NEGATIVE Urine Blood SMALL H Urine Nitrite NEGATIVE Ur Leukocyte Esterase TRACE H Urine WBC (Auto) 16 Urine RBC (Auto) 19 05/19/17 16:25 Tellez Catheter Urine Culture - Final C.albicans/C.dubliniensis 05/11/17 05/12/17 05:34 03:48 NT-Pro-B Natriuret Pep 377 342 Impressions: Chest X-Ray 05/19/17 06:00 IMPRESSION: Minimal bibasilar airspace disease, atelectasis versus pneumonia Assessment & Plan - Diagnosis (1) Debility Is this a current diagnosis for this admission?: Yes (2) Hematuria Qualifiers: Hematuria type: gross Qualified Code(s): R31.0 - Gross hematuria Is this a current diagnosis for this admission?: Yes (3) Lung collapse Is this a current diagnosis for this admission?: Yes (4) Pneumonia Qualifiers: Pneumonia type: due to unspecified organism Laterality: right Lung location: unspecified part of lung Qualified Code(s): J18.9 - Pneumonia, unspecified organism Is this a current diagnosis for this admission?: Yes (5) Respiratory failure with hypoxia and hypercapnia Qualifiers: Chronicity: acute Qualified Code(s): J96.01 - Acute respiratory failure with hypoxia; J96.02 - Acute respiratory failure with hypercapnia; J96.02 - Acute respiratory failure with hypercapnia; J96.02 - Acute respiratory failure with hypercapnia Is this a current diagnosis for this admission?: Yes (6) Substance abuse Is this a current diagnosis for this admission?: Yes (7) Acute metabolic encephalopathy Is this a current diagnosis for this admission?: Yes (8) Acute on chronic respiratory failure with hypoxia and hypercapnia Is this a current diagnosis for this admission?: Yes - Time Time Spent with patient: 25-34 minutes - Plan Summary Plan Summary: Continue supplemental oxygen, BiPAP when she sleeps. Continue to wean steroids. Continue bronchodilators 2 it was most likely secondary to trauma. Lung collapse is improving. She has completed a course of antibiotics for her pneumonia.
[2017-05-21] MEDS ORDERED: POTASSIUM CHLORIDE 10 MEQ TABLET.SA PO ONE (19:30)
[2017-05-22] MEDS: IPRATROPIUM/ALBUTEROL 0.5-2.5 MG/3 ML AMPUL NEB SCH ×4 (01:56→20:17)
[2017-05-22] MEDS: BENZONATATE 100 MG CAPSULE PO SCH ×3 (06:33→21:49)
[2017-05-22] MEDS: LANSOPRAZOLE 30 MG TAB.RAP.DR PO SCH ×2 (06:33→17:02)
[2017-05-22] MEDS: GABAPENTIN 400 MG CAPSULE PO SCH ×2 (06:34→13:26)
[2017-05-22 06:48] LABS: BLOOD UREA NITROGEN 10 mg/dL (7-20); CALCIUM 9.1 mg/dL (8.4-10.2); CHLORIDE 100 mmol/L (98-107); GLUCOSE 82 mg/dL (75-110); POTASSIUM 4.1 mmol/L (3.6-5.0); SODIUM 143.6 mmol/L (137-145)
[2017-05-22 06:58] LABS: ANION GAP 2 (5-19); CREATINE KINASE < 20 U/L (30-135)
[2017-05-22 07:00] LABS: CARBON DIOXIDE 42 mmol/L (22-30)
[2017-05-22] MEDS: BUDESONIDE NEB 0.5 MG/2 ML AMPUL NEB SCH ×2 (07:59→20:17)
[2017-05-22] MEDS ORDERED: IPRATROPIUM/ALBUTEROL 0.5-2.5 MG/3 ML AMPUL NEB PRN (09:10)
[2017-05-22] MEDS ORDERED: IBUPROFEN 800 MG TABLET PO PRN (09:10)
[2017-05-22] MEDS ORDERED: (PENDING PHARMACY ID) (Solifenacin Succinate [Vesicare] 5 MG) PO SCH (10:00)
[2017-05-22] MEDS ORDERED: (PENDING PHARMACY ID) (Paroxetine Hcl [Paxil] 30 MG) PO SCH (10:00)
[2017-05-22] MEDS: ENOXAPARIN SODIUM INJ 40 MG/0.4 ML DISP.SYRIN SUBCUT SCH (11:19)
[2017-05-22] MEDS: ARIPIPRAZOLE 5 MG TABLET PO SCH (11:20)
[2017-05-22] MEDS: DIVALPROEX SODIUM 500 MG TAB.SR.24H PO SCH ×2 (11:21→21:50)
[2017-05-22] MEDS: PREDNISONE 20 MG TABLET PO SCH (11:21)
[2017-05-22] MEDS: CLONAZEPAM 1 MG TABLET PO SCH ×2 (11:21→21:49)
[2017-05-22] MEDS: NYSTATIN 500000 UNIT/5 ML UDCUP PO SCH ×4 (11:21→21:51)
[2017-05-22] MEDS: FLUTICASONE/SALMETEROL DISKUS 250-50 MCG/DOSE IH SCH ×2 (11:22→21:51)
[2017-05-22] MEDS: TIOTROPIUM BROMIDE DPI 5 CAP/KIT (18 MCG/CAP) IH SCH (11:23)
[2017-05-22] MEDS: VALPROATE SODIUM SYRUP 250 MG/5 ML UDCUP PO SCH ×2 (11:24→17:02)
[2017-05-22] MEDS: FUROSEMIDE 20 MG TABLET PO SCH (11:28)
--- NOTE | 2017-05-22 19:15 | PDOC PROGRESS REPORT ---
Subjective Progress Note for:: 05/22/17 Subjective:: She is doing well. No complaints. We will remove Tellez catheter. Physical therapy recommendations pending for disposition planning. Son was at the bedside and plan of care was discussed. Reason For Visit: ASPIRATION PNEUMONIA, COPD EXACERBATION Physical Exam Vital Signs: Temp Pulse Resp BP Pulse Ox 98.4 F 77 18 116/59 L 97 05/22/17 18:40 05/22/17 18:40 05/22/17 18:40 05/22/17 18:40 05/22/17 18:40 Intake & Output 05/21/17 05/22/17 05/23/17 06:59 06:59 06:59 Intake Total 1103 1595 1135 Output Total 4675 925 Balance -3572 670 1135 Weight 99.5 kg 100 kg Additional comments: Obese, middle-aged female sitting in bed not in acute distress HEENT: Pupils equal reactive to light moist pink oropharyngeal mucosa with no lesions Neck is supple no tracheal deviation Lungs: No use of accessory muscles, she has coarse breath sounds bilaterally with scattered rhonchi Cardiac: S1-S2 regular no peripheral edema no cyanosis no calf tenderness Abdomen: Soft, obese, no focal tenderness She is awake and alert she is oriented 2 Results Laboratory Results: 05/19/17 05:27 05/22/17 05:53 05/22/17 05:53 Sodium 143.6 Potassium 4.1 Chloride 100 Carbon Dioxide 42 H* Anion Gap 2 L BUN 10 Creatinine 0.36 L Est GFR ( Amer) > 60 Est GFR (Non-Af Amer) > 60 Glucose 82 Calcium 9.1 05/19/17 16:25 Tellez Catheter Urine Culture - Final C.albicans/C.dubliniensis 05/11/17 05/12/17 05/22/17 05:34 03:48 05:53 Creatine Kinase < 20 L NT-Pro-B Natriuret Pep 377 342 Impressions: Chest X-Ray 05/19/17 06:00 IMPRESSION: Minimal bibasilar airspace disease, atelectasis versus pneumonia Assessment & Plan - Diagnosis (1) Debility Is this a current diagnosis for this admission?: Yes (2) Hematuria Qualifiers: Hematuria type: gross Qualified Code(s): R31.0 - Gross hematuria Is this a current diagnosis for this admission?: Yes (3) Lung collapse Is this a current diagnosis for this admission?: Yes (4) Pneumonia Qualifiers: Pneumonia type: due to unspecified organism Laterality: right Lung location: unspecified part of lung Qualified Code(s): J18.9 - Pneumonia, unspecified organism Is this a current diagnosis for this admission?: Yes (5) Respiratory failure with hypoxia and hypercapnia Qualifiers: Chronicity: acute Qualified Code(s): J96.01 - Acute respiratory failure with hypoxia; J96.02 - Acute respiratory failure with hypercapnia; J96.02 - Acute respiratory failure with hypercapnia; J96.02 - Acute respiratory failure with hypercapnia Is this a current diagnosis for this admission?: Yes (6) Substance abuse Is this a current diagnosis for this admission?: Yes (7) Acute metabolic encephalopathy Is this a current diagnosis for this admission?: Yes (8) Acute on chronic respiratory failure with hypoxia and hypercapnia Is this a current diagnosis for this admission?: Yes - Time Time Spent with patient: 25-34 minutes - Plan Summary Plan Summary: Awaiting disposition. Continue supplemental oxygen, BiPAP when she sleeps. Continue to wean steroids. Continue bronchodilators Transient hematuria was most likely secondary to trauma. She has completed a course of antibiotics for pneumonia.
[2017-05-22] MEDS: TOLTERODINE TARTRATE 1 MG TABLET PO SCH (21:49)
[2017-05-22] MEDS: PAROXETINE HCL 20 MG TABLET PO SCH (21:50)
[2017-05-22] MEDS ORDERED: (PENDING PHARMACY ID) (Doxepin Hcl [Doxepin Hcl] 100 MG) PO SCH (22:00)
[2017-05-22] MEDS ORDERED: DOXEPIN HCL 25 MG CAPSULE PO SCH (22:00)
[2017-05-23 00:20] LABS: ARTERIAL BLOOD BASE EXCESS 15.2 mmol/L; ARTERIAL BLOOD H2CO3 2.27 mmol/L (1.05-1.35); ARTERIAL BLOOD HCO3 43.8 mmol/L (20-26); ARTERIAL BLOOD O2 SATURATION 94.1 % (94-98); ARTERIAL BLOOD PH 7.38 (7.35-7.45); ARTERIAL BLOOD PO2 74.7 mmHg (80-100); ARTERIAL BLOOD TOTAL CO2 46.1 mmol/L (21-25)
[2017-05-23 00:21] LABS: ARTERIAL BLOOD FIO2 40%; ARTERIAL BLOOD PCO2 75.4 mmHg (35-45)
[2017-05-23] MEDS ORDERED: NALOXONE HCL INJ/PF 0.4 MG/1 ML SDV ONE (00:41)
[2017-05-23] MEDS ORDERED: NALOXONE HCL INJ/PF 0.4 MG/1 ML SDV IV ONE (01:00)
[2017-05-23] MEDS: IPRATROPIUM/ALBUTEROL 0.5-2.5 MG/3 ML AMPUL NEB SCH ×4 (02:05→19:49)
[2017-05-23] MEDS: LANSOPRAZOLE 30 MG TAB.RAP.DR PO SCH ×2 (05:17→18:21)
[2017-05-23] MEDS: GABAPENTIN 400 MG CAPSULE PO SCH ×2 (05:17→13:58)
[2017-05-23] MEDS: BENZONATATE 100 MG CAPSULE PO SCH ×3 (05:17→21:42)
[2017-05-23] MEDS ORDERED: LANSOPRAZOLE 30 MG TAB.RAP.DR PO SCH (06:00)
[2017-05-23 07:22] LABS: BLOOD UREA NITROGEN 14 mg/dL (7-20); CALCIUM 9.5 mg/dL (8.4-10.2); CHLORIDE 99 mmol/L (98-107); GLUCOSE 95 mg/dL (75-110); POTASSIUM 4.1 mmol/L (3.6-5.0); SODIUM 145.5 mmol/L (137-145)
[2017-05-23 07:35] LABS: ANION GAP 6 (5-19)
[2017-05-23 07:38] LABS: CARBON DIOXIDE 41 mmol/L (22-30)
[2017-05-23] MEDS: BUDESONIDE NEB 0.5 MG/2 ML AMPUL NEB SCH ×2 (07:48→19:49)
[2017-05-23] MEDS: TOLTERODINE TARTRATE 1 MG TABLET PO SCH ×2 (10:25→21:42)
[2017-05-23] MEDS: ARIPIPRAZOLE 5 MG TABLET PO SCH (10:25)
[2017-05-23] MEDS: CLONAZEPAM 1 MG TABLET PO SCH ×2 (10:25→21:43)
[2017-05-23] MEDS: DIVALPROEX SODIUM 500 MG TAB.SR.24H PO SCH ×2 (10:25→21:42)
[2017-05-23] MEDS: NYSTATIN 500000 UNIT/5 ML UDCUP PO SCH ×4 (10:26→21:43)
[2017-05-23] MEDS: PREDNISONE 20 MG TABLET PO SCH (10:26)
[2017-05-23] MEDS: PAROXETINE HCL 20 MG TABLET PO SCH ×2 (10:26→21:42)
[2017-05-23] MEDS: FUROSEMIDE 20 MG TABLET PO SCH (10:26)
[2017-05-23] MEDS: TIOTROPIUM BROMIDE DPI 5 CAP/KIT (18 MCG/CAP) IH SCH (10:27)
[2017-05-23] MEDS: FLUTICASONE/SALMETEROL DISKUS 250-50 MCG/DOSE IH SCH ×2 (10:27→21:43)
[2017-05-23] MEDS: VALPROATE SODIUM SYRUP 250 MG/5 ML UDCUP PO SCH ×2 (10:27→18:21)
[2017-05-23] MEDS: ENOXAPARIN SODIUM INJ 40 MG/0.4 ML DISP.SYRIN SUBCUT SCH (10:27)
--- NOTE | 2017-05-23 18:34 | PDOC PROGRESS REPORT ---
Subjective Subjective:: Doing well, no complaints at present. Reason For Visit: ASPIRATION PNEUMONIA, COPD EXACERBATION Physical Exam Vital Signs: Temp Pulse Resp BP Pulse Ox 97.8 F 79 15 98/53 L 98 05/23/17 15:31 05/23/17 15:38 05/23/17 15:38 05/23/17 15:31 05/23/17 15:38 Intake & Output 05/22/17 05/23/17 05/24/17 06:59 06:59 06:59 Intake Total 1595 1185 1055 Output Total 925 300 Balance 670 1185 755 Weight 100 kg 98.9 kg Additional comments: Obese, middle-aged female sitting in bed not in acute distress HEENT: Pupils equal reactive to light moist pink oropharyngeal mucosa with no lesions Neck is supple no tracheal deviation Lungs: No use of accessory muscles, she has coarse breath sounds bilaterally with scattered rhonchi Cardiac: S1-S2 regular no peripheral edema no cyanosis no calf tenderness Abdomen: Soft, obese, no focal tenderness Results Laboratory Results: 05/19/17 05:27 05/23/17 06:10 05/22/17 05/23/17 23:55 06:10 Carbonic Acid 2.27 H HCO3/H2CO3 Ratio 19:1 ABG pH 7.38 ABG pCO2 75.4 H* ABG pO2 74.7 L ABG HCO3 43.8 H ABG O2 Saturation 94.1 ABG Base Excess 15.2 FiO2 40% Sodium 145.5 H Potassium 4.1 Chloride 99 Carbon Dioxide 41 H* Anion Gap 6 BUN 14 Creatinine 0.41 L Est GFR ( Amer) > 60 Est GFR (Non-Af Amer) > 60 Glucose 95 Calcium 9.5 05/11/17 05/12/17 05/22/17 05:34 03:48 05:53 Creatine Kinase < 20 L NT-Pro-B Natriuret Pep 377 342 Impressions: Chest X-Ray 05/19/17 06:00 IMPRESSION: Minimal bibasilar airspace disease, atelectasis versus pneumonia Assessment & Plan - Diagnosis (1) Debility Is this a current diagnosis for this admission?: Yes (2) Hematuria Qualifiers: Hematuria type: gross Qualified Code(s): R31.0 - Gross hematuria Is this a current diagnosis for this admission?: Yes (3) Lung collapse Is this a current diagnosis for this admission?: Yes (4) Pneumonia Qualifiers: Pneumonia type: due to unspecified organism Laterality: right Lung location: unspecified part of lung Qualified Code(s): J18.9 - Pneumonia, unspecified organism Is this a current diagnosis for this admission?: Yes (5) Respiratory failure with hypoxia and hypercapnia Qualifiers: Chronicity: acute Qualified Code(s): J96.01 - Acute respiratory failure with hypoxia; J96.02 - Acute respiratory failure with hypercapnia; J96.02 - Acute respiratory failure with hypercapnia; J96.02 - Acute respiratory failure with hypercapnia Is this a current diagnosis for this admission?: Yes (6) Substance abuse Is this a current diagnosis for this admission?: Yes (7) Acute metabolic encephalopathy Is this a current diagnosis for this admission?: Yes (8) Acute on chronic respiratory failure with hypoxia and hypercapnia Is this a current diagnosis for this admission?: Yes - Time Time Spent with patient: 25-34 minutes - Plan Summary Plan Summary: Awaiting disposition. Continue supplemental oxygen, BiPAP when she sleeps. Continue to wean steroids. Continue bronchodilators Transient hematuria was most likely secondary to emmanuel trauma. She has completed a course of antibiotics for pneumonia.
[2017-05-24] MEDS: IPRATROPIUM/ALBUTEROL 0.5-2.5 MG/3 ML AMPUL NEB SCH ×4 (02:08→19:33)
[2017-05-24] MEDS: BENZONATATE 100 MG CAPSULE PO SCH ×3 (05:41→21:31)
[2017-05-24] MEDS: LANSOPRAZOLE 30 MG TAB.RAP.DR PO SCH ×2 (05:41→17:53)
[2017-05-24] MEDS: GABAPENTIN 400 MG CAPSULE PO SCH ×2 (05:41→14:16)
[2017-05-24 06:10] LABS: ABSOLUTE EOSINOPHILS # (AUTO) 0.1 10^3/uL (0.0-0.6); ABSOLUTE LYMPHOCYTES (AUTO) 2.6 10^3/uL (0.5-4.7); ABSOLUTE MONOCYTES (AUTO) 0.6 10^3/uL (0.1-1.4); ABSOLUTE NEUT (AUTO) 2.8 10^3/uL (1.7-8.2); BASOPHILS % (AUTO) 0.5 % (0-2); EOSINOPHILS % (AUTO) 1.2 % (0-6); HEMATOCRIT 37.7 % (36.0-47.0); HEMOGLOBIN 12.3 g/dL (12.0-15.5); LYMPHOCYTES % (AUTO) 42.3 % (13-45); MEAN CORPUSCULAR HEMOGLOBIN 29.4 pg (27.0-33.4); MEAN CORPUSCULAR HGB CONC 32.6 g/dL (32.0-36.0); MEAN CORPUSCULAR VOLUME 90 fl (80-97); MONOCYTES % (AUTO) 9.9 % (3-13); PLATELET COUNT 159 10^3/uL (150-450); RED BLOOD COUNT 4.19 10^6/uL (3.72-5.28); RED CELL DISTRIBUTION WIDTH 15.8 % (11.5-14.0); SEGMENTED NEUTROPHILS % (AUTO) 46.1 % (42-78); TOTAL CELLS COUNTED % (AUTO) 100 %; WHITE BLOOD COUNT 6.1 10^3/uL (4.0-10.5)
[2017-05-24 06:27] LABS: ALANINE AMINOTRANSFERASE 679 U/L (9-52); ALBUMIN 3.3 g/dL (3.5-5.0); ALKALINE PHOSPHATASE 103 U/L (38-126); ASPARTATE AMINO TRANSFERASE 75 U/L (14-36); BILIRUBIN,DIRECT 0.4 mg/dL (0.0-0.4); BILIRUBIN,TOTAL 0.5 mg/dL (0.2-1.3); BLOOD UREA NITROGEN 19 mg/dL (7-20); CALCIUM 9.1 mg/dL (8.4-10.2); CHLORIDE 98 mmol/L (98-107); GLUCOSE 95 mg/dL (75-110); POTASSIUM 4.2 mmol/L (3.6-5.0); SODIUM 142.3 mmol/L (137-145); TOTAL PROTEIN 5.7 g/dL (6.3-8.2)
[2017-05-24 07:16] LABS: ANION GAP 8 (5-19); CARBON DIOXIDE 36 mmol/L (22-30)
[2017-05-24] MEDS: BUDESONIDE NEB 0.5 MG/2 ML AMPUL NEB SCH ×2 (07:28→19:33)
[2017-05-24] MEDS: CLONAZEPAM 1 MG TABLET PO SCH ×2 (09:27→21:31)
[2017-05-24] MEDS: TOLTERODINE TARTRATE 1 MG TABLET PO SCH ×2 (09:28→21:31)
[2017-05-24] MEDS: VALPROATE SODIUM SYRUP 250 MG/5 ML UDCUP PO SCH ×2 (09:28→17:53)
[2017-05-24] MEDS: PAROXETINE HCL 20 MG TABLET PO SCH ×2 (09:28→21:30)
[2017-05-24] MEDS: DIVALPROEX SODIUM 500 MG TAB.SR.24H PO SCH ×2 (09:28→21:31)
[2017-05-24] MEDS: ARIPIPRAZOLE 5 MG TABLET PO SCH (09:28)
[2017-05-24] MEDS: ENOXAPARIN SODIUM INJ 40 MG/0.4 ML DISP.SYRIN SUBCUT SCH (09:29)
[2017-05-24] MEDS: FLUTICASONE/SALMETEROL DISKUS 250-50 MCG/DOSE IH SCH ×2 (09:29→21:32)
[2017-05-24] MEDS: TIOTROPIUM BROMIDE DPI 5 CAP/KIT (18 MCG/CAP) IH SCH (09:29)
[2017-05-24] MEDS: PREDNISONE 20 MG TABLET PO SCH (09:29)
[2017-05-24] MEDS: NYSTATIN 500000 UNIT/5 ML UDCUP PO SCH ×4 (09:38→21:31)
--- NOTE | 2017-05-24 11:18 | PDOC PROGRESS REPORT ---
Subjective Progress Note for:: 05/24/17 Subjective:: Doing well, no complaints at present. Awaiting placement at SNF for rehab. Ok to transfer to [facility] floor Reason For Visit: ASPIRATION PNEUMONIA, COPD EXACERBATION Physical Exam Vital Signs: Temp Pulse Resp BP Pulse Ox 98.0 F 70 14 127/78 H 91 L 05/24/17 07:12 05/24/17 07:28 05/24/17 07:28 05/24/17 07:12 05/24/17 07:28 Intake & Output 05/23/17 05/24/17 05/25/17 06:59 06:59 06:59 Intake Total 1185 1075 Output Total 800 Balance 1185 275 Weight 98.9 kg 99.4 kg Additional comments: Obese, middle-aged female sitting in bed not in acute distress HEENT: Pupils equal reactive to light moist pink oropharyngeal mucosa with no lesions Neck is supple no tracheal deviation Lungs: No use of accessory muscles, she has coarse breath sounds bilaterally with scattered rhonchi Cardiac: S1-S2 regular no peripheral edema no cyanosis no calf tenderness Abdomen: Soft, obese, no focal tenderness Results Laboratory Results: 05/24/17 05:37 05/24/17 05:37 05/24/17 05/24/17 05/24/17 05:37 05:37 05:37 WBC 6.1 RBC 4.19 Hgb 12.3 Hct 37.7 MCV 90 MCH 29.4 MCHC 32.6 RDW 15.8 H Plt Count 159 Seg Neutrophils % 46.1 Lymphocytes % 42.3 Monocytes % 9.9 Eosinophils % 1.2 Basophils % 0.5 Absolute Neutrophils 2.8 Absolute Lymphocytes 2.6 Absolute Monocytes 0.6 Absolute Eosinophils 0.1 Absolute Basophils 0.0 Sodium Cancelled 142.3 Potassium Cancelled 4.2 Chloride Cancelled 98 Carbon Dioxide Cancelled 36 H Anion Gap Cancelled 8 BUN Cancelled 19 Creatinine Cancelled 0.39 L Est GFR ( Amer) Cancelled > 60 Est GFR (Non-Af Amer) Cancelled > 60 Glucose Cancelled 95 Calcium Cancelled 9.1 Magnesium 2.1 Total Bilirubin 0.5 AST 75 H ALT 679 H Alkaline Phosphatase 103 Total Protein 5.7 L Albumin 3.3 L 05/11/17 05/12/17 05/22/17 05:34 03:48 05:53 Creatine Kinase < 20 L NT-Pro-B Natriuret Pep 377 342 Impressions: Chest X-Ray 05/19/17 06:00 IMPRESSION: Minimal bibasilar airspace disease, atelectasis versus pneumonia Assessment & Plan - Diagnosis (1) Debility Is this a current diagnosis for this admission?: Yes (2) Hematuria Qualifiers: Hematuria type: gross Qualified Code(s): R31.0 - Gross hematuria Is this a current diagnosis for this admission?: Yes (3) Lung collapse Is this a current diagnosis for this admission?: Yes (4) Pneumonia Qualifiers: Pneumonia type: due to unspecified organism Laterality: right Lung location: unspecified part of lung Qualified Code(s): J18.9 - Pneumonia, unspecified organism Is this a current diagnosis for this admission?: Yes (5) Respiratory failure with hypoxia and hypercapnia Qualifiers: Chronicity: acute Qualified Code(s): J96.01 - Acute respiratory failure with hypoxia; J96.02 - Acute respiratory failure with hypercapnia; J96.02 - Acute respiratory failure with hypercapnia; J96.02 - Acute respiratory failure with hypercapnia Is this a current diagnosis for this admission?: Yes (6) Substance abuse Is this a current diagnosis for this admission?: Yes (7) Acute metabolic encephalopathy Is this a current diagnosis for this admission?: Yes (8) Acute on chronic respiratory failure with hypoxia and hypercapnia Is this a current diagnosis for this admission?: Yes - Time Time Spent with patient: 25-34 minutes - Plan Summary Plan Summary: Awaiting disposition. Continue supplemental oxygen, use BiPAP when sleeping Continue bronchodilarore and wean steroids. Transient hematuria was most likely secondary to emmanuel trauma-this has resolved. She has completed a course of antibiotics for pneumonia.
[2017-05-24] MEDS ORDERED: PREDNISONE 20 MG TABLET PO SCH (11:19)
[2017-05-24] MEDS ORDERED: NYSTATIN TOPICAL POWDER 15 GM TP ONE (11:30)
--- NOTE | 2017-05-24 18:14 | PDOC PROGRESS REPORT ---
Subjective Progress Note for:: 05/22/17 Subjective:: less confused Reason For Visit: ASPIRATION PNEUMONIA, COPD EXACERBATION Physical Exam Vital Signs: Temp Pulse Resp BP Pulse Ox 97.5 F 72 18 120/87 H 94 05/22/17 12:08 05/22/17 12:08 05/22/17 12:08 05/22/17 12:08 05/22/17 12:08 Intake & Output 05/21/17 05/22/17 05/23/17 06:59 06:59 06:59 Intake Total 1103 1595 Output Total 4647 925 Balance -3572 670 Weight 99.5 kg 100 kg General appearance: PRESENT: no acute distress, cooperative, disheveled, obese. ABSENT: mild distress, morbidly obese, severe distress Head exam: PRESENT: atraumatic, normocephalic Eye exam: PRESENT: conjunctiva pale, EOMI. ABSENT: conjunctival injection, conjunctiva pink, nystagmus, periorbital swelling, scleral icterus Mouth exam: PRESENT: dry mucosa, neck supple, tongue midline. ABSENT: laceration, moist Neck exam: ABSENT: carotid bruit, JVD, lymphadenopathy, thyromegaly, tracheal deviation, tracheostomy Respiratory exam: PRESENT: decreased breath sounds, prolonged expiratory phas, rhonchi, symmetrical, unlabored. ABSENT: accessory muscle use, chest wall tenderness, clear to auscultation caleb, crackles, retraction, stridor, tachypnea Cardiovascular exam: PRESENT: RRR, +S1, +S2 Pulses: PRESENT: normal radial pulses GI/Abdominal exam: PRESENT: diminished bowel sounds, soft Extremities exam: ABSENT: clubbing, joint swelling Musculoskeletal exam: ABSENT: ambulatory, deformity, dislocation Neurological exam: PRESENT: awake Skin exam: PRESENT: dry, warm Results Laboratory Results: 05/19/17 05:27 05/22/17 05:53 05/21/17 05/22/17 14:10 05:53 Sodium 143.6 Potassium 4.1 Chloride 100 Carbon Dioxide 42 H* Anion Gap 2 L BUN 10 Creatinine 0.36 L Est GFR ( Amer) > 60 Est GFR (Non-Af Amer) > 60 Glucose 82 Calcium 9.1 Urine Color ELISHA Urine Appearance CLOUDY Urine pH 7.0 Ur Specific [place] 1.012 Urine Protein NEGATIVE Urine Glucose (UA) NEGATIVE Urine Ketones NEGATIVE Urine Blood SMALL H Urine Nitrite NEGATIVE Ur Leukocyte Esterase TRACE H Urine WBC (Auto) 16 Urine RBC (Auto) 19 05/19/17 16:25 Tellez Catheter Urine Culture - Final C.albicans/C.dubliniensis 05/11/17 05/12/17 05/22/17 05:34 03:48 05:53 Creatine Kinase < 20 L NT-Pro-B Natriuret Pep 377 342 Impressions: Chest X-Ray 05/19/17 06:00 IMPRESSION: Minimal bibasilar airspace disease, atelectasis versus pneumonia Assessment & Plan - Diagnosis (1) Altered mental status Qualifiers: Altered mental status type: unspecified Qualified Code(s): R41.82 - Altered mental status, unspecified Is this a current diagnosis for this admission?: Yes Plan: somewhat improved (2) Pneumonia Qualifiers: Pneumonia type: due to unspecified organism Laterality: right Lung location: unspecified part of lung Qualified Code(s): J18.9 - Pneumonia, unspecified organism Is this a current diagnosis for this admission?: Yes Plan: 05/08/17 12:15 Gram Stain - Final Tracheal Aspirate Sputum Culture - Final Haemophilus Influenzae C.albicans/C.dubliniensis Greatly Reduced Normal Darcy 05/08/17 12:15 Gram Stain - Cancelled Tracheal Aspirate Sputum Culture - Cancelled 05/07/17 20:30 Gram Stain - Final Sputum Sputum Culture - Final Streptococcus Pneumoniae Klebsiella Pneumoniae Haemophilus Influenzae Normal Darcy Absent (3) Acute on chronic respiratory failure with hypoxia and hypercapnia Is this a current diagnosis for this admission?: Yes Plan: stable (4) Obstructive sleep apnea Is this a current diagnosis for this admission?: Yes Plan: npsg? (5) Obesity Qualifiers: Body mass index: BMI 45.0-49.9 Is this a current diagnosis for this admission?: Yes Plan: unchanged (6) Tobacco abuse Is this a current diagnosis for this admission?: Yes Plan: transdermal nicotine
[2017-05-25] MEDS: IPRATROPIUM/ALBUTEROL 0.5-2.5 MG/3 ML AMPUL NEB SCH ×4 (01:08→21:27)
[2017-05-25] MEDS: GABAPENTIN 400 MG CAPSULE PO SCH ×2 (05:08→13:06)
[2017-05-25] MEDS: LANSOPRAZOLE 30 MG TAB.RAP.DR PO SCH ×2 (05:08→17:28)
[2017-05-25] MEDS: BENZONATATE 100 MG CAPSULE PO SCH ×3 (05:09→21:35)
[2017-05-25 07:06] LABS: ANION GAP 5 (5-19); BLOOD UREA NITROGEN 15 mg/dL (7-20); CALCIUM 9.7 mg/dL (8.4-10.2); CARBON DIOXIDE 38 mmol/L (22-30); CHLORIDE 95 mmol/L (98-107); GLUCOSE 83 mg/dL (75-110); POTASSIUM 4.3 mmol/L (3.6-5.0); SODIUM 137.5 mmol/L (137-145)
[2017-05-25] MEDS: BUDESONIDE NEB 0.5 MG/2 ML AMPUL NEB SCH ×2 (07:40→21:26)
[2017-05-25] MEDS: TOLTERODINE TARTRATE 1 MG TABLET PO SCH ×2 (09:51→21:36)
[2017-05-25] MEDS: DIVALPROEX SODIUM 500 MG TAB.SR.24H PO SCH ×2 (09:51→21:35)
[2017-05-25] MEDS: ARIPIPRAZOLE 5 MG TABLET PO SCH (09:51)
[2017-05-25] MEDS: PREDNISONE 10 MG TABLET PO SCH (09:51)
[2017-05-25] MEDS: NYSTATIN 500000 UNIT/5 ML UDCUP PO SCH ×4 (09:52→21:35)
[2017-05-25] MEDS: NYSTATIN TOPICAL POWDER 15 GM TP SCH (09:52)
[2017-05-25] MEDS: CLONAZEPAM 1 MG TABLET PO SCH ×2 (09:52→21:35)
[2017-05-25] MEDS: PAROXETINE HCL 20 MG TABLET PO SCH ×2 (09:52→21:35)
[2017-05-25] MEDS: VALPROATE SODIUM SYRUP 250 MG/5 ML UDCUP PO SCH ×2 (09:53→17:28)
[2017-05-25] MEDS: TIOTROPIUM BROMIDE DPI 5 CAP/KIT (18 MCG/CAP) IH SCH (09:53)
[2017-05-25] MEDS: ENOXAPARIN SODIUM INJ 40 MG/0.4 ML DISP.SYRIN SUBCUT SCH (09:53)
[2017-05-25] MEDS: FLUTICASONE/SALMETEROL DISKUS 250-50 MCG/DOSE IH SCH ×2 (09:53→21:36)
--- NOTE | 2017-05-25 16:00 | PDOC PROGRESS REPORT ---
Subjective Progress Note for:: 05/25/17 Subjective:: 56-year-old female who was admitted for acute hypoxic respiratory failure and intubated. This was multifactorial secondary to polysubstance abuse, obesity, obstructive sleep apnea and pneumonia. She was extubated on May 15 and has been using BiPAP on and off for her obstructive sleep apnea. She is on multiple psychotropic medications for her bipolar disorder. She is doing well, no complaints at present. Awaiting placement at SNF for rehab. Ok to transfer to [facility] floor. Reason For Visit: ASPIRATION PNEUMONIA, COPD EXACERBATION Physical Exam Vital Signs: Temp Pulse Resp BP Pulse Ox 98.1 F 77 14 108/66 95 05/25/17 09:55 05/25/17 13:10 05/25/17 13:10 05/25/17 09:55 05/25/17 09:55 Intake & Output 05/24/17 05/25/17 05/26/17 06:59 06:59 06:59 Intake Total 1075 827 Output Total 800 0 Balance 275 827 Weight 99.4 kg 99.6 kg Additional comments: Obese, middle-aged female sitting in bed not in acute distress HEENT: Pupils equal reactive to light moist pink oropharyngeal mucosa with no lesions Neck is supple no tracheal deviation Lungs: No use of accessory muscles, she has coarse breath sounds bilaterally with scattered rhonchi Cardiac: S1-S2 regular no peripheral edema no cyanosis no calf tenderness Abdomen: Soft, obese, no focal tenderness Results Laboratory Results: 05/24/17 05:37 05/25/17 05:49 05/25/17 05:49 Sodium 137.5 Potassium 4.3 Chloride 95 L Carbon Dioxide 38 H Anion Gap 5 BUN 15 Creatinine 0.44 L Est GFR ( Amer) > 60 Est GFR (Non-Af Amer) > 60 Glucose 83 Calcium 9.7 05/11/17 05/12/17 05/22/17 05:34 03:48 05:53 Creatine Kinase < 20 L NT-Pro-B Natriuret Pep 377 342 Impressions: Chest X-Ray 05/19/17 06:00 IMPRESSION: Minimal bibasilar airspace disease, atelectasis versus pneumonia Assessment & Plan - Diagnosis (1) Debility Is this a current diagnosis for this admission?: Yes (2) Hematuria Qualifiers: Hematuria type: gross Qualified Code(s): R31.0 - Gross hematuria Is this a current diagnosis for this admission?: Yes (3) Lung collapse Is this a current diagnosis for this admission?: Yes (4) Pneumonia Qualifiers: Pneumonia type: due to unspecified organism Laterality: right Lung location: unspecified part of lung Qualified Code(s): J18.9 - Pneumonia, unspecified organism Is this a current diagnosis for this admission?: Yes (5) Respiratory failure with hypoxia and hypercapnia Qualifiers: Chronicity: acute Qualified Code(s): J96.01 - Acute respiratory failure with hypoxia; J96.02 - Acute respiratory failure with hypercapnia; J96.02 - Acute respiratory failure with hypercapnia; J96.02 - Acute respiratory failure with hypercapnia Is this a current diagnosis for this admission?: Yes (6) Substance abuse Is this a current diagnosis for this admission?: Yes (7) Acute metabolic encephalopathy Is this a current diagnosis for this admission?: Yes (8) Acute on chronic respiratory failure with hypoxia and hypercapnia Is this a current diagnosis for this admission?: Yes - Time Time Spent with patient: 25-34 minutes - Plan Summary Plan Summary: She is currently awaiting disposition to SNF for subacute rehab Continue supplemental oxygen, use BiPAP when sleeping Continue bronchodilators and wean steroids. Transient hematuria was most likely secondary to emmanuel trauma-this has resolved. She has completed a course of antibiotics for pneumonia.
--- NOTE | 2017-05-25 17:06 | PDOC PROGRESS REPORT ---
Subjective Progress Note for:: 05/25/17 Subjective:: More alert Reason For Visit: ASPIRATION PNEUMONIA, COPD EXACERBATION Physical Exam Vital Signs: Temp Pulse Resp BP Pulse Ox 98.2 F 80 14 101/61 96 05/25/17 11:22 05/25/17 14:00 05/25/17 13:10 05/25/17 11:22 05/25/17 16:37 Intake & Output 05/24/17 05/25/17 05/26/17 06:59 06:59 06:59 Intake Total 1075 827 Output Total 800 0 Balance 275 827 Weight 99.4 kg 99.6 kg General appearance: PRESENT: no acute distress, cooperative, disheveled, obese. ABSENT: mild distress, morbidly obese, severe distress Head exam: PRESENT: atraumatic, normocephalic Eye exam: PRESENT: conjunctiva pale, EOMI. ABSENT: conjunctival injection, conjunctiva pink, nystagmus, periorbital swelling, scleral icterus Mouth exam: PRESENT: moist, neck supple, tongue midline. ABSENT: dry mucosa, laceration Neck exam: ABSENT: carotid bruit, JVD, lymphadenopathy, thyromegaly, tracheal deviation, tracheostomy Respiratory exam: PRESENT: decreased breath sounds, prolonged expiratory phas, rhonchi, symmetrical, unlabored. ABSENT: accessory muscle use, chest wall tenderness, clear to auscultation caleb, crackles, rales, retraction, stridor, tachypnea Cardiovascular exam: PRESENT: RRR, +S1, +S2 Pulses: PRESENT: normal radial pulses GI/Abdominal exam: PRESENT: diminished bowel sounds, soft Extremities exam: ABSENT: clubbing, joint swelling Musculoskeletal exam: ABSENT: deformity, dislocation Neurological exam: PRESENT: alert, awake Psychiatric exam: PRESENT: normal mood Skin exam: PRESENT: dry, warm Results Laboratory Results: 05/24/17 05:37 05/25/17 05:49 05/25/17 05:49 Sodium 137.5 Potassium 4.3 Chloride 95 L Carbon Dioxide 38 H Anion Gap 5 BUN 15 Creatinine 0.44 L Est GFR ( Amer) > 60 Est GFR (Non-Af Amer) > 60 Glucose 83 Calcium 9.7 05/11/17 05/12/17 05/22/17 05:34 03:48 05:53 Creatine Kinase < 20 L NT-Pro-B Natriuret Pep 377 342 Impressions: Chest X-Ray 05/19/17 06:00 IMPRESSION: Minimal bibasilar airspace disease, atelectasis versus pneumonia Assessment & Plan - Diagnosis (1) Altered mental status Qualifiers: Altered mental status type: unspecified Qualified Code(s): R41.82 - Altered mental status, unspecified Is this a current diagnosis for this admission?: Yes Plan: Improving (2) Pneumonia Qualifiers: Pneumonia type: due to unspecified organism Laterality: right Lung location: unspecified part of lung Qualified Code(s): J18.9 - Pneumonia, unspecified organism Is this a current diagnosis for this admission?: Yes Plan: Labs- All tests 24 hr 05/24/17 05:37 WBC 6.1 Seg Neutrophils % 46.1 Lymphocytes % 42.3 Monocytes % 9.9 Eosinophils % 1.2 (3) Acute on chronic respiratory failure with hypoxia and hypercapnia Is this a current diagnosis for this admission?: Yes Plan: resolved (4) Obstructive sleep apnea Is this a current diagnosis for this admission?: Yes Plan: npsg? (5) Obesity Qualifiers: Body mass index: BMI 45.0-49.9 Is this a current diagnosis for this admission?: Yes Plan: unchanged (6) Tobacco abuse Is this a current diagnosis for this admission?: Yes Plan: transdermal nicotine
[2017-05-26] MEDS: IPRATROPIUM/ALBUTEROL 0.5-2.5 MG/3 ML AMPUL NEB SCH ×4 (02:32→20:24)
[2017-05-26] MEDS: GABAPENTIN 400 MG CAPSULE PO SCH ×2 (05:15→13:23)
[2017-05-26] MEDS: LANSOPRAZOLE 30 MG TAB.RAP.DR PO SCH ×2 (05:15→17:48)
[2017-05-26] MEDS: BENZONATATE 100 MG CAPSULE PO SCH ×3 (05:15→21:20)
[2017-05-26] MEDS: BUDESONIDE NEB 0.5 MG/2 ML AMPUL NEB SCH ×2 (08:43→20:24)
[2017-05-26] MEDS: DIVALPROEX SODIUM 500 MG TAB.SR.24H PO SCH ×2 (09:27→21:20)
[2017-05-26] MEDS: PREDNISONE 10 MG TABLET PO SCH (09:27)
[2017-05-26] MEDS: ENOXAPARIN SODIUM INJ 40 MG/0.4 ML DISP.SYRIN SUBCUT SCH (09:27)
[2017-05-26] MEDS: PAROXETINE HCL 20 MG TABLET PO SCH ×2 (09:27→21:18)
[2017-05-26] MEDS: TIOTROPIUM BROMIDE DPI 5 CAP/KIT (18 MCG/CAP) IH SCH (09:27)
[2017-05-26] MEDS: TOLTERODINE TARTRATE 1 MG TABLET PO SCH ×2 (09:27→21:19)
[2017-05-26] MEDS: ARIPIPRAZOLE 5 MG TABLET PO SCH (09:27)
[2017-05-26] MEDS: CLONAZEPAM 1 MG TABLET PO SCH ×2 (09:27→21:17)
[2017-05-26] MEDS: FLUTICASONE/SALMETEROL DISKUS 250-50 MCG/DOSE IH SCH ×2 (09:27→21:21)
[2017-05-26] MEDS: NYSTATIN 500000 UNIT/5 ML UDCUP PO SCH ×4 (09:27→21:18)
[2017-05-26] MEDS: VALPROATE SODIUM SYRUP 250 MG/5 ML UDCUP PO SCH (09:28)
[2017-05-26] MEDS: NYSTATIN TOPICAL POWDER 15 GM TP SCH (09:28)
[2017-05-26] MEDS: ACETAMINOPHEN 325 MG TABLET PO PRN (17:56)
[2017-05-27] MEDS: IPRATROPIUM/ALBUTEROL 0.5-2.5 MG/3 ML AMPUL NEB SCH ×4 (02:03→19:57)
[2017-05-27] MEDS: LANSOPRAZOLE 30 MG TAB.RAP.DR PO SCH ×2 (06:18→17:25)
[2017-05-27] MEDS: BENZONATATE 100 MG CAPSULE PO SCH ×3 (06:18→21:03)
[2017-05-27] MEDS: GABAPENTIN 400 MG CAPSULE PO SCH ×2 (06:18→15:26)
--- NOTE | 2017-05-27 06:59 | PDOC PROGRESS REPORT ---
Subjective Progress Note for:: 05/26/17 Subjective:: Pt states that she is doing well. Reason For Visit: ASPIRATION PNEUMONIA, COPD EXACERBATION Physical Exam Vital Signs: Temp Pulse Resp BP Pulse Ox 99.1 F 68 16 108/65 93 05/26/17 11:34 05/27/17 02:02 05/27/17 02:02 05/26/17 11:34 05/27/17 02:02 Intake & Output 05/25/17 05/26/17 05/27/17 06:59 06:59 06:59 Intake Total 827 Output Total 0 Balance 827 Weight 99.6 kg 98.9 kg 100.4 kg General appearance: PRESENT: no acute distress, well-developed, well-nourished Head exam: PRESENT: atraumatic, normocephalic Eye exam: PRESENT: conjunctiva pink, EOMI. ABSENT: scleral icterus Ear exam: PRESENT: normal external ear exam Mouth exam: PRESENT: moist, tongue midline Neck exam: ABSENT: carotid bruit, JVD, lymphadenopathy, thyromegaly Respiratory exam: PRESENT: clear to auscultation caleb. ABSENT: rales, rhonchi, wheezes Cardiovascular exam: PRESENT: RRR. ABSENT: diastolic murmur, rubs, systolic murmur Pulses: PRESENT: normal dorsalis pedis pul Vascular exam: PRESENT: normal capillary refill GI/Abdominal exam: PRESENT: normal bowel sounds, soft. ABSENT: distended, guarding, mass, organolmegaly, rebound, tenderness Rectal exam: PRESENT: deferred Extremities exam: PRESENT: full ROM. ABSENT: calf tenderness, clubbing, pedal edema Musculoskeletal exam: PRESENT: full ROM Neurological exam: PRESENT: alert, awake, oriented to person, oriented to place , oriented to time, oriented to situation, CN II-XII grossly intact. ABSENT: motor sensory deficit Psychiatric exam: PRESENT: appropriate affect, normal mood. ABSENT: homicidal ideation, suicidal ideation Skin exam: PRESENT: dry, intact, warm. ABSENT: cyanosis, rash Results Laboratory Results: 05/24/17 05:37 05/25/17 05:49 05/11/17 05/12/17 05/22/17 05:34 03:48 05:53 Creatine Kinase < 20 L NT-Pro-B Natriuret Pep 377 342 Impressions: Chest X-Ray 05/19/17 06:00 IMPRESSION: Minimal bibasilar airspace disease, atelectasis versus pneumonia Assessment & Plan - Diagnosis (1) Debility Is this a current diagnosis for this admission?: Yes Plan: PT/OT (2) Hematuria Qualifiers: Hematuria type: gross Qualified Code(s): R31.0 - Gross hematuria Is this a current diagnosis for this admission?: Yes Plan: Resolved. (3) Pneumonia Qualifiers: Pneumonia type: due to unspecified organism Laterality: right Lung location: unspecified part of lung Qualified Code(s): J18.9 - Pneumonia, unspecified organism Is this a current diagnosis for this admission?: Yes Plan: Pt has completed treatment. (4) Respiratory failure with hypoxia and hypercapnia Qualifiers: Chronicity: acute Qualified Code(s): J96.01 - Acute respiratory failure with hypoxia; J96.02 - Acute respiratory failure with hypercapnia; J96.02 - Acute respiratory failure with hypercapnia; J96.02 - Acute respiratory failure with hypercapnia Is this a current diagnosis for this admission?: Yes Plan: Resolved. (5) Substance abuse Is this a current diagnosis for this admission?: Yes Plan: Resolved (6) Acute metabolic encephalopathy Is this a current diagnosis for this admission?: Yes Plan: Resolved. - Time Time Spent with patient: 15-24 minutes
[2017-05-27] MEDS: BUDESONIDE NEB 0.5 MG/2 ML AMPUL NEB SCH ×2 (08:44→19:57)
[2017-05-27] MEDS: NYSTATIN 500000 UNIT/5 ML UDCUP PO SCH ×2 (09:54→15:26)
[2017-05-27] MEDS: DIVALPROEX SODIUM 500 MG TAB.SR.24H PO SCH ×2 (09:55→21:02)
[2017-05-27] MEDS: TOLTERODINE TARTRATE 1 MG TABLET PO SCH ×2 (09:55→21:03)
[2017-05-27] MEDS: FLUTICASONE/SALMETEROL DISKUS 250-50 MCG/DOSE IH SCH ×2 (09:55→21:02)
[2017-05-27] MEDS: PAROXETINE HCL 20 MG TABLET PO SCH ×2 (09:55→21:03)
[2017-05-27] MEDS: CLONAZEPAM 1 MG TABLET PO SCH ×2 (09:56→21:03)
[2017-05-27] MEDS: ACETAMINOPHEN 325 MG TABLET PO PRN (09:57)
[2017-05-27] MEDS: PREDNISONE 10 MG TABLET PO SCH (09:58)
[2017-05-27] MEDS: ARIPIPRAZOLE 5 MG TABLET PO SCH (09:59)
[2017-05-27] MEDS: NYSTATIN TOPICAL POWDER 15 GM TP SCH (10:00)
[2017-05-27] MEDS: ENOXAPARIN SODIUM INJ 40 MG/0.4 ML DISP.SYRIN SUBCUT SCH (10:00)
[2017-05-27] MEDS: TIOTROPIUM BROMIDE DPI 5 CAP/KIT (18 MCG/CAP) IH SCH (12:49)
--- NOTE | 2017-05-27 15:04 | PDOC PROGRESS REPORT ---
Subjective Progress Note for:: 05/27/17 Subjective:: No new issues. Reason For Visit: ASPIRATION PNEUMONIA, COPD EXACERBATION Physical Exam Vital Signs: Temp Pulse Resp BP Pulse Ox 98.8 F 97 22 H 104/60 96 05/27/17 12:06 05/27/17 14:06 05/27/17 14:06 05/27/17 12:06 05/27/17 12:06 Intake & Output 05/26/17 05/27/17 05/28/17 06:59 06:59 06:59 Weight 98.9 kg 100.4 kg General appearance: PRESENT: no acute distress, morbidly obese, well-developed, well-nourished Head exam: PRESENT: atraumatic, normocephalic Eye exam: PRESENT: conjunctiva pink, EOMI. ABSENT: scleral icterus Ear exam: PRESENT: normal external ear exam Mouth exam: PRESENT: moist, tongue midline Neck exam: ABSENT: carotid bruit, JVD, lymphadenopathy, thyromegaly Respiratory exam: PRESENT: clear to auscultation caleb. ABSENT: rales, rhonchi, wheezes Cardiovascular exam: PRESENT: RRR. ABSENT: diastolic murmur, rubs, systolic murmur Pulses: PRESENT: normal dorsalis pedis pul Vascular exam: PRESENT: normal capillary refill GI/Abdominal exam: PRESENT: normal bowel sounds, soft. ABSENT: distended, guarding, mass, organolmegaly, rebound, tenderness Rectal exam: PRESENT: deferred Extremities exam: PRESENT: full ROM. ABSENT: calf tenderness, clubbing, pedal edema Neurological exam: PRESENT: alert, awake, oriented to person, oriented to place , CN II-XII grossly intact. ABSENT: motor sensory deficit Psychiatric exam: PRESENT: appropriate affect, normal mood. ABSENT: homicidal ideation, suicidal ideation Skin exam: PRESENT: dry, intact, warm. ABSENT: cyanosis, rash Results Laboratory Results: 05/24/17 05:37 05/25/17 05:49 05/11/17 05/12/17 05/22/17 05:34 03:48 05:53 Creatine Kinase < 20 L NT-Pro-B Natriuret Pep 377 342 Impressions: Chest X-Ray 05/19/17 06:00 IMPRESSION: Minimal bibasilar airspace disease, atelectasis versus pneumonia Assessment & Plan - Diagnosis (1) Debility Is this a current diagnosis for this admission?: Yes Plan: PT/OT (2) Hematuria Qualifiers: Hematuria type: gross Qualified Code(s): R31.0 - Gross hematuria Is this a current diagnosis for this admission?: Yes Plan: Resolved. (3) Pneumonia Qualifiers: Pneumonia type: due to unspecified organism Laterality: right Lung location: unspecified part of lung Qualified Code(s): J18.9 - Pneumonia, unspecified organism Is this a current diagnosis for this admission?: Yes Plan: Pt has completed treatment. (4) Respiratory failure with hypoxia and hypercapnia Qualifiers: Chronicity: acute Qualified Code(s): J96.01 - Acute respiratory failure with hypoxia; J96.02 - Acute respiratory failure with hypercapnia; J96.02 - Acute respiratory failure with hypercapnia; J96.02 - Acute respiratory failure with hypercapnia Is this a current diagnosis for this admission?: Yes Plan: Resolved. (5) Substance abuse Is this a current diagnosis for this admission?: Yes Plan: Resolved (6) Acute metabolic encephalopathy Is this a current diagnosis for this admission?: Yes Plan: Resolved. - Time Time Spent with patient: 15-24 minutes - Pt awaiting placement.
[2017-05-28] MEDS: IPRATROPIUM/ALBUTEROL 0.5-2.5 MG/3 ML AMPUL NEB SCH ×4 (02:09→20:22)
[2017-05-28] MEDS: GABAPENTIN 400 MG CAPSULE PO SCH ×2 (05:41→13:37)
[2017-05-28] MEDS: BENZONATATE 100 MG CAPSULE PO SCH ×3 (05:42→21:39)
[2017-05-28] MEDS: LANSOPRAZOLE 30 MG TAB.RAP.DR PO SCH ×2 (05:42→16:31)
[2017-05-28] MEDS: BUDESONIDE NEB 0.5 MG/2 ML AMPUL NEB SCH ×2 (08:12→20:22)
[2017-05-28] MEDS: TOLTERODINE TARTRATE 1 MG TABLET PO SCH ×2 (09:49→21:38)
[2017-05-28] MEDS: ARIPIPRAZOLE 5 MG TABLET PO SCH (09:49)
[2017-05-28] MEDS: PREDNISONE 10 MG TABLET PO SCH (09:49)
[2017-05-28] MEDS: ENOXAPARIN SODIUM INJ 40 MG/0.4 ML DISP.SYRIN SUBCUT SCH (09:49)
[2017-05-28] MEDS: CLONAZEPAM 1 MG TABLET PO SCH ×2 (09:49→21:40)
[2017-05-28] MEDS: TIOTROPIUM BROMIDE DPI 5 CAP/KIT (18 MCG/CAP) IH SCH (09:50)
[2017-05-28] MEDS: FLUTICASONE/SALMETEROL DISKUS 250-50 MCG/DOSE IH SCH ×2 (09:50→21:38)
[2017-05-28] MEDS: DIVALPROEX SODIUM 500 MG TAB.SR.24H PO SCH ×2 (09:50→21:39)
[2017-05-28] MEDS: PAROXETINE HCL 20 MG TABLET PO SCH ×2 (09:50→21:39)
[2017-05-28] MEDS: NYSTATIN TOPICAL POWDER 15 GM TP SCH (09:51)
--- NOTE | 2017-05-28 11:22 | PDOC PROGRESS REPORT ---
Subjective Progress Note for:: 05/28/17 Subjective:: Pt states that she wants to go home to see her dogs. Pt states that she hopes her son is checking on her dogs. Reason For Visit: ASPIRATION PNEUMONIA, COPD EXACERBATION Physical Exam Vital Signs: Temp Pulse Resp BP Pulse Ox 98.2 F 73 18 124/67 95 05/28/17 03:33 05/28/17 08:12 05/28/17 08:12 05/28/17 03:33 05/28/17 08:12 Intake & Output 05/27/17 05/28/17 05/29/17 06:59 06:59 06:59 Intake Total 1262 Output Total 400 Balance 862 Weight 100.4 kg General appearance: PRESENT: no acute distress, well-developed, well-nourished Head exam: PRESENT: atraumatic, normocephalic Eye exam: PRESENT: conjunctiva pink, EOMI. ABSENT: scleral icterus Ear exam: PRESENT: normal external ear exam Mouth exam: PRESENT: moist, tongue midline Neck exam: ABSENT: carotid bruit, JVD, lymphadenopathy, thyromegaly Respiratory exam: PRESENT: clear to auscultation caleb. ABSENT: rales, rhonchi, wheezes Cardiovascular exam: PRESENT: RRR. ABSENT: diastolic murmur, rubs, systolic murmur Pulses: PRESENT: normal dorsalis pedis pul Vascular exam: PRESENT: normal capillary refill GI/Abdominal exam: PRESENT: normal bowel sounds, soft. ABSENT: distended, guarding, mass, organolmegaly, rebound, tenderness Rectal exam: PRESENT: deferred Extremities exam: PRESENT: full ROM. ABSENT: calf tenderness, clubbing, pedal edema Neurological exam: PRESENT: alert, awake, oriented to person, oriented to place , oriented to time, CN II-XII grossly intact. ABSENT: motor sensory deficit Psychiatric exam: PRESENT: appropriate affect, normal mood. ABSENT: homicidal ideation, suicidal ideation Skin exam: PRESENT: dry, intact, warm. ABSENT: cyanosis, rash Results Laboratory Results: 05/24/17 05:37 05/25/17 05:49 05/11/17 05/12/17 05/22/17 05:34 03:48 05:53 Creatine Kinase < 20 L NT-Pro-B Natriuret Pep 377 342 Impressions: Chest X-Ray 05/19/17 06:00 IMPRESSION: Minimal bibasilar airspace disease, atelectasis versus pneumonia Assessment & Plan - Diagnosis (1) Debility Is this a current diagnosis for this admission?: Yes Plan: PT/OT (2) Hematuria Qualifiers: Hematuria type: gross Qualified Code(s): R31.0 - Gross hematuria Is this a current diagnosis for this admission?: Yes Plan: Resolved. (3) Pneumonia Qualifiers: Pneumonia type: due to unspecified organism Laterality: right Lung location: unspecified part of lung Qualified Code(s): J18.9 - Pneumonia, unspecified organism Is this a current diagnosis for this admission?: Yes Plan: Pt has completed treatment. (4) Respiratory failure with hypoxia and hypercapnia Qualifiers: Chronicity: acute Qualified Code(s): J96.01 - Acute respiratory failure with hypoxia; J96.02 - Acute respiratory failure with hypercapnia; J96.02 - Acute respiratory failure with hypercapnia; J96.02 - Acute respiratory failure with hypercapnia Is this a current diagnosis for this admission?: Yes Plan: Resolved. (5) Substance abuse Is this a current diagnosis for this admission?: Yes Plan: Resolved (6) Acute metabolic encephalopathy Is this a current diagnosis for this admission?: Yes Plan: Resolved. - Time Time Spent with patient: Less than 15 minutes - Patient waiting for rehab placement.
[2017-05-29] MEDS: IPRATROPIUM/ALBUTEROL 0.5-2.5 MG/3 ML AMPUL NEB SCH ×4 (02:05→20:19)
[2017-05-29] MEDS: LANSOPRAZOLE 30 MG TAB.RAP.DR PO SCH ×2 (06:04→16:40)
[2017-05-29] MEDS: BENZONATATE 100 MG CAPSULE PO SCH ×3 (06:04→22:57)
[2017-05-29] MEDS: GABAPENTIN 400 MG CAPSULE PO SCH ×2 (06:04→13:50)
[2017-05-29] MEDS: BUDESONIDE NEB 0.5 MG/2 ML AMPUL NEB SCH ×2 (08:44→20:19)
[2017-05-29] MEDS: CLONAZEPAM 1 MG TABLET PO SCH ×2 (09:15→22:57)
[2017-05-29] MEDS: DIVALPROEX SODIUM 500 MG TAB.SR.24H PO SCH ×2 (09:15→22:57)
[2017-05-29] MEDS: PREDNISONE 10 MG TABLET PO SCH (09:15)
[2017-05-29] MEDS: TOLTERODINE TARTRATE 1 MG TABLET PO SCH ×2 (09:16→22:56)
[2017-05-29] MEDS: PAROXETINE HCL 20 MG TABLET PO SCH ×2 (09:17→22:57)
[2017-05-29] MEDS: FLUTICASONE/SALMETEROL DISKUS 250-50 MCG/DOSE IH SCH ×2 (09:18→22:57)
[2017-05-29] MEDS: ARIPIPRAZOLE 5 MG TABLET PO SCH (09:18)
[2017-05-29] MEDS: TIOTROPIUM BROMIDE DPI 5 CAP/KIT (18 MCG/CAP) IH SCH (09:19)
[2017-05-29] MEDS: ENOXAPARIN SODIUM INJ 40 MG/0.4 ML DISP.SYRIN SUBCUT SCH (09:20)
[2017-05-29] MEDS: NYSTATIN TOPICAL POWDER 15 GM TP SCH (09:20)
--- NOTE | 2017-05-29 17:56 | PDOC PROGRESS REPORT ---
Subjective Progress Note for:: 05/29/17 Subjective:: No new issues. Reason For Visit: ASPIRATION PNEUMONIA, COPD EXACERBATION Physical Exam Vital Signs: Temp Pulse Resp BP Pulse Ox 98.8 F 79 18 118/62 95 05/29/17 15:01 05/29/17 15:01 05/29/17 15:01 05/29/17 15:01 05/29/17 16:37 Intake & Output 05/28/17 05/29/17 05/30/17 06:59 06:59 06:59 Intake Total 1262 873 Output Total 400 Balance 862 873 Weight 99.6 kg General appearance: PRESENT: no acute distress, well-developed, well-nourished Head exam: PRESENT: atraumatic, normocephalic Eye exam: PRESENT: conjunctiva pink, EOMI. ABSENT: scleral icterus Ear exam: PRESENT: normal external ear exam Mouth exam: PRESENT: moist, tongue midline Neck exam: ABSENT: carotid bruit, JVD, lymphadenopathy, thyromegaly Respiratory exam: PRESENT: clear to auscultation caleb. ABSENT: rales, rhonchi, wheezes Cardiovascular exam: PRESENT: RRR. ABSENT: diastolic murmur, rubs, systolic murmur Pulses: PRESENT: normal dorsalis pedis pul Vascular exam: PRESENT: normal capillary refill GI/Abdominal exam: PRESENT: normal bowel sounds, soft. ABSENT: distended, guarding, mass, organolmegaly, rebound, tenderness Rectal exam: PRESENT: deferred Extremities exam: PRESENT: full ROM. ABSENT: calf tenderness, clubbing, pedal edema Neurological exam: PRESENT: alert, awake, oriented to person, oriented to place , oriented to time, CN II-XII grossly intact. ABSENT: motor sensory deficit Psychiatric exam: PRESENT: appropriate affect, normal mood. ABSENT: homicidal ideation, suicidal ideation Skin exam: PRESENT: dry, intact, warm. ABSENT: cyanosis, rash Results Laboratory Results: 05/24/17 05:37 05/25/17 05:49 05/11/17 05/12/17 05/22/17 05:34 03:48 05:53 Creatine Kinase < 20 L NT-Pro-B Natriuret Pep 377 342 Impressions: Chest X-Ray 05/19/17 06:00 IMPRESSION: Minimal bibasilar airspace disease, atelectasis versus pneumonia Assessment & Plan - Diagnosis (1) Debility Is this a current diagnosis for this admission?: Yes Plan: PT/OT (2) Hematuria Qualifiers: Hematuria type: gross Qualified Code(s): R31.0 - Gross hematuria Is this a current diagnosis for this admission?: Yes Plan: Resolved. (3) Pneumonia Qualifiers: Pneumonia type: due to unspecified organism Laterality: right Lung location: unspecified part of lung Qualified Code(s): J18.9 - Pneumonia, unspecified organism Is this a current diagnosis for this admission?: Yes Plan: Pt has completed treatment. (4) Respiratory failure with hypoxia and hypercapnia Qualifiers: Chronicity: acute Qualified Code(s): J96.01 - Acute respiratory failure with hypoxia; J96.02 - Acute respiratory failure with hypercapnia; J96.02 - Acute respiratory failure with hypercapnia; J96.02 - Acute respiratory failure with hypercapnia Is this a current diagnosis for this admission?: Yes Plan: Resolved. (5) Substance abuse Is this a current diagnosis for this admission?: Yes Plan: Resolved (6) Acute metabolic encephalopathy Is this a current diagnosis for this admission?: Yes Plan: Resolved. - Time Time Spent with patient: Less than 15 minutes
[2017-05-30] MEDS: IPRATROPIUM/ALBUTEROL 0.5-2.5 MG/3 ML AMPUL NEB SCH ×4 (02:09→19:52)
[2017-05-30] MEDS: GABAPENTIN 400 MG CAPSULE PO SCH ×2 (05:56→13:57)
[2017-05-30] MEDS: BENZONATATE 100 MG CAPSULE PO SCH ×3 (05:56→21:12)
[2017-05-30] MEDS: LANSOPRAZOLE 30 MG TAB.RAP.DR PO SCH ×2 (05:56→16:19)
[2017-05-30] MEDS: BUDESONIDE NEB 0.5 MG/2 ML AMPUL NEB SCH ×2 (08:20→19:53)
[2017-05-30] MEDS: PAROXETINE HCL 20 MG TABLET PO SCH ×2 (09:22→21:13)
[2017-05-30] MEDS: ENOXAPARIN SODIUM INJ 40 MG/0.4 ML DISP.SYRIN SUBCUT SCH (09:22)
[2017-05-30] MEDS: PREDNISONE 10 MG TABLET PO SCH (09:23)
[2017-05-30] MEDS: DIVALPROEX SODIUM 500 MG TAB.SR.24H PO SCH ×2 (09:23→21:13)
[2017-05-30] MEDS: TOLTERODINE TARTRATE 1 MG TABLET PO SCH ×2 (09:23→21:13)
[2017-05-30] MEDS: ARIPIPRAZOLE 5 MG TABLET PO SCH (09:23)
[2017-05-30] MEDS: CLONAZEPAM 1 MG TABLET PO SCH ×2 (09:23→21:13)
[2017-05-30] MEDS: NYSTATIN TOPICAL POWDER 15 GM TP SCH (09:24)
[2017-05-30] MEDS: TIOTROPIUM BROMIDE DPI 5 CAP/KIT (18 MCG/CAP) IH SCH (09:24)
[2017-05-30] MEDS: FLUTICASONE/SALMETEROL DISKUS 250-50 MCG/DOSE IH SCH ×2 (09:24→21:13)
--- NOTE | 2017-05-30 17:41 | PDOC PROGRESS REPORT ---
Subjective Progress Note for:: 05/30/17 Subjective:: No new issues. Reason For Visit: ASPIRATION PNEUMONIA, COPD EXACERBATION Physical Exam Vital Signs: Temp Pulse Resp BP Pulse Ox 97.5 F 77 18 110/66 98 05/30/17 16:00 05/30/17 16:00 05/30/17 16:00 05/30/17 16:00 05/30/17 16:00 Intake & Output 05/29/17 05/30/17 05/31/17 06:59 06:59 06:59 Intake Total 873 Balance 873 Weight 99.6 kg 101.7 kg General appearance: PRESENT: no acute distress, well-developed, well-nourished Head exam: PRESENT: atraumatic, normocephalic Eye exam: PRESENT: conjunctiva pink, EOMI. ABSENT: scleral icterus Ear exam: PRESENT: normal external ear exam Mouth exam: PRESENT: moist, tongue midline Neck exam: ABSENT: carotid bruit, JVD, lymphadenopathy, thyromegaly Respiratory exam: PRESENT: wheezes. ABSENT: rales, rhonchi Cardiovascular exam: PRESENT: RRR. ABSENT: diastolic murmur, rubs, systolic murmur Pulses: PRESENT: normal dorsalis pedis pul Vascular exam: PRESENT: normal capillary refill GI/Abdominal exam: PRESENT: normal bowel sounds, soft. ABSENT: distended, guarding, mass, organolmegaly, rebound, tenderness Rectal exam: PRESENT: deferred Extremities exam: PRESENT: full ROM. ABSENT: calf tenderness, clubbing, pedal edema Neurological exam: PRESENT: alert, awake, oriented to person, oriented to place. ABSENT: motor sensory deficit Psychiatric exam: PRESENT: appropriate affect, normal mood. ABSENT: homicidal ideation, suicidal ideation Skin exam: PRESENT: dry, intact, warm. ABSENT: cyanosis, rash Results Laboratory Results: 05/24/17 05:37 05/25/17 05:49 05/11/17 05/12/17 05/22/17 05:34 03:48 05:53 Creatine Kinase < 20 L NT-Pro-B Natriuret Pep 377 342 Impressions: Chest X-Ray 05/19/17 06:00 IMPRESSION: Minimal bibasilar airspace disease, atelectasis versus pneumonia Assessment & Plan - Diagnosis (1) Debility Is this a current diagnosis for this admission?: Yes Plan: PT/OT (2) Hematuria Qualifiers: Hematuria type: gross Qualified Code(s): R31.0 - Gross hematuria Is this a current diagnosis for this admission?: Yes Plan: Resolved. (3) Pneumonia Qualifiers: Pneumonia type: due to unspecified organism Laterality: right Lung location: unspecified part of lung Qualified Code(s): J18.9 - Pneumonia, unspecified organism Is this a current diagnosis for this admission?: Yes Plan: Pt has completed treatment. (4) Respiratory failure with hypoxia and hypercapnia Qualifiers: Chronicity: acute Qualified Code(s): J96.01 - Acute respiratory failure with hypoxia; J96.02 - Acute respiratory failure with hypercapnia; J96.02 - Acute respiratory failure with hypercapnia; J96.02 - Acute respiratory failure with hypercapnia Is this a current diagnosis for this admission?: Yes Plan: Resolved. (5) Substance abuse Is this a current diagnosis for this admission?: Yes Plan: Resolved (6) Acute metabolic encephalopathy Is this a current diagnosis for this admission?: Yes Plan: Resolved. - Time Time Spent with patient: Less than 15 minutes - Patient awaiting placement.
[2017-05-31] MEDS: IPRATROPIUM/ALBUTEROL 0.5-2.5 MG/3 ML AMPUL NEB SCH ×4 (02:16→20:25)
[2017-05-31] MEDS: LANSOPRAZOLE 30 MG TAB.RAP.DR PO SCH ×2 (05:42→16:42)
[2017-05-31] MEDS: GABAPENTIN 400 MG CAPSULE PO SCH ×2 (05:42→13:30)
[2017-05-31] MEDS: BENZONATATE 100 MG CAPSULE PO SCH ×3 (05:42→21:47)
[2017-05-31] MEDS: BUDESONIDE NEB 0.5 MG/2 ML AMPUL NEB SCH ×2 (07:54→20:25)
[2017-05-31] MEDS: CLONAZEPAM 1 MG TABLET PO SCH ×2 (10:43→21:47)
[2017-05-31] MEDS: PAROXETINE HCL 20 MG TABLET PO SCH ×2 (10:44→21:47)
[2017-05-31] MEDS: ARIPIPRAZOLE 5 MG TABLET PO SCH (10:45)
[2017-05-31] MEDS: DIVALPROEX SODIUM 500 MG TAB.SR.24H PO SCH ×2 (10:45→21:48)
[2017-05-31] MEDS: PREDNISONE 10 MG TABLET PO SCH (10:45)
[2017-05-31] MEDS: TOLTERODINE TARTRATE 1 MG TABLET PO SCH ×2 (10:46→21:55)
[2017-05-31] MEDS: TIOTROPIUM BROMIDE DPI 5 CAP/KIT (18 MCG/CAP) IH SCH (10:46)
[2017-05-31] MEDS: FLUTICASONE/SALMETEROL DISKUS 250-50 MCG/DOSE IH SCH (10:46)
[2017-05-31] MEDS: ENOXAPARIN SODIUM INJ 40 MG/0.4 ML DISP.SYRIN SUBCUT SCH (10:47)
[2017-05-31] MEDS: NYSTATIN TOPICAL POWDER 15 GM TP SCH (10:49)
--- NOTE | 2017-05-31 16:31 | PDOC PROGRESS REPORT ---
Subjective Progress Note for:: 05/31/17 Subjective:: No new issues. Pt states that she has been sitting on side of her bed watching TV. Reason For Visit: ASPIRATION PNEUMONIA, COPD EXACERBATION Physical Exam Vital Signs: Temp Pulse Resp BP Pulse Ox 98.6 F 80 18 107/59 L 97 05/31/17 11:50 05/31/17 14:00 05/31/17 13:35 05/31/17 11:50 05/31/17 11:50 Intake & Output 05/30/17 05/31/17 06/01/17 06:59 06:59 06:59 Intake Total 0 860 Balance 2069 860 Weight 101.7 kg 102.6 kg General appearance: PRESENT: no acute distress, well-developed, well-nourished Head exam: PRESENT: atraumatic, normocephalic Eye exam: PRESENT: conjunctiva pink, EOMI. ABSENT: scleral icterus Ear exam: PRESENT: normal external ear exam Mouth exam: PRESENT: moist, tongue midline Neck exam: ABSENT: carotid bruit, JVD, lymphadenopathy, thyromegaly Respiratory exam: PRESENT: clear to auscultation caleb, wheezes - scant wheezing. ABSENT: rales, rhonchi Cardiovascular exam: PRESENT: RRR. ABSENT: diastolic murmur, rubs, systolic murmur Pulses: PRESENT: normal dorsalis pedis pul Vascular exam: PRESENT: normal capillary refill GI/Abdominal exam: PRESENT: normal bowel sounds, soft. ABSENT: distended, guarding, mass, organolmegaly, rebound, tenderness Rectal exam: PRESENT: deferred Extremities exam: PRESENT: full ROM. ABSENT: calf tenderness, clubbing, pedal edema Neurological exam: PRESENT: alert, awake, oriented to person, oriented to place , CN II-XII grossly intact. ABSENT: motor sensory deficit Psychiatric exam: PRESENT: normal mood. ABSENT: homicidal ideation, suicidal ideation Skin exam: PRESENT: dry, intact, warm. ABSENT: cyanosis, rash Results Laboratory Results: 05/24/17 05:37 05/25/17 05:49 05/11/17 05/12/17 05/22/17 05:34 03:48 05:53 Creatine Kinase < 20 L NT-Pro-B Natriuret Pep 377 342 Impressions: Chest X-Ray 05/19/17 06:00 IMPRESSION: Minimal bibasilar airspace disease, atelectasis versus pneumonia Assessment & Plan - Diagnosis (1) Debility Is this a current diagnosis for this admission?: Yes Plan: PT/OT (2) Hematuria Qualifiers: Hematuria type: gross Qualified Code(s): R31.0 - Gross hematuria Is this a current diagnosis for this admission?: Yes Plan: Resolved. (3) Pneumonia Qualifiers: Pneumonia type: due to unspecified organism Laterality: right Lung location: unspecified part of lung Qualified Code(s): J18.9 - Pneumonia, unspecified organism Is this a current diagnosis for this admission?: Yes Plan: Pt has completed treatment. (4) Respiratory failure with hypoxia and hypercapnia Qualifiers: Chronicity: acute Qualified Code(s): J96.01 - Acute respiratory failure with hypoxia; J96.02 - Acute respiratory failure with hypercapnia; J96.02 - Acute respiratory failure with hypercapnia; J96.02 - Acute respiratory failure with hypercapnia Is this a current diagnosis for this admission?: Yes Plan: Resolved. (5) Substance abuse Is this a current diagnosis for this admission?: Yes Plan: Resolved (6) Acute metabolic encephalopathy Is this a current diagnosis for this admission?: Yes Plan: Resolved. - Time Time Spent with patient: Less than 15 minutes
[2017-06-01] MEDS: IPRATROPIUM/ALBUTEROL 0.5-2.5 MG/3 ML AMPUL NEB SCH ×3 (02:38→13:48)
[2017-06-01 05:24] VITALS: BP 134/84
[2017-06-01] MEDS: FLUTICASONE/SALMETEROL DISKUS 250-50 MCG/DOSE IH SCH (05:39)
[2017-06-01] MEDS: BENZONATATE 100 MG CAPSULE PO SCH ×2 (05:47→14:35)
[2017-06-01] MEDS: GABAPENTIN 400 MG CAPSULE PO SCH ×2 (05:47→14:35)
[2017-06-01] MEDS: LANSOPRAZOLE 30 MG TAB.RAP.DR PO SCH (05:47)
[2017-06-01] MEDS: BUDESONIDE NEB 0.5 MG/2 ML AMPUL NEB SCH (08:32)
[2017-06-01] MEDS: ARIPIPRAZOLE 5 MG TABLET PO SCH (10:37)
[2017-06-01] MEDS: PREDNISONE 10 MG TABLET PO SCH (10:37)
[2017-06-01] MEDS: DIVALPROEX SODIUM 500 MG TAB.SR.24H PO SCH (10:37)
[2017-06-01] MEDS: TOLTERODINE TARTRATE 1 MG TABLET PO SCH (10:38)
[2017-06-01] MEDS: PAROXETINE HCL 20 MG TABLET PO SCH (10:38)
[2017-06-01] MEDS: ENOXAPARIN SODIUM INJ 40 MG/0.4 ML DISP.SYRIN SUBCUT SCH (10:38)
[2017-06-01] MEDS: CLONAZEPAM 1 MG TABLET PO SCH (10:38)
--- NOTE | 2017-06-01 16:50 | PDOC DISCHARGE SUMMARY ---
General - Admit/Disc Date/PCP Admission Date/Primary Care Provider: 05/07/17 21:42 Discharge Date: 06/01/17 - Discharge Diagnosis (1) Debility Is this a current diagnosis for this admission?: Yes Summary: Patient was awaiting placement for rehab however became frustrated and left AMA. (2) Hematuria Is this a current diagnosis for this admission?: Yes Summary: Resolved. (3) Pneumonia Is this a current diagnosis for this admission?: Yes Summary: Patient was admitted to the hospital earlier where she was diagnosed with pneumonia. Patient has completed treatment while in hospital. (4) Respiratory failure with hypoxia and hypercapnia Is this a current diagnosis for this admission?: Yes Summary: At time of admission patient was found to have acute hypoxic hypercarbic Respiratory failure patient was found to have pneumonia and was placed on antibiotics. At time of discharge patient had completed antibiotic regimen. (5) Substance abuse Is this a current diagnosis for this admission?: Yes Summary: Cocaine, benzos, and opioids. (6) Acute metabolic encephalopathy Is this a current diagnosis for this admission?: Yes Summary: Resolved. - Additional Information Resuscitation Status: Full Code Home Medications: Albuterol Sulfate [Proair Hfa Inhalation Aerosol 8.5 gm Mdi] 2 puff IH Q4HP PRN 05/07/17 Aripiprazole [Abilify 5 mg Tablet] 10 mg PO DAILY 05/07/17 Clonazepam [Klonopin] 0.5 mg PO Q12 05/07/17 Divalproex Sodium [Divalproex Sodium ER] 500 mg PO Q12 05/07/17 Doxepin HCl 100 mg PO QHS 05/07/17 Esomeprazole Magnesium [Nexium] 40 mg PO DAILY 05/07/17 Fluticasone/Salmeterol [Advair 250-50 Diskus 28 dose] 1 inh IH Q12 05/07/17 Furosemide [Lasix 20 mg Tablet] 20 mg PO QAM 05/07/17 Gabapentin [Neurontin 400 mg Capsule] 400 mg PO BID@06,14 05/07/17 Gabapentin [Neurontin 400 mg Capsule] 800 mg PO QHS 05/07/17 Ibuprofen [Motrin 800 mg Tablet] 800 mg PO Q8HP PRN 05/07/17 Ipratropium/Albuterol Sulfate [Duoneb 3 ml Ampul] 3 ml NEB RTQ6HP PRN 05/07/17 Paroxetine HCl [Paxil] 30 mg PO Q12 05/07/17 Solifenacin Succinate [Vesicare] 5 mg PO DAILY 05/07/17 Tiotropium Banner [Spiriva Handihaler 18 mcg/dose (30 Dose)] 1 cap IH DAILY 08/19 History of Present Illness Patient complains of: Altered mental status with O2 sat of 50% on room air. History of Present Illness: MANDEEP VIVAR is a 56 year old female who presented to the hospital due to hypoxia. Patient was placed on a nonrebreather and given breathing treatments in the emergency room. It was felt that patient most likely aspirated and therefore was started on antibiotics. She is respiratory function continued to worsen and therefore had to be intubated. Patient was extubated on 05/15/2017 and placed on BiPAP. Patient since that time has done well and has not had any further problems. Patient had been working with PT OT and they had recommended that patient go to short- term rehab. Patient became very agitated and left AMA. Hospital Course Hospital Course: MANDEEP VIVAR is a 56 year old female who presented to the hospital due to hypoxia. Patient was placed on a nonrebreather and given breathing treatments in the emergency room. It was felt that patient most likely aspirated and therefore was started on antibiotics. She is respiratory function continued to worsen and therefore had to be intubated. Patient was extubated on 05/15/2017 and placed on BiPAP. Patient since that time has done well and has not had any further problems. Patient had been working with PT OT and they had recommended that patient go to short- term rehab. Patient became very agitated and left AMA. Physical Exam Vital Signs: Temp Pulse Resp BP Pulse Ox 98.3 F 96 18 134/84 H 94 06/01/17 04:40 06/01/17 14:00 06/01/17 13:48 06/01/17 04:40 06/01/17 13:48 Intake & Output 05/31/17 06/01/17 06/02/17 06:59 06:59 06:59 Intake Total 2069 1886 Balance 2069 1886 Weight 102.6 kg General appearance: PRESENT: morbidly obese, well-developed, well-nourished Eye exam: PRESENT: conjunctiva pink, EOMI. ABSENT: scleral icterus Ear exam: PRESENT: normal external ear exam Mouth exam: PRESENT: moist, tongue midline Neck exam: ABSENT: carotid bruit, JVD, lymphadenopathy, thyromegaly Respiratory exam: PRESENT: clear to auscultation caleb. ABSENT: rales, rhonchi, wheezes Cardiovascular exam: PRESENT: RRR. ABSENT: diastolic murmur, rubs, systolic murmur Pulses: PRESENT: normal dorsalis pedis pul Vascular exam: PRESENT: normal capillary refill GI/Abdominal exam: PRESENT: normal bowel sounds, soft. ABSENT: distended, guarding, mass, organolmegaly, rebound, tenderness Rectal exam: PRESENT: deferred Extremities exam: PRESENT: full ROM. ABSENT: calf tenderness, clubbing, pedal edema Neurological exam: PRESENT: alert, oriented to person, oriented to time, oriented to situation, CN II-XII grossly intact Psychiatric exam: PRESENT: appropriate affect, normal mood. ABSENT: homicidal ideation, suicidal ideation Skin exam: PRESENT: dry, intact, warm. ABSENT: cyanosis, rash Results Laboratory Results: 05/24/17 05:37 05/25/17 05:49 05/11/17 05/12/17 05/22/17 05:34 03:48 05:53 Creatine Kinase < 20 L NT-Pro-B Natriuret Pep 377 342 Impressions: Chest X-Ray 05/19/17 06:00 IMPRESSION: Minimal bibasilar airspace disease, atelectasis versus pneumonia Plan Time Spent: Less than 30 Minutes
== END 2017-06-01 15:15 | disposition left against medical advice (07) | DRG 207 ==
LOC: ER 17:03 → EH 21:42 → EEVIPCON 21:42 → ICU 05-08 12:19 → EH 05-08 12:27 → ICU 05-08 12:28 → 3S 05-18 15:32 → 4S 05-26 14:08 → 4N 05-31 13:02
PROVIDERS: ADMIT Internal Medicine; ATTEND Internal Medicine
PROC: 0BH17EZ Insertion of Endotracheal Airway into Trachea, Via Natural or Artificial Opening (ICD-10-PCS; principal; 2017-05-07)
PROC: 5A1955Z Respiratory Ventilation, Greater than 96 Consecutive Hours (ICD-10-PCS; 2017-05-07)
DX: J96.01 Acute respiratory failure with hypoxia (principal); J69.0 Pneumonitis due to inhalation of food and vomit; G93.41 Metabolic encephalopathy; Z68.41 Body mass index [BMI] 40.0-44.9, adult; E87.3 Alkalosis; J98.19 Other pulmonary collapse; J96.02 Acute respiratory failure with hypercapnia; Z96.653 Presence of artificial knee joint, bilateral; E66.01 Morbid (severe) obesity due to excess calories; J44.9 Chronic obstructive pulmonary disease, unspecified; K21.9 Gastro-esophageal reflux disease without esophagitis; F14.10 Cocaine abuse, uncomplicated; F11.10 Opioid abuse, uncomplicated; F13.10 Sedative, hypnotic or anxiolytic abuse, uncomplicated; B96.1 Klebsiella pneumoniae [K. pneumoniae] as the cause of diseases classified elsewhere; B95.3 Streptococcus pneumoniae as the cause of diseases classified elsewhere; B96.3 Hemophilus influenzae [H. influenzae] as the cause of diseases classified elsewhere; M19.90 Unspecified osteoarthritis, unspecified site; F25.9 Schizoaffective disorder, unspecified; F31.9 Bipolar disorder, unspecified; I10 Essential (primary) hypertension; G43.909 Migraine, unspecified, not intractable, without status migrainosus; F17.200 Nicotine dependence, unspecified, uncomplicated; Z91.19 Patient's noncompliance with other medical treatment and regimen; R68.0 Hypothermia, not associated with low environmental temperature; R31.0 Gross hematuria; Z78.1 Physical restraint status
CPT/HCPCS: 36415; 36600; 71045; 80048; 80053; 80202; 80307; 81001; 82140; 82550; 82803; 82962; 83605; 83735; 83874; 83880; 84100; 84439; 84443; 84478; 84481; 84484; 85025; 87040; 87070; 87077; 87086; 87186; 87205; 93005; 93010; 94002; 94003; 94640; 94660; 94799; 96365; 96367; 96368; 96375; 99291; G8996-GN; G8997-GN; G8998-GN; J1100; J1644; J1650; J1956; J2310; J2543; J2704; J2920; J2930; J3010; J3370; J3490; J7030; J7060; J7512; J7620

== ENCOUNTER 2017-06-02 14:15 | Emergency (ER) | payer MEDICAID ==
[2017-06-02 17:24] LABS: APPEARANCE,URINE CLOUDY; BILIRUBIN,URINE NEGATIVE (NEGATIVE); COLOR,URINE STRAW; GLUCOSE, URINE NEGATIVE (NEGATIVE); KETONES,URINE NEGATIVE (NEGATIVE); LEUKOCYTE ESTERASE,URINE NEGATIVE (NEGATIVE); NITRITE,URINE NEGATIVE (NEGATIVE); PROTEIN,URINE NEGATIVE (NEGATIVE); URINE SPECIFIC GRAVITY 1.003; UROBILINOGEN,URINE NEGATIVE mg/dL (<2.0)
--- NOTE | 2017-06-02 17:28 | ER Document Report ---
ED General - General Mode of Arrival: Medic Information source: Patient TRAVEL OUTSIDE OF THE [place] IN LAST 30 DAYS: No <BRADEN COONEY - Last Filed: 06/02/17 19:10> <KIM DOHERTY - Last Filed: 06/02/17 21:15> - General Chief Complaint: Facial Swelling Stated Complaint: FACIAL PAIN Time Seen by Provider: 06/02/17 15:42 - HPI Notes: 56-year-old female with a history of sleep apnea, COPD, polysubstance abuse presents to the ER for altered mental status, fatigue, hypoxia when her mental health services contacted her today, they noticed that she seemed to be confused and called EMS, which for her to the emergency room . Patient is oxygen dependent at home however she was found without wearing her oxygen, pulse ox is 85. Patient was admitted to this hospital for almost a month for acute respiratory failure with hypercapnia due to substance abuse and overdose. From looking through her previous records, patient has this presentation and was found to have polysubstance overdose and COPD exacerbation when she was admitted on 07 May this year. Denies any fevers and chills. Patient states that sometimes he forgets to wear her oxygen at home. Patient states she only has her and her dogs at home. Pa patient was going to be placed in a permanent assisted facility due to her extensive medical history as well as history of noncompliance. Patient did not want to go to a permanent assisted facility yesterday and left AGAINST MEDICAL ADVICE from the hospitalist service. Denies any chest pain, denies any shortness of breath, nausea, vomiting, diarrhea, blurred vision, double vision, loss of vision, lightheadedness, dizziness. Patient is 96% on O2 of oxygen. (BRADEN COONEY) - Related Data Allergies/Adverse Reactions: No Known Allergies Allergy (Verified 06/02/17 14:21) Past Medical History - General Information source: Patient - Social History Smoking Status: Current Every Day Smoker Chew tobacco use (# tins/day): No Frequency of alcohol use: None Drug Abuse: Prescription drugs Family History: Other - Unknown Patient has suicidal ideation: No Patient has homicidal ideation: No - Past Medical History Cardiac Medical History: Reports: Hx Hypertension Pulmonary Medical History: Reports: Hx Asthma - last ED visit > 3 years ago, Hx Bronchitis, Hx COPD, Hx Pneumonia - required hospitalization Neurological Medical History: Reports: Hx Migraine Renal/ Medical History: Denies: Hx Peritoneal Dialysis Malignancy Medical History: GI Medical History: Reports: Hx Gastroesophageal Reflux Disease - Rx x 10 years , Hx Ulcer. Denies: Hx Pancreatitis Musculoskeltal Medical History: Reports Hx Arthritis, Reports Hx Musculoskeletal Deformity, Reports Hx Musculoskeletal Trauma Psychiatric Medical History: Reports: Hx Anxiety, Hx Bipolar Disorder, Hx Borderline Personality Disorder, Hx Depression - per [facility]'s note 11/16/14, Hx Schizoaffective Disorder, Hx Schizophrenia - per ED note 10/07/14 Traumatic Medical History: Reports: Hx Fractures - tib RT, denies sugery Past Surgical History: Reports: Hx Dilation and Curettage, Hx Orthopedic Surgery - Bilateral knee replacements. Denies: Hx Appendectomy, Hx Bowel Surgery, Hx Section, Hx Cholecystectomy, Hx Hysterectomy, Hx Mastectomy , Hx Tonsillectomy, Hx Tubal Ligation - Immunizations Immunizations up to date: Yes Hx Diphtheria, Pertussis, Tetanus Vaccination: Yes <BRADEN COONEY A - Last Filed: 06/02/17 19:10> Review of Systems - Review of Systems Constitutional: See HPI, Malaise EENT: No symptoms reported Cardiovascular: No symptoms reported Respiratory: See HPI Gastrointestinal: No symptoms reported Genitourinary: No symptoms reported Female Genitourinary: No symptoms reported Musculoskeletal: No symptoms reported Skin: No symptoms reported Hematologic/Lymphatic: No symptoms reported Neurological/Psychological: No symptoms reported <BRADEN COONEY - Last Filed: 06/02/17 19:10> Physical Exam - General General appearance: Appears well In distress: Mild - HEENT Head: Normocephalic Eyes: Normal Conjunctiva: Normal Tympanic membrane: Normal Hearing loss: Left Sinus: Normal Nasal: Normal Mouth/Lips: Normal Mucous membranes: Normal Pharynx: Normal Neck: Normal - Respiratory Respiratory status: No respiratory distress Chest status: Nontender Breath sounds: Decreased air movement, Productive cough, Rhonchi - right Chest palpation: Normal - Cardiovascular Rhythm: Regular Heart sounds: Normal auscultation Murmur: No Normal capillary refill: Yes - Abdominal Inspection: Normal, Obese Distension: No distension Bowel sounds: Normal Tenderness: Nontender Organomegaly: No organomegaly - Extremities General upper extremity: Normal inspection, Nontender, Normal temperature - noted generalized weakness throughout in bilateral upper extremities and bilateral lower extremities equally. DTR +2 in bilateral upper and bilateral lower extremities equally. Full motor and sensory function to bilateral upper and bilateral lower extremities equally. General lower extremity: Normal inspection, Nontender - Neurological Neuro grossly intact: Yes Cognition: Normal - Psychological Associated symptoms: Normal affect, Confused - Skin Skin Temperature: Warm Skin Moisture: Dry Skin Color: Normal <BRADEN COONEY - Last Filed: 06/02/17 19:10> - Vital signs Vitals: Temp Pulse Resp BP Pulse Ox 98.7 F 79 16 118/77 86 L 06/02/17 14:26 06/02/17 14:26 06/02/17 14:26 06/02/17 14:26 06/02/17 14:26 Course - Laboratory Result Diagrams: 06/02/17 17:50 06/02/17 17:50 - EKG Interpretation by In EKG shows normal: Sinus rhythm - HR 77 Rate: Normal Rhythm: NSR When compared to previous EKG there are: No significant change <BRADEN COONEY - Last Filed: 06/02/17 19:10> - Laboratory Result Diagrams: 06/02/17 17:50 06/02/17 17:50 <KIM DOHERTY - Last Filed: 06/02/17 21:15> - Re-evaluation Re-evalutation: 06/02/17 1600-Pulse ox is 96% on 2 L. 17:40Trung, director social service, at bedside to discuss patient's placement. fiber worker unable to get a hold of discharge planning as well as placement facility due to after being business hours. 1610-awaiting blood results. X-ray negative for any acute findings. [id number] reviewing laboratory findings discussed case with Dr. Garcia regarding laboratory findings of patient's bicarb. all other laboratory findings are unremarkable advised to obtain a ABG. Will obtain ABG. Disposition given to Kim Doherty at 1915 (EROSBRADEN A) 06/02/17 21:04 ABG without evidence of acute on chronic respiratory acidosis with stable pH. Stable in comparison to previous ABGs from previous admission. Patient ambulated around the department with sats as low as 94% without tachypnea, declining discharge and requesting to go home. Case management has been consulted regarding home needs. Discussed with patient the requirement for her to follow up with primary care tomorrow to establish home needs given she doesnt want to go to a facility (KIM DOHERTY) - Vital Signs Vital signs: Temp Pulse Resp BP Pulse Ox 98.4 F 79 17 114/74 94 06/02/17 19:54 06/02/17 14:26 06/02/17 20:00 06/02/17 20:01 06/02/17 20:01 - Laboratory Laboratory results interpreted by me: 06/02/17 06/02/17 06/02/17 17:11 17:50 17:50 RDW 15.5 H Carbonic Acid ABG pCO2 ABG pO2 ABG HCO3 ABG Total CO2 ABG O2 Saturation Carbon Dioxide 38 H Anion Gap 3 L BUN 5 L Creatinine 0.39 L ALT 80 H Creatine Kinase < 20 L C-Reactive Protein 13.5 H Total Protein 6.0 L Urine Blood SMALL H 06/02/17 20:05 RDW Carbonic Acid 1.99 H ABG pCO2 66.0 H ABG pO2 66.2 L ABG HCO3 37.4 H ABG Total CO2 39.4 H ABG O2 Saturation 91.9 L Carbon Dioxide Anion Gap BUN Creatinine ALT Creatine Kinase C-Reactive Protein Total Protein Urine Blood Discharge <BRADEN COONEY - Last Filed: 06/02/17 19:10> <KIM DOHERTY - Last Filed: 06/02/17 21:15> - Discharge Clinical Impression: COPD exacerbation, Acute on chronic respiratory failure with hypoxia and hypercapnia Condition: Stable Disposition: HOME, SELF-CARE Additional Instructions: Please wear your oxygen as you have been directed which is 2 liters continuous. Please do not smoke. Please follow up with Dr. Reyna tomorrow since you are declining admission and did not want to go to a facility while you were admitted previously. Chronic Obstructive Lung Disease You have chronic obstructive lung disease (COPD). The symptoms come from emphysema (damage to small airways, with trapping of air in large sacks in the lung) and chronic bronchitis (repeated infection and damage to larger airways). The cause is almost always cigarette smoking, although dust exposure, asthma, and infections contribute. You should avoid fumes, dust, and smoke (especially tobacco smoke). Your condition will flare from time to time. There is no cure, but the symptoms can be treated. Bronchodilators (asthma medicine) are often helpful. Antibiotics help when infection is present. When shortness of breath is severe, we may prescribe cortisone medication. If medicine doesn't help enough, we can arrange for you to have an oxygen tank at home. Notify your doctor at once if sputum becomes thick, foul, or bloody, if you develop a fever or chest pain, or if your shortness of breath worsens. Referrals: MAAME REYNA MD [COMMUNITY BASED STAFF] - Follow up tomorrow
--- NOTE | 2017-06-02 17:46 | RADIOLOGY REPORT (SQ) ---
EXAM DESCRIPTION: CHEST SINGLE VIEW COMPLETED DATE/TIME: 06/02/2017 5:36 pm REASON FOR STUDY: confusion, pulse ox 85% on arrival COMPARISON: 05/19/2017 EXAM PARAMETERS: NUMBER OF VIEWS: One view. TECHNIQUE: Single frontal radiographic view of the chest acquired. RADIATION DOSE: NA LIMITATIONS: None. FINDINGS: LUNGS AND PLEURA: No opacities, masses or pneumothorax. No pleural effusion. MEDIASTINUM AND HILAR STRUCTURES: No masses. Contour normal. HEART AND VASCULAR STRUCTURES: The configuration of the heart and mediastinal structures is unchanged . Again the cardiac silhouette is at the upper limits of normal in size BONES: No acute findings. HARDWARE: None in the chest. OTHER: No other significant finding. IMPRESSION: NO ACUTE RADIOGRAPHIC FINDING IN THE CHEST. TECHNICAL DOCUMENTATION: JOB ID: [id number] [employer]- All Rights Reserved
[2017-06-02 18:07] LABS: URINE AMPHETAMINES SCREEN NEGATIVE; URINE BENZODIAZEPINES SCREEN NEGATIVE; URINE COCAINE SCREEN NEGATIVE; URINE MARIJUANA (THC) SCREEN NEGATIVE; URINE METHADONE SCREEN NEGATIVE; URINE PHENCYCLIDINE SCREEN NEGATIVE
[2017-06-02 18:11] LABS: URINE BARBITURATES SCREEN NEGATIVE
[2017-06-02 18:13] LABS: ABSOLUTE BASOPHILS # (AUTO) 0.1 10^3/uL (0.0-0.2); ABSOLUTE EOSINOPHILS # (AUTO) 0.2 10^3/uL (0.0-0.6); ABSOLUTE LYMPHOCYTES (AUTO) 2.6 10^3/uL (0.5-4.7); ABSOLUTE MONOCYTES (AUTO) 0.7 10^3/uL (0.1-1.4); ABSOLUTE NEUT (AUTO) 4.6 10^3/uL (1.7-8.2); BASOPHILS % (AUTO) 0.7 % (0-2); EOSINOPHILS % (AUTO) 1.9 % (0-6); HEMATOCRIT 37.4 % (36.0-47.0); HEMOGLOBIN 12.1 g/dL (12.0-15.5); LYMPHOCYTES % (AUTO) 32.2 % (13-45); MEAN CORPUSCULAR HEMOGLOBIN 29.1 pg (27.0-33.4); MEAN CORPUSCULAR HGB CONC 32.4 g/dL (32.0-36.0); MEAN CORPUSCULAR VOLUME 90 fl (80-97); MONOCYTES % (AUTO) 8.6 % (3-13); PLATELET COUNT 222 10^3/uL (150-450); RED BLOOD COUNT 4.17 10^6/uL (3.72-5.28); RED CELL DISTRIBUTION WIDTH 15.5 % (11.5-14.0); SEGMENTED NEUTROPHILS % (AUTO) 56.6 % (42-78); TOTAL CELLS COUNTED % (AUTO) 100 %; WHITE BLOOD COUNT 8.2 10^3/uL (4.0-10.5)
[2017-06-02 18:21] LABS: ALANINE AMINOTRANSFERASE 80 U/L (9-52); ALBUMIN 3.5 g/dL (3.5-5.0); ALKALINE PHOSPHATASE 78 U/L (38-126); ASPARTATE AMINO TRANSFERASE 21 U/L (14-36); BILIRUBIN,DIRECT 0.2 mg/dL (0.0-0.4); BILIRUBIN,TOTAL 0.3 mg/dL (0.2-1.3); BLOOD UREA NITROGEN 5 mg/dL (7-20); C-REACTIVE PROTEIN 13.5 mg/L (<10.0); CALCIUM 9.6 mg/dL (8.4-10.2); GLUCOSE 96 mg/dL (75-110)
[2017-06-02 18:30] LABS: NT PRO BNP 182 pg/mL (5-900)
[2017-06-02 18:33] LABS: TROPONIN I < 0.012 ng/mL
[2017-06-02 18:34] LABS: CARBON DIOXIDE 38 mmol/L (22-30); CHLORIDE 100 mmol/L (98-107); POTASSIUM 4.1 mmol/L (3.6-5.0); SODIUM 141.1 mmol/L (137-145)
[2017-06-02 18:37] LABS: ANION GAP 3 (5-19); CREATINE KINASE < 20 U/L (30-135)
--- NOTE | 2017-06-02 18:42 | EKG REPORT ---
SEVERITY:- NORMAL ECG - SINUS RHYTHM : Confirmed by: Juan Pablo Sevilla MD 02-Jun-2017 18:41:53
[2017-06-02 20:13] VITALS: BP 114/74
[2017-06-02 20:18] LABS: ARTERIAL BLOOD BASE EXCESS 9.7 mmol/L; ARTERIAL BLOOD H2CO3 1.99 mmol/L (1.05-1.35); ARTERIAL BLOOD HCO3 37.4 mmol/L (20-26); ARTERIAL BLOOD O2 SATURATION 91.9 % (94-98); ARTERIAL BLOOD PH 7.37 (7.35-7.45); ARTERIAL BLOOD PO2 66.2 mmHg (80-100); ARTERIAL BLOOD TOTAL CO2 39.4 mmol/L (21-25)
[2017-06-02 20:21] LABS: ARTERIAL BLOOD FIO2 2L
== END 2017-06-02 21:48 | disposition home or self-care (01) ==
LOC: ER 14:15 → EEVIPCON 14:15 → ER 21:48
DX: J44.1 Chronic obstructive pulmonary disease with (acute) exacerbation (principal); J96.21 Acute and chronic respiratory failure with hypoxia; J96.22 Acute and chronic respiratory failure with hypercapnia; R22.0 Localized swelling, mass and lump, head; R51 Headache; F17.200 Nicotine dependence, unspecified, uncomplicated; I10 Essential (primary) hypertension; Z99.81 Dependence on supplemental oxygen; Z96.653 Presence of artificial knee joint, bilateral
CPT/HCPCS: 36415; 71045; 80053; 80307; 81001; 82550; 82803; 82962; 83880; 84484; 85025; 86140; 93005; 93010; 99284

== ENCOUNTER → 2017-06-15 | Outpatient (CLI) | payer MEDICAID ==
[2017-06-15 10:25] LABS: ABSOLUTE EOSINOPHILS # (AUTO) 0.2 10^3/uL (0.0-0.6); ABSOLUTE LYMPHOCYTES (AUTO) 2.2 10^3/uL (0.5-4.7); ABSOLUTE MONOCYTES (AUTO) 0.5 10^3/uL (0.1-1.4); BASOPHILS % (AUTO) 0.7 % (0-2); EOSINOPHILS % (AUTO) 3.4 % (0-6); HEMATOCRIT 38.6 % (36.0-47.0); HEMOGLOBIN 12.6 g/dL (12.0-15.5); LYMPHOCYTES % (AUTO) 37.2 % (13-45); MEAN CORPUSCULAR HGB CONC 32.5 g/dL (32.0-36.0); MEAN CORPUSCULAR VOLUME 89 fl (80-97); MONOCYTES % (AUTO) 8.3 % (3-13); PLATELET COUNT 261 10^3/uL (150-450); RED BLOOD COUNT 4.33 10^6/uL (3.72-5.28); RED CELL DISTRIBUTION WIDTH 15.9 % (11.5-14.0); SEGMENTED NEUTROPHILS % (AUTO) 50.4 % (42-78); TOTAL CELLS COUNTED % (AUTO) 100 %; WHITE BLOOD COUNT 5.9 10^3/uL (4.0-10.5)
[2017-06-15 11:02] LABS: ALANINE AMINOTRANSFERASE 34 U/L (9-52); ALBUMIN 3.7 g/dL (3.5-5.0); ALKALINE PHOSPHATASE 71 U/L (38-126); ASPARTATE AMINO TRANSFERASE 27 U/L (14-36); BILIRUBIN,DIRECT 0.3 mg/dL (0.0-0.4); BILIRUBIN,TOTAL 0.3 mg/dL (0.2-1.3); BLOOD UREA NITROGEN 13 mg/dL (7-20); CALCIUM 9.7 mg/dL (8.4-10.2); CHLORIDE 101 mmol/L (98-107); CHOLESTEROL 181.41 mg/dL (0-200); GLUCOSE 93 mg/dL (75-110); TOTAL PROTEIN 6.6 g/dL (6.3-8.2); TRIGLYCERIDES 114 mg/dL (<150)
[2017-06-15 11:13] LABS: DIRECT LDL 83 mg/dL (<100)
[2017-06-15 11:34] LABS: CARBON DIOXIDE 37 mmol/L (22-30); SODIUM 144.3 mmol/L (137-145)
[2017-06-15 11:38] LABS: ANION GAP 6 (5-19)
== END ==
LOC: OD 08:53
PROVIDERS: ATTEND Family Medicine Geriatric Medicine
DX: E03.9 Hypothyroidism, unspecified (principal); J44.9 Chronic obstructive pulmonary disease, unspecified; E78.5 Hyperlipidemia, unspecified; Z79.899 Other long term (current) drug therapy
CPT/HCPCS: 36415; 80053; 80061; 84443; 85025